=== PATIENT | female | born 1990 | race Caucasian/White ===

== ENCOUNTER 2019-12-03 08:35 | Outpatient (CLI) | payer BC, SELFPAY ==
--- NOTE | ~2019-12-03 | US_ITS ---
US thyroid INDICATION: Thyroid nodules seen on CT examination TECHNIQUE: Real-time sonographic images of the thyroid gland were obtained. COMPARISON: CT cervical spine dated 05/27/2018 FINDINGS: The right thyroid lobe measures 4 x 1.8 x 2 cm. The left thyroid lobe measures 4.1 x 1.8 x 1.6 cm. There is heterogeneous echotexture with multiple small nodules, largest in the right lobe me asuring 7 mm in largest on the left measuring 8 mm, likely benign increased vascularity in both lobes .. IMPRESSION: 1. Heterogeneous thyroid gland with increased vascularity and multiple small bilateral thyroid nodul es measuring 8 mm or less, compatible with benign multinodular goiter. Reviewed, dictated and finalized at location A. TIVE LEAD IMPRESSION: 1. Heterogeneous thyroid gland with increased vascularity and multiple small b ilateral thyroid nodules measuring 8 mm or less, compatible with benign multino dular goiter.
== END 2019-12-03 08:36 | disposition home or self-care (01) ==
LOC: ANHIMG 08:40
PROVIDERS: PCP Family Medicine; Visit Provider Family Medicine
DX: E04.2 Nontoxic multinodular goiter (principal)
CPT/HCPCS: 76536

== ENCOUNTER 2020-01-06 09:24 | Outpatient (RCR) | payer BC, SELFPAY ==
[2020-01-06 10:47] LABS: Hemoglobin A1C 5.1 % (<5.7)
[2020-01-06 11:07] LABS: Beta HCG Quantitative < 2.39 mIU/ML
[2020-01-06 11:47] LABS: Free T4 Free Thyroxine 0.79 ng/mL (0.78-2.19); Vitamin D 25 Hydroxy 31.1 ng/mL
[2020-01-09 14:52] LABS: Rubeola Measles IgG >300.00 AU/mL (>16.49)
[2020-01-09 21:21] LABS: FSH 6.4 mIU/mL (***); LH 2.9 mIU/mL (***); Progesterone 0.4 ng/mL (***); Prolactin 8.2 ng/mL (***)
[2020-01-10 04:27] LABS: Thyroid Peroxidase Antibodies 457 IU/mL (<9)
[2020-01-10 08:47] LABS: CMV IgG Antibody <0.60 U/mL (<0.60)
[2020-01-11 07:48] LABS: SM Antibody <1.0; SM/RNP Antibody <1.0
[2020-01-11 11:17] LABS: CMV IgM Antibody <30.00 AU/mL (<30.00)
[2020-01-13 22:57] LABS: Estradiol, Ultrasensitive 35 pg/mL
== END 2020-04-05 23:59 | disposition home or self-care (01) ==
LOC: ANHLAB 09:24
PROVIDERS: PCP Family Medicine; Visit Provider Obstetrics & Gynecology
DX: Z11.59 Encounter for screening for other viral diseases (principal)
CPT/HCPCS: 36415; 81220; 82306; 82397; 82670; 83001; 83002; 83036; 84144; 84146; 84439; 84443; 84702; 86235; 86376; 86644; 86645; 86765; 86850; 86900; 86901

== ENCOUNTER 2020-02-09 10:31 | Outpatient (CLI) | payer BC, SELFPAY ==
[2020-02-09 11:06] LABS: Alanine Aminotransferase 20 U/L (4-35); Albumin Level 4.2 g/dL (3.5-5.1); Alkaline Phosphatase 78 U/L (38-126); Aspartate Amino Transferase 32 U/L (14-36); Bilirubin,Total 0.5 mg/dL (0.2-1.3); Blood Urea Nitrogen 9 mg/dL (7-17); Calcium 9.1 mg/dL (8.4-10.2); Carbon Dioxide 30 mmol/L (22-30); Chloride 104 mmol/L (98-107); Estimated Glomerular Filt Rate > 60; Glucose 100 mg/dL (65-105); Potassium 4.1 mmol/L (3.4-5.0); Sodium 140 mmol/L (137-145)
== END 2020-02-09 10:32 | disposition home or self-care (01) ==
PROVIDERS: PCP Family Medicine; Visit Provider Family Medicine
DX: R74.8 Abnormal levels of other serum enzymes (principal)
CPT/HCPCS: 36415; 80053

== ENCOUNTER 2020-02-16 11:35 | Outpatient (CLI) | payer BC, SELFPAY ==
--- NOTE | ~2020-02-16 | XR_ITS ---
XR ankle RT min 3V 02/16/2020 11:58 INDICATION: Right ankle pain PROCEDURE: 4 views right ankle COMPARISON: 05/28/2014 FINDINGS: Fracture, dislocation or subluxation is not identified. Ankle mortise intact. The soft tiss ues appear within normal limits. No foreign bodies are identified. IMPRESSION: 1: NO ACUTE BONE OR JOINT ABNORMALITY IDENTIFIED. Reviewed, dictated and finalized at location A.
== END 2020-02-16 11:36 | disposition home or self-care (01) ==
LOC: ANHIMG 11:40
PROVIDERS: PCP Family Medicine; Visit Provider Family Medicine
DX: M25.571 Pain in right ankle and joints of right foot (principal); M79.671 Pain in right foot
CPT/HCPCS: 73610

== ENCOUNTER 2020-04-28 09:28 | Outpatient (CLI) | payer BC, SELFPAY ==
--- NOTE | ~2020-04-28 | MR_ITS ---
EXAMINATION: MR ankle RT wo con DATE: 04/28/2020 10:15 INDICATION: Right heel and ankle pain with limited range of motion post right ankle injury TECHNIQUE: Magnetic resonance imaging (MRI) of the right ankle was performed without intravenous cont rast. Sequences included sagittal, coronal, and axial proton-density weighted fast spin echo without and with fat saturation. COMPARISON: None. FINDINGS: Medial ankle ligaments: Deep and superficial deltoid ligaments as well as the spring ligament are normal. Lateral ankle ligaments: The anterior and posterior inferior tibiofibular ligaments are normal. The anterior talofibular, calc aneofibular and posterior talofibular ligaments are normal. Tendons: Achilles tendon is normal. The peroneus longus and brevis tendons are normal. The tibialis anterior a nd extensor hallucis longus and extensor digitorum longus tendons are normal. The tibialis posterior, flexor digitorum longus and flexor hallucis longus tendons are normal. Plantar fascia: Plantar aponeurosis is normal. Bones/other: Bone alignment is normal. No fracture or pathologic marrow replacing process. Joint spaces appear nor mal. No osteochondral lesions identified. Small Achilles calcaneal enthesophyte. Fluid: Physiologic amount of fluid in the joint spaces. IMPRESSION: 1. Small Achilles calcaneal enthesophyte. Otherwise unremarkable MRI of the right ankle and hindfoot. Reviewed, dictated and finalized at location A. IMPRESSION: 1. Small Achilles calcaneal enthesophyte. Otherwise unremarkable MRI of the rig ht ankle and hindfoot.
== END 2020-04-28 09:29 | disposition home or self-care (01) ==
PROVIDERS: PCP Family Medicine; Visit Provider Family Medicine
DX: S99.919A Unspecified injury of unspecified ankle, initial encounter (principal); X58.XXXA Exposure to other specified factors, initial encounter; M25.571 Pain in right ankle and joints of right foot; M77.31 Calcaneal spur, right foot
CPT/HCPCS: 73721

== ENCOUNTER 2020-10-10 15:36 | Outpatient (CLI) | payer BC, SELFPAY ==
[2020-10-10 16:02] LABS: Basophils Percent Auto 0.3 % (0.2-1.2); Eosinophils Absolute Auto 0.1 K/mm3 (0-0.3); Eosinophils Percent Auto 1.2 % (0-4.4); Hematocrit 39.6 % (37.0-47.0); Hemoglobin 13.6 g/dL (12.0-15.0); Immature Granulocyte Absolute 0.02 K/mm3 (0.00-0.031); Immature Granulocyte Percent A 0.3 % (0-0.5); Lymphocytes Absolute Auto 1.72 K/mm3 (0.9-3.2); Lymphocytes Percent Auto 26.7 % (18.3-44.2); Mean Corpuscular HGB Conc 34.3 g/dl (32-36); Mean Corpuscular Hemoglobin 31.5 pg (26-34); Mean Corpuscular Volume 91.7 fl (80-100); Mean Platelet Volume 10.4 fl (7.4-10.4); Monocytes Absolute Auto 0.3 K/mm3 (0.1-0.6); Monocytes Percent Auto 4.7 % (2.6-8.5); Neutrophils Absolute Auto 4.3 K/mm3 (1.3-6.7); Neutrophils Percent Auto 66.8 % (45.5-73.1); Platelet Count Result 245 k/mm3 (150-375); Red Blood Count 4.32 M/mm3 (4.2-5.4); Red Cell Distribution Width 12.6 % (11.5-14.5); White Blood Count 6.4 K/mm3 (4.5-10.0)
[2020-10-10 17:10] LABS: Free T4 Free Thyroxine 0.76 ng/mL (0.78-2.19); Vitamin D 25 Hydroxy 39.2 ng/mL
[2020-10-10 17:25] LABS: Hepatitis B Surface Antigen Negative (Negative)
[2020-10-10 17:38] LABS: Hepatitis C Virus Antibody Negative (Negative)
== END 2020-10-10 15:37 | disposition home or self-care (01) ==
LOC: ANHLAB 15:38
PROVIDERS: PCP Physician Assistant; Visit Provider Physician Assistant
DX: Z31.41 Encounter for fertility testing (principal)
CPT/HCPCS: 36415; 82306; 84439; 84443; 85025; 86803; 87340; 87491; 87591

== ENCOUNTER 2020-11-08 11:21 | Outpatient (CLI) | payer BC, SELFPAY ==
[2020-11-11 07:10] LABS: Rapid Plasma Reagin Non-Reactive (NonReactive)
== END 2020-11-08 11:22 | disposition home or self-care (01) ==
LOC: ANHLAB 11:29
PROVIDERS: PCP Physician Assistant; Visit Provider Physician Assistant
DX: Z31.41 Encounter for fertility testing (principal)
CPT/HCPCS: 36415; 86592

== ENCOUNTER 2020-11-26 10:43 | Outpatient (CLI) | payer BC, SELFPAY ==
--- NOTE | ~2020-11-26 | XR_ITS ---
EXAMINATION: XR chest 2V w BI decubitus DATE: 11/26/2020 11:19 INDICATION: Shortness of breath. TECHNIQUE: Frontal and lateral views and bilateral decubitus views of the chest were obtained. COMPARISON: None. FINDINGS: There is a small free-flowing right pleural effusion. No pneumonia or pneumothorax. The hea rt size is normal. IMPRESSION: 1. Small free-flowing right pleural effusion. Reviewed, dictated and finalized at location A. D LEAD
== END 2020-11-26 10:44 | disposition home or self-care (01) ==
PROVIDERS: PCP Physician Assistant
DX: R06.02 Shortness of breath (principal); R06.89 Other abnormalities of breathing; J90 Pleural effusion, not elsewhere classified
CPT/HCPCS: 71048

== ENCOUNTER 2021-01-07 16:38 | Emergency (ER) | payer OTHER, BC, SELFPAY ==
--- NOTE | ~2021-01-07 | XR_ITS ---
XR ankle RT min 3V 01/07/2021 17:14 Indication: Right ankle swelling and pain after fall Procedure: 4 views right ankle Comparison: 02/16/2020 Findings: There is a joint effusion. There is mild lateral soft tissue swelling. No acute fracture or traumatic malalignment. No foreign bodies. Impression: 1: No acute fracture. Reviewed, dictated and finalized at location A. IPITATOR Impression: 1: No acute fracture.
[2021-01-07 16:50] VITALS: BP 133/80; PULSE 96; RESP 20; TEMP 36; O2SAT 99
[2021-01-07 17:41] VITALS: BP 114/69; PULSE 70; RESP 18; TEMP 36.7; O2SAT 97
--- NOTE | 2021-01-07 17:53 | ED.LOWEXIN ---
HPI - Extremity Injury (Lower) General Chief Complaint: Extremity Injury, Lower Stated Complaint: fall, r leg pain Time Seen by Provider: 01/07/21 17:33 Source: patient Mode of arrival: wheelchair Limitations: no limitations History of Present Illness HPI Narrative: This is a 30-year-old female that presents the emergency department for right ankle injury sustained just prior to arrival. Reports she tripped over her cast twisting her right ankle. Reports pain and swelling in the ankle. Denies hitting her head, loss of consciousness, other injuries, decreased range of motion or numbness. Related Data Home Medications Medication Instructions Recorded Confirmed amitriptyline 10 mg tablet 10 mg PO .QHS tablet 09/27/19 04/18/20 diclofenac sodium 50 mg 50 mg PO TID PRN 04/18/20 04/18/20 tablet,delayed release Allergies Allergy/AdvReac Type Severity Reaction Status Date / Time kiwi Allergy Intermediate Anaphylactic Verified 04/18/20 15:53 Shock No Known Drug Allergies Allergy Intermediate Other Verified 05/27/18 13:16 Review of Systems Review of Systems: Narrative: CONSTITUTIONAL: Denies fever MUSCULOSKELETAL: Reports joint pain, and myalgia. NEUROLOGIC: Denies numbness, or weakness. All systems reviewed & are unremarkable except as noted in HPI and below PMFSH Past Medical History Medical History (Updated 01/07/21 @ 17:56 by Gwendolyn Rojas PA-C) Back pain Chronic headaches Obesity (BMI 30.0-34.9) Surgical History Surgical History History of hand surgery [place] teeth removed Family History Family History Father Family history of diabetes mellitus in first degree relative Mother Diabetes mellitus Other Family history of alcoholism Hypertension Social History Social History Smoking status: Never smoker Second hand tobacco smoke exposure: No Alcohol intake: current Substance use: never Substance use type: does not use Exam Narrative: Exam Narrative: GENERAL: Well-appearing, well-nourished, and in no acute distress. HEAD: Normocephalic, atraumatic. NECK: No midline cervical spine tenderness EYES: EOMI. CHEST: Clear to auscultation. No respiratory distress. No wheezes rales or rhonchi HEART: Regular rate and rhythm. No murmur heard. Normal peripheral pulses. BACK: No midline spinal tenderness EXTREMITIES: Normal range of motion. Mild edema about the right lateral malleoli, tender to palpation. Normal DP pulses. Normal sensation SKIN: Warm, dry, no rash. NEURO: No focal deficits. Alert and oriented x3. PSYCH: Normal mood and affect Course Vital Signs Vital signs: Vital Signs Temperature 96.8 F L 01/07/21 16:50 Pulse Rate 96 01/07/21 16:50 Respiratory Rate 20 01/07/21 16:50 Blood Pressure 133/80 01/07/21 16:50 Pulse Oximetry 99 01/07/21 16:50 Temperature 98.0 F 01/07/21 17:41 Pulse Rate 70 01/07/21 17:41 Respiratory Rate 18 01/07/21 17:41 Blood Pressure 114/69 01/07/21 17:41 Pulse Oximetry 97 01/07/21 17:41 MDM - Extremity Injury (Lower) MDM Narrative Medical decision making narrative: Patient presents to the emergency department for right ankle injury sustained just prior to arrival. Right ankle x-rays without acute findings. Patient was instructed on care of ankle sprain. She is to follow-up with primary care doctor. She was given warnings to return the ER Imaging Data Radiologist's impression: ITS Impressions Ankle X-Ray 01/07/21 17:19 Impression: 1: No acute fracture. Critical Care Time Critical Care Time Critical Care Time: No Discharge Plan Discharge Clinical Impression: Right ankle sprain Qualifiers: Encounter type: initial encounter Involved ligament of ankle: unspecified ligament Qualified Code(s): S93.401A - Sprain of unsp
--- NOTE | 2021-01-07 18:26 | PC.NURSE ---
doug wrap applied to right ankle. crutches provided
== END 2021-01-07 18:28 | disposition home or self-care (01) ==
PROVIDERS: Emergency Provider Emergency Medicine; PCP Physician Assistant
DX: S93.401A Sprain of unspecified ligament of right ankle, initial encounter (principal); E66.9 Obesity, unspecified; Z68.32 Body mass index [BMI] 32.0-32.9, adult; W18.09XA Striking against other object with subsequent fall, initial encounter
CPT/HCPCS: 73610; 99283

== ENCOUNTER 2021-01-10 14:28 | Outpatient (CLI) | payer BC, SELFPAY ==
[2021-01-10 16:10] LABS: Free T4 Free Thyroxine 1.04 ng/mL (0.78-2.19)
[2021-01-10 18:05] LABS: Total Triiodothyronine (T3) 1.67 NG/ML (0.97-1.69)
== END 2021-01-10 14:29 | disposition home or self-care (01) ==
PROVIDERS: PCP Physician Assistant; Visit Provider Internal Medicine Endocrinology, Diabetes & Metabolism
DX: E04.9 Nontoxic goiter, unspecified (principal)
CPT/HCPCS: 36415; 84439; 84443; 84480

== ENCOUNTER 2021-01-14 15:23 | Outpatient (CLI) | payer BC, SELFPAY ==
--- NOTE | ~2021-01-14 | US_ITS ---
EXAMINATION: US thyroid EXAM DATE: 01/14/2021 15:50 INDICATION: Nontoxic goiter. TECHNIQUE: Multiple grayscale and Doppler images of the thyroid were obtained (by a technologist who performed the scan) and subsequently reviewed. Individual nodules and recommendations may be reporte d in accordance with TI-RADS system as designated by the 2017 ACR White Paper TI-RADS committee. Comp phil is made to prior examination from 12/03/2019. FINDINGS: The right thyroid lobe measures 3.9 x 1.4 x 1.8 cm, the left measuring 3.5 x 1.3 x 1.5 cm. There is l obular thyroid contour and mildly heterogeneous echogenicity throughout with small thyroid nodules. There is nodule in the midpole deep aspect left thyroid lobe measuring 9 x 7 x 10 mm, solid (2 points ), very hypoechoic (3 points), wider than tall, lobulated margin (2 points), without echogenic foci, category TR5 for this nodule. This measured 4 x 6 x 8 mm a year ago, has increased in size. Several other nodules are less than a centimeter in size and do not appear changed. IMPRESSION: 1. Multinodular goiter. 2. Increase in size of left thyroid lobe TR5 nodule; recommend ultrasound-guided biopsy. Reviewed, dictated and finalized at location A. IMPRESSION: 1. Multinodular goiter. 2. Increase in size of left thyroid lobe TR5 nodule; recommend ultrasound-guid ed biopsy.
== END 2021-01-14 15:24 | disposition home or self-care (01) ==
PROVIDERS: PCP Physician Assistant; Visit Provider Internal Medicine Endocrinology, Diabetes & Metabolism
DX: E04.2 Nontoxic multinodular goiter (principal)
CPT/HCPCS: 76536

== ENCOUNTER 2021-03-07 13:12 | Outpatient (CLI) | payer BC, SELFPAY ==
[2021-03-07 13:56] LABS: Hematocrit 38.9 % (37.0-47.0); Hemoglobin 13.7 g/dL (12.0-15.0); Mean Corpuscular HGB Conc 35.2 g/dl (32-36); Mean Corpuscular Hemoglobin 30.7 pg (26-34); Mean Corpuscular Volume 87.2 fl (80-100); Mean Platelet Volume 10.3 fl (7.4-10.4); Platelet Count Result 225 k/mm3 (150-375); Red Blood Count 4.46 M/mm3 (4.2-5.4); Red Cell Distribution Width 12.3 % (11.5-14.5); White Blood Count 6.9 K/mm3 (4.5-10.0)
[2021-03-07 14:50] LABS: HIV 1/2 Ab P24 Ag Result Negative (Negative)
[2021-03-07 15:28] LABS: Hepatitis B Surface Antigen Negative (Negative); Rubella IgG Antibody 20.8 IU/ML
[2021-03-09 18:16] LABS: CMV IgG Antibody <0.60 U/mL (<0.60)
[2021-03-10 08:55] LABS: Rapid Plasma Reagin Non-Reactive (NonReactive)
== END 2021-03-07 13:13 | disposition home or self-care (01) ==
LOC: ANHLAB 13:14
PROVIDERS: PCP Family Medicine; Visit Provider Obstetrics & Gynecology
DX: Z34.91 Encounter for supervision of normal pregnancy, unspecified, first trimester (principal); Z3A.00 Weeks of gestation of pregnancy not specified
CPT/HCPCS: 36415; 85027; 86592; 86644; 86703; 86747; 86762; 86787; 86850; 86900; 86901; 87086; 87088; 87340; G0432

== ENCOUNTER 2021-06-03 10:36 | Outpatient (CLI) | payer BC, SELFPAY ==
--- NOTE | ~2021-06-03 | US_ITS ---
EXAMINATION: US thyroid DATE: 06/03/2021 11:00 INDICATION: Nontoxic goiter. TECHNIQUE: Multiple ultrasound images of the thyroid were obtained. COMPARISON: Thyroid ultrasound 01/14/2021, 12/03/2019 FINDINGS: The right thyroid lobe measures 4.0 x 2.2 x 1.8 cm. The left thyroid lobe measures 3.7 x 1.7 x 1.7 c m. The thyroid demonstrates heterogeneous echogenicity. Vascularity is normal. In the left thyroid l obe, there is a 12 mm solid, very hypoechoic, pzayb-hxga-hnhi nodule with smooth margin without echog enic foci (TI-RADS TR4), worsened from 9 mm on 01/14/21. In the right thyroid lobe, there is a 5 mm so lid, hypoechoic, etfhu-ymuh-acrj nodule with smooth margin without echogenic foci (TR4). In the right thyroid lobe, there is a 6 mm solid, hypoechoic, wvdsr-etmd-pzzy nodule with smooth margin without e chogenic foci (TR4). IMPRESSION: 1. Multinodular goiter. Thyroid ultrasound is recommended in one year. Reviewed, dictated and finalized at location A.
== END 2021-06-03 10:37 | disposition home or self-care (01) ==
LOC: ANHIMG 10:37
PROVIDERS: PCP Family Medicine; Visit Provider Internal Medicine Endocrinology, Diabetes & Metabolism
DX: E04.2 Nontoxic multinodular goiter (principal)
CPT/HCPCS: 76536

== ENCOUNTER 2021-06-13 13:00 | Outpatient (CLI) | payer BC, SELFPAY ==
--- NOTE | ~2021-06-13 | US_ITS ---
EXAMINATION: US FNA w image guidance DATE: 06/13/2021 14:01 INDICATION: Left thyroid nodule. TECHNIQUE: The procedure and its benefits and risks were discussed with the patient. Risks specifically discusse d included bleeding. The patient verbalized understanding of the risks and agreed to proceed. The nec k was prepped and draped in the usual sterile manner. 1% lidocaine was used for local anesthesia. 6 passes were made with a 25G needle into the lesion under ultrasound guidance. There were no immedia te complications. FINDINGS: Grayscale ultrasound images demonstrate needles advanced into a 12 mm nodule in left thyroid lobe for biopsy. IMPRESSION: 1. Ultrasound-guided fine needle aspiration of a left thyroid nodule. Reviewed, dictated and finalized at location A.
== END 2021-06-13 13:01 | disposition home or self-care (01) ==
LOC: ANHIMG 13:03
PROVIDERS: PCP Family Medicine; Visit Provider Internal Medicine Endocrinology, Diabetes & Metabolism
DX: E04.1 Nontoxic single thyroid nodule (principal)
CPT/HCPCS: 10005; 88173; 88305

== ENCOUNTER 2021-06-27 09:18 | Outpatient (CLI) | payer BC, SELFPAY ==
[2021-06-27 10:54] LABS: Hematocrit 30.7 % (37.0-47.0); Hemoglobin 10.7 g/dL (12.0-15.0)
[2021-06-27 11:06] LABS: Glucose 1 Hour PP 50gm Dose 124 mg/dL
[2021-06-27 11:46] LABS: HIV 1/2 Ab P24 Ag Result Negative (Negative)
[2021-07-02 07:06] LABS: Triiodothyronine T3 Free 3.3 pg/mL (2.3-4.2)
== END 2021-06-27 09:19 | disposition home or self-care (01) ==
PROVIDERS: PCP Family Medicine; Visit Provider Obstetrics & Gynecology
DX: E06.3 Autoimmune thyroiditis (principal); Z34.91 Encounter for supervision of normal pregnancy, unspecified, first trimester; Z3A.00 Weeks of gestation of pregnancy not specified
CPT/HCPCS: 36415; 82947; 84443; 84481; 85014; 85018; 86703; G0432

== ENCOUNTER 2021-07-25 15:11 | Outpatient (CLI) | payer BC, SELFPAY ==
--- NOTE | ~2021-07-25 | XR_ITS ---
EXAMINATION: XR ankle RT min 3V DATE: 07/25/2021 15:34 INDICATION: Right foot and ankle pain TECHNIQUE: Anteroposterior, oblique, mortise, and lateral views of the right ankle were obtained. COMPARISON: None. FINDINGS: Nondisplaced avulsion fracture at the tip of the lateral malleolus. Alignment remains essentially rosemarie tomic. No other fractures identified. Joint spaces are normal with large right ankle joint effusion. Small Achilles calcaneal spur. Prominent soft tissue swelling about the lateral malleolus. IMPRESSION: 1. Nondisplaced avulsion fracture at the tip of the lateral malleolus with large right ankle joint ef fusion. Reviewed, dictated and finalized at location A. IMPRESSION: 1. Nondisplaced avulsion fracture at the tip of the lateral malleolus with larg e right ankle joint effusion.
== END 2021-07-25 15:12 | disposition home or self-care (01) ==
LOC: ANHIMG 15:16
PROVIDERS: PCP Family Medicine; Visit Provider Physician Assistant
DX: M25.571 Pain in right ankle and joints of right foot (principal); S82.64XA Nondisplaced fracture of lateral malleolus of right fibula, initial encounter for closed fracture; X58.XXXA Exposure to other specified factors, initial encounter
CPT/HCPCS: 73610

== ENCOUNTER 2021-09-18 16:57 | Inpatient (IN) | payer BC, SELFPAY ==
[2021-09-18] VITALS (10 sets, daily range): BP systolic 99–115; BP diastolic 61–80; PULSE 85–103; RESP 18–20; TEMP 36.6–36.9; BMI 34.0
--- NOTE | 2021-09-18 16:57 | LDADM ---
This patient, Raven Junior, was admitted to Labor/Delivery/Recovery 105 on 09/18/21 at 16:57. Plans for labor, pain management and were discussed with patient. Patient/family oriented to hospital policies and general routines including ID bracelet, bed and alarms, visiting hours, pain management, procedures, bathroom and other care routines, personal items, smoking policy, room service/diet and guest tray routines, security routines, and visiting hours. Patient/Family are encouraged to report perceived risks to care and to ask questions if they do not understand what they are told or what they should do. See OBIX for further documentation.
[2021-09-18 17:35] LABS: Basophils Percent Auto 0.2 % (0.2-1.2); Eosinophils Absolute Auto 0.1 K/mm3 (0-0.3); Eosinophils Percent Auto 0.9 % (0-4.4); Hematocrit 32.4 % (37.0-47.0); Hemoglobin 11.5 g/dL (12.0-15.0); Immature Granulocyte Absolute 0.03 K/mm3 (0.00-0.031); Immature Granulocyte Percent A 0.3 % (0-0.5); Lymphocytes Absolute Auto 1.77 K/mm3 (0.9-3.2); Lymphocytes Percent Auto 19.8 % (18.3-44.2); Mean Corpuscular HGB Conc 35.5 g/dl (32-36); Mean Corpuscular Hemoglobin 31.5 pg (26-34); Mean Corpuscular Volume 88.8 fl (80-100); Mean Platelet Volume 11.3 fl (7.4-10.4); Monocytes Absolute Auto 0.5 K/mm3 (0.1-0.6); Monocytes Percent Auto 5.4 % (2.6-8.5); Neutrophils Absolute Auto 6.6 K/mm3 (1.3-6.7); Neutrophils Percent Auto 73.4 % (45.5-73.1); Platelet Count Result 152 k/mm3 (150-375); Red Blood Count 3.65 M/mm3 (4.2-5.4); Red Cell Distribution Width 13.4 % (11.5-14.5)
[2021-09-18] MEDS: DINOPROSTONE 10 MG VAG INSERT VAGINAL (17:51)
[2021-09-19] VITALS (105 sets, daily range): BP systolic 85–124; BP diastolic 44–85; PULSE 76–113; RESP 18; TEMP 36.4–37.3; O2SAT 95–100
[2021-09-19] MEDS: LACTATED RINGERS 1,000 ML 125 ML IV CONT ×3 (03:05→17:36)
[2021-09-19] MEDS: fentaNYL CITRATE INJ (*CRX) 100 MCG/2 ML VIAL 50 MCG IV PUSH ×2 (03:10→05:03)
[2021-09-19] MEDS: OXYTOCIN 30 UNITS/NS 500 ML 30 UNITS/500 ML BAG 6 UNITS IV CONT (06:11)
[2021-09-19 06:26] LABS: Rapid Plasma Reagin Non-Reactive (NonReactive)
[2021-09-19] MEDS: ONDANSETRON INJ 4 MG/2 ML VIAL IV PUSH ×2 (06:58→21:33)
--- NOTE | 2021-09-19 08:58 | WPDANESEPP ---
Anes - Eval Pre Procedure Procedure: labor epidural Date/Time: 09/19/21 08:58 Surgeon: martine Preop Diagnosis: pain during labor Pre Op Diagnosis: iol Patient Data Age: 31 Gender: F Height: 1.75 m Weight: 104.5 kg Last Vital Signs Temp 36.4 C L 09/19/21 06:11 Pulse 80 09/19/21 08:30 Resp 18 09/19/21 03:15 BP 107/70 09/19/21 08:30 Allergies Allergy/AdvReac Type Severity Reaction Status Date / Time black pepper Allergy Intermediate buring in Verified 08/26/21 14:37 mouth kiwi Allergy Intermediate BURING IN Verified 08/26/21 14:37 MOUTH Home Medications Medication Instructions Recorded Confirmed Type prenat.vits,reji,fzg-kyyj-soqok 1 tablet PO DAILY 01/09/21 09/18/21 History aspirin 81 mg tablet,delayed 81 mg PO DAILY 02/10/21 09/18/21 History release cholecalciferol (vitamin D3) 100 mcg PO DAILY 08/26/21 09/18/21 History [Vitamin D3] doxylamine succinate [Unisom 25 mg PO HS PRN 08/26/21 09/18/21 History (doxylamine)] pyridoxine (vitamin B6) 100 mg PO DAILY 08/26/21 09/18/21 History Laboratory Tests 09/18/21 09/18/21 09/18/21 17:29 17:29 17:29 WBC 9.0 K/mm3 K/mm3 (4.5-10.0) RBC 3.65 M/mm3 L M/mm3 (4.2-5.4) Hgb 11.5 g/dL L g/dL (12.0-15.0) Hct 32.4 % L % (37.0-47.0) MCV 88.8 fl fl (80-100) MCH 31.5 pg pg (26-34) MCHC 35.5 g/dl g/dl (32-36) RDW 13.4 % % (11.5-14.5) Plt Count 152 k/mm3 k/mm3 (150-375) MPV 11.3 fl H fl (7.4-10.4) Immature Gran % (Auto) 0.3 % % (0-0.5) Neut % (Auto) 73.4 % H % (45.5-73.1) Lymph % (Auto) 19.8 % % (18.3-44.2) Ray % (Auto) 5.4 % % (2.6-8.5) Eos % (Auto) 0.9 % % (0-4.4) Baso % (Auto) 0.2 % % (0.2-1.2) Lymph # (Auto) 1.77 K/mm3 K/mm3 (0.9-3.2) Ray # (Auto) 0.5 K/mm3 K/mm3 (0.1-0.6) Eos # (Auto) 0.1 K/mm3 K/mm3 (0-0.3) Baso # (Auto) 0.0 K/mm3 K/mm3 (0.0-0.1) Abs Immat Gran (auto) 0.03 K/mm3 K/mm3 (0.00-0.031) Absolute Neuts (auto) 6.6 K/mm3 K/mm3 (1.3-6.7) Absolute Nucleated RBC 0.0 K/mm3 K/mm3 (0.0-0.012) Nucleated RBC % 0.0 % % (0.0-0.2) RPR Non-reactive (NonReactive) Blood Type O Positive Antibody Screen Negative Patient hx anesthesia problems: none Family hx anesthesia problems: none Results Review: All pre-operative results and documents have been reviewed as part of the pre-operative evaluation. [facility] Past Medical History Medical History Anxiety Back pain Chronic headaches KG (generalized anxiety disorder) Migraine Obesity (BMI 30.0-34.9) Surgical History Surgical History History of hand surgery [place] teeth removed Family History Family History Father Family history of diabetes mellitus in first degree relative Mother Diabetes mellitus Atrial fibrillation Heart disease Thyroid disease Cerebrovascular accident Hypertension Sibling ADD (attention deficit disorder) ADHD, impulsive type Family history of alcoholism Grandparent Congestive heart failure Heart disease Grandparent Cerebrovascular accident Social History Social History (Updated 07/30/21 @ 09:57 by Naomi Urbina) Smoking status: Never smoker Second hand tobacco smoke exposure: No Alcohol intake: current Substance use: never Substance use type: does not use Additional living arrangements comments: Girlfriend - Shahrzad Additional occupation/education comments: [employer] Gender identity (if verbalized by the patient): Female Sexual Orientation (if Verbalized by the Patient): Lesbian, Lopez, or Homosexual Spiritual care concerns:
[2021-09-19] MEDS: fentaNYL CITRATE INJ (*CRX) 100 MCG/2 ML VIAL IV PUSH ×3 (09:25→15:53)
[2021-09-20] VITALS (40 sets, daily range): BP systolic 63–130; BP diastolic 24–95; PULSE 90–170; RESP 18–20; TEMP 36.4–37.7
[2021-09-20] MEDS: OXYTOCIN 30 UNITS/NS 500 ML 30 UNITS/500 ML BAG 125 UNITS IV CONT ×2 (06:53→07:25)
--- NOTE | 2021-09-20 07:38 | P.PCNOB_ITS ---
OB - Delivery Note Procedure Route of delivery: Episiotomy description: None Laceration Description: Vaginal - 2nd Degree Delivery repair: chromic Specimen: No Quantitative Blood Loss (ml): 750 Anesthesia type: Epidural Disposition: floor Narrative: Patient prepped in usual manner for this procedure. Maternal expuls elis efforts readily delivered vertex in the rest of baby delivered without difficulty. Cord was clamped and cut and placenta delivered spontaneously. Cervix vagina vulva were inspected and midline laceration with bilateral sulcus tears were noted. The sulcus tears were approximated using 2 0 chromic in a running interlocking manner followed by the laceration repair which was performed with 2 0 chromic to approximate vaginal tissue deep tissue and a subcuticular layer. Cervix vagina vulva were again inspected uterus was well contracted no significant bleeding patient are procedure well. Immediate postop condition of mother baby were both excellent. Baby Weeks of gestation at delivery: 39 gender: Male Weight (pounds): 8 Weight (ounces): 12 score one minute: 8 score five minutes: 9
--- NOTE | 2021-09-20 07:38 | WPDOBADMIT ---
Obstetrics - Admit Note Admission Note: record reviewed. No pertinent additions to the history and/or any subsequent changes in the physical findings that are not consistent with the expected course of the were found. Additions to the history and/or subsequent changes in the physical findings follow. None.
--- NOTE | 2021-09-20 07:38 | WPDHPUPDATE1 ---
History and Physical Update Update Date/Time: 09/20/21 07:38 History and Physical has been reviewed, including an updated exam of the patient. There are NO changes in the patient's condition. Risks, benefits, and alternatives have been discussed and questions answered. Patient agrees to proceed with procedure.
[2021-09-20] MEDS: IBUPROFEN 600 MG TABLET PO ×3 (08:05→22:50)
[2021-09-20] MEDS: miSOPROStol 200 MCG TABLET 1000 MCG (08:08)
[2021-09-20] MEDS: HYDROcodone/acetaminophen (*CRX) 5-325 MG TABLET 1 TAB PO ×2 (08:25→22:50)
[2021-09-20] MEDS: BENZOCAINE 20% AER SPR (*SP) 56 GM CAN 1 SPRAY TOPICAL (09:38)
[2021-09-20] MEDS: WITCH HAZEL 40 PADS 1 PAD TOPICAL (09:38)
--- NOTE | 2021-09-20 09:51 | OBPPTRN ---
Patient transferred to post room # 292 via wheelchair. Support person present. Oriented to unit, room, information board, rooming in, admission packet and security measures. Patient verbalizes understanding.
[2021-09-21 03:45] VITALS: BP 91/53; PULSE 86; RESP 18; TEMP 36.8
[2021-09-21 04:34] LABS: Hematocrit 21.1 % (37.0-47.0); Hemoglobin 7.3 g/dL (12.0-15.0)
[2021-09-21 07:18] VITALS: BP 97/59; PULSE 90; RESP 14; TEMP 36.9; O2SAT 99
--- NOTE | 2021-09-21 07:53 | PM.OBDSVD ---
DS: Admitting Diagnosis Discharge Date 09/21/2021 Admitting Diagnosis OB - DS: Summary OB Procedures : None OB Procedures Intrapartum: Spontaneous Vag Delivery OB Procedures: : None Time Spent with Patient Time attestation: Total time spent providing and/or coordinating discharge services: DS: Data Data Completed and Pending Labs on day of discharge: Labs from last 24 hours 09/21/21 03:44 Hgb 7.3 L D Hct 21.1 L Discharge Plan Discharge Discharging Clinician: Andreas Cabrera Patient Disposition: Home, Self-Care Activity: as tolerated Diet: as tolerated Patient Instructions: Antibiotic Form Stand Alone Forms: General Discharge Information Follow-up/Referrals: Andreas Cabrera MD [Physician] - 3 Weeks Discharge Medications: New ibuprofen 600 mg Tablet 600 mg PO Q6H PRN (Reason: Cramping) Qty: 30 RF: 0 Continued prenat.vits,reji,eni-nxhj-hpzut Tablet 1 tablet PO DAILY RF: 0 Discontinued aspirin 81 mg tablet,delayed release (DR/EC) 81 mg PO DAILY RF: 0 pyridoxine (vitamin B6) 100 mg Tablet 100 mg PO DAILY RF: 0 Unisom (doxylamine) 25 mg Tablet 25 mg PO HS PRN (Reason: Nausea) RF: 0 Vitamin D3 100 mcg (4,000 unit) Capsule 100 mcg PO DAILY RF: 0 Date of admission: 09/18/21 16:57 Primary Care Provider: Colby Hager Admitting Provider: Andreas Cabrera Attending physician on admission: Andreas Cabrera Condition: Stable
[2021-09-21] MEDS: POLYSACCHARIDE IRON COMPLEX 150 MG CAPSULE PO ×2 (09:37→17:16)
[2021-09-21] MEDS: DOCUSATE SODIUM 100 MG CAPSULE PO ×2 (09:37→17:16)
[2021-09-21] MEDS: MULTIVIT/MIN/PREN/FOL AC/IRON TABLET 1 TAB PO (09:37)
[2021-09-21] MEDS: HYDROcodone/acetaminophen (*CRX) 5-325 MG TABLET 1 TAB PO ×2 (09:37→17:16)
[2021-09-21] MEDS: IBUPROFEN 600 MG TABLET PO ×2 (09:38→17:16)
[2021-09-21 19:47] VITALS: BP 111/62; PULSE 103; RESP 16; TEMP 36.4; O2SAT 98
[2021-09-22] MEDS: HYDROcodone/acetaminophen (*CRX) 5-325 MG TABLET 1 TAB PO ×2 (00:52→08:08)
[2021-09-22] MEDS: IBUPROFEN 600 MG TABLET PO ×2 (00:52→08:07)
[2021-09-22 07:50] VITALS: BP 109/65; PULSE 89; RESP 16; TEMP 36.4; O2SAT 100
[2021-09-22] MEDS: MULTIVIT/MIN/PREN/FOL AC/IRON TABLET 1 TAB PO (08:07)
[2021-09-22] MEDS: DOCUSATE SODIUM 100 MG CAPSULE PO (08:07)
[2021-09-22] MEDS: POLYSACCHARIDE IRON COMPLEX 150 MG CAPSULE PO (08:08)
--- NOTE | 2021-09-22 08:30 | PC.NURSE ---
Observed mother is able to independently latch infant with appropriate positioning/alignment using nipple shield. She denies any nipple discomfort, is feeding as required, waking infant to feed if needed. Mother reports infant is more awake and making eager attempts with and maintaining latch. will eagerly nurse the first 2-3 minutes then fall asleep at breast maintaining good latch. Assisted with infant to breast using nipple shield. Reviewed positioning/alignment in football, holding breast in C hold and guided asymmetrical latch on. Discussed rational for each. was able to latch correctly. Infant nursed eagerly, with steady draws for the first few minutes then fell asleep while at breast. Reviewed signs of a correct latch, effective nursing and suck swallow ratio. Infant was able to maintain latch without discomfort to mother. Infant has been enticed with formula, he will have a few bursts of suckling then fall asleep. Discussed nipple shield precautions and possible complications. Instructions given on application and cleaning of shield. Patient able to return demonstration on proper application of shield. Discussed the need for continued pumping if infant continues to nurse with the shield. Reviewed weaning techniques. Patient verbalizes understanding. Infant has had no effective feedings in the past 24 hours, all feedings is supplemented. is currently meeting outcomes for weight, output, jaundice and feeding frequencies. Mother continues to pump after all feedings without difficulties or discomfort. Mother has a pump for home use, assisted mother with use before discharge. Discussed the difference of effective vs ineffective feeding. Reviewed requires supplementation after all feedings. He is latching with good burst of suckling, he is not feeding consistently with adequate milk transfer at this time and continues to need to be supplement after . Feeding plan discussed, Feeding Plan is for mother to put infant to breast each feeding for up to 15 minutes, then pace feed supplement 30-40 mls and pump for 10-15 minutes. Discussed increasing supplementation as infant requires to satisfactions. Reviewed paced feeding and suggested to stop when infant is satisfied, as long as is having required output. With increased supplementation may not want to feed for 4 hours. Mother will continue to pump on feeding schedule and will increase session to 20 minutes if pumping every 4 hours. If infant begins to nurse effectively with long draws and frequent swallowing noted, may decrease supplementation and discontinue pumping. Advised not to discontinue supplement until a pre/post feeding evaluation by infant PCP, Follow up RN or LC is completed. Mother states she feels confident to continue feeding plan at home. Reviewed transition to breast milk, signs of adequate intake, and engorgement/relief. Instructed to call ICP if intake/output less than required. Reviewed regular medications mother is taking. Information provided per Patricia. Reviewed community resources on the [employer] website and in the Mom/Baby guide. Information on outpatient services provided. Mother has no further questions at this time.
[2021-09-23 09:41] VITALS: BP 110/65; PULSE 79; RESP 16; TEMP 36.9; O2SAT 100
--- NOTE | 2021-09-30 16:26 | PM.OBDSVD ---
DS: Admitting Diagnosis Discharge Date 09/22/21 Admitting Diagnosis OB - DS: Summary OB Procedures : None OB Procedures Intrapartum: Spontaneous Vag Delivery OB Procedures: : None Time Spent with Patient Time attestation: Total time spent providing and/or coordinating discharge services: DS: Data Data Completed and Pending Completed studies during hospitalization: Pending at discharge 09/20/21 06:39 Surgical [PTH] Routine Discharge Plan Discharge Discharging Clinician: Andreas Cabrera Patient Disposition: Home, Self-Care Activity: as tolerated Diet: as tolerated Discharge Instructions: Education: Mom and Baby Guide Given to: Mother Follow-Up: Call your delivering provider's office for an appointment to be seen in: 3 weeks Mom and baby should come to the [facility] for the follow-up appointment. Appointment Date/Time: September 23, 2021 at 9:00 am What to expect at your follow-up visit: Blood Pressure Check Physical Assessment Call [phone] if you are unable to keep your appointment time. BREAST CARE: * Wear a snug supportive bra. * For engorgement discomfort: Breast Feeding: * Apply warm moist washcloths * Express milk as needed to relieve engorgement * Wear loose clothing Bottle Feeding: * May apply ice packs * For sore nipples: * Identify correct latch-on * Apply warm moist washcloths before and after nursing * Air dry nipples after nursing * May apply Lansinoh cream to nipples EPISIOTOMY/PERINEAL CARE: * Until bleeding stops, use your alba bottle after urinating * Change your pad frequently throughout the day * You may take sitz baths several times a day (fill your bathtub with warm water and soak for 20 minutes.) Do NOT bathe in the water * No tub baths until seen by your physician - You may shower ACTIVITY: * Rest as much as possible. * Do not exercise or lift anything heavier than your baby (such as laundry or other children.) * Avoid stairs or driving as much as possible. * Do not put anything into the vagina. No douching, tampons, or sexual activity until seen by physician. NOTIFY PHYSICIAN IF YOU HAVE ANY QUESTIONS OR IF ANY OF THE FOLLOWING SYMPTOMS OCCUR: * If your episiotomy or incision becomes red, swollen, or more painful than what you have experienced in the hospital. * If your vaginal bleeding becomes foul smelling. * If your vaginal bleeding becomes more heavy than a period or if your bleeding changes from pink to bright red. However, you may pass an occasional walnut-sized clot once or twice for the first week . * If you experience a sharp, shooting pain in you calves. * If you discover a hard, reddened area on your breast or if you experience flu-like symptoms. DIET: * Eat regular, well-balanced meals. * Drink plenty of fluids daily. If , drink to thirst. Patient Instructions: Antibiotic Form Stand Alone Forms: General Discharge Information Follow-up/Referrals: Andreas Cabrera MD [Physician] - 3 Weeks Discharge Medications: New ibuprofen 600 mg Tablet 600 mg PO Q6H PRN (Reason: Cramping) Qty: 30 RF: 0 Continued prenat.vits,reji,[id number] Tablet 1 tablet PO DAILY RF: 0 Discontinued aspirin 81 mg tablet,delayed release (DR/EC) 81 mg PO DAILY RF: 0 pyridoxine (vitamin B6) 100 mg Tablet 100 mg PO DAILY RF: 0 Unisom (doxylamine) 25 mg Tablet 25 mg PO HS PRN (Reason: Nausea) RF: 0 Vitamin D3 100 mcg (4,000 unit) Capsule 100 mcg PO DAILY RF: 0 Date of admission: 09/18/21 16:57 Primary Care Provider: Colby Hager Admitting Provider: Andreas Cabrera Attending physician on admission: Andreas Cabrera Condition: Stable
== END 2021-09-22 10:58 | disposition home or self-care (01) | DRG 807 ==
LOC: ANHLDR 09-19 08:05 → ANHOB2 09-20 10:06
PROVIDERS: Admitting Provider Obstetrics & Gynecology; PCP Family Medicine; Visit Provider Obstetrics & Gynecology
DX: O77.0 Labor and delivery complicated by meconium in amniotic fluid (principal); Z37.0 Single live birth; O70.1 Second degree perineal laceration during delivery; Z3A.39 39 weeks gestation of pregnancy
CPT/HCPCS: 36415; 85014; 85018; 85025; 86592; 86850; 86900; 86901; 88307; A9270; J2405; J2590; J2795; J3010; J7120

== ENCOUNTER 2022-01-12 11:07 | Outpatient (CLI) | payer BC, SELFPAY ==
[2022-01-12 11:53] LABS: Free T4 Free Thyroxine 0.88 ng/mL (0.78-2.19)
== END 2022-01-12 11:08 | disposition home or self-care (01) ==
LOC: ANHLAB 11:09
PROVIDERS: PCP Family Medicine; Visit Provider Internal Medicine Endocrinology, Diabetes & Metabolism
DX: E04.1 Nontoxic single thyroid nodule (principal); R76.8 Other specified abnormal immunological findings in serum
CPT/HCPCS: 36415; 84439; 84443

== ENCOUNTER 2022-01-14 16:33 | Outpatient (CLI) | payer BC, SELFPAY ==
--- NOTE | ~2022-01-14 | MR_ITS ---
EXAMINATION: MR ankle RT wo con DATE: 01/14/2022 17:29 INDICATION: Right ankle pain TECHNIQUE: Magnetic resonance imaging (MRI) of the right ankle was performed without intravenous cont rast. Sequences included sagittal, coronal, and axial proton-density weighted fast spin echo without and with fat saturation. COMPARISON: Right ankle radiographs dated 07/25/2021 FINDINGS: Medial ankle ligaments: Deep and superficial deltoid ligaments as well as the spring ligament are normal. Lateral ankle ligaments: The anterior and posterior inferior tibiofibular ligaments are normal. The anterior talofibular ligam ent is markedly attenuated consistent with chronic partial tear. There is also thickening and increas ed signal at the proximal calcaneofibular ligament consistent with scarring related to chronic sprain . The posterior talofibular ligament remains normal although there is a recent avulsion fracture at i ts footplate at the posterior tip of the lateral malleolus. Tendons: Small enthesophyte at the calcaneal insertion of the normal Achilles tendon. The peroneus longus and brevis tendons are normal. The tibialis anterior and extensor hallucis longus and extensor digitorum longus tendons are normal. The tibialis posterior, flexor digitorum longus and flexor hallucis longus tendons are normal. Plantar fascia: The plantar aponeurosis is normal. Bones/other: There is minimal edema along the still discernible avulsion fracture across the posterior tip of the lateral malleolus suggests this remains in the process of healing, unclear whether ununited or ununit ed. Nonspecific marrow edema at the distal aspect of the and medial cuneiform which is only incomplet darya visualized on the sagittal and axial images Otherwise normal marrow signal throughout. Joint spac es are normal. Fluid: Physiologic amount of fluid in the joint spaces. No tenosynovitis, bursitis or other abnormal fluid c ollections. IMPRESSION: 1. Small amount of residual edema along a still discernible avulsion fracture line at the distal tip of the lateral malleolus which involves a footplate of the posterior talofibular ligament. Its unclea r whether this is united or ununited. 2. Chronic partial tears of the anterior talofibular and calcaneofibular ligaments. 3. Nonspecific marrow edema at the distal aspect of the incompletely visualized medial cuneiform with out evident fracture line which could be related to osteoarthritis of the nonvisualized first carpome tacarpal joint or bone contusion. Reviewed, dictated and finalized at location A. IMPRESSION: 1. Small amount of residual edema along a still discernible avulsion fracture l ine at the distal tip of the lateral malleolus which involves a footplate of th e posterior talofibular ligament. Its unclear whether this is united or ununite d. 2. Chronic partial tears of the anterior talofibular and calcaneofibular ligame nts. 3. Nonspecific marrow edema at the distal aspect of the incompletely visualized medial cuneiform without evident fracture line which could be related to osteo arthritis of the nonvisualized first carpometacarpal joint or bone contusion.
== END 2022-01-14 16:34 | disposition home or self-care (01) ==
PROVIDERS: PCP Family Medicine; Visit Provider Physician Assistant Surgical
DX: M25.579 Pain in unspecified ankle and joints of unspecified foot (principal)
CPT/HCPCS: 73721

== ENCOUNTER 2022-03-12 10:45 | Outpatient (CLI) | payer BC, SELFPAY ==
[2022-03-12 11:12] LABS: Alanine Aminotransferase 27 U/L (6-35); Albumin Level 4.4 g/dL (3.5-5.1); Alkaline Phosphatase 98 U/L (38-126); Anion Gap 6 mmol/L (8-16); Aspartate Amino Transferase 34 U/L (14-36); Bilirubin,Total 0.3 mg/dL (0.2-1.3); Blood Urea Nitrogen 10 mg/dL (7-17); Calcium 8.8 mg/dL (8.4-10.2); Carbon Dioxide 28 mmol/L (22-30); Chloride 103 mmol/L (98-107); Cholesterol 223 mg/dL (0-200); Estimated Glomerular Filt Rate > 60; Glucose 96 mg/dL (65-110); HDL Direct 48 mg/dL; Potassium 3.9 mmol/L (3.4-5.0); Sodium 137 mmol/L (137-145); Triglycerides 132 mg/dL (<150)
[2022-03-12 11:23] LABS: LDL Cholesterol Direct 119 mg/dL
[2022-03-12 11:45] LABS: Hematocrit 36.9 % (37.0-47.0); Hemoglobin 12.2 g/dL (12.0-15.0); Mean Corpuscular HGB Conc 33.1 g/dl (32-36); Mean Corpuscular Hemoglobin 27.1 pg (26-34); Mean Corpuscular Volume 81.8 fl (80-100); Mean Platelet Volume 10.3 fl (7.4-10.4); Platelet Count Result 244 k/mm3 (150-375); Red Blood Count 4.51 M/mm3 (4.2-5.4); Red Cell Distribution Width 14.9 % (11.5-14.5); White Blood Count 5.8 K/mm3 (4.5-10.0)
[2022-03-12 12:52] LABS: Vitamin D 25 Hydroxy 31.5 ng/mL
== END 2022-03-12 10:46 | disposition home or self-care (01) ==
LOC: ANHLAB 10:47
PROVIDERS: PCP Family Medicine; Visit Provider Family Medicine
DX: Z00.00 Encounter for general adult medical examination without abnormal findings (principal); E55.9 Vitamin D deficiency, unspecified; R53.83 Other fatigue; E78.5 Hyperlipidemia, unspecified
CPT/HCPCS: 36415; 80053; 80061; 82306; 85027

== ENCOUNTER 2022-09-14 10:02 | Outpatient (CLI) | payer BC, SELFPAY ==
[2022-09-14 11:12] LABS: Influenza A QL RT-PCR Negative (Negative); Influenza B QL RT-PCR Negative (Negative); SARS-CoV-2 RNA PCR Negative
== END 2022-09-14 10:03 | disposition home or self-care (01) ==
LOC: ANHLAB 10:05
PROVIDERS: Physician Assistant; PCP Family Medicine; Visit Provider Family Medicine
DX: R50.9 Fever, unspecified (principal); R68.89 Other general symptoms and signs; Z20.822 Contact with and (suspected) exposure to COVID-19
CPT/HCPCS: 87502; U0003; U0005

== ENCOUNTER 2023-01-14 09:42 | Outpatient (CLI) | payer BC, SELFPAY ==
[2023-01-14 17:43] LABS: Free T4 Free Thyroxine 0.82 ng/mL (0.78-2.19)
== END 2023-01-14 09:43 | disposition home or self-care (01) ==
LOC: ANHWCLAB 09:44
PROVIDERS: PCP Family Medicine; Visit Provider Internal Medicine Endocrinology, Diabetes & Metabolism
DX: E04.1 Nontoxic single thyroid nodule (principal)
CPT/HCPCS: 36415; 84439; 84443

== ENCOUNTER → 2023-01-18 08:17 | Outpatient (CLI) | payer BC, SELFPAY ==
--- NOTE | ~2023-01-18 | US_ITS ---
Thyroid ultrasound. Clinical History: Thyroid nodule COMPARISON: 06/03/2021 Findings: Real-time sonography of the thyroid gland was performed. The right lobe measures 4.0 x 1.7 x 1.7 cm. The left lobe measures 4.2 x 1.4 x 1.4 cm. The isthmus is 4 mm in AP diameter. Thyroid parenchyma is diffusely heterogeneous. There are multiple scattered hyperechoic and hypoechoi c nodules, the largest of which it is hypoechoic in the left midpole, and measures 1.1 cm in diameter . Impression: Heterogeneous thyroid with multiple nodules, largest of which measures 1.1 cm. Overall appearance is similar to prior exam. Reviewed, dictated and finalized at [facility]. Impression: Heterogeneous thyroid with multiple nodules, largest of which measures 1.1 cm. Overall appearance is similar to prior exam.
== END ==
PROVIDERS: PCP Family Medicine; Visit Provider Internal Medicine Endocrinology, Diabetes & Metabolism
DX: E04.1 Nontoxic single thyroid nodule (principal)
CPT/HCPCS: 76536

== ENCOUNTER 2023-01-21 08:43 | Outpatient (CLI) | payer OTHER, SELFPAY ==
[2023-01-21 09:43] LABS: Basophils Percent Auto 0.3 % (0.2-1.2); Eosinophils Absolute Auto 0.1 K/mm3 (0-0.3); Eosinophils Percent Auto 2.3 % (0-4.4); Hematocrit 35.5 % (37.0-47.0); Hemoglobin 11.3 g/dL (12.0-15.0); Immature Granulocyte Absolute 0.02 K/mm3 (0.00-0.031); Immature Granulocyte Percent A 0.5 % (0-0.5); Lymphocytes Absolute Auto 1.06 K/mm3 (0.9-3.2); Mean Corpuscular HGB Conc 31.8 g/dl (32-36); Mean Corpuscular Hemoglobin 24.8 pg (26-34); Mean Corpuscular Volume 77.9 fl (80-100); Mean Platelet Volume 10.2 fl (7.4-10.4); Monocytes Absolute Auto 0.3 K/mm3 (0.1-0.6); Monocytes Percent Auto 7.9 % (2.6-8.5); Neutrophils Absolute Auto 2.4 K/mm3 (1.3-6.7); Platelet Count Result 252 k/mm3 (150-375); Red Blood Count 4.56 M/mm3 (4.2-5.4); Red Cell Distribution Width 15.8 % (11.5-14.5); White Blood Count 3.9 K/mm3 (4.5-10.0)
[2023-01-21 09:54] LABS: Alanine Aminotransferase 31 U/L (6-35); Albumin Level 4.3 g/dL (3.5-5.1); Alkaline Phosphatase 100 U/L (38-126); Anion Gap 6 mmol/L (8-16); Aspartate Amino Transferase 36 U/L (14-36); Bilirubin,Total 0.6 mg/dL (0.2-1.3); Blood Urea Nitrogen 5 mg/dL (7-17); Calcium 8.7 mg/dL (8.4-10.2); Carbon Dioxide 28 mmol/L (22-30); Chloride 104 mmol/L (98-107); Estimated Glomerular Filt Rate > 60; Glucose 104 mg/dL (65-110); Potassium 3.7 mmol/L (3.4-5.0); Sodium 138 mmol/L (137-145)
== END 2023-01-21 08:44 | disposition home or self-care (01) ==
LOC: ANHLAB 08:44
PROVIDERS: PCP Family Medicine; Visit Provider Physician Assistant
DX: M25.571 Pain in right ankle and joints of right foot (principal); Z01.818 Encounter for other preprocedural examination
CPT/HCPCS: 36415; 80053; 85025

== ENCOUNTER 2023-02-02 10:51 | Outpatient (CLI) | payer BC, SELFPAY ==
[2023-02-02 11:25] LABS: Rheumatoid Factor < 8.6 IU/ML (<12)
[2023-02-02 11:26] LABS: CRP 0.6 mg/dL (<1.0); Uric Acid 5.9 mg/dL (2.5-7.5)
[2023-02-02 11:50] LABS: Erythrocyte Sedimentation Rate 18 mm/hr (0-20)
== END 2023-02-02 10:52 | disposition home or self-care (01) ==
LOC: ANHLAB 10:53
PROVIDERS: PCP Family Medicine; Visit Provider Physician Assistant
DX: M25.40 Effusion, unspecified joint (principal)
CPT/HCPCS: 36415; 84550; 85652; 86038; 86140; 86430

== ENCOUNTER 2023-03-08 08:45 | Outpatient (CLI) | payer BC, SELFPAY ==
[2023-03-08 09:22] LABS: Basophils Percent Auto 0.7 % (0.2-1.2); Eosinophils Absolute Auto 0.1 K/mm3 (0-0.3); Eosinophils Percent Auto 1.7 % (0-4.4); Hematocrit 35.9 % (37.0-47.0); Hemoglobin 11.5 g/dL (12.0-15.0); Immature Granulocyte Absolute 0.01 K/mm3 (0.00-0.031); Immature Granulocyte Percent A 0.2 % (0-0.5); Lymphocytes Absolute Auto 1.95 K/mm3 (0.9-3.2); Lymphocytes Percent Auto 33.9 % (18.3-44.2); Mean Corpuscular Hemoglobin 24.9 pg (26-34); Mean Corpuscular Volume 77.7 fl (80-100); Mean Platelet Volume 10.2 fl (7.4-10.4); Monocytes Absolute Auto 0.3 K/mm3 (0.1-0.6); Monocytes Percent Auto 4.7 % (2.6-8.5); Neutrophils Absolute Auto 3.4 K/mm3 (1.3-6.7); Neutrophils Percent Auto 58.8 % (45.5-73.1); Platelet Count Result 293 k/mm3 (150-375); Red Blood Count 4.62 M/mm3 (4.2-5.4); Red Cell Distribution Width 15.6 % (11.5-14.5); White Blood Count 5.8 K/mm3 (4.5-10.0)
[2023-03-08 09:34] LABS: Alanine Aminotransferase 26 U/L (6-35); Albumin Level 4.2 g/dL (3.5-5.1); Alkaline Phosphatase 112 U/L (38-126); Anion Gap 9 mmol/L (8-16); Aspartate Amino Transferase 33 U/L (14-36); Bilirubin,Total 0.6 mg/dL (0.2-1.3); Blood Urea Nitrogen 7 mg/dL (7-17); Calcium 8.5 mg/dL (8.4-10.2); Carbon Dioxide 27 mmol/L (22-30); Chloride 102 mmol/L (98-107); Cholesterol 172 mg/dL (0-200); Estimated Glomerular Filt Rate > 60; Glucose 103 mg/dL (65-110); HDL Direct 39 mg/dL; Potassium 3.5 mmol/L (3.4-5.0); Sodium 138 mmol/L (137-145); Triglycerides 113 mg/dL (<150)
[2023-03-08 09:41] LABS: Hemoglobin A1C 5.5 % (<5.7); Iron 37 ug/dL (37-170)
[2023-03-08 09:45] LABS: LDL Cholesterol Direct 106 mg/dL
[2023-03-08 09:51] LABS: Percent Iron Saturation 10 % (20-50)
[2023-03-08 09:53] LABS: Appearance Urine Turbid (Clear); Bacteria Urine 4+ /hpf; Bilirubin Urine Negative (Negative); Blood Urine Negative (Negative); Color Urine Dark Yellow (Yellow); Glucose Urine UA Negative (Negative); Hyaline Casts Urine Present /lpf; Ketones Urine Trace mg/dL (Negative); Leukocyte Esterase Ur Negative LEU/UL (NEGATIVE); Nitrate Urine Negative (Negative); Protein Urine 1+ mg/dL (Negative); Specific Grav Ur 1.022 (1.001-1.035); Squamous Epithelial Cell Urine Many /hpf (Few)
[2023-03-08 09:57] LABS: Add Urine Microscopic? YES
[2023-03-08 10:01] LABS: Vitamin D 25 Hydroxy 19.3 ng/mL
[2023-03-08 10:18] LABS: Ferritin 7.33 ng/mL (6.24-137)
[2023-03-08 10:39] LABS: Folic Acid 4.9 ng/mL (2.76->20)
== END 2023-03-08 08:46 | disposition home or self-care (01) ==
PROVIDERS: Physician Assistant; PCP Family Medicine; Visit Provider Physician Assistant
DX: Z00.00 Encounter for general adult medical examination without abnormal findings (principal); D50.9 Iron deficiency anemia, unspecified; F41.1 Generalized anxiety disorder; R53.83 Other fatigue; R51.9 Headache, unspecified
CPT/HCPCS: 36415; 80053; 80061; 81001; 82306; 82607; 82728; 82746; 83036; 83540; 83550; 85025

== ENCOUNTER 2023-04-26 08:26 | Outpatient (CLI) | payer BC, SELFPAY ==
[2023-04-26 09:08] LABS: Basophils Percent Auto 0.5 % (0.2-1.2); Eosinophils Absolute Auto 0.1 K/mm3 (0-0.3); Eosinophils Percent Auto 2.2 % (0-4.4); Hematocrit 36.6 % (37.0-47.0); Hemoglobin 11.3 g/dL (12.0-15.0); Immature Granulocyte Absolute 0.01 K/mm3 (0.00-0.031); Immature Granulocyte Percent A 0.2 % (0-0.5); Lymphocytes Absolute Auto 2.14 K/mm3 (0.9-3.2); Mean Corpuscular HGB Conc 30.9 g/dl (32-36); Mean Corpuscular Hemoglobin 25.6 pg (26-34); Mean Platelet Volume 9.7 fl (7.4-10.4); Monocytes Absolute Auto 0.3 K/mm3 (0.1-0.6); Monocytes Percent Auto 5.5 % (2.6-8.5); Neutrophils Absolute Auto 3.2 K/mm3 (1.3-6.7); Neutrophils Percent Auto 54.6 % (45.5-73.1); Platelet Count Result 247 k/mm3 (150-375); Red Blood Count 4.41 M/mm3 (4.2-5.4); Red Cell Distribution Width 16.2 % (11.5-14.5); White Blood Count 5.8 K/mm3 (4.5-10.0)
[2023-04-26 09:14] LABS: Appearance Urine Clear (Clear); Bacteria Urine Rare /hpf; Bilirubin Urine Negative (Negative); Blood Urine Negative (Negative); Color Urine Yellow (Yellow); Glucose Urine UA Negative (Negative); Ketones Urine Negative (Negative); Leukocyte Esterase Ur Trace LEU/UL (NEGATIVE); Nitrate Urine Negative (Negative); Non Pathogenic Casts 0-2; Protein Urine Negative (Negative); RBC Urine 0-2 /hpf (0-2); Specific Grav Ur 1.014 (1.001-1.035); Squamous Epithelial Cell Urine Occasional /hpf (Few); Urobilinogen Urine 0.2 mg/dL (<2.0); WBC Urine 0-5 /hpf (0-3); pH Urine 5.5 (5.0-9.0)
[2023-04-26 09:20] LABS: Iron 50 ug/dL (37-170)
[2023-04-26 09:29] LABS: Percent Iron Saturation 13 % (20-50)
[2023-04-26 09:47] LABS: Add Urine Microscopic? YES
== END 2023-04-26 08:27 | disposition home or self-care (01) ==
LOC: ANHLAB 08:27
PROVIDERS: PCP Family Medicine; Visit Provider Physician Assistant
DX: R31.9 Hematuria, unspecified (principal); D64.9 Anemia, unspecified
CPT/HCPCS: 36415; 81001; 82607; 82728; 82746; 83540; 83550; 85025; 87086; 87088

== ENCOUNTER 2024-08-24 10:22 | Outpatient (CLI) | payer BC, SELFPAY ==
--- NOTE | ~2024-08-24 | US_ITS ---
EXAMINATION: US OB <=14 wk fetus w TV DATE: 08/24/2024 10:49 INDICATION: Encounter for supervision of normal during first trimester TECHNIQUE: Real-time pelvic ultrasound utilizing both a transvaginal and transabdominal probe was pe rformed. The interpreting radiologist was not present for the study. COMPARISON: None. FINDINGS: The uterus measures 16.3 x 9.0 x 7.8 cm. There is an intrauterine gestational sac. A yolk sac and fe raúl pole are identified. The crown rump length measures 4.5 cm, which correlates with an estimated ge stational age of 11 weeks and 2 days. heart motion is identified measuring 165 beats per minute (bpm) by M-mode Doppler. The bilateral ovaries were not visualized. There is no free fluid in the pelvis. IMPRESSION: 1. Single living fetus with heart rate of 165 bpm. 2. Gestational age by ultrasound of 11 weeks 2 day(s) +/- 7 day(s) with ultrasound estimated date of delivery (SUZANNE) of 03/13/2025. Reviewed, dictated and finalized at location A. IMPRESSION: 1. Single living fetus with heart rate of 165 bpm. 2. Gestational age by ultrasound of 11 weeks 2 day(s) +/- 7 day(s) with ultras ound estimated date of delivery (SUZANNE) of 03/13/2025.
== END 2024-08-24 10:23 | disposition home or self-care (01) ==
LOC: GOSHIMG 10:22
PROVIDERS: PCP Obstetrics & Gynecology; Visit Provider Obstetrics & Gynecology
DX: Z34.81 Encounter for supervision of other normal pregnancy, first trimester (principal); Z3A.11 11 weeks gestation of pregnancy
CPT/HCPCS: 76801; 76817

== ENCOUNTER 2024-09-01 08:53 | Outpatient (CLI) | payer BC, SELFPAY ==
[2024-09-01 10:41] LABS: Basophils Percent Auto 0.3 % (0.2-1.2); Eosinophils Absolute Auto 0.1 K/mm3 (0-0.3); Eosinophils Percent Auto 1.7 % (0-4.4); Hematocrit 38.4 % (37.0-47.0); Hemoglobin 13.7 g/dL (12.0-15.0); Immature Granulocyte Absolute 0.01 K/mm3 (0.00-0.031); Immature Granulocyte Percent A 0.1 % (0-0.5); Immature Platelet Fraction Pct 4.6 % (0.9-11.2); Lymphocytes Absolute Auto 1.49 K/mm3 (0.9-3.2); Lymphocytes Percent Auto 21.2 % (18.3-44.2); Mean Corpuscular HGB Conc 35.7 g/dl (32-36); Mean Corpuscular Hemoglobin 31.4 pg (26-34); Mean Corpuscular Volume 88.1 fl (80-100); Mean Platelet Volume 11.2 fl (7.4-10.4); Monocytes Absolute Auto 0.3 K/mm3 (0.1-0.6); Monocytes Percent Auto 4.3 % (2.6-8.5); Neutrophils Absolute Auto 5.1 K/mm3 (1.3-6.7); Neutrophils Percent Auto 72.4 % (45.5-73.1); Platelet Count Result 184 k/mm3 (150-375); Red Blood Count 4.36 M/mm3 (4.2-5.4); Red Cell Distribution Width 13.4 % (11.5-14.5)
[2024-09-01 10:42] LABS: Glucose 1 Hour PP 50gm Dose 153 mg/dL
[2024-09-01 11:23] LABS: HIV 1/2 Ab P24 Ag Result Negative (Negative)
[2024-09-01 11:35] LABS: Hepatitis B Surface Antigen Negative (Negative); Rubella IgG Antibody 11.3 IU/ML
[2024-09-02 11:28] LABS: Rapid Plasma Reagin Non-Reactive (NonReactive)
[2024-09-04 14:44] LABS: CMV IgG Antibody <0.60 U/mL
== END 2024-09-01 08:54 | disposition home or self-care (01) ==
LOC: ANHLAB 08:57
PROVIDERS: PCP Obstetrics & Gynecology; Visit Provider Obstetrics & Gynecology
DX: Z34.90 Encounter for supervision of normal pregnancy, unspecified, unspecified trimester (principal); Z3A.00 Weeks of gestation of pregnancy not specified
CPT/HCPCS: 36415; 82947; 84702; 85025; 85055; 86592; 86644; 86703; 86747; 86762; 86787; 86850; 86900; 86901; 87086; 87340; G0432

== ENCOUNTER 2024-10-02 15:07 | Observation (INO) | payer BC, SELFPAY ==
--- NOTE | ~2024-10-02 | US_ITS ---
EXAMINATION: 1. US OB limited 2. US OB TRANSVAGINAL DATE: 10/02/2024 16:29 INDICATION: . Leaking fluid. Vaginal bleeding. TECHNIQUE: Real-time ultrasound of the pelvis was performed. COMPARISON: Ultrasound 08/24/2024 FINDINGS: Transabdominal images demonstrate a single fetus in variable presentation. The placenta is posterior and covers the internal cervical os. heart rate is 165 beats per minute (bpm). The amniotic fl uid volume is subjectively normal. The deepest vertical pocket is 6.3 cm. Transvaginal images demonstrate a normal cervical length measuring 2.6 cm. IMPRESSION: 1. Single living fetus in variable presentation. 2. Placenta previa. Follow-up ultrasound is recommended to confirm resolution. Reviewed, dictated and finalized at location A. IPLE WIRE SAWYER
--- NOTE | ~2024-10-02 | US_ITS ---
EXAMINATION: US OB limited DATE: 10/02/2024 16:29 INDICATION: . Leaking fluid. Vaginal bleeding. TECHNIQUE: Real-time ultrasound of the pelvis was performed. COMPARISON: Ultrasound 08/24/2024 FINDINGS: Transabdominal images demonstrate a single fetus in variable presentation. The placenta is posterior and covers the internal cervical os. heart rate is 165 beats per minute (bpm). The amniotic fl uid volume is subjectively normal. The deepest vertical pocket is 6.3 cm. Transvaginal images demonstrate a normal cervical length measuring 2.6 cm. IMPRESSION: 1. Single living fetus in variable presentation. 2. Placenta previa. Follow-up ultrasound is recommended to confirm resolution. Reviewed, dictated and finalized at location A. 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
--- NOTE | 2024-10-02 15:10 | OBADM ---
This patient, Raven Junior, admitted to the OB room OB Post 116 for observation. Patient/family oriented to hospital policies and general routines including ID bracelet, bed and alarms, visiting hours, pain management, procedures, bathroom and other care routines, personal items, smoking policy, room service/diet, and visiting hours. Patient/Family are encouraged to report perceived risks to care and to ask questions if they do not understand what they are told or what they should do.
--- NOTE | 2024-10-02 15:30 | PC.NURSE ---
Called Dr. Ricks with pt admission. Informed of bleeding noted with possible leaking of fluid. FHTs doppled at 160's. Orders received.
[2024-10-02 15:48] VITALS: BP 107/74; PULSE 97
--- NOTE | 2024-10-02 17:20 | PC.NURSE ---
Dr. Ricks at bedside. Speculum done with bleeding noted in vagina. Discussed plan of care with pt. Orders received.
--- NOTE | 2024-10-02 17:25 | PM.IMHP ---
H&P: HPI History of Present Illness Date/Time: 10/02/24 17:25 Chief Complaint: Vaginal bleeding Narrative: Raven is a 34yo @ 16w 1d who presented to L&D with heavy vaginal bleeding. She was at work and started having bleeding; bled through her underwear, leggings, and thick work pants-- had some bleeding onto a white blanket. She denies pain. She reports feeling movement. OB US showed good amount of amniotic fluid, but posterior placenta previa. Her is complicated by: - IVF ; euploid male - Son w/ h/o tetralogy of Fallot - Obesity; ASA 81mg qhs - Posterior placenta previa w/ first bleed @ 16wks. 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) Migraine Nexplanon removal (08/15/18) Obesity (BMI 30.0-34.9) Surgical History Surgical History History of hand surgery (11/01/09) History of hip surgery R labral repair [place] teeth removed Family History Family History Father Family history of diabetes mellitus in first degree relative Mother Diabetes mellitus Atrial fibrillation Heart disease Thyroid disease Cerebrovascular accident Hypertension Sibling ADD (attention deficit disorder) ADHD, impulsive type Family history of alcoholism Grandparent Congestive heart failure Heart disease Grandparent Cerebrovascular accident Social History Social History Social History: Smoking status: Never smoker Second hand tobacco smoke exposure: No Alcohol intake: never Substance use: never Substance use type: does not use Do You Feel Safe in your Home?: Yes Lack of Transportation: No Lack of Food: Never True Current Housing: I Have Housing Concerned About Future Housing: No Difficulty Paying Gas/Electric Bills: No Difficulty Paying for Meds: No Currently Unemployed: No Education: Bachelor's Degree Difficulty w/ Childcare or Family Care: No Living arrangements: with family Additional living arrangements comments: Occupation/Education: occupation 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 [employer] Gender identity (if verbalized by the patient): Female Sexual Orientation (if Verbalized by the Patient): Lesbian, Lopez, or Homosexual Spiritual care concerns: No Meds Home Medications and Allergies Home Medications Medication Instructions Recorded Confirmed Type aspirin 81 mg tablet,delayed 81 mg PO DAILY 08/21/24 09/20/24 History release cholecalciferol (vitamin D3) 10 10 mcg PO DAILY 08/21/24 09/20/24 History mcg (400 unit) capsule ondansetron 4 mg disintegrating 4 mg PO Q6H PRN nausea and 08/21/24 09/20/24 Rx tablet vomiting #40 tabs ondansetron 4 mg disintegrating mg PO 08/21/24 09/20/24 History tablet vits no.126-ferrous fum tablet PO 08/21/24 09/20/24 History 28 mg iron-folic acid 800 mcg tablet (Classic ) Allergies Allergy/AdvReac Type Severity Reaction Status Date / Time black pepper Allergy Intermediate buring in Verified 09/20/24 09:27 mouth kiwi Allergy Intermediate BURING IN Verified 09/20/24 09:27 MOUTH Vital Signs Vital Signs - 24 hr 10/02/24 15:48 Pulse Rate 97 Blood Pressure 107/74 Exam Const: General: cooperative, no acute distress and obese Nutritional Appearance: obese Orientation/consciousness: patient oriented x3 Resp: Effort & Inspection: normal respiratory effort Cardio: Rate: regular rate GI: GI Palp: No abdominal tenderness : Other: FHT's: 160's on bedside doppler Speculum exam: ~10cc of blood in vault, cervix visually closed; no leakage of blood/fluid w/ valsalva Skin: General skin exam: normal color Neuro: General: patient oriented x3 Extrem: General: normal to inspection Psych: Appearance: grossly normal Affect: normal affect Attitude: cooperative Assessment and Plan Assessment and plan (1) Placenta previa: Qualifiers: Trimester: second trimester Qualified Code(s): O44.02 - Complete placenta previa NOS or without hemorrhage, second trimester Code(s): O44.00 - Complete placenta previa NOS or without hemorrhage, unspecified trimester Status: Acute Plan - Will admit for overnight monitoring; current estimated blood loss ~250cc - IV in place - Labs: type & screen, CBC, coags - heart checks q4h - Regular diet, unless additional bleeding noted then NPO - Normal PRN meds: tylenol, PNV, zofran, colace
[2024-10-02 18:49] VITALS: BMI 36.1
[2024-10-02 19:15] LABS: Hematocrit 34.7 % (37.0-47.0); Hemoglobin 12.4 g/dL (12.0-15.0); Mean Corpuscular HGB Conc 35.7 g/dl (32-36); Mean Corpuscular Hemoglobin 30.9 pg (26-34); Mean Corpuscular Volume 86.5 fl (80-100); Mean Platelet Volume 10.4 fl (7.4-10.4); Platelet Count Result 218 k/mm3 (150-375); Red Blood Count 4.01 M/mm3 (4.2-5.4); Red Cell Distribution Width 13.4 % (11.5-14.5); White Blood Count 11.1 K/mm3 (4.5-10.0)
[2024-10-02 19:18] VITALS: TEMP 36.9
[2024-10-02 19:35] LABS: Partial Thromboplastin Time 24.1 Seconds (22.3-36.8); Prothrombin Time 13.7 Seconds (11.1-14.7)
[2024-10-02 23:17] VITALS: BP 118/74; PULSE 96
[2024-10-02 23:25] VITALS: TEMP 36.9
[2024-10-02] MEDS: ACETAMINOPHEN 325 MG TABLET 650 MG PO (23:39)
[2024-10-03 03:16] VITALS: BP 94/61; PULSE 95
[2024-10-03 03:22] VITALS: TEMP 36.7
--- NOTE | 2024-10-03 06:00 | PC.NURSE ---
Report given to Jeffrey Voss RN.
--- NOTE | 2024-10-03 07:13 | PM.OBPNVD ---
OB - PN: Subj Subjective Date/time seen: 10/03/24 07:13 Interval history: HD#2 Raven reports doing well this morning; no events overnight. She got up multiple times to urinate; had small clots, but no active bleeding. She denies any pelvic pain or cramping. She reports good movement. No other vaginal discharge/leakage of fluid. OB - PN: Obj Data Labs 10/02/24 18:48 Labs: Laboratory Results - last 24 hr 10/02/24 18:48 WBC 11.1 H RBC 4.01 L Hgb 12.4 Hct 34.7 L MCV 86.5 MCH 30.9 MCHC 35.7 RDW 13.4 Plt Count 218 MPV 10.4 PT 13.7 INR 1.0 APTT 24.1 Blood Type O Positive Antibody Screen Negative Imaging Radiologist's impression: Impressions Obstetrics Ultrasound 10/02/24 16:32 IMPRESSION: 1. Single living fetus in variable presentation. 2. Placenta previa. Follow-up ultrasound is recommended to confirm resolution. Transvaginal US 10/02/24 17:14 IMPRESSION: 1. Single living fetus in variable presentation. 2. Placenta previa. Follow-up ultrasound is recommended to confirm resolution. OB - PN A/P Assessment and Plan (1) Placenta previa: Qualifiers: Trimester: second trimester Qualified Code(s): O44.02 - Complete placenta previa NOS or without hemorrhage, second trimester Code(s): O44.00 - Complete placenta previa NOS or without hemorrhage, unspecified trimester Status: Acute Assessment and Plan: - Admitted for overnight monitoring; current estimated blood loss ~350cc (based on drop in hemoglobin over 1 month) - IV in place - Labs: type & screen, CBC, coags -- repeat pending this morning - heart checks q4h - Regular diet, unless additional bleeding noted then NPO - Normal PRN meds: tylenol, PNV, zofran, colace - Plan for discharge home this morning; modified bed rest until anatomy US w/ MFM, then pelvic rest/no heavy lifting Time Spent With Patient Time: Total time spent is greater than 50% in coordination of care (as documented) at patient's floor/unit and/or counseling patient: Review of Systems Constitutional: Constitutional: Denies chills, Denies fever(s) and Denies headache(s) Eyes: Eyes: Denies change in vision ENT: Denies headache(s) Cardiovascular: Cardiovascular: Denies chest pain and Denies dyspnea Respiratory: Respiratory: Denies dyspnea Genitourinary: Genitourinary: Reports abnormal vaginal bleeding and Denies vaginal discharge Neurologic: Denies headache(s) Psychiatric: Psychiatric: Denies anxiety and Denies depression Exam Const: General: cooperative, no acute distress and obese Nutritional Appearance: obese Orientation/consciousness: patient oriented x3 Resp: Effort & Inspection: normal respiratory effort Cardio: Rate: regular rate GI: GI Palp: No abdominal tenderness : Other: FHT's: 145's on bedside doppler, movement heard No blood on perineum or on zaynab (had been there all night) Skin: General skin exam: normal color Neuro: General: patient oriented x3 Extrem: General: normal to inspection Psych: Appearance: grossly normal Affect: normal affect Attitude: cooperative
--- NOTE | 2024-10-03 07:22 | PC.NURSE ---
FHT 145-150. Pt feeling baby move well. pt states she has had small amount of spotting only when she uses the bathroom. Towel underneath the pt since last night has no visible blood present.
[2024-10-03 07:47] VITALS: PULSE 76; O2SAT 100
[2024-10-03 07:48] VITALS: BP 109/73; PULSE 78
[2024-10-03 07:54] LABS: Hematocrit 31.6 % (37.0-47.0); Hemoglobin 11.2 g/dL (12.0-15.0); Mean Corpuscular HGB Conc 35.4 g/dl (32-36); Mean Corpuscular Hemoglobin 31.1 pg (26-34); Mean Corpuscular Volume 87.8 fl (80-100); Mean Platelet Volume 10.6 fl (7.4-10.4); Platelet Count Result 192 k/mm3 (150-375); Red Cell Distribution Width 13.4 % (11.5-14.5); White Blood Count 7.8 K/mm3 (4.5-10.0)
[2024-10-03 08:15] LABS: Partial Thromboplastin Time 26.2 Seconds (22.3-36.8); Prothrombin Time 13.6 Seconds (11.1-14.7)
[2024-10-03 08:16] LABS: Fibrinogen 313 mg/dl (215-510)
--- NOTE | 2024-10-03 08:19 | PC.NURSE ---
Dr. Ricks called with updated labs. okay with pt going home on bedrest. Pt to call the office if she needs an extend time off note for work once she finds out what they need.
--- NOTE | 2024-10-03 08:44 | PC.NURSE ---
pt questioning if she should continue taking her baby aspirin. Dr. Ricks called and MD want her to continue taking the aspirin.
--- NOTE | 2024-10-03 14:57 | PM.OBTRLD ---
OB - Triage/Final Diagnosis Visit Information Comments/Additional reasons for admission: I have assessed the risk for this patient, Raven Junior, and determined that she would benefit from observation care. Evaluation Laboratory results: Laboratory Tests 10/02/24 10/03/24 18:48 07:42 WBC 11.1 H 7.8 RBC 4.01 L 3.60 L Hgb 12.4 11.2 L Hct 34.7 L 31.6 L MCV 86.5 87.8 MCH 30.9 31.1 MCHC 35.7 35.4 RDW 13.4 13.4 Plt Count 218 192 MPV 10.4 10.6 H PT 13.7 13.6 INR 1.0 1.0 APTT 24.1 26.2 Fibrinogen 313 Blood Type O Positive Antibody Screen Negative Vital signs: Vital Signs - 24 hr 10/02/24 15:48 10/02/24 23:17 10/03/24 03:16 Temperature Pulse Rate 97 96 95 Blood Pressure 107/74 118/74 94/61 L Pulse Oximetry Oxygen Delivery 10/03/24 07:47 10/03/24 07:48 10/02/24 18:49 Temperature Pulse Rate 78 Blood Pressure 109/73 Pulse Oximetry 100 Oxygen Delivery Room Air 10/02/24 19:18 10/02/24 23:25 10/03/24 03:22 Temperature 98.4 F 98.5 F 98.1 F Pulse Rate Blood Pressure Pulse Oximetry Oxygen Delivery Final Diagnosis (1) Placenta previa: Qualifiers: Trimester: second trimester Qualified Code(s): O44.02 - Complete placenta previa NOS or without hemorrhage, second trimester Code(s): O44.00 - Complete placenta previa NOS or without hemorrhage, unspecified trimester Status: Acute (2) Vaginal bleeding affecting early : Code(s): O20.9 - Hemorrhage in early , unspecified Status: Acute
== END 2024-10-03 08:48 | disposition home or self-care (01) ==
PROVIDERS: Admitting Provider Obstetrics & Gynecology; Visit Provider Obstetrics & Gynecology
DX: O44.12 Complete placenta previa with hemorrhage, second trimester (principal); Z3A.16 16 weeks gestation of pregnancy
CPT/HCPCS: 36415; 76815; 76817; 85027; 85384; 85610; 85730; 86850; 86900; 86901; A9270; G0378; G0379

== ENCOUNTER 2024-10-19 07:07 | Outpatient (CLI) | payer BC, SELFPAY ==
[2024-10-19 07:36] LABS: Glucose Fasting Gestational 95 mg/dL (>/=95)
[2024-10-19 09:52] LABS: Glucose 1 Hour Gest 148 mg/dL (>/=180)
[2024-10-19 10:34] LABS: Glucose 2 Hour Gest 157 mg/dL (>/= 155)
[2024-10-19 11:35] LABS: Glucose 3 Hour Gest 159 mg/dL (>/=140)
== END 2024-10-19 07:08 | disposition home or self-care (01) ==
LOC: ANHLAB 07:08
PROVIDERS: Visit Provider Obstetrics & Gynecology
DX: Z34.90 Encounter for supervision of normal pregnancy, unspecified, unspecified trimester (principal); Z3A.00 Weeks of gestation of pregnancy not specified
CPT/HCPCS: 36415; 82951; 82952

== ENCOUNTER 2024-10-23 08:57 | Outpatient (RCR) | payer BC, SELFPAY | END 2025-01-08 09:16 | disposition home or self-care (01) | LOC: ANHDMC 08:57 | PROVIDERS: Visit Provider Obstetrics & Gynecology | DX: O24.419 Gestational diabetes mellitus in pregnancy, unspecified control (principal); Z3A.00 Weeks of gestation of pregnancy not specified; Z71.89 Other specified counseling | CPT/HCPCS: G0108 ==

== ENCOUNTER 2025-01-01 16:26 | Outpatient (CLI) | payer BC, SELFPAY ==
[2025-01-01 16:58] LABS: Hematocrit 33.7 % (37.0-47.0); Hemoglobin 11.9 g/dL (12.0-15.0); Mean Corpuscular HGB Conc 35.3 g/dl (32-36); Mean Corpuscular Hemoglobin 31.9 pg (26-34); Mean Corpuscular Volume 90.3 fl (80-100); Mean Platelet Volume 10.4 fl (7.4-10.4); Platelet Count Result 184 k/mm3 (150-375); Red Blood Count 3.73 M/mm3 (4.2-5.4); Red Cell Distribution Width 14.1 % (11.5-14.5); White Blood Count 8.3 K/mm3 (4.5-10.0)
[2025-01-01 17:53] LABS: HIV 1/2 Ab P24 Ag Result Negative (Negative)
[2025-01-01 19:12] LABS: Syphilis IgG/IgM Antibody Negative (Negative)
== END 2025-01-01 16:27 | disposition home or self-care (01) ==
LOC: ANHLAB 16:27
PROVIDERS: PCP Family Medicine; Visit Provider Obstetrics & Gynecology
DX: Z34.90 Encounter for supervision of normal pregnancy, unspecified, unspecified trimester (principal)
CPT/HCPCS: 36415; 85027; 86593; 86703; G0432

== ENCOUNTER 2025-01-30 16:25 | Outpatient (CLI) | payer BC, SELFPAY ==
--- OUTSIDE RECORDS SUMMARY | 2025-01-30 17:32 | XMS_ITS | Continuity of Care Document ---
Author Organization [facility] Address [address] [place] [address] Phone Care Team Providers Care Environmental Sampling Technician Name Role Phone Rambo Melton MD Unavailable Unavailable Allergies, Adverse Reactions, Alerts Substance Reaction Status Criticality No Known Allergies Active No Inform ation Medications Medication Instructions Dosage Effective Dates (start - stop) Status Comments Vitamin D2 1,250 mcg (50,000 unit) capsule - Active Procedures Procedure Date X-ray Exam Hip Unilat With Pelvis When P erf 2-3 View Independent Medical Examination BEATRICE Pre Payment Advance Directives Directive Yes / No Effective Date File Name No Information Encounters Encounter Description Practice Location Reason(s) For Visit Diagnoses Date Provider Providers Copied on Encounter Independent Medical Examination BEATR[facility], [address], [id number], [place] tel:[phone] [facility] right hip (chief complaint) Pain in right hip 2 Geronimo Ricks. [address] [facility], [place] [address], [place], [place], [id number] , [place]. tel: [phone] [facility], [address], [id number], [place] tel:[phone] [facility] No Information 2 Geronimo Ricks. [address] [facility], [address], [id number] , [place]. tel: [phone] Family History Family Member Type Diagnosis Age At Onset Mother Problem (finding) Diabetes Mother Problem (finding) Stroke Mother Problem (finding) Heart Disease Father Problem (finding) Diabetes Brother Problem (finding) Depression Payers Payer name Insurance type Covered democrat ID Edin carranza(s) [employer] [id number] Social History Type Description Quantity Date Captured Comments Alcohol Use Details Unknown Caffeine Use Details Unknown Tobacco Use Status No Information Smoking Status Never smoker Sex Female Vital Signs Date / Time: Height Weight BMI Pulse Rate Blood Pressure Temperature Respiratory Rate Body Surface Area Head Circumference Head Circ. Percentile Wt./Miah. Percentile BMI percentile Pulse Ox Inhaled Ox 2:19 PM 69.00 in 96.615 kg (213.00 lbs) 31.4 5 kg/m eter (2) Chief Complaint And Reason For Visit From encounter dated '12/15/2021 14:00'. right hip (chief complaint). Description: Raven presents with an BEATRICE right hip pain DOI 05/27/2018. Reason For Referral Reason For Referral No Information Plan Of Treatment Date Type Action Status Referral Ordered: X-ray Exam Hip Unilat With Pelvis When Perf 2-3 View RT hip ordered History Of Present Illness Encounter Date Complaint History Of Prese nt Illness right hip Raven presents w ith an BEATRICE right hip pain DOI 05/27/2018. Functional Status Date Functional Assessmen t No Information Instructions Date Instruction Additional Infor mation No Information Assessments Type Assessment Date assessment Pain in right hip Patient Care Teams Name Effective Dates (start - stop) Status Members No Information
--- OUTSIDE RECORDS SUMMARY | 2025-01-30 17:32 | XMS_ITS | Clinical Summary ---
Author Organization [facility] Address [address] [place] [address] Care Team Providers Care Seafood Harvester Name Role Phone Colby Hager MD Primary Care Provider Allergies No known active allergies Medications ondansetron ODT (ZOFRAN-ODT) 4 mg disintegrating tablet DISSOLVE 1 TABLET ON TOP OF THE TONGUE WHERE IT WILL DISSOLVE, THEN SWALLOW 4 TIMES A DAY 4 Active Active Problems Problem Noted Date Diagnosed Date Sprain of lateral ligament of ankle joint 2022 Chronic ankle pain 10/05/2022 Femoroacetabular impingement of right hip 2021 Overview (12/30/2021): Added automatically from request for surgery [id number] Labral tear of hip, degenerative 12/30/2021 Overview (12/30/2021): Added automatically from request for surgery [id number] Avulsion of ligament with rahul ny fragment of lateral malleolus 12/29/2021 Irregular periods 11/26/2021 Arthralgia of right ankle 05/12/2021 Pain in right foot 05/12/2021 Exposure to blood 04/22/2018 Immunizations Immunization Administration Dates Next Due Influenza, Quadrivalent, Spl it, Preservative Free, Intramuscular 08/20/2022 Moderna SARS-CoV-2 Monovalen t Vaccination (12+ YRS) 10/16/2021,12/31/2020,12/03/2020 Surgical History Surgery Date Site/Laterality Comments HAND SURGERY 11/01/2009 - 10/31/2010 Right WISDOM TOOTH EXTRACTION 11/01/2005 - 10/31/2006 DIAGNOSTIC LAPAROSCOPY for IVF HIP SURGERY FRACTURE SURGERY May 2010 Medical History Medical History Date Comments Obesity Thyroid disease Anemia Liver disease Anxiety Brain concussion May 18 Migraines Nov 19 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 19 Family History Medical History Relation Name Comments Alcohol abuse Brother Adam Young Diabetes Father Robert Young Diabetes Father's Brother Cade Young Stroke Maternal Grandfather Clotting disorder Mother Ana Young Diabetes Mother Ana Morriso Heart disease Mother Ana Young Stroke Mother Ana Young Stroke Paternal Grandfather Pelegcrystal Young Heart disease Paternal Grandmother defects Son Hilary Lira Anesthesia problems Neg Hx Relation Name Status Comments Brother Adam Young Father Robert Young Alive Father's Brother Cade Young Maternal Grandfather Mother Ana Young Alive Paternal Grandfather Samreen Young Paternal Grandmother Son Hilary Lira Social History Tobacco Use Types Packs/Day Years Used Date Smoking Tobacco: Never Cigarettes Smokeless Tobacco: Never Tobacco Cessation:Counseling Given: Not Answered Alcohol Use Standard Drinks/Week Comments Yes 0 (1 standard drink = 0.6 oz pur e alcohol) AUDIT-C Answer Date Recorded Q1: How often do you have a drink containing alc ohol? 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 Not on file Not on file Obstetrics History Last Filed Vital Signs Vital Sign Reading Time Taken Comments Blood Pressure 110/78 08/12/2023 2:52 PM CDT Pulse 78 08/12/2023 2:52 PM CDT Temperature 36.8 C (98.3 F) 08/12/2023 2:52 PM CDT Respiratory Rate 16 08/12/2023 2:52 PM CDT Oxygen Saturation 99% 08/12/2023 2:52 PM CDT Inhaled Oxygen Concentration - - Weight 113.9 kg (251 lb 3.2 oz) 08/12/2023 2:52 PM CDT Height 175.3 cm (5' 9 ) 08/12/2023 2:52 PM CDT Body Mass Index 37.1 08/12/2023 2:52 PM CDT Plan of Treatment Health Maintenance Due Date Last Done Comments Cervical Cancer Screening 1991 Depression Screening 1991 Hepatitis C Screening 1991 DTaP/Tdap/Td Vaccine (1 - Tdap) 2002 Varicella Vaccines (1 of 2 - 13+ 2-dose series) 2004 Hepatitis B Screening 2009 Regular Well Visit/Exam 18-64 2009 Covid-19 Vaccine (2023-2 5 season) 2024 10/16/2021, 12/31/2020, 12/03/2020 Influenza Vaccine (#1) 2024 08/20/2022 HPV Vaccines Aged Out No longer eligi ble based on patient's age to complete this topic Pneumococcal vaccine <65 Aged Out No longer eligible based on patient's age to complete this topic Medical Devices Implanted Type Area Wire Straightening Machine Operator Device Identifier Shelf Expiration Date Model / Serial / Lot [employer] [id number] Cinchlock Ss Knotless Android Ios Developer [employer] [place] Suture Labrum - [id number] Implanted:Qty: 1 on 01/29/2022 by Dinora Mcfadden MD at [facility] Right: Hip [facility] [id number] 04/22/2023 [id number] / / [id number] Description:[employer] [place] [id number] CINCHLOCK SS KNOTLESS RN INTERVENTIONAL LOCK ANCHOR SUTURE LABRUM - [id number] [employer] [id number] Cinchlock Ss Knotless Android Ios Developer [employer] [place] Suture Labrum - [id number] Implanted:Qty: 1 on 01/29/2022 by Dinora Mcfadden MD at [facility] [place] Right: Hip [facility] [id number] 04/22/2023 [id number] / / [id number] Description:[employer] [place] [id number] CINCHLOCK SS KNOTLESS RN INTERVENTIONAL LOCK ANCHOR SUTURE LABRUM - [id number] [facility] [id number] Xbraid 1.2mm Suture Nonabsorbable Titanium Uhmwpe Nonsterile - [id number] Implanted:Qty: 1 on 01/29/2022 by Dinora Mcfadden MD at [facility] Right: Hip [facility] [id number] 09/24/2023 [id number] / / [id number] Description:This is suture [facility] [id number] Xbraid 1.2mm Suture Nonabsorbable Titanium Uhmwpe Nonsterile - [id number] Implanted:Qty: 1 on 01/29/2022 by Dinora Mcfadden MD at [facility] Right: Hip [facility] [id number] 09/24/2023 [id number] / / [id number] Description:This is suture [place] [employer] [place] [employer] [place] [employer] COMPENS[employer] [facility] Care Teams Seafood Harvester Relationship Specialty Start Date End Date Colby Hager MD [address] [facility] [address] [place] [address] PCP - General Family Medicine 10/10/21
--- OUTSIDE RECORDS SUMMARY | 2025-01-30 17:32 | XMS_ITS | Encounter Summary ---
Author Organization [facility] Address [address] [place] [address] Care Team Providers Care Felting Machine Operator Name Role Phone Selena Smith MD Primary Care Provider [phone]- [phone] Colby Hager MD Primary Care Provider Encounter Details Date Type Department Care Team (Late st Contact Info) Description 07/09/2020 Telephone [facility] [address] [place] [id number] Ralph Montgomery, RT Social History Tobacco Use Types Packs/Day Years Used Date Smoking Tobacco: Never Smokeless Tobacco: Never Alcohol Use Standard Drinks/Week Comments Yes 0 (1 standard drink = 0.6 oz pur e alcohol) Comments Unknown Sex and Gender Information Value Date Recorded Sex Assigned at Not on file Legal Sex Female 3:55 PM CDT Gender Identity Not on file Sexual Orientation Lesbian 10/10/2021 10 :00 AM SPECIAL OFFICER documented as of this encounter Plan of Treatment Not on file documented as of this encounter Visit Diagnoses Not on filedocumented in this encounter Care Teams Felting Machine Operator Relationship Specialty Start Date End Date Selena Smith MD PCP - General Family Practice 04/24/20 10/09/21 Colby Hager MD [address] [facility] [address] [place] [address] PCP - General Family Medicine 10/10/21 documented as of this encounter
--- OUTSIDE RECORDS SUMMARY | 2025-01-30 17:32 | XMS_ITS | Clinical Summary ---
Author Organization [facility] [employer] Address [address] [address] Care Team Providers Care Company Doctor Name Role Phone Selena Mendez MD Primary Care Provider [phone] Source Comments [facility] [employer],non-owned Affiliates and Associated Physician Practices is amultiple site organization consisting of ambulatory clinics and hospital sitesin [place] and [place]. This disclosure is being madepursuant to the Care Everywhere program and may not contain all information available regarding this patient. Last updated 18.[facility] [employer] Allergies No known active allergies Medications * Be aware that medications may not be up to date on this document. Alwaysverify current medications with the patient. Medication Sig Dispensed Refills Start Date End Date Status Vit-Fe Fumarate-FA ( vitamin) 28-0.8 MG tabletIndications: Take 1 (one) tablet by mouth once daily Reasons: Active insulin glargine (Lantus/Semglee) 100 units/mL pen Inject 6 units in the morning and 6 units at bedtime. Take dosages approximately 12 hours apart. Increase dose as directed due to increasing insulin requirements during . Max total daily dose = 50u 15 mL 5 11/15/2024 Active Additional Information Patient taking differently: Inject 7 units in the morning and 7 units at bedtime. Take dosages approximately 12 hours apart. Increase dose as directed due to increasing insulin requirements during . Max total daily dose = 50u, Reason: Provider adjusted, Informant: Patient, Reported on 01/03/2025 insulin pen needle (Novofine) 32G X 6 MM MISCIndications:In sulin controlled gestational diabetes mellitus (GDM) in second trimester (HCC) 2 times daily 100 Each 5 11/15/2024 Active Glucagon (Baqsimi One Pack) 3 MG/DOSE POWD [place] 1 Each into the nose as needed 1 Each 11/15/2024 Active Alcohol Swabs Use 1 Each as needed 100 Each 5 11/15/2024 Active ferrous sulfate 325 (65 FE) MG tabletIndications: Low serum iron Take 1 (one) tablet by mouth once daily 100 tablet 11/17/2024 Active loratadine (Claritin) 10 MG tabletIndications: Seasonal Allergic Rhinitis Take 1 (one) tablet by mouth once daily Reasons: Hayfever Active famotidine (Pepcid) 20 MG tabletIndications: Heartburn Take 1 (one) tablet by mouth 2 times daily Reasons: Heartburn Active aspirin EC (Ecotrin) 81 MG tablet Take 1 (one) tablet by mouth once daily Active Active Problems Problem Noted Date Diagnosed Date Gestational diabetes mellitus (GDM) in second tr imester 11/13/2024 21 weeks gestation of 11/13/2024 BMI 36.0-36.9,adult 11/13/2024 Vaginal bleeding during 11/13/2024 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 11/13/2024 Obesity affecting in second trimester 11/13/2024 resulting from ass isted reproductive technology in second trimester 11/13/2024 History of iron deficiency anemia 11/08/2024 Estimated Date of Delivery Comme nts Yes 03/18/2025 Based on last me nstrual period of 06/11/2024 Resolved Problems Problem Noted Date Diagnosed Date Resolved Date Exposure to blood 04/22/2018 11/13/2024 Encounters Date Type Department Care Team Description 01/22/2025 10:26 AM CDT - 01/22/2025 11:59 PM CDT Hospital Encounter formerly [facility] [address] [place], [place] [phone] Jovanny Holley MD Discharge Disposition: Home or Self Care 01/03/2025 2:18 PM [facility]MAN[facility]WOMAN - 01/03/2025 11:59 PM [facility]AGMAN/WOMAN Hospital Encounter formerly [facility] [address] [place] [id number] Nando Weinberg MD Discharge Disposition: Home or Self Care 12/12/2024 2:30 PM BAGMAN/WOMAN - 12/12/2024 11:59 PM BAGMAN/WOMAN Hospital Encounter [facility] [address] [place] [phone] Paulette Arvizu MD Peterson, Renuka E., MD Discharge Disposition: Home or Self Care 12/12/2024 2:27 PM BAGMAN/WOMAN - 12/12/2024 2:29 PM BAGMAN/WOMAN Hospital Encounter [facility] [address] [address] Judith Cabello MD Discharge Disposition: Home or Self Care 12/06/2024 9:39 AM BAGMAN/WOMAN - 12/06/2024 11:59 PM BAGMAN/WOMAN Hospital Encounter formerly [facility] [address] [place] [phone] Nando Weinberg MD Discharge Disposition: Home or Self Care 11/14/2024 Orders Only [facility] [address] [place] [phone] Paulette Arvizu MD 11/10/[address] [address] Mariola Maloney Appointment 11/08/2024 8:52 AM BAGMAN/WOMAN - 11/08/2024 11:59 PM BAGMAN/WOMAN Hospital Encounter formerly [facility] [address] [place] [phone] Paulette Arvizu MD Discharge Disposition: Home or Self Care 11/08/2024 8:45 AM BAGMAN/WOMAN - 11/08/2024 8:51 AM BAGMAN/WOMAN Hospital Encounter formerly [facility] [address] [place] [phone] Paulette Arvizu MD Discharge Disposition: Home or Self Care from Last 3 Months Immunizations Name Administration Dates Next Due TDAP (7yrs+) 04/22/2018 Family History Medical History Relation Name Comments Diabetes; unknown type Father Congenital Heart defect Son Tetr alogy of Fallot Relation Name Status Comments Father Son Alive Social History Tobacco Use Types Packs/Day Years Used Date Smoking Tobacco: Never Smokeless Tobacco: Never Alcohol Use Standard Drinks/Week Comments Not Currently 0 (1 standard drink = 0.6 oz pur e alcohol) rare Estimated Date of Delivery Comme nts Yes 03/18/2025 Based on last me nstrual period of 06/11/2024 Sex and Gender Information Value Date Recorded Sex Assigned at Not on file Gender Identity Not on file Sexual Orientation Not on file Last Filed Vital Signs Vital Sign Reading Time Taken Comments Blood Pressure 113/65 01/22/2025 11:08 AM CDT Pulse 98 01/22/2025 11:08 AM CDT Temperature 36.8 C (98.2 F) 04/22/2018 6:36 PM CDT Respiratory Rate 16 04/22/2018 6:36 PM CDT Oxygen Saturation 98% 04/22/2018 6:36 PM CDT Inhaled Oxygen Concentration - - Weight 115.5 kg (254 lb 9.6 oz) 01/03/2025 2:40 PM BAGMAN/WOMAN Height 175 cm (5' 8.9 ) 11/08/2024 10:1 0 AM BAGMAN/WOMAN Body Mass Index 37.71 11/08/2024 10:10 AM BAGMAN/WOMAN Plan of Treatment Upcoming Encounters Date Type Department Care Team (Late st Contact Info) Description 01/31/2025 9:45 AM CDT Hospital Encounter formerly [facility] [address] [place] [id number] Nando Weinberg MD [facility] [address] [phone] 02/05/2025 9:00 AM CDT Hospital Encounter formerly [facility] [address] [place] [phone] 02/12/2025 9:00 AM CDT Appointment formerly [facility] [address] [place] [phone] 02/19/2025 9:00 AM CDT Appointment formerly [facility] [address] [place] [address] 02/26/2025 9:00 AM CDT Appointment formerly [facility] [address] [place] [address] 03/05/2025 9:00 AM CDT Appointment formerly [facility] [address] [place] [address] Health Maintenance Due Date Last Done Comments PAP SMEAR 1990 HIV SCREENING 2006 HEPATITIS C SCREENING 03/11/2009 HEPATITIS B VACCINE (1 of 3 - 19+ 3-dose series) 2010 COVID-19 VACCINE (2023-2 5 season) 2024 10/16/2021, 12/31/2020, 12/03/2020 INFLUENZA VACCINE (#1) 2024 08/20/2022 DEPRESSION SCREENING 11/01/2024 OB-ONE HOUR GLUCOSE 12/10/2024 OB-TDAP CURRENT 12/17/2024 04/22/2018 OB-RHOGAM INJECTION 12/24/2024 OB-GROUP B STREP SCREEN 02/11/2025 DTAP/TDAP/TD VACCINES (2 - T d or Tdap) 04/22/2028 04/22/2018 ZOSTER VACCINE (1 of 2) 2041 HIB VACCINE Aged Out No longer eligi ble based on patient's age to complete this topic HPV VACCINE Aged Out No longer eligi ble based on patient's age to complete this topic MENINGOCOCCAL (Group B) VACCINE SHARED DECISION-MAKING Aged Out No longer eligible based on patient's age to complete this topic MENINGOCOCCAL GROUPS A/C/Y/W VACCINE Aged Out No longer eligible b ased on patient's age to complete this topic PNEUMOCOCCAL VACCINE Aged Out No long er eligible based on patient's age to complete this topic Respiratory Syncytial Virus (RSV) Vaccine Pt: or over 60 yrs (No Doses Required) Completed Procedures Procedure Name Priority Date/Time Associated Diagnosis Comments BIOPHYSICAL PROFILE W NST Routine 01/22/2025 10:22 AM CDT History of iron deficiency anemia Diet controlled gestational diabetes mellitus (GDM) in second trimester BMI 36.0-36.9,adult Vaginal bleeding during Thyroid disease during in third trimester resulting from assisted reproductive technology in second trimester Encounter for ultrasound to assess growth SONOGRAM - COMPLETE Routine 01/03/2025 2 :59 PM BAGMAN/WOMAN BMI 36.0-36.9,adult Vaginal bleeding during 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 Insulin controlled gestational diabetes mellitus (GDM) in second trimester Family history of tetralogy of Fallot ECHO COMPLETE CG Routine 12/12/2024 3:17 PM BAGMAN/WOMAN Family history of tetralogy of Fallot SONOGRAM - COMPLETE Routine 12/06/2024 1 0:24 AM BAGMAN/WOMAN BMI 36.0-36.9,adult Vaginal bleeding during 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 Insulin controlled gestational diabetes mellitus (GDM) in second trimester Family history of tetralogy of Fallot HEMOGLOBIN A1C 11/14/2024 10:10 AM BAGMAN/WOMAN TSH 11/14/2024 10:10 AM BAGMAN/WOMAN T4 FREE 11/14/2024 10:10 AM BAGMAN/WOMAN FERRITIN 11/14/2024 10:10 AM BAGMAN/WOMAN THYROID PEROXIDASE ANTIBODY 11/14/2024 10:10 AM BAGMAN/WOMAN COMPREHENSIVE METABOLIC PANEL 11/14/2024 10:10 AM BAGMAN/WOMAN SONOGRAM - COMPLETE Routine 11/08/2024 9 :02 AM BAGMAN/WOMAN Gestational diabetes mellitus (GDM), antepartum, gestational diabetes method of control unspecified Family history of tetralogy of Fallot Obesity affecting , antepartum, unspecified obesity type 21 weeks gestation of from Last 3 Months Results * BIOPHYSICAL PROFILE W NST (01/22/2025 10:22 AM CDT) Linked Results Indication ======== IVF , Incomplete anatomy screen Prior child with Tetrology of Fallot echocardiogram: Normal structures with PACs noted GDM-A2 on insulin, Class II obesity, Vaginal bleeding History ====== OB History 3. Para 1 [id number] 1. live 2020. Gest. age 39 w + 0 d. Weight 3,683 g. Sex of child: male. Details: 2. missed Lab Tests Test Date Result NIPT Low risk, Male Maternal Assessment = Physical Exam Height 175 cm, 5 ft 9 in. Weight 114 kg, 252 lb. Initial weight 112 kg, 246 lb. BMI 37.21 kg/m . Initial BMI 36.33 kg/m . Weight gain 3 kg, 6 lb Method ====== Transabdominal ultrasound examination. View: Sufficient ========= Flood . Number of fetuses: 1 Dating ====== Date Details Gest. age SUZANNE LMP 06/11/2024 32 w + 1 d 03/18/2025 Conception Conception: IVF Embryo transfer 06/28/2024 IVF / ET: 6 d 32 w + 4 d 03/15/2025 Stated SUZANNE 32 w + 3 d 2025 Assigned dating based on stated SUZANNE, selected on 11/08/2024 32 w + 3 d 2025 General Evaluation Cardiac activity present. FHR 137 bpm. movements: present. Presentation: cephalic Placenta: Placental site: anterior Amniotic Fluid Assessment ==== Amount of AF: normal MVP 7.5 cm. ENRIQUE 18.8 cm. Q1 4.1 cm, Q2 7.5 cm, Q3 4.4 cm, Q4 2.8 cm Biophysical Profile 2: breathing movements 2: Gross body movements 2: tone 2: Amniotic fluid volume NST: reactive 08/10 Biophysical profile score Non Stress Test NST interpretation: reactive. Test duration 30 min. Baseline FHR 125 bpm. Baseline variability: moderate. Accelerations: present. Decelerations: absent. Uterine activity: absent. CTG category: normal/reassurin g Growth Overview == Exam date GA BPD (mm) HC (mm) AC (mm) FL (mm) HL (mm) EFW (g) 11/08/2024 21w 5d 53.2 66% 205.3 77% 181.9 82% 41 87% 38.4 95% 558 96% 12/06/2024 25w 5d 69.6 96% 262.8 98% 225.3 78% 46.1 24% 955 75% 01/03/2025 29w 5d 82.3 >99% 310.3 >99% 273.4 89% 57.5 47% 1772 91% Anatomy The following structures appear normal: Abdomen Stomach. Kidneys. Bladder. sex: male. Impression ========= Single, live, intrauterine at 32w 3d Amniotic fluid volume: normal Biophysical profile: 08/10 Follow-up ======== Continue weekly BPP with 2x weekly NST growth in 1 week Coding ====== Procedures [id number]: US Uterus Limited 36441: Biophysical Profile W NST [facility] [employer] PACS Anatomical Region Laterality Modality Other 01/22/2025 10:2 2 AM CDT Michelle Ricks MD [facility] ORDERABLES * SONOGRAM - COMPLETE (01/03/2025 2:59 PM BAGMAN/WOMAN) Only the most recent of3 resultswithin the time period is included. Linked Results Indication ======== IVF , Incomplete anatomy screen Prior child with Tetrology of Fallot echocardiogram: Normal structures with PACs noted GDM-A2 on insulin, Class II obesity, Vaginal bleeding History ====== OB History 3. Para 1 [id number] 1. live 2020. Gest. age 39 w + 0 d. Weight 3,683 g. Sex of child: male. Details: 2. missed Lab Tests Test Date Result NIPT Low risk, Male Maternal Assessment = Physical Exam Height 175 cm, 5 ft 9 in. Weight 115 kg, 254 lb. Initial weight 112 kg, 246 lb. BMI 37.51 kg/m . Initial BMI 36.33 kg/m . Weight gain 4 kg, 8 lb Method ====== Transabdominal ultrasound. View: Sufficient ========= Flood . Number of fetuses: 1 Dating ====== Date Details Gest. age SUZANNE LMP 06/11/2024 29 w + 3 d 03/18/2025 Conception Conception: IVF Embryo transfer 06/28/2024 IVF / ET: 6 d 29 w + 6 d 03/15/2025 Stated SUZANNE 29 w + 5 d 2025 U/S 01/03/2025 based upon AC, BPD, Femur, HC 32 w + 3 d 02/25/2025 Assigned dating based on stated SUZANNE, selected on 11/08/2024 29 w + 5 d 2025 General Evaluation Cardiac activity present. FHR 133 bpm. Presentation: breech Placenta: Placental site: anterior Amniotic fluid: Amount of AF: normal. MVP 8.0 cm. ENRIQUE 23.3 cm. Q1 8.0 cm, Q2 3.1 cm, Q3 6.0 cm, Q4 6.3 cm Biometry BPD 82.3 mm 33w 1d >99% Hadlock HC 310.3 mm 34w 5d >99% Hadlock AC 273.4 mm 31w 3d 89% Hadlock Femur 57.5 mm 30w 1d 47% Hadlock HC / AC 1.13 -/- Hadlock Weight Calculation: EFW 1,772 g 91% Hadlock EFW (lb,oz) 3 lb 14 oz EFW by Hadlock ([id number]-MD-FL) overall normal range, but the AC is >90% Growth Overview = Exam date GA BPD (mm) HC (mm) AC (mm) FL (mm) HL (mm) EFW (g) 11/08/2024 21w 5d 53.2 66% 205.3 77% 181.9 82% 41 87% 38.4 95% 558 96% 12/06/2024 25w 5d 69.6 96% 262.8 98% 225.3 78% 46.1 24% 955 75% 01/03/2025 29w 5d 82.3 >99% 310.3 >99% 273.4 89% 57.5 47% 1772 91% Anatomy sex: male. Impression ========= Single, live, intrauterine at 29w 5d size is LGA and amniotic fluid volume is mildly increased Follow-up ======== Begin 2x-weekly testing at 32 weeks Follow-up U/S for growth at 33 weeks Coding ====== Procedures [id number]: US Preg Uterus Follow Up [facility] [employer] PACS Anatomical Region Laterality Modality Other 01/03/2025 2:59 PM BAGMAN/WOMAN Michelle Ricks MD [facility] ORDERABLES * ECHO COMPLETE CG (12/12/2024 3:17 PM BAGMAN/WOMAN) MV E pk naina 52.54 cm/s [facility] CV F UJI PACS MV A pk naina 84.57 cm/s [facility] CV F UJI PACS Anatomical Region Laterality Modality Ultrasound 12/12/2024 2:40 PM BAGMAN/WOMAN Narrative 12/12/2024 3:37 PM BAGMAN/WOMAN Name: Raven Junior Patient Exam Info Gender: Female Patient Status: O/P : 1990 Admit Date: 12/12/2024 Exam Date/Time: 12/12/2024 2:40 PM Site: [facility] Current Location: CARE EStudy Quality: Diagnostic quality Staff Ordering Provider: Paulette Arvizu Interpreting Physician: Judith Cabello MD Hog Scalder: Saloni Howell [facility] Study Info Procedure: ECHO COMPLETE CG Indications: Z82.79 - Family history of tetralogy of Fallot Maternal Gestational Status GA by EDC: 26 wks , 2 days Count: 1 EDC: 03/18/2025 Type: Flood Procedure Details * Number of fetuses is 1. Age: 34 yrs Summary * The echocardiogram was within normal limits. * Small atrial and ventricular septal defects and persistent ductus arteriosus cannot be excluded as findings. * Occasional premature atrial contractions, normal variant. Anatomic Relationships Left sided cardiac apex (levocardia). There is normal visceral-cardiac situs, and normal segmental cardiac anatomical relationship. Systemic Veins There is normal systemic venous return. Pulmonary Veins The visualized pulmonary veins drain normally to the left atrium. Right Atrium The right atrial size is normal. Left Atrium The left atrial size is normal. Atrial Septum Patent foramen ovale with open foramen flap. Color flow is right to left. Right Ventricle The right ventricular cavity size is normal. The right ventricular wall thickness is normal. The right ventricular systolic function is normal. RV Outflow Tract The right ventricular outflow tract is normal. Left Ventricle The left ventricular cavity size is normal. The left ventricular wall thickness is normal. The left ventricular systolic function is normal. Ventricular Septum There is no ventricular septal defect with no shunting. LV Outflow Tract The left ventricular outflow tract is normal. Tricuspid Valve The tricuspid valve is structurally normal. The tricuspid inflow pattern is normal. Tricuspid velocity is within the normal range. There is no tricuspid regurgitation. Mitral Valve The mitral valve is structurally normal. The mitral inflow pattern is normal. Mitral velocity is within the normal range. There is no mitral regurgitation. Aorta aortic arch visualized and is without obstruction by 2D, color flow and Doppler. Pulmonary Arteries The main pulmonary artery is normal, with confluent branch pulmonary arteries. Ductus Arteriosus The antegrade flow velocity and pattern in the ductal arch is normal. A normal ductus arteriosus is appreciated. Doppler Flow in the ductus venosus is normal. The umbilical vein flow pattern is normal. The umbilical artery flow pattern is normal. Hydrops Assessment No pericardial effusion. No ascites present. No pleural effusion(s). Rhythm The rhythm is with occasional premature atrial complexes noted. There is 1:1 AV conduction. Pulmonary Valve The pulmonic valve is normal-sized. The transpulmonic velocity is within normal range. There is no pulmonic regurgitation. Aortic Valve The aortic valve is normal-sized. The transaortic velocity is within normal range. There is no aortic regurgitation. Doppler Measurements (Fetus A) Atrioventricular Valves Name Value Normal Z-Score Percentile Atrioventricular Valves Doppler TV E Peak Velocity 0.5 m/s TV A Peak Velocity 0.8 m/s MV E Peak Velocity 0.5 m/s MV A Peak Velocity 0.8 m/s (Fetus A) Semilunar Valves Name Value Normal Z-Score Percentile Semilunar Valves Doppler PV Peak Velocity. 0.8 m/s AV Peak Velocity () 0.8 m/s (Fetus A) Heart Rate Name Value Normal Z-Score Percentile Heart Rate HR 130 bpm Report Signatures Finalized by Judith Cabello MD on 12/12/2024 03:37 PM Procedure Note Judith Cabello MD - 12/12/2024 Name: Raven Junior Patient Exam Info Gender: Female Patient Status: O/P : 1990 Admit Date: 12/12/2024 Exam Date/Time: 12/12/2024 2:40 PM Site: [facility] Current Location: CARE EStudy Quality: Diagnostic quality Staff Ordering Provider: Paulette Arvizu Interpreting Physician: Judith Cabello MD Hog Scalder: Saloni Howell [facility] Study Info Procedure: ECHO COMPLETE CG Indications: Z82.79 - Family history of tetralogy of Fallot Maternal Gestational Status GA by EDC: 26 wks , 2 days Count: 1 EDC: 03/18/2025 Type: Flood Procedure Details * Number of fetuses is 1. Age: 34 yrs Summary * The echocardiogram was within normal limits. * Small atrial and ventricular septal defects and persistent ductus arteriosus cannot be excluded as findings. * Occasional premature atrial contractions, normal variant. Anatomic Relationships Left sided cardiac apex (levocardia). There is normal visceral-cardiac situs, and normal segmental cardiac anatomical relationship. Systemic Veins There is normal systemic venous return. Pulmonary Veins The visualized pulmonary veins drain normally to the left atrium. Right Atrium The right atrial size is normal. Left Atrium The left atrial size is normal. Atrial Septum Patent foramen ovale with open foramen flap. Color flow is right toleft. Right Ventricle The right ventricular cavity size is normal. The right ventricularwall thickness is normal. The right ventricular systolic function is normal. RV Outflow Tract The right ventricular outflow tract is normal. Left Ventricle The left ventricular cavity size is normal. The left ventricular wall thickness is normal. The left ventricular systolic function is normal. Ventricular Septum There is no ventricular septal defect with no shunting. LV Outflow Tract The left ventricular outflow tract is normal. Tricuspid Valve The tricuspid valve is structurally normal. The tricuspid inflow patternis normal. Tricuspid velocity is within the normal range. There is notricuspid regurgitation. Mitral Valve The mitral valve is structurally normal. The mitral inflow pattern is normal. Mitral velocity is within the normal range. There is no mitral regurgitation. Aorta aortic arch visualized and is without obstruction by 2D, colorflow and Doppler. Pulmonary Arteries The main pulmonary artery is normal, with confluent branch pulmonary arteries. Ductus Arteriosus The antegrade flow velocity and pattern in the ductal arch is normal.A normal ductus arteriosus is appreciated. Doppler Flow in the ductus venosus is normal. The umbilical vein flow patternis normal. The umbilical artery flow pattern is normal. Hydrops Assessment No pericardial effusion. No ascites present. No pleural effusion(s). Rhythm The rhythm is with occasional premature atrial complexes noted.There is 1:1 AV conduction. Pulmonary Valve The pulmonic valve is normal-sized. The transpulmonic velocity iswithin normal range. There is no pulmonic regurgitation. Aortic Valve The aortic valve is normal-sized. The transaortic velocity is withinnormal range. There is no aortic regurgitation. Doppler Measurements (Fetus A) Atrioventricular Valves Name Value Normal Z-ScorePercentile Atrioventricular Valves Doppler TV E Peak Velocity 0.5 m/s TV A Peak Velocity 0.8 m/s MV E Peak Velocity 0.5 m/s MV A Peak Velocity 0.8 m/s (Fetus A) Semilunar Valves Name Value Normal Z-ScorePercentile Semilunar Valves Doppler PV Peak Velocity. 0.8 m/s AV Peak Velocity () 0.8 m/s (Fetus A) Heart Rate Name Value Normal Z-ScorePercentile Heart Rate HR 130 bpm Report Signatures Finalized by Judith Cabello MD on 12/12/2024 03:37 PM Paulette Arvizu MD ECHO CUPID * (ABNORMAL) THYROID PEROXIDASE ANTIBODY (11/14/2024 10:10 AM BAGMAN/WOMAN) Thyroid Peroxidase TPO Antibody 30(H) <9 IU/mL [facility] Comment: Test Performed at: [facility] [address] [place] [id number] SONNY FREGOSO 11/14/2024 10:1 0 AM BAGMAN/WOMAN 11/14/2024 10:12 AM BAGMAN/WOMAN Paulette Arvizu MD LAB - CHEMISTRY AUDELIA ASHTON Performing Organization Address [facility] Co de Phone Number [address] [address] * HEMOGLOBIN A1C (11/14/2024 10:10 AM BAGMAN/WOMAN) Hemoglobin A1c 4.9 <5.7 % of total Hgb [facility] Comment: For the purpose of screening for the presence of diabetes: <5.7% Consistent with the absence of diabetes 5.7-6.4% Consistent with increased risk for diabetes (prediabetes) > or =6.5% Consistent with diabetes This assay result is consistent with a decreased risk of diabetes. Currently, no consensus exists regarding use of hemoglobin A1c for diagnosis of diabetes in children. According to [place] Diabetes Association (ADA) guidelines, hemoglobin A1c <7.0% represents optimal control in non- diabetic patients. Different metrics may apply to specific patient populations. Standards of Medical Care in Diabetes(ADA). Test Performed at: [facility] [id number] KAREEM KELSEY MD 11/14/2024 10:1 0 AM BAGMAN/WOMAN 11/14/2024 10:12 AM BAGMAN/WOMAN Paulette Arvizu MD LAB - CHEMISTRY AUDELIA ASHTON Performing Organization Address [facility] de Phone Number [place] [phone] [place] [address] * (ABNORMAL) COMPREHENSIVE METABOLIC PANEL (11/14/2024 10:10 AM BAGMAN/WOMAN) Pathologist [facility] Glucose 84 65 - 99 mg/dL [facility] Comment: Fasting reference interval BUN 7 7 - 25 mg/dL [facility] Creatinine 0.56 0.50 - 0.97 mg/dL [facility] eGFR by Cystatin C 124 > OR = 60 mL/min/1. 73m2 [facility] BUN/Creatinine Ratio SEE NOTE: 6 - 22 (calc) [facility] Comment: Not Reported: BUN and Creatinine are within reference range. Sodium 137 135 - 146 mmol/L [facility] Potassium 3.4(L) 3.5 - 5.3 mmol/L [facility] Chloride 103 98 - 110 mmol/L [facility] CO2 24 20 - 32 mmol/L [facility] Calcium 9.1 8.6 - 10.2 mg/dL [facility] Protein Total 6.1 6.1 - 8.1 g/dL [facility] Albumin 3.4(L) 3.6 - 5.1 g/dL [facility] Globulin Total 2.7 1.9 - 3.7 g/dL (calc) [facility] Albumin/Globulin Ratio 1.3 1.0 - 2.5 (calc) [facility] Bilirubin Total 0.4 0.2 - 1.2 mg/dL [facility] Alkaline Phosphatase 78 31 - 125 U/L [facility] AST 17 10 - 30 U/L [facility] ALT 10 6 - 29 U/L [facility] Comment: Test Performed at: [facility] [address] KAREEM KELSEY MD 11/14/2024 10:1 0 AM BAGMAN/WOMAN 11/14/2024 10:12 AM BAGMAN/WOMAN Paulette Arvizu MD LAB - CHEMISTRY AUDELIA ASHTON Performing Organization Address [facility] de Phone Number [address] [address] * TSH (11/14/2024 10:10 AM BAGMAN/WOMAN) TSH 1.67 mIU/L [facility] Comment: Reference Range > or = 20 Years 0.40-4.50 Ranges First trimester 0.26-2.66 Second trimester 0.55-2.73 Third trimester 0.43-2.91 Test Performed at: [facility] [address] KAREEM KELSEY MD 11/14/2024 10:1 0 AM BAGMAN/WOMAN 11/14/2024 10:12 AM BAGMAN/WOMAN Paulette Arvizu MD LAB - CHEMISTRY AUDELIA ASHTON Performing Organization Address [facility] Co de Phone Number [address] [address] * T4 FREE (11/14/2024 10:10 AM BAGMAN/WOMAN) T4 Free 0.8 0.8 - 1.8 ng/dL [facility] Comment: Test Performed at: [facility] [address] KAREEM KELSEY MD 11/14/2024 10:1 0 AM BAGMAN/WOMAN 11/14/2024 10:12 AM BAGMAN/WOMAN Paulette Arvizu MD LAB - CHEMISTRY AUDELIA ASHTON Performing Organization Address [facility] Co de Phone Number [facility] [address] [place] [address] * (ABNORMAL) FERRITIN (11/14/2024 10:10 AM BAGMAN/WOMAN) Ferritin 13(L) 16 - 154 ng/mL [facility] Comment: Test Performed at: [facility] [employer] [address] [place] [address] KAREEM KELSEY MD 11/14/2024 10:1 0 AM BAGMAN/WOMAN 11/14/2024 10:12 AM BAGMAN/WOMAN Paulette Arvizu MD LAB - CHEMISTRY AUDELIA ASHTON Performing Organization Address [facility] Co de Phone Number [facility] [address] [place] [address] from Last 3 Months Care Teams Company Doctor Relationship Specialty Start Date End Date Selena Mendez MD PCP - General 07/16/20
--- OUTSIDE RECORDS SUMMARY | 2025-01-30 17:32 | XMS_ITS | Referral Summary ---
[facility] Organization [facility] Address [address] [place] [address] Care Team Providers Care Pre Kindergarten Teacher Name Role Phone Colby Hager MD Primary [...] (12/30/2021): Added automatically from request for surgery [id number] Labral tear of hip, degenerative 12/30/2021 Overview (12/30/2021): Added automatically from request for surgery [id number] Avulsion of ligament with rahul ny fragment of lateral malleolus 12/29/2021 Irregular periods 11/26/2021 Arthralgia of right ankle 05/12/2021 Pain in right foot 05/12/2021 Exposure to blood 04/22/2018 Immunizations Immunization Administration Dates Next Due Influenza, Quadrivalent, Spl it, Preservative Free, Intramuscular 08/20/2022 Moderna SARS-CoV-2 Monovalen t Vaccination (12+ YRS) 10/16/2021,12/31/2020,12/03/2020 Social History Tobacco Use Types Packs/Day Years Used Date Smoking Tobacco: Never Cigarettes Smokeless Tobacco: Never Tobacco Cessation:Counseling Given: Not Answered Alcohol Use Standard Drinks/Week Comments Yes 0 (1 standard drink = 0.6 oz pur e alcohol) AUDIT-C Answer Date Recorded Q1: How often do you have a drink containing alc ohol? 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 Not on file Not on file Last Filed Vital Signs [...] 08/12/2023 2:52 PM CDT Plan of Treatment Not on file Medical Devices Implanted Type Area Fire Control Assistant Device Identifier Shelf Expiration Date Model / Serial / Lot Pivot Medical [id number] Cinchlock Ss Knotless Receivable Clerk Lock [place] Suture Labrum - [id number] Implanted:Qty: 1 on 01/29/2022 by Dinora Mcfadden MD at [facility] Right: Hip [facility] [id number] 04/22/2023 [id number] / / [id number] Description:PIVOT MED[employer] [place] M38469 CINCHLOCK SS KNOTLESS SCRAPER LOADER OPERATOR LOCK ANCHOR SUTURE LABRUM - [id number] [facility] Medical [id number] Cinchlock Ss Knotless Receivable Clerk Lock [place] Suture Labrum - [id number] Implanted:Qty: 1 on 01/29/2022 by Dinora Mcfadden MD at [facility] [place] Right: Hip [facility] [id number] 04/22/2023 [id number] / / [id number] Description:PIVOT MED[employer] [place] R37635 CINCHLOCK SS KNOTLESS SCRAPER LOADER OPERATOR LOCK ANCHOR SUTURE LABRUM - [id number] [facility] [id number] Xbraid 1.2mm Suture Nonabsorbable Titanium Uhmwpe Nonsterile - [id number] Implanted:Qty: 1 on 01/29/2022 by Dinora Mcfadden MD at [facility] Right: Hip [facility] [id number] 09/24/2023 [id number] / / [id number] Description:This is suture [facility] [id number] Xbraid 1.2mm Suture Nonabsorbable Titanium Uhmwpe Nonsterile - [id number] Implanted:Qty: 1 on 01/29/2022 by Dinora Mcfadden MD at [facility] Right: Hip [facility] [id number] 09/24/2023 [id number] / / [id number] Description:This is suture Insurance [facility] BLUE ACCESS [place] WORKERS COMPENSATION [facility] [place] Care Teams Pre Kindergarten Teacher Relationship Specialty Start Date End Date Colby Hager MD [address] [facility] [address] [place] [address] PCP - General Family Medicine 10/10/21
[2025-01-30 17:54] LABS: Free T4 Free Thyroxine 0.65 ng/dL (0.78-2.19)
== END 2025-01-30 16:26 | disposition home or self-care (01) ==
PROVIDERS: PCP Family Medicine
DX: O99.283 Endocrine, nutritional and metabolic diseases complicating pregnancy, third trimester (principal); E07.9 Disorder of thyroid, unspecified; Z3A.00 Weeks of gestation of pregnancy not specified
CPT/HCPCS: 36415; 84439; 84443

== ENCOUNTER 2025-03-02 08:53 | Outpatient (RCR) | payer BC, SELFPAY ==
[2025-01-08 10:35] VITALS: BP 102/59; PULSE 84
[2025-01-26 12:35] VITALS: BP 107/73; PULSE 92
[2025-02-02 09:35] VITALS: BP 98/72; PULSE 98
[2025-02-09 09:52] VITALS: BP 104/72; PULSE 93
[2025-02-16 14:24] VITALS: PULSE 88
[2025-02-23 09:27] VITALS: BP 115/75; PULSE 98
[2025-03-02 09:23] VITALS: BP 96/71; PULSE 96
== END 2025-03-26 08:32 | disposition home or self-care (01) ==
LOC: ANHOBOP 08:53
PROVIDERS: PCP Family Medicine; Visit Provider Obstetrics & Gynecology
DX: O24.419 Gestational diabetes mellitus in pregnancy, unspecified control (principal); O36.8390 Maternal care for abnormalities of the fetal heart rate or rhythm, unspecified trimester, not applicable or unspecified; Z3A.00 Weeks of gestation of pregnancy not specified
CPT/HCPCS: 59025

== ENCOUNTER 2025-03-07 15:37 | Inpatient (IN) | payer BC, SELFPAY ==
[2025-03-07] VITALS (45 sets, daily range): BP systolic 102–132; BP diastolic 57–90; PULSE 45–158; O2SAT 90–100; BMI 37.4
--- OUTSIDE RECORDS SUMMARY | 2025-03-07 17:59 | XMS_ITS | Encounter Summary ---
Author Organization [facility] Address [address] [facility] [place] [address] Care Team Providers Care Wringer Operator Name Role Phone Selena Mendez MD Primary Care Provider [phone] Reason for Referral * (Routine) - Open Specialty Diagnoses / Procedures Referred By Contac t Referred To Contact Diagnoses History of iron deficiency anemia Vaginal bleeding during (HCC) Thyroid disease during in second trimester (HCC) Obesity affecting in second trimester, unspecified obesity type (HCC) BMI 36.0-36.9,adult Insulin controlled gestational diabetes mellitus (GDM) in second trimester (HCC) Procedures BIOPHYSICAL PROFILE W HERMILOT Angela Lynn MD [address] [place] [address] [place], [place] [id number] Phone: tel: fax: Referral ID Status Reason Start Date Expiration Date Visits Re quested Visits Authorized [id number] Open 03/05/2025 03/05/2026 1 1 * (Routine) - Open Specialty Diagnoses / Procedures Referred By Contac t Referred To Contact Diagnoses History of iron deficiency anemia Vaginal bleeding during (HCC) Thyroid disease during in second trimester (HCC) Obesity affecting in second trimester, unspecified obesity type (HCC) BMI 36.0-36.9,adult Insulin controlled gestational diabetes mellitus (GDM) in second trimester (HCC) Procedures BIOPHYSICAL PROFILE W Angela Johnson MD [address] [facility] [address] [place] [address] Phone: tel: fax: Referral ID Status Reason Start Date Expiration Date Visits Re quested Visits Authorized [id number] Open 03/05/2025 03/05/2026 1 1 Reason for Visit * Reason Comments Ultrasound Non-stress Test * (Routine) - Open Specialty Diagnoses / Procedures Referred By Contac t Referred To Contact Diagnoses History of iron deficiency anemia Vaginal bleeding during (HCC) Thyroid disease during in second trimester (HCC) Obesity affecting in second trimester, unspecified obesity type (HCC) BMI 36.0-36.9,adult Insulin controlled gestational diabetes mellitus (GDM) in second trimester (HCC) Procedures BIOPHYSICAL PROFILE W NST Angela Lynn MD [address] [facility] [address] [place] [address] Phone: tel: fax: Referral ID Status Reason Start Date Expiration Date Visits Re quested Visits Authorized [id number] Open 03/05/2025 03/05/2026 1 1 Encounter Details Date Type Department Care Team (Latest Contact Info) Description 03/05/2025 8:56 AM CDT - 03/05/2025 11:59 PM CDT Hospital Encounter [facility] [address] [place], [place] [id number] Angela Lynn MD [address] [facility] [address] [place] [address] Discharge Disposition: Home or Self Care Social History Tobacco Use Types Packs/Day Years [...] at Not on file Legal Sex Female 3:44 PM CDT Gender Identity Not on file Sexual Orientation Not on file documented as of this encounter Last Filed Vital Signs Vital Sign Reading Time Taken Comments Blood Pressure 102/74 03/05/2025 9:45 AM CDT Pulse 98 03/05/2025 9:45 AM CDT Temperature - - Respiratory Rate - - Oxygen Saturation - - Inhaled Oxygen Concentration - - Weight - - Height - - Body Mass Index - - documented in this encounter Medications at Time of Discharge Alcohol Swabs Use 1 Each as needed 100 Each 11/15/2024 aspirin EC (Ecotrin) 81 MG tablet Take 1 (one) tablet by mouth once daily famotidine (Pepcid) 20 MG tabletIndication s:Heartburn Take 1 (one) tablet by mouth 2 times daily Reasons: Heartburn ferrous sulfate 325 (65 FE) MG tabletIndication s:Low serum iron TAKE 1 TABLET BY MOUTH EVERY DAY 100 tablet 02/20/2025 Glucagon (Baqsimi One Pack) 3 MG/DOSE POWD [place] 1 Each into the nose as needed 1 Each 11/15/2024 insulin glargine (Lantus/Semglee) 100 units/mL pen Inject 8 units in the morning and 8 units at bedtime. Take dosages approximately 12 hours apart. Increase dose as directed due to increasing insulin requirements during . Max total daily dose = 50u 15 mL 01/31/2025 insulin pen needle (Novofine) 32G X 6 MM MISCIndications: Insulin controlled gestational diabetes mellitus (GDM) in second trimester (HCC) 2 times daily 100 Each 11/15/2024 loratadine (Claritin) 10 MG tabletIndication s:Seasonal Allergic Rhinitis Take 1 (one) tablet by mouth once daily Reasons: Hayfever Vit-Fe Fumarate-FA ( vitamin) 28-0.8 MG tabletIndication s: Take 1 (one) tablet by mouth once daily Reasons: documented as of this encounter Progress Notes * Rosaura Wolfe RN - 03/05/2025 9:48 AM CDT Pt here for NST/BPP at 38w1d for GDM, thyroid disease, and obesity. Pt reports feeling movement. Pt reports occasional contractions and cramping. Denies loss of fluid, vaginal bleeding, epigastric pain or unrelieved headaches. No edema noted at this time. Pt's next OB visit is tomorrow, 03/06/25 and pt is scheduled for IOL on 03/12/25. NST to be reviewed by Dr. Lynn via remote review. [facility] 06/08. Name: Raven Junior Date of : 1990 Today's Date: 03/05/2025 38w1d NST RESULTS (MURPHY) OBJECTIVE FINDINGS Pulse: 98, , BP: 102/74 NST Indication(s): Gestational diabetes Uterine Irritability: Yes Contractions: Not present OBJECTIVE FINDINGS Movement: Present Monitoring Mode: External Baseline: 120 BPM Variability: Moderate Decelerations: None Accelerations: Yes Rosaura Wolfe RN documented in this encounter Plan of Treatment Not on file documented as of this encounter Procedures Procedure Name Priority Date/Time Associated Diagnosis Comments BIOPHYSICAL PROFILE W NST Routine 03/05/2025 8:48 AM CDT History of iron deficiency anemia Vaginal bleeding during (HCC) 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 Para 1 [id number] 1. live 2020. Gest. age 39 w + 0 d. Weight 3,683 g. Sex of child: male. Details: 2. missed Lab Tests Test Date Result NIPT Low risk, Male Maternal Assessment Physical Exam Height 175 cm, 5 ft 9 in. Weight 116 kg, 255 lb. Initial weight 112 kg, 246 lb. BMI 37.66 kg/m . Initial BMI 36.33 kg/m . Weight gain 4 kg, 9 lb Method ====== Transabdominal ultrasound examination. View: Sufficient ========= Murphy . Number of fetuses: 1 Dating ====== Date Details Gest. age SUZANNE LMP 06/11/2024 38 w + 1 d 03/18/2025 Conception Conception: IVF Embryo transfer 06/28/2024 IVF / ET: 6 d 38 w + 4 d 03/15/2025 Stated SUZANNE 38 w + 3 d 2025 Assigned dating based on stated SUZANNE, selected on 11/08/2024 38 w + 3 d 2025 General Evaluation Cardiac activity present. FHR 130 bpm. Presentation: cephalic Placenta: Placental site: anterior Amniotic Fluid Assessment ==== Amount of AF: normal MVP 8.4 cm. ENRIQUE 19.3 cm. Q1 2.6 cm, Q2 8.4 cm, Q3 6.7 cm, Q4 1.7 cm Biophysical Profile 2: breathing movements 2: Gross body movements 2: tone 2: Amniotic fluid volume NST: reactive 10/10 Biophysical profile score Non Stress Test NST interpretation: reactive. Baseline FHR 120 bpm. Accelerations: present. Decelerations: absent. Uterine activity: absent Growth Overview Exam date GA BPD (mm) HC (mm) AC (mm) FL (mm) HL (mm) EFW (g) 11/08/2024 21w 5d 53.2 66% 205.3 77% 181.9 82% 41 87% 38.4 95% 558 96% 12/06/2024 25w 5d 69.6 96% 262.8 98% 225.3 78% 46.1 24% 955 75% 01/03/2025 29w 5d 82.3 >99% 310.3 >99% 273.4 89% 57.5 47% 1772 91% 01/31/2025 33w 5d 90.9 99% 335.8 99% 309.7 84% 64.5 28% 2574 80% 02/28/2025 37w 5d 98.3 >99% 353.5 95% 356.6 97% 71.2 21% 62.4 45% 3719 90% Anatomy The following structures appear normal: Abdomen Stomach. Kidneys. Bladder. sex: male. Impression ========= Single, live, intrauterine at 38w 3d The amniotic fluid volume is normal. The biophysical profile is 08/10. Comment ======== ultrasound alone cannot detect all structural, genetic, or functional , placental, or maternal abnormalities Follow-up ======== Continue weekly BPP with 2x weekly NST Coding ====== Procedures [id number]: US Uterus Limited 73562: Biophysical Profile W NST [place] PACS Anatomical Region Laterality Modality Other 03/05/2025 8:48 AM CDT Angela Lynn MD [facility] ORDERABLES Edited Result - Final documented in this encounter Visit Diagnoses Diagnosis History of iron deficiency anemia- Primary Personal history of diseases of blood and blood-forming organs Vaginal bleeding during (HCC) 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
--- OUTSIDE RECORDS SUMMARY | 2025-03-07 17:59 | XMS_ITS | Referral Summary ---
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 Not on file Not [...] on file Medical Devices Implanted Type Area Servicing Manager Device Identifier Shelf Expiration Date Model / Serial / Lot Pivot Medical [id number] Cinchlock Ss Knotless Brake Coupler Dinkey Lock [place] Suture Labrum - [id number] Implanted:Qty: 1 on 01/29/2022 by Dinora Mcfadden MD at [facility] Right: Hip [facility] [id number] 04/22/2023 [id number] / / [id number] Description:PIVOT MEDICAL [place] C09885 CINCHLOCK SS KNOTLESS FOOD PRODUCTION SUPERVISOR LOCK ANCHOR SUTURE LABRUM - [id number] [facility] Medical [id number] Cinchlock Ss Knotless Brake Coupler Dinkey Lock [place] Suture Labrum - [id number] Implanted:Qty: 1 on 01/29/2022 by Dinora Mcfadden MD at [facility] [place] Right: Hip [facility] [id number] 04/22/2023 [id number] / / [id number] Description:PIVOT MEDICAL CA H69600 CINCHLOCK SS KNOTLESS FOOD PRODUCTION SUPERVISOR LOCK ANCHOR SUTURE LABRUM - [id number] [facility] [id number] Xbraid 1.2mm Suture Nonabsorbable Titanium Uhmwpe Nonsterile - [id number] Implanted:Qty: 1 on 01/29/2022 by Dinora Mcfadden MD at [facility] Right: Hip [facility] [id number] 09/24/2023 [id number] / / [id number] Description:This is suture [facility] [id number] Xbraid 1.2mm Suture Nonabsorbable Titanium Uhmwpe Nonsterile - [id number] Implanted:Qty: 1 on 01/29/2022 by Dinora Mcfadden MD at [facility] Right: Hip [facility] [id number] 09/24/2023 [id number] / / [id number] Description:This is suture Insurance [facility] BLUE ACCESS [place] WORKERS COMPENSATION [facility] [place] Care Teams Ambulatory Service Representative Relationship Specialty Start Date End Date Colby Hager MD [address] [facility] [address] [place] [address] PCP - General Family Medicine 10/10/21
--- OUTSIDE RECORDS SUMMARY | 2025-03-07 17:59 | XMS_ITS | Clinical Summary ---
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 Not on file Not [...] season) 2024 10/16/2021, 12/31/2020, 12/03/2020 Influenza Vaccine (Season Ended) 2025 08/20/2022 HPV Vaccines Aged Out No longer eligi ble based on patient's age to complete this topic Pneumococcal vaccine <65 Aged Out No longer eligible based on patient's age to complete this topic Medical Devices Implanted Type Area Sole Scraper Device Identifier Shelf Expiration Date Model / Serial / Lot Pivot Medical [id number] Cinchlock Ss Knotless Machine Container Washer Lock [place] Suture Labrum - [id number] Implanted:Qty: 1 on 01/29/2022 by Dinora Mcfadden MD at [facility] [place] Right: Hip [facility] [id number] 04/22/2023 [id number] / / [id number] Description:PIVOT MEDICAL [place] H13693 CINCHLOCK SS KNOTLESS CIRCUIT RECORDER LOCK ANCHOR SUTURE LABRUM - [id number] Pivot Medical [id number] Cinchlock Ss Knotless Machine Container Washer Lock [place] Suture Labrum - [id number] Implanted:Qty: 1 on 01/29/2022 by Dinora Mcfadden MD at [facility] [place] Right: Hip [facility] [id number] 04/22/2023 [id number] / / [id number] Description:PIVOT MEDICAL [place] P00527 CINCHLOCK SS KNOTLESS CIRCUIT RECORDER LOCK ANCHOR SUTURE LABRUM - [id number] [facility] [id number] Xbraid 1.2mm Suture Nonabsorbable Titanium Uhmwpe Nonsterile - [id number] Implanted:Qty: 1 on 01/29/2022 by Dinora Mcfadden MD at [facility] Right: Hip [facility] [id number] 09/24/2023 [id number] / / [id number] Description:This is suture [facility] [id number] Xbraid 1.2mm Suture Nonabsorbable Titanium Uhmwpe Nonsterile - [id number] Implanted:Qty: 1 on 01/29/2022 by Dinora Mcfadden MD at [facility] Right: Hip [facility] [id number] 09/24/2023 [id number] / / [id number] Description:This is suture Insurance [employer] [place] [employer] [place] GENERIC [facility] Care Teams Head Resident Relationship Specialty Start Date End Date Colby Hager MD [address] [facility] [address] [place] [address] PCP - General Family Medicine 10/10/21
--- OUTSIDE RECORDS SUMMARY | 2025-03-07 18:00 | XMS_ITS | Encounter Summary ---
Author Organization [facility] Healthcare Address [address] [place] [address] Care Team Providers Care Stand Up Forklift Operator Name Role Phone Selena Smith MD Primary Care Provider +- [phone] Colby Hager MD Primary Care Provider Encounter Details Date Type Department Care Team (Late st Contact Info) Description 07/09/2020 Telephone [facility] [address] [place] [id number] Ralph Montgomery, RT Social History Tobacco Use [...] Sexual Orientation Lesbian 10/10/2021 10 :00 AM RANCH HAND documented as of this encounter Plan of Treatment Not on file documented as of this encounter Visit Diagnoses Not on filedocumented in this encounter Care Teams Stand Up Forklift Operator Relationship Specialty Start Date End Date Selena Smith MD PCP - General Family Practice 04/24/20 10/09/21 Colby Hager MD [address] [facility] [address] [place] [address] PCP - General Family Medicine 10/10/21 documented as of this encounter
--- OUTSIDE RECORDS SUMMARY | 2025-03-07 18:00 | XMS_ITS | Clinical Summary ---
Author Organization [facility] Address [address] [place] [address] Care Team Providers Care Shuttlecock Assembler Name Role Phone Selena Mendez MD Primary Care Provider [phone] Source Comments [facility],non-owned Affiliates and Associated Physician Practices is amultiple site organization consisting of ambulatory clinics and hospital sitesin [place], [place], [place] and [place]. This disclosure is being madepursuant to the Care Everywhere program and may not contain all information available regarding this patient. Last updated 18.[facility] Allergies No known active allergies Medications * Be aware that medications may not be up to date on this document. Alwaysverify current medications with the patient. Vit-Fe Fumarate-FA ( vitamin) 28-0.8 MG tabletIndicati ons: Take 1 (one) tablet by mouth once daily Reasons: Active insulin pen needle (Novofine) 32G X 6 MM MISCIndication s:Insulin controlled gestational diabetes mellitus (GDM) in second trimester (HCC) 2 times daily 100 Each 5 11/15/19 25 Active Glucagon (Baqsimi One Pack) 3 MG/DOSE POWD [place] 1 Each into the nose as needed 1 Each 11/15/19 25 Active Alcohol Swabs Use 1 Each as needed 100 Each 5 11/15/19 25 Active loratadine (Claritin) 10 MG tabletIndicati ons:Seasonal Allergic Rhinitis Take 1 (one) tablet by mouth once daily Reasons: Hayfever Active famotidine (Pepcid) 20 MG tabletIndicati ons:Heartburn Take 1 (one) tablet by mouth 2 times daily Reasons: Heartburn Active aspirin EC (Ecotrin) 81 MG tablet Take 1 (one) tablet by mouth once daily Active insulin glargine (Lantus/Semgle e) 100 units/mL pen Inject 8 units in the morning and 8 units at bedtime. Take dosages approximately 12 hours apart. Increase dose as directed due to increasing insulin requirements during . Max total daily dose = 50u 15 mL 5 02/01/20 25 Active ferrous sulfate 325 (65 FE) MG tabletIndicati ons:Low serum iron TAKE 1 TABLET BY MOUTH EVERY DAY 100 tablet 02/21/20 25 Active ferrous sulfate 325 (65 FE) MG tabletIndicati ons:Low serum iron Take 1 (one) tablet by mouth once daily 100 tablet 11/17/19 25 2024 Discontinued Active Problems Problem Noted Date Diagnosed Date Gestational diabetes mellitus (GDM) in second tr imester 11/13/2024 BMI 36.0-36.9,adult 11/13/2024 Vaginal bleeding during [...] Problem Noted Date Diagnosed Date Resolved Date 21 weeks gestation of 11/13/2024 01/31/2025 Exposure to blood 04/22/2018 11/13/2024 Encounters Date Type Department Care Team Description 03/05/2025 8:56 AM CDT - 03/05/2025 11:59 PM CDT Hospital Encounter [facility] [address] [place] [phone] Angela Lynn MD Discharge Disposition: Home or Self Care 02/28/2025 7:26 AM CDT - 02/28/2025 11:59 PM CDT Hospital Encounter [facility] [address] [place] [phone] Nando Weinberg MD Discharge Disposition: Home or Self Care 02/19/2025 8:53 AM CDT - 02/19/2025 11:59 PM CDT Hospital Encounter [facility] [address] [place] [phone] Jovanny Holley MD Discharge Disposition: Home or Self Care 02/19/2025 Refill [facility] [address] [place] [phone] Paulette Arvizu MD Refill Request 02/12/2025 8:53 AM CDT - 02/12/2025 11:59 PM CDT Hospital Encounter [facility] [address] [place] [phone] Jovanny Holley MD Discharge Disposition: Home or Self Care 02/05/2025 8:49 AM CDT - 02/05/2025 11:59 PM CDT Hospital Encounter [facility] [address] [place] [phone] Jovanny Holley MD Discharge Disposition: Home or Self Care 01/31/2025 9:41 AM CDT - 01/31/2025 11:59 PM CDT Hospital Encounter [facility] [address] [place] [phone] Nando Weinberg MD Discharge Disposition: Home or Self Care 01/22/2025 10:26 AM CDT - 01/22/2025 11:59 PM CDT Hospital Encounter [facility] [address] [place] [phone] Jovanny Holley MD Discharge Disposition: Home or Self Care 01/03/2025 2:18 PM CLINICAL LAB SPECIALIST - 01/03/2025 11:59 PM CLINICAL LAB SPECIALIST Hospital Encounter [facility] [address] [place] [phone] Nando Weinberg MD Discharge Disposition: Home or Self Care 12/12/2024 2:30 PM CLINICAL LAB SPECIALIST - 12/12/2024 11:59 PM CLINICAL LAB SPECIALIST Hospital Encounter [address] [address] Paulette Arvizu MD Peterson, Renuka E., MD Discharge Disposition: Home or Self Care 12/12/2024 2:27 PM CLINICAL LAB SPECIALIST - 12/12/2024 2:29 PM CLINICAL LAB SPECIALIST Hospital Encounter [address] [address] Judith Cabello MD Discharge Disposition: Home or Self Care from Last 3 Months Immunizations Immunization Administration Dates Next Due TDAP (7yrs+) 04/22/2018 [...] Pulse 98 03/05/2025 9:45 AM CDT Temperature 36.8 C (98.2 F) 04/22/2018 6:36 PM CDT Respiratory Rate 16 04/22/2018 6:36 PM CDT Oxygen Saturation 98% 04/22/2018 6:36 PM CDT Inhaled Oxygen Concentration - - Weight 115.7 kg (255 lb) 02/28/2025 7:57 AM CDT Height 175 cm (5' 8.9 ) 11/08/2024 10:10 AM CLINICAL LAB SPECIALIST Body Mass Index 37.77 11/08/2024 10:10 AM CLINICAL LAB SPECIALIST Plan of Treatment Health Maintenance Due Date Last Done Comments PAP SMEAR 1991 HIV SCREENING 2006 HEPATITIS C SCREENING 03/11/2009 HEPATITIS B VACCINE (1 of 3 - 19+ 3-dose series) 2010 COVID-19 VACCINE (2023-2 5 season) 2024 10/16/2021, 12/31/2020, 12/03/2020 DEPRESSION SCREENING 11/01/2024 OB-ONE HOUR GLUCOSE 12/10/2024 OB-TDAP CURRENT 12/17/2024 04/22/2018 OB-RHOGAM INJECTION 12/24/2024 OB-GROUP B STREP SCREEN 02/11/2025 INFLUENZA VACCINE (Season Ended) 2025 08/20/2022 DTAP/TDAP/TD VACCINES (2 - T d or [...] (HCC) 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 Obesity affecting in second trimester, unspecified obesity type (HCC) BMI 36.0-36.9,adult Insulin controlled gestational diabetes mellitus (GDM) in second trimester ([facility]) BIOPHYSICAL PROFILE W NST Routine 02/28/2025 7:21 AM CDT Obesity affecting in third trimester, unspecified obesity type (HCC) Thyroid disease during in third trimester (HCC) resulting from assisted reproductive technology in third trimester ([facility]) Encounter for screening ([facility]) Insulin controlled gestational diabetes mellitus (GDM) in third trimester (HCC) BIOPHYSICAL PROFILE W T Routine 02/19/2025 9:28 AM CDT Obesity affecting in third trimester, unspecified obesity type (HCC) Thyroid disease during in third trimester (HCC) resulting from assisted reproductive technology in third trimester ([facility]) Encounter for screening ([facility]) Insulin controlled gestational diabetes mellitus (GDM) in third trimester ([facility]) BIOPHYSICAL PROFILE W [facility] Routine 02/12/2025 8:48 AM CDT Obesity affecting in third trimester, unspecified obesity type (HCC) Thyroid disease during in third trimester ([facility]) resulting from assisted reproductive technology in third trimester ([facility]) Encounter for screening ([facility]) Insulin controlled gestational diabetes mellitus (GDM) in third trimester ([facility]) BIOPHYSICAL PROFILE [facility] Routine 02/05/2025 8:52 AM CDT History of iron deficiency anemia Diet controlled gestational diabetes mellitus (GDM) in second trimester ([facility]) BMI 36.0-36.9,adult Vaginal bleeding during ([facility]) Thyroid disease during in third trimester ([facility]) resulting from assisted reproductive technology in second trimester ([facility]) Encounter for ultrasound to assess growth ([facility]) BIOPHYSICAL PROFILE [facility] Routine 01/31/2025 11:06 AM CDT History of iron deficiency anemia BMI 36.0-36.9,adult Vaginal bleeding during (HCC) Thyroid disease during in third trimester ([facility]) resulting from assisted reproductive technology in second trimester ([facility]) Encounter for ultrasound to assess growth ([facility]) BIOPHYSICAL PROFILE W [facility] Routine 01/22/2025 10:22 AM CDT History of iron deficiency anemia Diet controlled gestational diabetes mellitus (GDM) in second trimester BMI 36.0-36.9,adult Vaginal bleeding during Thyroid disease during in third trimester resulting from assisted reproductive technology in second trimester Encounter for ultrasound to assess growth SONOGRAM - COMPLETE Routine 01/03/2025 2 :59 PM CLINICAL LAB SPECIALIST BMI 36.0-36.9,adult Vaginal bleeding during 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 Linked Results Indication ======== IVF Prior child with Tetrology of Fallot echocardiogram: normal structures with PACs noted GDM-A2 on insulin, Class II obesity, Vaginal bleeding History ====== OB History 3. Para 1 [id number] 1. live 2020. Gest. age 39 w [...] volume is normal. The biophysical profile is 10/10. Comment ======== ultrasound alone cannot detect all structural, genetic, or functional , placental, or maternal abnormalities Follow-up ======== Continue weekly BPP with 2x weekly NST Coding ====== Procedures [id number]: US Uterus Limited [id number]: Biophysical Profile W NST REDDICK PACS Anatomical Region Laterality Modality Other 03/05/2025 8:48 AM CDT Angela Lynn MD [facility] ORDER[facility]LES Edited Result - Final * SONOGRAM - COMPLETE (01/03/2025 2:59 PM CLINICAL LAB SPECIALIST) Linked Results Indication ======== IVF , Incomplete anatomy screen Prior child with Tetrology of Fallot echocardiogram: Normal structures with PACs noted GDM-A2 on insulin, Class II obesity, Vaginal bleeding History ====== OB History 3. Para 1 [id number] 1. live 2020. Gest. age 39 w [...] 3 lb 14 oz EFW by Hadlock ([id number]) overall normal range, but the AC is [...] growth at 33 weeks Coding ====== Procedures [id number]: US Preg Uterus Follow Up [facility] Trippin In PACS Anatomical Region Laterality Modality Other 01/03/2025 2:59 PM CLINICAL LAB SPECIALIST Michelle Ricks MD [facility] ORDER[facility] Edited Result - Final * ECHO COMPLETE CG (12/12/2024 3:17 PM CLINICAL LAB SPECIALIST) MV E pk naina 52.54 cm/s [facility] CV F UJI PACS MV A pk naina 84.57 cm/s [facility] CV F UJI PACS Anatomical Region Laterality Modality Ultrasound 12/12/2024 2:40 PM CLINICAL LAB SPECIALIST Narrative 12/12/2024 3:37 PM CLINICAL LAB SPECIALIST Name: Raven Junior Patient Exam Info Gender: Female Patient Status: O/P : 1990 Admit Date: 12/12/2024 Exam Date/Time: 12/12/2024 2:40 PM Site: [facility] Current Location: CARE EStudy Quality: Diagnostic quality Staff Ordering Provider: Paulette Arvizu Interpreting Physician: Judith Cabello MD Metal Fitter: Saloni Howell [facility] Study Info Procedure: ECHO COMPLETE CG Indications: [...] 12/12/2024 Exam Date/Time: 12/12/2024 2:40 PM Site: [facility] Current Location: CARE EStudy Quality: Diagnostic quality Staff Ordering Provider: Paulette Arvizu Interpreting Physician: Judith Cabello MD Metal Fitter: Saloni Howell [facility] Study Info Procedure: ECHO COMPLETE CG Indications: [...] 03:37 PM Paulette Arvizu MD ECHO CUPID Final Result from Last 3 Months Insurance ANTH Care Teams Shuttlecock Assembler Relationship Specialty Start Date End Date Selena Mendez MD PCP - General 07/16/20
--- OUTSIDE RECORDS SUMMARY | 2025-03-07 18:00 | XMS_ITS | Data Portability ---
Author Organization [facility], Main Office Address [address] [place] [address] Care Team Providers Care Data Management Specialist Name Role Phone IONA HOWELL Primary Care Provider IONA HOWELL Referring Provider TAKETA, ERICA Study Coordinator YARA, CRUISE Study Coordinator Unavailable Assessment Encounter Date Assessment Date Assessment LastModified by Organization Details LastModified Time 01/11/2023 01/11/2023 This note is dictated and transcribed by [employer]. [employer] Project Manager variances may occur. Despite proofreading, typographical errors may occur. Not available 01/11/2023 14:30:35 04/13/2024 04/13/2024 This note is dictated and transcribed by [employer]. [employer] Digital Project Manager variances may occur. Despite proofreading, typographical errors may occur. Occasional wrong-word or 'afzbi-x-jxmo' substitutions may have occurred due to the inherent limitations of voice recording. Read the chart carefully and recognize, using context, where substitutions have occurred. Not available 04/13/2024 12:09:58 05/11/2024 05/11/2024 This note is dictated and transcribed by [employer]. [employer]elance Digital Project Manager variances may occur. Despite proofreading, typographical errors may occur. Occasional wrong-word or 'yrmoy-h-zbyh' substitutions may have occurred due to the inherent limitations of voice recording. Read the chart carefully and recognize, using context, where substitutions have occurred. Not available 05/11/2024 15:12:59 Plan of Treatment Reminders Order Date Submit Date Provider Last Modified By Organization Details Last Modified Time Details Appointments None recorded. Lab None recorded. Referral orthopedic surgeon referral - liseth/ wash U 2023 024 [email or web address] Handy Lopez MD, [address] [place], [address], 4 08:25:57 Procedures None recorded. Surgeries None recorded. Imaging MRI, ankle, w/o contrast 2023 024 [facility], [address], [place], [address], 4 09:07:48 MRI, ankle, w/o contrast 2022 023 [email or web address] Not available 3 16:30:28 Medication Orders None recorded. Patient TargetsNo targets recorded. Patient InstructionsNo instructions recorded. Reason for Referral Orthopedic Surgeon Referral for Avulsion of ligament with bony fragment of lateral malleolus childers/ wash U Referring Physician: Jeffrey Worthington, Podiatric Surgery, Encounter Date: 04/13/2024 Results Created Date Observation Date Name Description Value Unit Range Abnormal Flag Note LastModifiedBy Organization Detail LastModifiedTime 05/12/20 24 05/10/2024 MRI, ankle , w/o contr ast No observ ation record ed. [email or web address] [facility] [address], [place], [address], 05/12/2024 09:07:48 Result Notes None recorded. Problems Name Problem SNOMED Code Status Onset Date Resolution Date Notes Provider Name and Address Organization Details Recorded Time Sprain of right ankle 25421572450 497933 Active 2020 Not Available [facility] 3 09:24:33 Pain of right ankle joint 25360502533 995763 Active 2020 Not Available [facility] 3 09:24:33 Pain in right foot 48076934058 9107 Active 2020 Not Available [facility] 3 09:24:33 Chronic ankle pain 39479030065 109 Active 2021 Not Available [facility] 3 09:24:33 Avulsion of ligament with bony fragment of lateral malleolus 175970368 Active 2021 Not Available [facility] 3 09:24:33 60810494 Completed 202009/22/2021 Not Available [facility] 3 09:24:33 Irregular periods 82043856 Active Not Available [facility] 3 09:24:33 Sprain of lateral ligament of ankle joint 146196826 Active 2022 Jeffrey Worthington, ZAHIRA [address] [facility], [facility] [address], [place], [address] , [facility] 3 14:23:38 Problem Notes None recorded. Procedures Surgical History Date Name Laterality Status Provider Name and Address Organization Details Recorded Time 8 PROJECT MANAGEMENT ANALYST Procedure completed Not Available [facility] 2022 09:20:48 8 Date of Last Pap Smear completed Not Available [facility] 12/30/2022 09:20:47 4 PROJECT MANAGEMENT ANALYST Procedure completed Not Available [facility] 2022 09:20:48 0 Orthopedic Surgery completed Not Available [facility] 12/30/2022 09:20:48 Imaging Results Imaging Date Name Status LastModified by Organiz ation Details LastModified Time 05/10/2024 MRI, ankle, w/o contrast completed [email or web address] [facility] [address], [place], [address], 05/12/2024 09:07:48 Procedure Notes None recorded. Medical Equipment None Reported. Allergies No known drug allergies Medications Name Sig Start Date Stop Date Status Note LastModified by Organization Details LastModified Time progesteron e 50mg/mlethy loleate INJECT 2 ML ONCE A DAY DIRECTED 04/13 completed Not Available Not Available Not Available fed-ex priority overnight WED-TH PT HM WITH SIG MM 04/13 completed Not Available Not Available Not Available sharp container USE TO DISPOSE OF NEEDLES 04/13 completed Not Available Not Available Not Available carisoprodo l 350 mg tablet TK 1 T PO Q 8 - 12 H PRN active Not Available Not Available No t Available buspirone 5 mg tablet 04/13 completed Not Available Not Available Not Available ergocalcife rol (vitamin D2) (bulk) 75427 unit/mg powder 04/13 completed Not Available Not Available Not Available prednisone 10 mg tablet 01/11 completed Not Available Not Available Not Available azithromyci n 250 mg tablet TAKE 2 TABLETS BY MOUTH TODAY, THEN TAKE 1 TABLET DAILY FOR 4 DAYS DIRECTED active Not Available Not Available No t Available citalopram 10 mg tablet 01/11 completed Not Available Not Available Not Available hydrocodone 5 mg-acetamin ophen 325 mg tablet TK 1 T PO Q 4 TO 6 H PRN FOR PAIN active Not Available Not Available No t Available meloxicam 15 mg tablet TK 1 T PO QD active Not Available Not Available No t Available sumatriptan 25 mg tablet 04/13 completed Not Available Not Available Not Available ondansetron HCl 4 mg tablet 06/11 completed Not Available Not Available Not Available Pregnyl 10,000 unit intramuscul ar solution INJECT 10,000 UNITS INTRAMUSC ULARLY A ONE-TIME DOSE DIRECTED 03/05 completed Not Available Not Available Not Available estradiol 0.1 mg/24 hr semiweekly transdermal patch 03/05 completed Not Available Not Available Not Available ciprofloxac in 500 mg tablet 03/05 completed Not Available Not Available Not Available sulfamethox azole 800 mg-trimetho prim 160 mg tablet 08/07 completed Not Available Not Available Not Available aspirin 81 mg tablet,marian yed release Take 1 tablet every day by oral route. 10/15 completed Not Available Not Available Not Available tramadol 50 mg tablet Take 1 tablet every 6 hours by oral route. 08/07 completed Not Available Not Available Not Available prednisone 10 mg tablets in a dose pack Take 1 tab by mouth, 3 times a day for 3 daysTake 1 tab by mouth 2 times a day for 2 daysTake 1 tab by mouth once a day for 1 day 01/11 completed Not Available Not Available Not Available oxycodone-a cetaminophe n 5 mg-325 mg tablet 03/05 completed Not Available Not Available Not Available progesteron e 50 mg/mL intramuscul ar oil INJECT 50MG-100M G EVERY DAY INTRAMUSC ULARLY DIRECTED 04/13 completed Not Available Not Available Not Available amoxicillin 875 mg tablet 01/11 completed Not Available Not Available Not Available citalopram 20 mg tablet 04/13 completed Not Available Not Available Not Available amitriptyli ne 25 mg tablet 04/13 completed Not Available Not Available Not Available amitriptyli ne 10 mg tablet TAKE 1 TABLET BY MOUTH ONCE DAILY THREE HOURS BEFORE BEDTIME 03/05 completed Not Available Not Available Not Available benzonatate 100 mg capsule 04/13 completed Not Available Not Available Not Available nitrofurant oin macrocrysta l 100 mg capsule 08/07 completed Not Available Not Available Not Available polymyxin B sulfate 10,000 unit-trimet hoprim 1 mg/mL eye drops 01/11 completed Not Available Not Available Not Available progesteron e micronized 200 mg capsule 03/05 completed Not Available Not Available Not Available estradiol 2 mg tablet TAKE 1 TABLET ORALLY THREE TIMES A DAY DIRECTED 04/13 completed Not Available Not Available Not Available hydroxyzine HCl 25 mg tablet 08/07 completed Not Available Not Available Not Available ergocalcife rol (vitamin D2) 1,250 mcg (50,000 unit) capsule TAKE 1 CAPSULE BY MOUTH ONCE A WEEK DIRECTED REPEAT VITAMIN D LEVEL WHEN COMPLETIO N OF MEDICINE 04/13 completed Not Available Not Available Not Available ibuprofen 600 mg tablet 04/13 completed Not Available Not Available Not Available letrozole 2.5 mg tablet 03/05 completed Not Available Not Available Not Available methylpredn isolone 4 mg tablets in a dose pack TAKE 6 TABLETS ON DAY 1 DIRECTED ON PACKAGE AND DECREASE BY 1 TAB EACH DAY FOR A TOTAL OF 6 DAYS active Not Available Not Available No t Available ketoconazol e 2 % topical cream APPLY TOPICALLY TWICE A DAY 04/13 completed Not Available Not Available Not Available ondansetron 4 mg disintegrat ing tablet 04/13 completed Not Available Not Available Not Available sertraline 50 mg tablet 04/13 completed Not Available Not Available Not Available naratriptan 1 mg tablet TAKE 1 TABLET BY MOUTH AT ONSET OF HEADACHE IF NO RELIEF, MAY REPEAT 1 TABLET AFTER AT LEAST 4 HRS active Not Available Not Available No t Available BD Luer-Shanel Syringe 3 mL 22 x 1 1/2 USE DIRECTED [PROGESTE YAMEL MEDICATIO N] 04/13 completed Not Available Not Available Not Available leuprolide 1 mg/0.2 mL subcutaneou s kit active Not Available Not Available Not Available amoxicillin 875 mg-potassiu m clavulanate 125 mg tablet TAKE 1 TABLET BY MOUTH EVERY 12 HOURS 04/13 completed Not Available Not Available Not Available Robaxin 750 mg tablet Take 1 tablet 3 times a day by oral route. 08/07 completed Not Available Not Available Not Available escitalopra m 10 mg tablet 08/07 completed Not Available Not Available Not Available ganirelix 250 mcg/0.5 mL subcutaneou s syringe INJECT 250MCG SUBCUTANE OUSLY EVERY DAY active Not Available Not Available No t Available Premarin 1.25 mg tablet TK ONE T PO QD FOR 10 DAYS. active Not Available Not Available No t Available BD Regular Bevel [place] 25 gauge x 1 1/2 USE DIRECTED [PROGESTE YAMEL MEDICATIO N] 04/13 completed Not Available Not Available Not Available BD Regular Bevel [place] 25 gauge x 5/8 USE DIRECTED WITH MENOPUR 05/14 completed Not Available Not Available Not Available nitrofurant oin monohydrate /macrocryst als 100 mg capsule Take 1 capsule every 12 hours by oral route for 7 days. 08/06 completed Not Available Not Available Not Available duloxetine 20 mg capsule,del ayed release TAKE 1 CAPSULE BY MOUTH EVERY DAY active Not Available Not Available No t Available Menopur 75 unit subcutaneou s solution INJECT 75 UNITS SUBCUTANE OUSLY EVERY DAY DIRECTED active Not Available Not Available No t Available Follistim AQ 900 unit/1.08 mL subcutaneou s cartridge INJECT 225 UNITS SUBCUTANE OUSLY EVERY DAY active Not Available Not Available No t Available vit 10-iron fum-folic 2020 active Not Available Not Available Not Avai lable Nexplanon 68 mg subdermal implant 08/15 completed Not Available Not Available Not Available Estarylla 0.25 mg-0.035 mg tablet 03/05 completed Not Available Not Available Not Available Vitals Date Recorded Body mass index (BMI) Body height Oxygen saturation Oxygen saturation in Arterial blood by Pulse oximetry Heart rate Respiratory rate Body temperature Body weight Systolic blood pressure Diastolic blood pressure Provider Name and Address Organization Details Last Updated DateTime 2 31.7 kg/m2 175.26 cm 97 % 97 % 100 /min 14 /min 97.4 [degF] 42117.3 6 g 115 mm[Hg] 70 mm[Hg] Not Available [facility] 3 09:23:15 Date Recorded Body mass index (BMI) Body height Oxygen saturation Oxygen saturation in Arterial blood by Pulse oximetry Heart rate Respiratory rate Body weight Systolic blood pressure Diastolic blood pressure Provider Name and Address Organization Details Last Updated DateTime 3 31.7 kg/m2 175.26 cm 98 % 98 % 89 /min 14 /min 73504.3 6 g 112 mm[Hg] 76 mm[Hg] Not Available [facility] 3 09:23:15 Date Recorded Body height Provider Name an d Address Organization Details Last Updated DateTime 01/11/2023 175.26 cm Brittnee Atwood MA [facility] 01/11/2023 14:01:23 Date Recorded Body height Heart rate Respiratory rate Oxygen saturation Oxygen saturation in Arterial blood by Pulse oximetry Systolic blood pressure Diastolic blood pressure Provider Name and Address Organization Details Last Updated DateTime 4 175.26 cm 76 /min 14 /min 99 % 99 % 124 mm[Hg] 78 mm[Hg] Hilary Medina [facility] 4 11:44:09 Date Recorded Body height Heart rate Systolic blood pressure Diastolic blood pressure Provider Name and Address Organization Details Last Updated DateTime 05/11/2024 175.26 cm 69 /min 137 mm[Hg] 90 mm[Hg] Megan Franks CNA [facility] 05/11/2024 11:57:59 Social History Question Answer Notes LastModified by Organizat ion Details LastModified Time Tobacco Smoking Status Never Smoker Not Available [facility] 12/30/2022 09:20:39 What Is Your Level Of Alcohol Consumption? None [id number] Information not available 12/30/2022 What Is Your Level Of Caffeine Consumption? Occasional [id number] Information not available 12/30/2022 In The 14 Days Before Symptom Onset, Have You Had Close Contact With A Laboratory-confir med COVID-19 While That Case Was Ill? No [id number] Information not available 12/30/2022 In The 14 Days Before Symptom Onset, Have You Had Close Contact With A Person Who Is Under Investigation For COVID-19 While That Person Was Ill? No [id number] Information not available 12/30/2022 Which Illicit Or Recreational Drugs Have You Used? None [id number] Information not available 12/30/2022 Do You Or Have You Ever Used E-cigarettes Or Vape? Never Used Electronic Cigarettes [id number] Information not available 12/30/2022 What Is Your Relationship Status? [id number] Information not available 12/30/2022 Do You Use Your Seat Belt Or Car Seat Routinely? Yes [id number] Information not available 12/30/2022 Do You Use Any Illicit Or Recreational Drugs? No [id number] Information not available 12/30/2022 Have You Recently Traveled Abroad? No [id number] Information not available 12/30/2022 Sex: Female Functional Status Question Answer Note LastModified by Organizat ion Details LastModified Time What is your exercise level? None [id number] Information not available 12/30/2022 Mental Status None recorded. Family History Relationship Description Onset Age of this Age Resolved Age Notes LastModified by Organization Details LastModified Time Father Diabetes mellitus [id number] Not available 12/30/2022 09:20:50 Mother Family history of stroke [id number] Not available 12/30/2022 09:20:50 Mother Heart disease [id number] [id number] Not available 12/30/2022 09:20:51 Mother Pulmonary embolism [id number] Not available 12/30/2022 09:20:51 Mother Diabetes mellitus [id number] [id number] Not available 12/30/2022 09:20:51 Maternal Grandfather Heart disease [id number].294 [id number] Not available 12/30/2022 09:20:51 Maternal Grandfather Pulmonary embolism [id number] Not available 12/30/2022 09:20:51 Paternal Grandfather Family history of stroke [id number] Not available 12/30/2022 09:20:51 Medical History Condition Response OTHER # 1 Y ANXIETY DISORDER Y Gynecological History Statement/Question Response Abnormal Pap N Date of Last Pap Smear 08/02/2018 Current Control Method Breastfeedi ng/SHER Age at Menarche 14 Obstetrics History GPAL:G 1 P 1 0 0 1 Type Value Full Term 1 Living 1 Total 1 Past Encounters Encounter ID Performer Location Encounter Start Date Encounter Closed Date Diagnosis/Indication Diagnosis SNOMED-CT Code Diagnosis ICD10 Code Diagnosis Note [id number] [facility]_ DEFAULT_1 _1 , 03/05/2021 00:00:00 03/05/2021 12:42:07 [id number] [facility]_ DEFAULT_1 _1 , 03/10/2021 00:00:00 03/10/2021 14:30:13 [id number] [facility] _[facility]_ DEFAULT_1 _1 , 04/04/2021 00:00:00 04/04/2021 09:20:36 [id number] [facility] [place] [address] [place] [address] 05/12/2021 00:00:00 05/12/2021 10:32:06 [id number] [facility]_ DEFAULT_1 _1 , 05/12/2021 00:00:00 05/12/2021 15:22:19 [id number] [facility]_ DEFAULT_1 _1 , 05/14/2021 00:00:00 05/14/2021 11:53:39 [id number] [facility] _[facility]_M I[facility]_ DEFAULT_1 _1 , 06/11/2021 00:00:00 06/11/2021 11:26:11 [id number] [facility] [place] [address] [place] [address] 06/23/2021 00:00:00 06/23/2021 12:05:10 [id number] [facility] _[facility]_M IGR[facility]_ DEFAULT_1 _1 , 07/09/2021 00:00:00 07/09/2021 11:32:08 [id number] [facility] _[facility]HE[facility]_M IGRATION_ DEFAULT_1 _1 , 07/14/2021 00:00:00 07/14/2021 14:21:08 [id number] [facility] _[facility]_M IGRATION_ DEFAULT_1 _1 , 07/23/2021 00:00:00 07/23/2021 11:21:22 [id number] [facility]_ DEFAULT_1 _1 , 08/06/2021 00:00:00 08/06/2021 11:09:54 [id number] [facility] _[facility]_M IGR[facility]_ DEFAULT_1 _1 , 08/08/2021 00:00:00 08/11/2021 14:39:57 [id number] [facility] _[facility]_M IGR[facility]_ DEFAULT_1 _1 , 08/20/2021 00:00:00 08/20/2021 09:45:57 [id number] [facility] _[facility]_M IGR[facility]_ DEFAULT_1 _1 , 08/27/2021 00:00:00 08/27/2021 09:52:37 [id number] Rene Vera MD [facility] [place] [address] [place] [address] 08/28/2021 00:00:00 08/28/2021 12:05:42 [id number] [facility] _[facility]_M IGR[facility]_ DEFAULT_1 _1 , 09/03/2021 00:00:00 09/03/2021 10:30:53 [id number] [facility] _[facility]HENA_M IGRATION_ DEFAULT_1 _1 , 09/08/2021 00:00:00 09/08/2021 15:40:49 [id number] [facility] _[facility]_M IGRATION_ DEFAULT_1 _1 , 09/10/2021 00:00:00 09/10/2021 09:56:49 [id number] [facility] _[facility]HENA_M IGRATION_ DEFAULT_1 _1 , 09/16/2021 00:00:00 09/16/2021 10:22:32 [id number] [facility] _[facility]HENA_M IGRATION_ DEFAULT_1 _1 , 10/15/2021 00:00:00 10/15/2021 11:09:47 [id number] [facility] _[facility]HENA_M IGR[facility]_ DEFAULT_1 _1 , 10/27/2021 00:00:00 10/27/2021 12:46:34 [id number] Rene Vera MD [facility] [place] [address] [place] [address] 11/13/2021 00:00:00 11/13/2021 15:15:23 [id number] Rene Vera MD [facility] [place] [address] [place] [address] 12/29/2021 00:00:00 12/29/2021 10:13:35 [id number] [facility] [place] [address] [place] [address] 02/02/2022 00:00:00 02/03/2022 10:03:04 [id number] [facility] [place] [address] [place] [address] 03/19/2022 00:00:00 03/19/2022 14:21:48 [id number] [facility] [place] [address] [place] [address] 08/20/2022 00:00:00 08/20/2022 12:06:06 [id number] Jeffrey Worthington DPM _ATHENA_M IGRATION_ DEFAULT_1 _1 , 10/05/2022 00:00:00 10/06/2022 09:52:06 [id number] ZAHIRA [facility] [place] [address] [place] [address] 11/26/2022 00:00:00 11/26/2022 15:50:06 [id number] Jeffrey Worthington DPM [facility] [place] [address] [place] [address] 01/11/2023 13:56:41 01/11/2023 14:35:29 Pain of right ankle joint 9137563179 3234729 M25.571 as above Sprain of lateral ligament of ankle joint 643809579 S93.491D repeat MRIplan surgical clearance for right ankle lateral ankle repair of ATFLcontin ue supportive shoe gear and bracingonc e MRI is obtained well plan for final operative planning [id number] Jeffrey Worthington DPM [facility] [place] [address] [place] [address] 04/13/2024 11:37:18 04/20/2024 11:47:34 Pain of right ankle joint 0524881015 [id number] M25.571 as above Avulsion o f ligament with bony fragment of lateral malleolus 665010218 S82.61XS recommend repeat MRI to EVAL healing of fracture and ligaments of the lateral anklecont pain with workpain and rolling of ankle with activityrx second opinion - orthopedic - Eval treat [id number] Jeffrey Worthington DPM [facility] [place] [address] [place] [address] 05/11/2024 11:37:52 05/18/2024 14:46:23 Avulsion of ligament with bony fragment of lateral malleolus 388119422 S82.61XS recommend repeat MRI - Positive for posterior tibial tendonitis no changescon t pain with workpain and rolling of ankle with activityrx second opinion - orthopedic - Eval treat Health Concerns Section Related Observation LastModified by Organization Detai ls LastModified Time None Recorded Concern Status LastModified by Organization Details LastModified Time None Recorded Advance Directives Directive None Recorded Payers Encounter Date Sequence Insurance Name Policy Number Policy Cohn Covered Member ID Cohn Member ID Guarantor Name 01/11/2023 1 [facility] [place] [id number] Raven Junior [id number] Raven Junior 04/13/2024 KASSY ZAMORA [facility] Raven Junior 05/11/2024 ELENA BASSEstelle [facility] Raven Junior Notes Date Note Type Note Provider Name and Address Organization Details Recorded Time 01/11/2023 text/html . Patient is a 32-year-old female who returns the office for follow-up on right ankle pain and ligament injury of the ATFL. Patient has returned to active duty and has been working for the last 2 months and states with continued walking and standing she has pain at the area of the ATFL. Patient denies any significant weakness about the ankle but states that she continues have pain which limits her abilities to stand and walk for long periods of time. 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 Based on continued pain and failed conservative measures I would recommend lateral ankle reconstruction of the ATFL. Patient denies any other pedal complaints. Jeffrey Worthington DPM [address], [place], [address], [email or web address] 01/11/2023 14:30:45 04/13/2024 text/html . Patient is a 34-year-old female who sustained a lateral ankle injury to the right ankle. Patient has underwent physical therapy MRI which showed partial tear of the collateral ligaments. 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 Patient states that when she is walking her ankle rolls out and causes her pain. Patient denies any recurrent injury to the ankle. Patient states when she is walking or running she has giving out of the ankle. Patient denies any other complaints. Jeffrey Worthington DPM [address], [place], [address], [email or web address] 04/19/2024 10:06:08 05/11/2024 text/html . Patient is a 34-year-old female she returns the office for follow-up on ankle pain. Patient had repeat MRI which is positive for mild swelling at the attachment of the posterior tibial tendon. Patient states she continues have pain at the lateral ankle at the ATFL area. Patient has no significant swelling bruising to the area. Patient states that when she is walking she has giving out of the ankle. Patient is currently working but is doing more desk duty. Patient denies any other complaints. Jeffrey Worthington DPM [address] [facility] [address], [place], [address], [place] [facility] 05/18/2024 14:42:07 OBGyn Episode No OBEpisode recorded.
--- OUTSIDE RECORDS SUMMARY | 2025-03-07 18:00 | XMS_ITS | Continuity of Care Document ---
Author Organization [facility] Address [address] [place] [address] Phone Care Team Providers Care Engine Mechanic Name Role Phone Rambo Melton MD Unavailable [...] on Encounter Independent Medical Examination [facility], [address], [id number], [place] tel:[phone] [facility] right hip (chief complaint) Pain in right hip 2 Geronimo Ricks. [address] [place] [address], [place], [place], [id number] , [place]. tel: [phone] [facility], [address], [id number], [place] tel:[phone] [facility] No Information 2 Geronimo Ricks. [address] [facility], [address], [id number] , [place]. tel: [phone] Family History Family Member Type Diagnosis Age At Onset Mother Problem (finding) Diabetes Mother Problem (finding) Stroke Mother Problem (finding) Heart Disease Father Problem (finding) Diabetes Brother Problem (finding) Depression Payers Payer name Insurance type Covered libertarian ID Edin carranza(s) [employer] [id number] Social History Type Description Quantity Date Captured [...]
--- NOTE | 2025-03-07 18:12 | PM.IMHP ---
H&P: HPI History of Present Illness Date/Time: 03/07/25 18:12 Chief Complaint: contractions Narrative: Raven is a 34yo @ 38.3wks who presented to L&D with active and painful contractions; making change to 6cm. She has been having regular care; and comanaged by M due to well controlled A2GDM. She reports good movement. No vb or lof. Her is complicated by: - IVF ; euploid male - Son w/ h/o tetralogy of Fallot -- s/p normal ECHO @ 28wks - Obesity; ASA 81mg qhs - Placenta previa w/ bleed at 16wga; on medical leave/modified bed rest --- no longer previa/low lying, but had 8x7cm hematoma - A2GDM; insulin, following w/ mfm --- twice weekly ANT; IOL by 39wks Review of Systems Constitutional: Constitutional: Denies chills, Denies fever(s) and Denies headache(s) Eyes: Eyes: Denies change in vision ENT: Denies headache(s) Cardiovascular: Cardiovascular: Denies chest pain and Denies dyspnea Respiratory: Respiratory: Denies dyspnea Gastrointestinal: Gastrointestinal: Reports abdominal pain Genitourinary: Genitourinary: Denies abnormal vaginal bleeding and Denies vaginal discharge Neurologic: Denies headache(s) Psychiatric: Psychiatric: Denies anxiety and Denies depression [facility] Past Medical History Medical History Gestational diabetes Insertion of Nexplanon (03/23/14) Nexplanon removal (08/15/18) Armando's disease KG (generalized anxiety disorder) Migraine Anxiety Obesity (BMI 30.0-34.9) Chronic headaches Back pain Surgical History Surgical History History of hip surgery R labral repair [place] teeth removed History of hand surgery (11/01/09) Family History Family History Father Family history of diabetes mellitus in first degree relative Mother Diabetes mellitus Atrial fibrillation Heart disease Thyroid disease Cerebrovascular accident Hypertension Sibling ADD (attention deficit disorder) ADHD, impulsive type Family history of alcoholism Grandparent Congestive heart failure Heart disease Grandparent Cerebrovascular accident Social History Social History Social History: Smoking status: Never smoker Second hand tobacco smoke exposure: No Alcohol intake: never Substance use: never Substance use type: does not use Do You Feel Safe in your Home?: Yes Current Housing: Decline to Answer Concerned About Future Housing: Decline to Answer Difficulty Paying Gas/Electric Bills: Decline to Answer Difficulty Paying for Meds: Decline to Answer Currently Unemployed: Decline to Answer Education: Decline to Answer Difficulty w/ Childcare or Family Care: Decline to Answer Living arrangements: with family Additional living arrangements comments: Occupation/Education: occupation Additional occupation/education comments: [employer] Gender identity (if verbalized by the patient): Female Sexual Orientation (if Verbalized by the Patient): Lesbian, Lopez, or Homosexual Spiritual care concerns: No Meds Home Medications and Allergies Home Medications ?Medication ?Instructions ?Recorded ?Confirmed ?Type aspirin 81 mg tablet,delayed 162 mg PO DAILY 08/21/24 03/06/25 History release cholecalciferol (vitamin D3) 10 10 mcg PO DAILY 08/21/24 03/06/25 History mcg (400 unit) capsule vits no.126-ferrous fum 1 tablet PO DAILY 08/21/24 03/06/25 History 28 mg iron-folic acid 800 mcg tablet (Classic ) ferrous sulfate 325 mg (65 mg 325 mg PO DAILY 11/14/24 03/06/25 History iron) tablet (Feosol) insulin glargine 100 unit/mL (3 8 unit subcut BID 02/16/25 03/06/25 History mL) subcutaneous pen (Lantus Solostar U-100 Insulin) Allergies Allergy/AdvReac Type Severity Reaction Status Date / Time No Known Allergies Allergy Verified 03/06/25 09:57 Exam Const: General: cooperative, no acute distress and obese Nutritional Appearance: obese Orientation/consciousness: patient oriented x3 Resp: Effort & Inspection: normal respiratory effort Cardio: Rate: regular rate GI: GI Palp: No abdominal tenderness : Other: FHT's: 110's/ mod lakeisha/ + accels/ no decels - cat 1 TOCO: ctxs q2-4min Cervix: 6/80/-2 Membranes: AROM, clear 1839 Presentation: cephalic Skin: General skin exam: normal color Neuro: General: patient oriented x3 Extrem: General: normal to inspection Psych: Appearance: grossly normal Affect: normal affect Attitude: cooperative Assessment and Plan Assessment and plan (1) Active labor at term: Status: Acute (2) Gestational diabetes requiring insulin: Code(s): O24.414 - Gestational diabetes mellitus in , insulin controlled Status: Acute Plan - Active labor; AROM performed - low dose pitocin - BS q2h; insulin drip if >125 and then would need BS check q1h, will hold insulin qhs as she hasn't eaten today unless >120 - Continuous monitoring; currently reassuring - gbs negative - anesthesia consult PRN pain
[2025-03-07 18:40] LABS: Basophils Percent Auto 0.3 % (0.2-1.2); Eosinophils Absolute Auto 0.1 K/mm3 (0-0.3); Eosinophils Percent Auto 0.5 % (0-4.4); Hematocrit 36.3 % (37.0-47.0); Hemoglobin 12.2 g/dL (12.0-15.0); Immature Granulocyte Absolute 0.07 K/mm3 (0.00-0.031); Immature Granulocyte Percent A 0.7 % (0-0.5); Lymphocytes Absolute Auto 1.56 K/mm3 (0.9-3.2); Lymphocytes Percent Auto 15.3 % (18.3-44.2); Mean Corpuscular HGB Conc 33.6 g/dl (32-36); Mean Corpuscular Hemoglobin 30.7 pg (26-34); Mean Corpuscular Volume 91.4 fl (80-100); Mean Platelet Volume 10.4 fl (7.4-10.4); Monocytes Absolute Auto 0.5 K/mm3 (0.1-0.6); Monocytes Percent Auto 4.5 % (2.6-8.5); Neutrophils Percent Auto 78.7 % (45.5-73.1); Platelet Count Result 174 k/mm3 (150-375); Red Blood Count 3.97 M/mm3 (4.2-5.4); Red Cell Distribution Width 13.3 % (11.5-14.5); White Blood Count 10.2 K/mm3 (4.5-10.0)
[2025-03-07] MEDS: LACTATED RINGERS 500 ML 999 ML IV CONT (18:58)
[2025-03-07] MEDS: ONDANSETRON INJ 4 MG/2 ML VIAL IV PUSH (18:59)
--- NOTE | 2025-03-07 19:03 | LDADM ---
This patient, Raven Junior, was admitted to Labor/Delivery/Recovery 107 on 03/07/25 at 15:37. Plans for labor, pain management and were discussed with patient. Patient/family oriented to hospital policies and general routines including ID bracelet, bed and alarms, visiting hours, pain management, procedures, bathroom and other care routines, personal items, smoking policy, room service/diet and guest tray routines, security routines, and visiting hours. Patient/Family are encouraged to report perceived risks to care and to ask questions if they do not understand what they are told or what they should do. See OBIX for further documentation.
[2025-03-07 19:04] LABS: Alanine Aminotransferase 12 U/L (6-35); Albumin Level 3.9 g/dL (3.5-5.1); Alkaline Phosphatase 134 U/L (38-126); Anion Gap 6 mmol/L (4-12); Aspartate Amino Transferase 24 U/L (14-36); Bilirubin,Total 0.5 mg/dL (0.2-1.3); Blood Urea Nitrogen 10 mg/dL (7-17); Calcium 8.9 mg/dL (8.4-10.2); Carbon Dioxide 24 mmol/L (22-30); Chloride 104 mmol/L (98-107); Estimated CRCL calculation 139 ml/min; Estimated Glomerular Filt Rate > 60; Glucose 74 mg/dL (65-110); Potassium 3.5 mmol/L (3.4-5.0); Sodium 134 mmol/L (137-145)
[2025-03-07] MEDS: LACTATED RINGERS 1,000 ML 125 ML IV CONT (19:30)
[2025-03-07 19:32] LABS: Syphilis IgG/IgM Antibody Negative (Negative)
--- NOTE | 2025-03-07 19:39 | P.PNAN_ITS ---
Anes - Eval Pre Procedure Procedure: Labor Epidural Date/Time: 03/07/25 19:39 Surgeon: Rambo Preop Diagnosis: Labor Pain Pre Op Diagnosis: Labor Patient Data Age: 34 Gender: F Height: 1.75 m Weight: 115 kg Last Vital Signs Pulse 91 03/07/25 19:31 BP 105/74 03/07/25 19:31 O2 Del Method Room Air 03/07/25 19:02 Allergies Allergy/AdvReac Type Severity Reaction Status Date / Time No Known Allergies Allergy Verified 03/06/25 09:57 Home Medications ?Medication ?Instructions ?Recorded ?Confirmed ?Type aspirin 81 mg tablet,delayed 162 mg PO DAILY 08/21/24 03/06/25 History release cholecalciferol (vitamin D3) 10 10 mcg PO DAILY 08/21/24 03/06/25 History mcg (400 unit) capsule vits no.126-ferrous fum 1 tablet PO DAILY 08/21/24 03/06/25 History 28 mg iron-folic acid 800 mcg tablet (Classic ) ferrous sulfate 325 mg (65 mg 325 mg PO DAILY 11/14/24 03/06/25 History iron) tablet (Feosol) insulin glargine 100 unit/mL (3 8 unit subcut BID 02/16/25 03/06/25 History mL) subcutaneous pen (Lantus Solostar U-100 Insulin) Laboratory Tests 03/07/25 18:32 WBC 10.2 H K/mm3 (4.5-10.0) RBC 3.97 L M/mm3 (4.2-5.4) Hgb 12.2 g/dL (12.0-15.0) Hct 36.3 L % (37.0-47.0) MCV 91.4 fl (80-100) MCH 30.7 pg (26-34) MCHC 33.6 g/dl (32-36) RDW 13.3 % (11.5-14.5) Plt Count 174 k/mm3 (150-375) MPV 10.4 fl (7.4-10.4) Immature Gran % (Auto) 0.7 H % (0-0.5) Neut % (Auto) 78.7 H % (45.5-73.1) Lymph % (Auto) 15.3 L % (18.3-44.2) Hart % (Auto) 4.5 % (2.6-8.5) Eos % (Auto) 0.5 % (0-4.4) Baso % (Auto) 0.3 % (0.2-1.2) Lymph # (Auto) 1.56 K/mm3 (0.9-3.2) Hart # (Auto) 0.5 K/mm3 (0.1-0.6) Eos # (Auto) 0.1 K/mm3 (0-0.3) Baso # (Auto) 0.0 K/mm3 (0.0-0.1) Abs Immat Gran (auto) 0.07 H K/mm3 (0.00-0.031) Absolute Neuts (auto) 8.0 H K/mm3 (1.3-6.7) Absolute Nucleated RBC 0.000 K/mm3 (0.0-0.012) Nucleated RBC % 0.0 % (0.0-0.2) Sodium 134 L mmol/L (137-145) Potassium 3.5 mmol/L (3.4-5.0) Chloride 104 mmol/L (98-107) Carbon Dioxide 24 mmol/L (22-30) Anion Gap 6 mmol/L (4-12) BUN 10 mg/dL (7-17) Creatinine 0.67 L mg/dL (0.7-1.0) Estim Creat Clear Calc 139 ml/min Estimated GFR > 60 (59 - ) Glucose 74 mg/dL (65-110) Calcium 8.9 mg/dL (8.4-10.2) Total Bilirubin 0.5 mg/dL (0.2-1.3) AST 24 U/L (14-36) ALT 12 U/L (6-35) Alkaline Phosphatase 134 H U/L (38-126) Total Protein 7.0 g/dL (6.3-8.2) Albumin 3.9 g/dL (3.5-5.1) Syphilis IgG/IgM Ab Negative (Negative) HIV 1&2 Ab/P24 Ag 4thGn Pending Blood Type O Positive Antibody Screen Negative : gestational age (, SUZANNE 03/16/25) Patient hx anesthesia problems: none Family hx anesthesia problems: none Results Review: All pre-operative results and documents have been reviewed as part of the pre-operative evaluation. PMFSH Past Medical History Medical History Gestational diabetes Insertion of Nexplanon (03/23/14) Nexplanon removal (08/15/18) Armando's disease KG (generalized anxiety disorder) Migraine Anxiety Obesity (BMI 30.0-34.9) Chronic headaches Back pain Surgical History Surgical History History of hip surgery R labral repair [place] teeth removed History of hand surgery (11/01/09) Family History Family History Father Family history of diabetes mellitus in first degree relative Mother Diabetes mellitus Atrial fibrillation Heart disease Thyroid disease Cerebrovascular accident Hypertension Sibling ADD (attention deficit disorder) ADHD, impulsive type Family history of alcoholism Grandparent Congestive heart failure Heart disease Grandparent Cerebrovascular accident Social History Social History Social History: Smoking status: Never smoker Second hand tobacco smoke exposure: No Alcohol intake: never Substance use: never Substance use type: does not use Do You Feel Safe in your Home?: Yes Lack of Transportation: No Lack of Food: Never True Current Housing: I Have Housing Concerned About Future Housing: No Difficulty Paying Gas/Electric Bills: No Difficulty Paying for Meds: No Currently Unemployed: No Education: Bachelor's Degree Difficulty w/ Childcare or Family Care: No Living arrangements: with family Additional living arrangements comments: Occupation/Education: occupation Additional occupation/education comments: [employer] Gender identity (if verbalized by the patient): Female Sexual Orientation (if Verbalized by the Patient): Lesbian, Lopez, or Homosexual Spiritual care concerns: No Exam Day of Procedure 03/07/25 19:39 Patient weight: obese Heart: regular rate and rhythm Lungs: normal air movement Airway: Mallampati scale class II Neurological: alert and oriented
[2025-03-07 19:45] LABS: HIV 1/2 Ab P24 Ag Result Negative (Negative)
[2025-03-07] MEDS: miSOPROStol 200 MCG TABLET 800 MCG RECTAL (20:37)
--- NOTE | 2025-03-07 20:50 | PM.OBPRVD ---
OB - Vaginal Delivery Note Procedure Delivery date: 03/07/25 Events: Gestational Diabetes (on insulin) Delivery augmentation: Rupture of Membranes Delivery monitor: External FHT and External Uterine Route of delivery: Laceration Description: Perineal - 2nd Degree Specimen: Yes (placenta) Quantitative Blood Loss (ml): 500 Anesthesia type: Epidural Disposition: Floor Complications: No immediate complications [place] Baby Date of : 03/07/25 Time of : 20:28 Gestational Age by Date: 38 (.3) gender: Male presentation: vertex Placenta delivery description: Expressed Cord Vessel Description: 3 Vessels, Nuchal Cord, Tight and Delayed Cord Clamping score one minute: 9 score five minutes: 9 Narrative: Progressed to complete dilation rapidly with strong desire to push. She pushed for approximately 20 minutes with good maternal effort. She delivered the head over intact perineum. Nuchal cord was noted but delivered through. She easily delivered the 's shoulders and body without complication. The was immediately placed skin to skin and had spontaneous cry. His mouth and nose were bulb suctioned by the pediatric nurse. Delayed cord clamping was performed. The umbilical cord was then doubly clamped and cut. A segment of the cord was collected for cord gases. The remaining cord blood was collected for typing. With Pitocin running and gentle downward traction on the cord, the placenta delivered without complication. Brisk bleeding was then noted and bimanual massage was performed and something was palpated and easily removed. Bimanual massage was continued and good uterine tone with minimal bleeding was noted. Cytotec 800 mcg was placed rectally by the nurse. She was examined and a second-degree perineal laceration was identified. The perineal laceration was repaired in the normal fashion using 2-0 Vicryl. Good hemostasis was then noted. Her uterus remained firm with minimal bleeding. Sponge, lap, instrument, and needle counts were correct at the end of the procedure. Mom and baby were left bonding in the birthing suite in stable condition. The tissue removed was examined and found to be the large clot she had had on US at 16 weeks. The placenta was examined and a small area of abruption was noted (appeared old).
[2025-03-07] MEDS: OXYTOCIN 30 UNITS/NS 500 ML 30 UNITS/500 ML BAG 125 UNITS IV CONT (21:06)
[2025-03-07] MEDS: METHYLERGONOVINE MALEATE 0.2 MG/ML VIAL IM (22:50)
[2025-03-08] VITALS (8 sets, daily range): BP systolic 84–104; BP diastolic 45–67; PULSE 66–92; RESP 16–20; TEMP 36.6–37.9; O2SAT 96–99
--- NOTE | 2025-03-08 00:30 | OBPPTRN ---
Patient transferred to post room #281 via wheelchair. Support person present. Oriented to unit, room, information board, rooming in, admission packet and security measures. Patient verbalizes understanding.
[2025-03-08] MEDS: IBUPROFEN 600 MG TABLET PO ×4 (00:45→19:33)
[2025-03-08] MEDS: ACETAMINOPHEN 325 MG TABLET 650 MG PO ×4 (00:45→19:33)
[2025-03-08 05:46] LABS: Hematocrit 28.2 % (37.0-47.0); Hemoglobin 9.7 g/dL (12.0-15.0); Mean Corpuscular HGB Conc 34.4 g/dl (32-36); Mean Corpuscular Hemoglobin 31.4 pg (26-34); Mean Corpuscular Volume 91.3 fl (80-100); Mean Platelet Volume 10.8 fl (7.4-10.4); Platelet Count Result 142 k/mm3 (150-375); Red Blood Count 3.09 M/mm3 (4.2-5.4); Red Cell Distribution Width 13.3 % (11.5-14.5); White Blood Count 9.6 K/mm3 (4.5-10.0)
--- NOTE | 2025-03-08 07:12 | P.PNOB_ITS ---
OB - PN: Subj Subjective Date/time seen: 03/08/25 07:12 Narrative: PPD#1 Raven reports doing well today. 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 Her pain is controlled. She is tolerating regular diet, voiding, passing gas, and ambulating without issues. She is breast feeding. She would like her son circumcised. OB - PN: Obj Data Labs 03/08/25 05:31 03/07/25 18:32 Labs: Laboratory Results - last 24 hr 03/07/25 03/08/25 18:32 05:31 WBC 10.2 H 9.6 RBC 3.97 L 3.09 L Hgb 12.2 9.7 L Hct 36.3 L 28.2 L MCV 91.4 91.3 MCH 30.7 31.4 MCHC 33.6 34.4 RDW 13.3 13.3 Plt Count 174 142 L MPV 10.4 10.8 H Immature Gran % (Auto) 0.7 H Neut % (Auto) 78.7 H Lymph % (Auto) 15.3 L [place] % (Auto) 4.5 Eos % (Auto) 0.5 Baso % (Auto) 0.3 Lymph # (Auto) 1.56 [place] # (Auto) 0.5 Eos # (Auto) 0.1 Baso # (Auto) 0.0 Abs Immat Gran (auto) 0.07 H Absolute Neuts (auto) 8.0 H Absolute Nucleated RBC 0.000 Nucleated RBC % 0.0 Sodium 134 L Potassium 3.5 Chloride 104 Carbon Dioxide 24 Anion Gap 6 BUN 10 Creatinine 0.67 L Estim Creat Clear Calc 139 Estimated GFR > 60 Glucose 74 Calcium 8.9 Total Bilirubin 0.5 AST 24 ALT 12 Alkaline Phosphatase 134 H Total Protein 7.0 Albumin 3.9 Syphilis IgG/IgM Ab Negative HIV 1&2 Ab/P24 Ag 4thGn Negative Blood Type O Positive Antibody Screen Negative OB - PN A/P Assessment and Plan (1) Normal vaginal delivery of third : Code(s): O80 - Encounter for full-term uncomplicated delivery Status: Acute (2) PPH ( hemorrhage): Code(s): O72.1 - Other immediate hemorrhage Status: Acute Plan day: 1 Plan: routine care Comments: - PO pain meds - Regular diet - Ambulation and hydration encouraged - Continue putting baby to breast q2-3hr - Venofer 300mg IV once - will plan to do circ tomorrow when done with BS checks Time Spent With Patient Time: Total time spent is greater than 50% in coordination of care (as documented) at patient's floor/unit and/or counseling patient: Review of Systems 2 Constitutional: Constitutional: Denies chills, Denies fever(s) and Denies headache(s) Eyes: Eyes: Denies change in vision ENT: Denies dizziness and Denies headache(s) Cardiovascular: Cardiovascular: Denies chest pain, Denies palpitations and Denies dyspnea Respiratory: Respiratory: Denies cough and Denies dyspnea Gastrointestinal: Gastrointestinal: Denies nausea and Denies vomiting Neurologic: Denies dizziness and Denies headache(s) Endocrine: Endocrine: Denies palpitations Exam 2 Const: General: cooperative, comfortable and no acute distress O rientation/consciousness: patient oriented x3 Resp: Effort & Inspection: normal respiratory effort Auscultation: clear to auscultation bilaterally Cardio: Rate: regular rate GI: Inspection: non-distended GI Palp: No abdominal tenderness and Yes Soft to palpation Auscultation: normal bowel sounds : Other: fundus firm Skin: General skin exam: normal color Neuro: General: patient oriented x3 Extrem: General: normal to inspection Psych: Appearance: grossly normal Affect: normal affect Attitude: c ooperative
[2025-03-08] MEDS: DOCUSATE SODIUM 100 MG CAPSULE PO (07:30)
[2025-03-08] MEDS: MULTIVIT/MIN/PREN/FOL AC/IRON TABLET 1 TAB PO (07:30)
[2025-03-08] MEDS: POLYSACCHARIDE IRON COMPLEX 150 MG CAPSULE PO (07:30)
--- NOTE | 2025-03-08 09:05 | WPDANLDPN2 ---
Anes-Prog Note L&D Date/Time: 03/08/25 09:05 Comfortable throughout: labor and delivery Neuraxial method: epidural Epidural/Spinal procedure site: clean & non-tender Neuro status: Neuro function grossly intact. Cardiovascular status: normal Respiratory status: normal Airway patency: baseline Mental status: baseline Post-Op hydration status: normal Vital Signs: Last Vital Signs Temp 37.2 C 03/08/25 07:20 Pulse 66 03/08/25 07:20 Resp 18 03/08/25 07:20 BP 97/49 L 03/08/25 07:20 Pulse Ox 98 03/08/25 07:20 O2 Del Method Room Air 03/08/25 01:23 Pain score (VAS): 0/10 I/O: Intake & Output 03/07/25 03/08/25 03/08/25 23:59 07:59 15:59 Output Total 1405 55 Balance -1405 -55 Post-procedural complaints: none Patient feedback: Patient satisfied with anesthetic care.
--- NOTE | 2025-03-08 09:25 | PC.NURSE ---
Introductions were made, then consulted with patient to assess needs related to . Mother led the conversation with her?plans to feed?her and the?experience so far. Per mother, last night was a little challenging as baby was sleepy but he seems to be more awake this morning. When CLC asked if she breastfed her first child mother said that she had been and then baby was diagnosed with Galactosemia, she she had to stop. CLC will also let Primary RN and locker attendant (Dr. Calderon) know as well. CLC also discussed with mother regarding her blood loss with delivery, that it could effect her milk supply. Encouraged understanding of the benefits of skin to skin (demonstrating unwrapping infant and placing upright on her chest), stimulating with massage touch, changing positions to encourage wakefulness, how to watch for early feeding cues, responsive feeding, feeding on demand (aiming for 8-12 times in 24 hours, about every 2-3 hours), milk production, building/maintaining a milk supply, duration of feeding, signs of adequate intake/output and how to record on the feeding sheet. Mother works well with her infant with encouragement and education. Reviewed positioning and ear, shoulder, hip alignment, supporting the breast to facilitate a deep latch, asymmetrical latch (off-center), leading with the chin with a big, open, wide gape and body close to mother. latched optimally to the [right] breast in [football] position. Education given to the mother of how to visualize the suckling (with good rocking jaw motion), swallows (dropping of the lower jaw) and how to listen for drinking at the breast (the ka sound). Infant was [able] to maintain latch without pain to mother protecting the nipple with optimal positioning and latching, she had him on her breast for 13 minutes and was going to switch to her left breast soon. Reviewed comfort measures of healing with a warm, wet washcloth to rinse breast, then leave open to air-dry, good handwashing when or touching the breast/nipples to prevent infection. Mother voiced understanding of skin to skin, stimulating with massage touch, responsive feedings, hand expressed colostrum, talking to to encourage if it has been 2 -2.5 hours since the start of the last , to call if infant does not latch, or if there is discomfort with . Resources used for education were facilitated with the [visual educational handouts/ tool/mom and baby guide], feeding sheet, name written on the communication board, and the mom/baby guide. Parents voiced understanding of information, demonstrated learning and will call if there is a request for assistance. Reported to the Primary RN.
[2025-03-08] MEDS: IRON SUCROSE COMPLEX 200 MG, IRON SUCROSE COMPLEX 100 MG in SODIUM CHLORIDE 0.9% IV 250 ML 176.67 MG IVPB (10:42)
[2025-03-09] MEDS: ACETAMINOPHEN 325 MG TABLET 650 MG PO (04:11)
[2025-03-09] MEDS: IBUPROFEN 600 MG TABLET PO (04:11)
[2025-03-09 05:20] LABS: Hematocrit 28.8 % (37.0-47.0); Hemoglobin 9.5 g/dL (12.0-15.0); Mean Corpuscular Hemoglobin 30.8 pg (26-34); Mean Corpuscular Volume 93.5 fl (80-100); Mean Platelet Volume 11.1 fl (7.4-10.4); Platelet Count Result 144 k/mm3 (150-375); Red Blood Count 3.08 M/mm3 (4.2-5.4); Red Cell Distribution Width 13.8 % (11.5-14.5); White Blood Count 7.3 K/mm3 (4.5-10.0)
[2025-03-09 07:20] VITALS: BP 86/53; PULSE 60; RESP 18; TEMP 37; O2SAT 98
--- NOTE | 2025-03-09 07:38 | P.DS_ITS ---
DS: Admitting Diagnosis Discharge Date 03/09/25 Admitting Diagnosis active labor at term A2gdm DS: Discharge Diagnosis Discharge Diagnosis (1) Normal vaginal delivery of third : Code(s): O80 - Encounter for full-term uncomplicated delivery Status: Acute (2) PPH ( hemorrhage): Qualifiers: hemorrhage type: other immediate Qualified Code(s): O72.1 - Other immediate hemorrhage Code(s): O72.1 - Other immediate hemorrhage Status: Acute OB - DS: Summary OB Procedures : NST and Ultrasound OB Procedures Intrapartum: Spontaneous Vag Delivery OB Procedures: : Other (Venofer 300mg IV once) Peripartum Data Infant Delivery Method: Natural Vaginal Laceration Description: Perineal - 2nd Degree Episiotomy description: None complications: none 1: Gender: Male Disposition of : home Status at Discharge Functional status at discharge: independent ambulation Overall status at discharge: patient is back to baseline Time Spent with Patient Time attestation: Total time spent providing and/or coordinating discharge services: Time spent: Less than 30 minutes Exam Const: General: cooperative, comfortable and no acute distress Nutritional Appearance: obese Orientation/consciousness: patient oriented x3 Resp: Effort & Inspection: normal respiratory effort Auscultation: clear to auscultation bilaterally Cardio: Rate: regular rate GI: Inspection: non-distended GI Palp: No abdominal tenderness and Yes Soft to palpation Auscultation: normal bowel sounds : Other: fundus firm Skin: General skin exam: normal color Neuro: General: patient oriented x3 Extrem: General: normal to inspection Psych: Appearance: grossly normal Affect: normal affect Attitude: cooperative DS: Data Data Completed and Pending Pending studies at discharge: Pending at discharge 03/08/25 12:32 Surgical [PTH] Routine Labs on day of discharge: Labs from last 24 hours 03/08/25 03/07/25 05:31 18:32 WBC 9.6 10.2 H RBC 3.09 L 3.97 L Hgb 9.7 L 12.2 Hct 28.2 L 36.3 L MCV 91.3 91.4 MCH 31.4 30.7 MCHC 34.4 33.6 RDW 13.3 13.3 Plt Count 142 L 174 MPV 10.8 H 10.4 Immature Gran % (Auto) 0.7 H Neut % (Auto) 78.7 H Lymph % (Auto) 15.3 L [place] % (Auto) 4.5 Eos % (Auto) 0.5 Baso % (Auto) 0.3 Lymph # (Auto) 1.56 [place] # (Auto) 0.5 Eos # (Auto) 0.1 Baso # (Auto) 0.0 Abs Immat Gran (auto) 0.07 H Absolute Neuts (auto) 8.0 H Absolute Nucleated RBC 0.000 Nucleated RBC % 0.0 Sodium 134 L Potassium 3.5 Chloride 104 Carbon Dioxide 24 Anion Gap 6 BUN 10 Creatinine 0.67 L Estim Creat Clear Calc 139 Estimated GFR > 60 Glucose 74 Calcium 8.9 Total Bilirubin 0.5 AST 24 ALT 12 Alkaline Phosphatase 134 H Total Protein 7.0 Albumin 3.9 Syphilis IgG/IgM Ab Negative HIV 1&2 Ab/P24 Ag 4thGn Negative Blood Type O Positive Antibody Screen Negative Discharge Plan Discharge Attending physician on discharge: Michelle Ricks Discharging Clinician: Michelle Ricks Anticipated Discharge Date/Time: 03/09/25 14:00 Patient Disposition: Home Activity: may shower and pelvic rest Diet: regular Patient Instructions: Vaginal Delivery (DC) Patient Language: Syriac Stand Alone Forms: General Discharge Information Follow-up/Referrals: Michelle Ricks MD [Physician] - 4 Weeks Discharge Medications: New acetaminophen 325 mg Tablet 650 mg PO Q6H PRN (Reason: Mild Pain (1-3) Or Headache) Qty: 60 0RF docusate sodium 100 mg Capsule 100 mg PO BID PRN (Reason: Constipation) Qty: 90 0RF ibuprofen 600 mg Tablet 600 mg PO Q6H PRN (Reason: Cramping) Qty: 40 0RF Continued Classic 28 mg iron- 800 mcg tablet 1 tablet PO DAILY cholecalciferol (vitamin D3) 10 mcg (400 unit) capsule 10 mcg PO DAILY Discontinued aspirin 81 mg tablet,delayed release (DR/EC) 162 mg PO DAILY ferrous sulfate [Feosol] 325 mg (65 mg iron) tablet 325 mg PO DAILY insulin glargine [Lantus Solostar U-100 Insulin] 100 unit/mL (3 mL) insulin pen 8 unit subcut BID Date of admission: 03/07/25 15:37 Primary Care Provider: UNKNOWN,DOCTOR Admitting Provider: Michelle Ricks Attending physician on admission: Michelle Ricks Condition: Stable
[2025-03-09] MEDS: MULTIVIT/MIN/PREN/FOL AC/IRON TABLET 1 TAB PO (10:15)
--- NOTE | 2025-03-09 10:15 | PC.NURSE ---
Addendum entered by Rose Urbina RN 03/09/25 10:47: This patient does not have a WIC appointment scheduled. She is not using WIC. Charted in error. Original Note: Consulted with mother concerning needs and she shared her ability to independently latch optimally without pain. Mother is feeding appropriately for growth of and understands stimulating to eat if needed. has had appropriate feedings in the last 24 hours meets the outcomes for weight, output, blood sugar and jaundice at this time. Reinforced understanding of signs of adequate intake, transition of stool, prevention/relief of engorgement, plugged ducts, mastitis, community resources (has a WIC appointment scheduled), and when to call a provider using the resource of the feeding sheet along with the mom and baby guide. Mother voiced understanding of the information shared, is confident to continue effectively her infant at home, when to call for assistance, denies any additional assistance or education at this time. Reported to the Primary RN.
[2025-03-09] MEDS: WITCH HAZEL 40 PADS 1 PAD TOPICAL (10:16)
[2025-03-09] MEDS: DOCUSATE SODIUM 100 MG CAPSULE PO (10:16)
[2025-03-09] MEDS: BENZOCAINE 20% AER SPR (*SP) 56 GM CAN 1 SPRAY TOPICAL (10:16)
[2025-03-09] MEDS: POLYSACCHARIDE IRON COMPLEX 150 MG CAPSULE PO (10:16)
[2025-03-10 09:30] VITALS: BP 109/66; PULSE 89; RESP 18; TEMP 36.6; O2SAT 99
== END 2025-03-09 12:30 | disposition home or self-care (01) | DRG 806 ==
LOC: ANHLDR 17:58 → ANHOB2 03-08 02:00
PROVIDERS: Admitting Provider Obstetrics & Gynecology; Visit Provider Obstetrics & Gynecology
DX: O24.424 Gestational diabetes mellitus in childbirth, insulin controlled (principal); O72.1 Other immediate postpartum hemorrhage; Z37.0 Single live birth; O99.214 Obesity complicating childbirth; O70.1 Second degree perineal laceration during delivery; O69.81X0 Labor and delivery complicated by cord around neck, without compression, not applicable or unspecified; O67.8 Other intrapartum hemorrhage; O62.3 Precipitate labor; Z3A.38 38 weeks gestation of pregnancy
CPT/HCPCS: 36415; 80053; 85025; 85027; 86593; 86703; 86850; 86900; 86901; 88307; A9270; G0432; J1756; J2210; J2405; J2590; J2795; J7050; J7120

== ENCOUNTER 2025-03-31 20:54 | Inpatient (IN) | payer BC, SELFPAY ==
--- NOTE | ~2025-03-31 | MR_ITS ---
EXAMINATION: MR MRCP wo/w con/w 3D wo ind DATE: 04/02/2025 14:47 INDICATION: Choledocholithiasis TECHNIQUE: Magnetic resonance imaging (MRI) of the abdomen was performed without and with 15 mL Multi teofilo intravenous contrast. Sequences included coronal T2-weighted SS-FSE, coronal T2-weighted FS SS- FSE, coronal T2-weighted FS FIESTA, axial T2-weighted FS FIESTA, axial T2-weighted FIESTA, sagittal T 2-weighted SS-FSE, axial T1-weighted dual-echo FSPGR, axial T2-weighted SS-FSE, axial T1-weighted LAV A, axial T2-weighted STIR FSE. Thick-slab T2-weighted FRFSE-XL images were obtained for magnetic reso nance cholangiopancreatography (MRCP). Rotating maximum intensity projection 3-D reconstructions of t he volumetric data were created by the technologist. Postcontrast sequences included a time course of axial T1-weighted LAVA. COMPARISON: None. FINDINGS: ABDOMEN MRI: Heart size is normal. No pericardial or pleural effusion. There is a 13 mm lobular lesion in the post erior right hepatic lobe which is T2 hyperintense with early arterial enhancement which persists thro ugh 5 minutes of imaging most consistent with a hemangioma. No other hepatic lesions identified. Ther e are multiple small gallstones in the dependent aspect of the otherwise normal-appearing gallbladder . Nonspecific mild splenomegaly measuring 14.2 cm in maximal length which could be related to body welch bitus. Pancreas, bilateral adrenal glands and kidneys are normal. Visualized portions of the bowels a re unremarkable with no obstruction. No pathologically enlarged abdominal lymphadenopathy. Small fat- containing umbilical hernia. Mild lumbar spondylosis. Normal bone marrow signal throughout. ABDOMEN MRCP: There is mild central intrahepatic biliary ductal dilation. The common bile duct is mildly dilated to 8 mm in maximal diameter. There is a 3 mm low signal intensity stone in the distal most common bile duct. IMPRESSION: 1. Cholelithiasis and choledocholithiasis with 3 mm stone at the distalmost common bile duct with mil d intrahepatic and minimal intrahepatic biliary ductal dilation. 2. Nonspecific mild splenomegaly which could be related to body habitus. Reviewed, dictated and finalized at location A. IMPRESSION: 1. Cholelithiasis and choledocholithiasis with 3 mm stone at the distalmost com mon bile duct with mild intrahepatic and minimal intrahepatic biliary ductal di lation. 2. Nonspecific mild splenomegaly which could be related to body habitus.
--- NOTE | ~2025-03-31 | XR_ITS ---
XR ERCP Ordering provider: Arthur Alvarado MD History: . ERCP . Comparison: None. FINDINGS/impression: ERCP No stones seen. Fluoroscopy time is 126.6 seconds. Cumulative dose is 1.85 and mGym2 or 60.27 mGy. Reviewed, dictated and finalized at location A.
--- NOTE | ~2025-03-31 | US_ITS ---
EXAMINATION: US abdomen limited DATE: 04/01/2025 07:39 INDICATION: Right upper quadrant abdominal pain and common bile duct dilation. TECHNIQUE: Multiple grayscale and Doppler ultrasound images of the abdomen were obtained. COMPARISON: CT dated 04/01/2025 FINDINGS: The pancreatic head and body are normal in appearance. The pancreatic tail is not visualized. The vi sualized proximal to mid abdominal aorta and inferior vena cava are normal. Liver has normal echogeni city and contour, with a smooth surface. No liver lesion identified. No intrahepatic biliary duct dil ation suspected. Portal venous flow was seen in the hepatopetal, normal direction and has normal Dopp ler waveform. Combination of echogenic and non shadowing sludge and a few small shadowing gallstones within the lumen of the otherwise normal-appearing gallbladder. The common bile duct is mildly dilate d measuring 6-7 mm in maximal diameter. Sonographic Rojas sign was reported as negative by the sonog rapher. Visualized portion of the right kidney demonstrates normal contour and echogenicity with no h ydronephrosis. IMPRESSION: 1. Cholelithiasis and mildly dilated common bile duct suggesting possible nonvisualized distal obstru cting stone. Correlate with liver function tests and consider MRCP for further evaluation. Reviewed, dictated and finalized at location A. IMPRESSION: 1. Cholelithiasis and mildly dilated common bile duct suggesting possible nonvi sualized distal obstructing stone. Correlate with liver function tests and cons ider MRCP for further evaluation.
--- NOTE | ~2025-03-31 | CT_ITS ---
EXAMINATION: CT abdomen pelvis w con DATE: 04/01/2025 02:34 INDICATION: Right upper quadrant abdominal pain. TECHNIQUE: Computed tomography (CT) of the abdomen and pelvis was performed with 100 mL Omnipaque-350 intravenous contrast. Automated exposure control and iterative reconstruction technique were employe d. The dose-length product was 1253.56 mGy-cm. COMPARISON: None FINDINGS: Minimal dependent atelectasis in the left lower lobe. Arch size is normal. No pericardial or pleural effusion. Liver, gallbladder, pancreas, bilateral adrenal glands and kidneys are normal. Mild dilatio n the common bile duct which measures up to 7 mm. Nonspecific mild splenomegaly measuring 14.6 cm max imal length which could be related to body habitus. Bladder, retroverted uterus and bilateral adnexa are unremarkable. Bowels including the appendix are normal. No free intraperitoneal gas or fluid. No pathologically enlarged abdominal or pelvic lymphadenopathy. There is nonspecific stranding and small calcified nodules in the subcutaneous fat at the bilateral buttocks. Small fat-containing umbilical hernia. Mild S-shaped curvature of the lumbar and lower thoracic spine. IMPRESSION: 1. Nonspecific mild dilation the common bile duct to 7 mm correlate with liver function tests and cou ld consider MRI/MRCP for further evaluation as clinically indicated. 2. Nonspecific mild splenomegaly which may relate to study of the chest. 2. Nonspecific stranding and multiple calcific densities 17 Station at the bilateral buttocks which c ould be related to fat necrosis or due to subcutaneous injections. Reviewed, dictated and finalized at location A. IMPRESSION: 1. Nonspecific mild dilation the common bile duct to 7 mm correlate with liver function tests and could consider MRI/MRCP for further evaluation as clinically indicated. 2. Nonspecific mild splenomegaly which may relate to study of the chest. 2. Nonspecific stranding and multiple calcific densities 17 Station at the bila teral buttocks which could be related to fat necrosis or due to subcutaneous in jections.
--- OUTSIDE RECORDS SUMMARY | 2025-03-31 20:56 | XMS_ITS | Continuity of Care Document ---
Author Organization [facility] Address [address] [place] [address] Phone Care Team Providers Care Senior Qa Automation Engineer Name Role Phone Rambo Melton MD, MD Unavailable Unavailable Allergies, Adverse Reactions, Alerts [...] on Encounter Independent Medical Examination [facility], [address], [id number], [place] tel:[phone] [facility] right hip (chief complaint) Pain in right hip 2 Geronimo Ricks. [address] [facility], [address], [id number] , [place]. tel: [phone] [facility], [address] [place] [address], [id number], [place] tel:[phone] [facility] No Information 2 Geronimo Ricks. [address] [facility], [address], [id number] , [place]. tel: [phone] Family History Family Member Type Diagnosis Age At Onset Mother Problem (finding) Diabetes Mother Problem (finding) Stroke Mother Problem (finding) Heart Disease Father Problem (finding) Diabetes Brother Problem (finding) Depression Payers Payer name Insurance type Covered libertarian ID Edin carrazna(s) [employer] [id number] Social History Type Description Quantity Date Captured [...] 96.615 kg (213.00 lbs) 31.4 5 kg/m mooseer (2) Chief Complaint And Reason For Visit [...]
--- OUTSIDE RECORDS SUMMARY | 2025-03-31 20:56 | XMS_ITS | Encounter Summary ---
Author Organization [facility] Address [address] [place] [address] Care Team Providers Care Software Reliability Engineer Name Role Phone Colby Hager MD Primary Care Provider Reason for Visit * Reason Comments Abdominal Pain Paient here for c/o abdominal pain, cough, nausea and vomiting. Encounter Details Date Type Department Care Team (Late st Contact Info) Description 03/31/2025 6:00 PM CDT Office Visit [facility] at [address] [phone] Neli Vanegas, GINNY [address] [place] [address] [address] [place] [address] Abdominal pain (Primary Dx); Right upper quadrant abdominal tenderness without rebound tenderness; Nausea and vomiting, unspecified vomiting type; Acute cough Social History Tobacco Use Types Packs/Day Years Used Date Smoking Tobacco: Never Cigarettes Smokeless Tobacco: Never Alcohol Use Standard Drinks/Week Comments Yes 0 (1 standard drink = 0.6 oz pur e alcohol) AUDIT-C Answer Date Recorded Q1: How often do you have a drink containing alc ohol? 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 Not on file Not on file Not on file documented as of this encounter Last Filed Vital Signs Vital Sign Reading Time Taken Comments Blood Pressure 116/84 03/31/2025 5:54 PM CDT Pulse 80 03/31/2025 5:54 PM CDT Temperature 36.6 C (97.8 F) 03/31/2025 5:54 PM CDT Respiratory Rate 20 03/31/2025 5:54 PM CDT Oxygen Saturation 98% 03/31/2025 5:54 PM CDT Inhaled Oxygen Concentration - - Weight 113.4 kg (250 lb) 03/31/2025 5:54 PM CDT Height 175.3 cm (5' 9) 03/31/2025 5:54 PM CDT Body Mass Index 36.92 03/31/2025 5:54 PM CDT documented in this encounter Plan of Treatment Not on file documented as of this encounter Visit Diagnoses Diagnosis Abdominal pain- Primary Abdominal pain, unspecified site Right upper quadrant abdominal tenderness without rebound tenderness Nausea and vomiting, unspecified vomiting type Acute cough documented in this encounter Discontinued Medications Medication Sig Discontinue Reason Start Date End Da te ondansetron ODT (ZOFRAN-ODT) 4 mg disintegrating tablet DISSOLVE 1 TABLET ON TOP OF THE TONGUE WHERE IT WILL DISSOLVE, THEN SWALLOW 4 TIMES A DAY 09/14/2024 03/31/2025 famotidine (PEPCID) 20 mg tablet Take 1 tablet (20 mg total) by mouth 2 (two) times a day 03/31/2025 aspirin 81 mg enteric coated tablet Take 1 tablet (81 mg total) by mouth daily 03/31/2025 insulin glargine 100 unit/mL (3 mL) pen for injection Inject 8 units in the morning and 8 units at bedtime. Take dosages approximately 12 hours apart. Increase dose as directed due to increasing insulin requirements during . Max total daily dose = 50u 01/31/2025 03/31/2025 OneTouch Delica Plus Lancet 33 gauge misc TEST 4 TIMES A DAY 02/23/2025 03/31/20 OneTouch Verio test strips strip TEST 4 TIMES A DAY 01/31/2025 03/31/2025 follitropin beta (Follistim AQ) 900 unit/1.08 mL cartridge INJECT 225 UNITS SUBCUTANEOUSLY EVERY DAY 03/31/2025 menotropins (Menopur) 75 unit recon soln INJECT 75 UNITS SUBCUTANEOUSLY EVERY DAY DIRECTED Therapy completed 03/31/2025 ganirelix 250 mcg/0.5 mL syringe INJECT 250MCG SUBCUTANEOUSLY EVERY DAY 03/31/2025 glucagon (Baqsimi) 3 mg/actuation spray,non-aerosol Administer 1 spray into affected nostril(s) as needed 11/15/2024 03/31/2025 documented as of this encounter Historical Medications * This list may reflect changes made after this encounter. ferrous sulfate 325 mg (65 mg of elemental iron) tablet Take 1 tablet (325 mg total) by mouth daily 02/20/2025 loratadine (CLARITIN) 10 mg tablet Take 1 tablet (10 mg total) by mouth daily aspirin 81 mg enteric coated tablet Take 1 tablet (81 mg total) by mouth daily 5 OneTouch Verio test strips strip TEST 4 TIMES A DAY 01/31/2025 5 famotidine (PEPCID) 20 mg tablet Take 1 tablet (20 mg total) by mouth 2 (two) times a day 03/31/20 2 5 follitropin beta (Follistim AQ) 900 unit/1.08 mL cartridge INJECT 225 UNITS SUBCUTANEOUSLY EVERY DAY 5 ganirelix 250 mcg/0.5 mL syringe INJECT 250MCG SUBCUTANEOUSLY EVERY DAY glucagon (Baqsimi) 3 mg/actuation spray,non-aeros ol Administer 1 spray into affected nostril(s) as needed 11/15/2024 insulin glargine 100 unit/mL (3 mL) pen for injection Inject 8 units in the morning and 8 units at bedtime. Take dosages approximately 12 hours apart. Increase dose as directed due to increasing insulin requirements during . Max total daily dose = 50u 01/31/2025 5 OneTouch Delica Plus Lancet 33 gauge misc TEST 4 TIMES A DAY 02/23/2025 menotropins (Menopur) 75 unit recon soln INJECT 75 UNITS SUBCUTANEOUSLY EVERY DAY DIRECTED 5 added in this encounter Care Teams Software Reliability Engineer Relationship Specialty Start Date End Date Colby Hager MD [address] [facility] [address] [place] [address] PCP - General Family Medicine 10/10/21 documented as of this encounter
--- OUTSIDE RECORDS SUMMARY | 2025-03-31 20:56 | XMS_ITS | Data Portability ---
Author Organization [facility] Testing, Main Office Address [address] [place] [address] Care Team Providers Care Highway Maintainer Name Role Phone IONA HOWELL Primary Care Provider IONA HOWELL Referring Provider TAKETA, ERICA Control Systems Technician YARA, CRUISE Control Systems Technician Unavailable Assessment Encounter Date Assessment Date Assessment LastModified by Organization Details LastModified Time 01/11/2023 01/11/2023 This note is dictated and transcribed by [employer]. Traffic Sign Supervisor variances may occur. Despite proofreading, typographical errors may occur. Not available 01/11/2023 14:30:35 04/13/2024 04/13/2024 This note is dictated and transcribed by [employer]. Traffic Sign Supervisor variances may occur. Despite proofreading, typographical errors may occur. Occasional wrong-word or 'xqfyy-m-revx' substitutions may have occurred due to the inherent limitations of voice recording. Read the chart carefully and recognize, using context, where substitutions have occurred. Not available 04/13/2024 12:09:58 05/11/2024 05/11/2024 This note is dictated and transcribed by [employer]. Traffic Sign Supervisor variances may occur. Despite proofreading, typographical errors may occur. Occasional wrong-word or 'ghvyn-n-wcti' substitutions may have occurred due to the [...] U 2023 024 [email or web address] Handy Lopez MD, [address] [place], [address], 4 08:25:57 Procedures None recorded. Surgeries None recorded. Imaging MRI, ankle, w/o contrast 2023 024 [facility], [address], [place], [address], 4 09:07:48 MRI, ankle, w/o contrast 2022 [...] contr ast No observ ation record ed. [email or web address] [facility] [address], [place], [address], 05/12/2024 09:07:48 Result Notes None recorded. Problems Name Problem SNOMED Code Status Onset Date Resolution Date Notes Provider Name and Address Organization Details Recorded Time Sprain of right ankle 23921653854 220985 Active 2020 Not Available [facility] 3 09:24:33 Pain of right ankle joint 35742495243 069474 Active 2020 Not Available [facility] 3 09:24:33 Pain in right foot 86223738027 9107 Active 2020 Not Available [facility] 3 09:24:33 Chronic ankle pain 73943044032 109 Active 2021 Not Available [facility] 3 09:24:33 Avulsion of ligament with bony fragment of lateral malleolus 998441468 Active 2021 Not Available [facility] 3 09:24:33 [id number] Completed 202009/22/2021 Not Available [facility] 3 09:24:33 Irregular periods 61658004 Active Not Available [facility] 3 09:24:33 Sprain of lateral ligament of ankle joint 570177385 Active 2022 Jeffrey Worthington, DPNatacha [address] [facility], [address], [place], [address] , [place] - [facility] 3 14:23:38 Problem Notes None recorded. Procedures Surgical History Date Name Laterality Status Provider Name and Address Organization Details Recorded Time 8 SERICULTURE TEACHER Procedure completed Not Available [facility] 2022 09:20:48 8 Date of Last Pap Smear completed Not Available [facility] 12/30/2022 09:20:47 4 SERICULTURE TEACHER Procedure completed Not Available [facility] 2022 09:20:48 0 Orthopedic Surgery completed Not Available [facility] 12/30/2022 09:20:48 Imaging Results None recorded. Procedure Notes None recorded. Medical Equipment None Reported. Allergies No known drug allergies Medications Name Sig Start Date Stop Date Status Note LastModified by Organization Details LastModified Time progesteron e 50mg/mlethy loleate INJECT 2 ML ONCE A DAY DIRECTED 04/13 completed Not Available Not Available Not Available fed-ex priority overnight WED- PT HM WITH SIG MM 04/13 completed [...] Not Available ergocalcife rol (vitamin D2) (bulk) 57515 unit/mg powder 04/13 completed Not Available Not [...] Available No t Available BD Regular Bevel [place] 25 gauge x 1 1/2 USE DIRECTED [PROGESTE YAMEL MEDICATIO N] 04/13 completed Not Available Not Available Not Available BD Regular Bevel [place] 25 gauge x 5/8 USE DIRECTED WITH [...] % 98 % 89 /min 14 /min 77668.3 6 g 112 mm[Hg] 76 mm[Hg] Not Available [facility] 3 09:23:15 Date Recorded Body height Provider Name an d Address Organization Details Last Updated DateTime 01/11/2023 175.26 cm Brittnee Atwood MA [facility] I [facility] [employer] [facility] 01/11/2023 14:01:23 Date Recorded Body height Heart rate Respiratory rate Oxygen saturation Oxygen saturation in Arterial blood by Pulse oximetry Systolic blood pressure Diastolic blood pressure Provider Name and Address Organization Details Last Updated DateTime 4 175.26 cm 76 /min 14 /min 99 % 99 % 124 mm[Hg] 78 mm[Hg] Hilary Medina [facility] [employer] [facility] 4 11:44:09 Date Recorded Body height Heart rate Systolic blood pressure Diastolic blood pressure Provider Name and Address Organization Details Last Updated DateTime 05/11/2024 175.26 cm 69 /min 137 mm[Hg] 90 mm[Hg] Megan Franks CNA [employer] [facility] [employer] [facility] 05/11/2024 11:57:59 Date Recorded Body mass index (BMI) Body height Oxygen saturation Oxygen saturation in Arterial blood by Pulse oximetry Heart rate Respiratory rate Body temperature Body weight Systolic blood pressure Diastolic blood pressure Provider Name and Address Organization Details Last Updated DateTime 2 31.7 kg/m2 175.26 cm 97 % 97 % 100 /min 14 /min 97.4 [degF] 88543.3 6 g 115 mm[Hg] 70 mm[Hg] Not Available [facility] 3 09:23:15 Social History Question Answer Notes LastModified by Organizat ion Details LastModified Time Tobacco Smoking Status Never Smoker Not Available [facility] 12/30/2022 09:20:39 What Is Your Level Of Caffeine Consumption? Occasional [id number] Information not available 12/30/2022 In The 14 Days Before Symptom Onset, Have You Had Close Contact With A Laboratory-confirm ed COVID-19 While That Case Was Ill? No [id number] Information not available 12/30/2022 In The 14 Days Before Symptom Onset, Have You Had Close Contact With A Person Who Is Under Investigation For COVID-19 While That Person Was Ill? No [id number].[id number] Information not available 12/30/2022 Which Illicit Or Recreational Drugs Have You Used? None [id number].[id number] Information not available 12/30/2022 What Is Your Relationship Status? [id number] Information not available 12/30/2022 Do You Use Your Seat Belt Or Car Seat Routinely? Yes [id number].[id number] Information not available 12/30/2022 Have You Recently Traveled Abroad? No [id number].[id number] 6882 Information not available 12/30/2022 Sex: Female Functional Status Question Answer Note LastModified by Organizat ion Details LastModified Time Do you use any illicit or recreational drugs? No [id number].[id number] Information not available 12/30/2022 What is your level of alcohol consumption? None MIGRATION.[id number] 0581 Information not available 12/30/2022 Do you or have you ever used e-cigarettes or vape? Never used electronic cigarettes MIGRATION.862421 0425 Information not available 12/30/2022 What is your exercise level? None MIGRATION.431462 6915 Information not available 12/30/2022 Mental Status None recorded. Family History Relationship Description Onset Age of this Age Resolved Age Notes LastModified by Organization Details LastModified Time Father Diabetes mellitus [id number].885 [id number] Not available 12/30/2022 09:20:50 Mother Family history of stroke MIGRATION.840 [id number] Not available 12/30/2022 09:20:50 Mother Heart disease MIGRATION.297 [id number] Not available 12/30/2022 09:20:51 Mother Pulmonary embolism MIGRATION.727 [id number] Not available 12/30/2022 09:20:51 Mother Diabetes mellitus MIGRATION.051 [id number] Not available 12/30/2022 09:20:51 Maternal Grandfather Heart disease MIGRATION.481 [id number] Not available 12/30/2022 09:20:51 Maternal Grandfather Pulmonary embolism MIGRATION.051 [id number] Not available 12/30/2022 09:20:51 Paternal Grandfather Family history of stroke MIGRATION.154 [id number] Not available 12/30/2022 09:20:51 Medical History Condition [...] SNOMED-CT Code Diagnosis ICD10 Code Diagnosis Note [id number] [facility] _ATHENA_M IGRATION_ DEFAULT_1 _1 , 03/05/2021 00:00:00 03/05/2021 12:42:07 [id number] [facility] _ATHENA_M IGRATION_ DEFAULT_1 _1 , 03/10/2021 00:00:00 03/10/2021 14:30:13 [id number] [facility] _ATHENA_M IGRATION_ DEFAULT_1 _1 , 04/04/2021 00:00:00 04/04/2021 09:20:36 [id number] [facility] [address] [place] [address] 05/12/2021 00:00:00 05/12/2021 10:32:06 [id number] [facility] _ATHENA_M IGRATION_ DEFAULT_1 _1 , 05/12/2021 00:00:00 05/12/2021 15:22:19 [id number] [facility] _ATHENA_M IGRATION_ DEFAULT_1 _1 , 05/14/2021 00:00:00 05/14/2021 11:53:39 [id number] [facility] _ATHENA_M IGRATION_ DEFAULT_1 _1 , 06/11/2021 00:00:00 06/11/2021 11:26:11 [id number] [facility] [address] [place] [address] 06/23/2021 00:00:00 06/23/2021 12:05:10 [id number] [facility] _ATHENA_M IGRATION_ DEFAULT_1 _1 , 07/09/2021 00:00:00 07/09/2021 11:32:08 [id number] [facility] _ATHENA_M IGRATION_ DEFAULT_1 _1 , 07/14/2021 00:00:00 07/14/2021 14:21:08 [id number] [facility] _ATHENA_M IGRATION_ DEFAULT_1 _1 , 07/23/2021 00:00:00 07/23/2021 11:21:22 [id number] [facility] _ATHENA_M IGRATION_ DEFAULT_1 _1 , 08/06/2021 00:00:00 08/06/2021 11:09:54 [id number] [facility] _ATHENA_M IGRATION_ DEFAULT_1 _1 , 08/08/2021 00:00:00 08/11/2021 14:39:57 [id number] [facility] _ATHENA_M IGRATION_ DEFAULT_1 _1 , 08/20/2021 00:00:00 08/20/2021 09:45:57 [id number] [facility] _ATHENA_M IGRATION_ DEFAULT_1 _1 , 08/27/2021 00:00:00 08/27/2021 09:52:37 [id number] [facility] [address] [facility] [address] [place] [address] 08/28/2021 00:00:00 08/28/2021 12:05:42 [id number] [facility] _ATHENA_M IGRATION_ DEFAULT_1 _1 , 09/03/2021 00:00:00 09/03/2021 10:30:53 [id number] [facility] _ATHENA_M IGRATION_ DEFAULT_1 _1 , 09/08/2021 00:00:00 09/08/2021 15:40:49 [id number] [facility] _ATHENA_M IGRATION_ DEFAULT_1 _1 , 09/10/2021 00:00:00 09/10/2021 09:56:49 [id number] [facility] _ATHENA_M IGRATION_ DEFAULT_1 _1 , 09/16/2021 00:00:00 09/16/2021 10:22:32 [id number] [facility] _ATHENA_M IGRATION_ DEFAULT_1 _1 , 10/15/2021 00:00:00 10/15/2021 11:09:47 [id number] [facility] _ATHENA_M IGRATION_ DEFAULT_1 _1 , 10/27/2021 00:00:00 10/27/2021 12:46:34 [id number] Rene Vera MD [facility] [address] [place] [address] 11/13/2021 00:00:00 11/13/2021 15:15:23 [id number] Rene Vera MD [facility] [address] [place] [address] 12/29/2021 00:00:00 12/29/2021 10:13:35 [id number] [facility] [address] [place] [address] 02/02/2022 00:00:00 02/03/2022 10:03:04 [id number] [facility] [address] [place] [address] 03/19/2022 00:00:00 03/19/2022 14:21:48 [id number] [facility] [address] [place] [address] 08/20/2022 00:00:00 08/20/2022 12:06:06 [id number] ZAHIRA SelfATHENA_M IGRATION_ DEFAULT_1 _1 , 10/05/2022 00:00:00 10/06/2022 09:52:06 [id number] Jeffrey Worthington DPM [facility] [address] [place] [address] 11/26/2022 00:00:00 11/26/2022 15:50:06 [id number] Jeffrey Worthington DPM [facility] [address] [place] [address] 01/11/2023 13:56:41 01/11/2023 14:35:29 Pain of right ankle joint 1597076389 [id number] M25.571 as above Sprain of lateral ligament of ankle joint 252521189 S93.491D repeat MRIplan surgical clearance for right ankle lateral ankle repair of ATFLcontin ue supportive shoe gear and bracingonc e MRI is obtained well plan for final operative planning [id number] Jeffrey Worthington DPM [facility] [place] [address] [place] [address] 04/13/2024 11:37:18 04/20/2024 11:47:34 Pain of right ankle joint 8113725529 [id number] M25.571 as above Avulsion o f ligament with bony fragment of lateral malleolus 569995315 S82.61XS recommend repeat MRI to EVAL healing of fracture and ligaments of the lateral anklecont pain with workpain and rolling of ankle with activityrx second opinion - orthopedic - Eval treat [id number] Jeffrey Worthington DPM [facility] [place] [address] [place] [address] 05/11/2024 11:37:52 05/18/2024 14:46:23 Avulsion of ligament with bony fragment of lateral malleolus 836989008 S82.61XS recommend repeat MRI - Positive for [...] Cohn Member ID Guarantor Name 01/11/2023 1 [facility] [id number] Raven Junior [id number] Raven Junior 04/13/2024 [facility] Raven Junior 05[facility]11/2024 [facility] Notes Date Note Type Note [...] any other pedal complaints. Jeffrey Worthington DPM [address], [place], [place], [address], [employer] 01/11/2023 14:30:45 04/13/2024 text/html . Patient is a 34-year-old female who sustained a lateral ankle injury to the right ankle. Patient has underwent physical therapy MRI which showed partial tear of the collateral ligaments. 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 Patient states that when she is walking her ankle rolls out and causes her pain. Patient denies any recurrent injury to the ankle. Patient states when she is walking or running she has giving out of the ankle. Patient denies any other complaints. Jeffrey Worthington DPM [address], [place], [place], [address], [employer] 04/19/2024 10:06:08 05/11/2024 text/html . Patient is [...] denies any other complaints. Jeffrey Worthington DPM [address], [place], [place], [address], [place] - [facility] 05/18/2024 14:42:07 OBGyn Episode No OBEpisode recorded.
--- OUTSIDE RECORDS SUMMARY | 2025-03-31 20:56 | XMS_ITS | Referral Summary ---
Author Organization [facility] Medical Office Building B Address [address] [place] [address] Care Team Providers Care Ground Control Approach Technician Name Role Phone Colby Hager MD Primary Care Provider Encounters Date Type Department Care Team Description 03/31/2025 6:00 PM CDT Office Visit [facility] Care at [address] [phone] Neli Vanegas NP Abdominal pain (Primary Dx); Right upper quadrant abdominal tenderness without rebound tenderness; Nausea and vomiting, unspecified vomiting type; Acute cough 03/28/2025 8:10 AM CDT - 03/28/2025 11:59 PM CDT Hospital Encounter [facility] [address] [place] [address] Pain in joint involving ankle and foot, unspecified laterality Discharge Disposition: Discharge to home or self care 03/28/2025 8:00 AM CDT Office Visit [facility] Surgery [address] [place] [address] [address] [place] [phone] Handy Lopez MD from Last 3 Months Allergies No known active allergies Medications loratadine (CLARITIN) 10 mg tablet Take 1 tablet (10 mg total) by mouth daily Active ferrous sulfate 325 mg (65 mg of elemental iron) tablet Take 1 tablet (325 mg total) by mouth daily 025 Active ondansetron ODT (ZOFRAN-ODT) 4 mg disintegrating tablet DISSOLVE 1 TABLET ON TOP OF THE TONGUE WHERE IT WILL DISSOLVE, THEN SWALLOW 4 TIMES A DAY 024 2024 Discontinued menotropins (Menopur) 75 unit recon soln INJECT 75 UNITS SUBCUTANEOUSLY EVERY DAY DIRECTED 2024 Discontinued(T herapy completed) OneTouch Delica Plus Lancet 33 gauge misc TEST 4 TIMES A DAY 025 2024 Discontinued(P regnancy) insulin glargine 100 unit/mL (3 mL) pen for injection Inject 8 units in the morning and 8 units at bedtime. Take dosages approximately 12 hours apart. Increase dose as directed due to increasing insulin requirements during . Max total daily dose = 50u 025 2024 Discontinued(P regnancy) glucagon (Baqsimi) 3 mg/actuation spray,non-aeroso l Administer 1 spray into affected nostril(s) as needed 025 2024 Discontinued(P regnancy) ganirelix 250 mcg/0.5 mL syringe INJECT 250MCG SUBCUTANEOUSLY EVERY DAY 2024 Discontinued(P regnancy) follitropin beta (Follistim AQ) 900 unit/1.08 mL cartridge INJECT 225 UNITS SUBCUTANEOUSLY EVERY DAY 2024 Discontinued(P regnancy) famotidine (PEPCID) 20 mg tablet Take 1 tablet (20 mg total) by mouth 2 (two) times a day 2024 Discontinued(P regnancy) OneTouch Verio test strips strip TEST 4 TIMES A DAY 025 2024 Discontinued(P regnancy) aspirin 81 mg enteric coated tablet Take 1 tablet (81 mg total) by mouth daily 2024 Discontinued(P regnancy) Active Problems Problem Noted Date Diagnosed Date Gestational diabetes mellitus (GDM) in second tr imester 11/13/2024 Obesity affecting in second trimester 11/13/2024 resulting from ass isted reproductive technology in second trimester 11/13/2024 Thyroid disease during in second trime ster 11/13/2024 Vaginal bleeding during 11/13/2024 Sprain of lateral ligament of ankle joint 2022 Chronic ankle pain 10/05/2022 Femoroacetabular impingement of right hip 2021 Overview (12/30/2021): Added automatically from request for surgery [id number] Labral tear of hip, degenerative 12/30/2021 Overview (12/30/2021): Added automatically from request for surgery [id number] Avulsion of ligament with rahul ny fragment [...] Sexual Orientation Lesbian 10/10/2021 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 Not on file Not on file Not [...] Mass Index 36.92 03/31/2025 5:54 PM CDT Plan of Treatment Not on file Medical Devices Implanted Type Area Reverse Engineer Device Identifier Shelf Expiration Date Model / Serial / Lot [employer] [id number] Cinchlock Ss Knotless Metal Riveter Lock [place] Suture Labrum - [id number] Implanted:Qty: 1 on 01/29/2022 by Dinora Mcfadden MD at [facility] Right: Hip [facility] [id number] 04/22/2023 [id number] / / [id number] Description:[employer] [place] J75363 CINCHLOCK SS KNOTLESS JEWELRY SETTER LOCK ANCHOR SUTURE LABRUM - [id number] [employer] [id number] Cinchlock Ss Knotless Metal Riveter Lock [place] Suture Labrum - [id number] Implanted:Qty: 1 on 01/29/2022 by Dinora Mcfadden MD at [facility] Right: Hip [facility] [id number] 04/22/2023 [id number] / / [id number] Description:[employer] [place] T32044 CINCHLOCK SS KNOTLESS JEWELRY SETTER LOCK ANCHOR SUTURE LABRUM - [id number] [facility] [id number] Xbraid 1.2mm Suture Nonabsorbable Titanium Uhmwpe Nonsterile - [id number] Implanted:Qty: 1 on 01/29/2022 by Dinora Mcfadden MD at [facility] Right: Hip [facility] [id number] 09/24/2023 [id number] / / [id number] Description:This is suture [facility] [id number] Xbraid 1.2mm Suture Nonabsorbable Titanium Uhmwpe Nonsterile - [id number] Implanted:Qty: 1 on 01/29/2022 by Dinora Mcfadden MD at [facility] Right: Hip [facility] [id number] 09/24/2023 [id number] / / [id number] Description:This is suture Procedures Procedure Name Priority Date/Time Associated Diagnosis Comments XR ANKLE RIGHT 3 OR MORE VIEWS Schedule Routine, Read Routine (OP Routine) 03/28/2025 8:21 AM CDT Pain in joint involving ankle and foot, unspecified laterality from Last 3 Months Results * XR Ankle Right 3+ View (03/28/2025 8:21 AM CDT) Anatomical Region Laterality Modality Lower Extremities, Ankle Right Compute d Radiography 03/28/2025 8:37 AM CDT Impressions 03/28/2025 8:37 AM CDT No acute radiographic findings of the right ankle. Electronically signed by: Melecio Banuelos M.D. Narrative 03/28/2025 8:37 AM CDT XR ANKLE RIGHT 3 OR MORE VIEWS HISTORY: Right ankle pain. FINDINGS: 3 weightbearing views of the right ankle are obtained and interpreted without comparison. There is no acute fracture. There is mild heterotopic ossification at the lateral malleolus tip which may represent old fracture. The talar dome and ankle mortise are intact. Visualized joint spaces are preserved. Small plantar calcaneal spur and dorsal Achilles enthesophyte. Alignment and soft tissues are normal. Procedure Note Melecio Banuelos MD - 03/28/2025 XR ANKLE RIGHT 3 OR MORE VIEWS HISTORY: Right ankle pain. FINDINGS: 3 weightbearing views of the right ankle are obtained and interpreted without comparison. There is no acute fracture. There is mild heterotopic ossification at the lateral malleolus tip which may represent old fracture. The talar dome and ankle mortise are intact. Visualized joint spaces are preserved. Small plantar calcaneal spur and dorsal Achilles enthesophyte. Alignment and soft tissues are normal. IMPRESSION: No acute radiographic findings of the right ankle. Electronically signed by: Melecio Banuelos M.D. Handy Lopez MD IMG XR PROCEDURES Priya l Result from Last 3 Months Insurance [employer]UE [employer] WORKERS COMPENSATION GENERIC ELENAHER ZAMORA [facility] WORK[facility] COMPENSATION GENERIC Care Teams Ground Control Approach Technician Relationship Specialty Start Date End Date Colby Hager MD [address] [facility] [address] [place] [address] PCP - General Family Medicine 10/10/21
--- OUTSIDE RECORDS SUMMARY | 2025-03-31 20:56 | XMS_ITS | Clinical Summary ---
Author Organization [facility] [employer] Address [address] [facility] [address] [facility] [address] [place] [address] Care Team Providers Care Rn Hyperbaric Name Role Phone Selena Mendez MD Primary Care Provider [phone]- [phone] Source Comments [facility] [employer],non-owned Affiliates and Associated Physician Practices is amultiple site organization consisting of ambulatory clinics and hospital sitesin [place], [place], [place] and [place]. This disclosure is being madepursuant to the Care Everywhere program and may not contain all information available regarding this patient. Last updated 18.[facility] [employer] Allergies No known active allergies Medications * Be aware that medications may not be up to date on this document. Alwaysverify current medications with the patient. Vit-Fe Fumarate-FA ( vitamin) 28-0.8 MG tabletIndicatio ns: Take 1 (one) tablet by mouth once daily Reasons: Active insulin pen needle (Novofine) 32G X 6 MM MISCIndications :Insulin controlled gestational diabetes mellitus (GDM) in second trimester (HCC) 2 times daily 100 Each 5 5 Active Glucagon (Baqsimi One Pack) 3 MG/DOSE POWD [place] 1 Each into the nose as needed 1 Each 5 Active Alcohol Swabs Use 1 Each as needed 100 Each 5 5 Active loratadine (Claritin) 10 MG tabletIndicatio ns:Seasonal Allergic Rhinitis Take 1 (one) tablet by mouth once daily Reasons: Hayfever Active famotidine (Pepcid) 20 MG tabletIndicatio ns:Heartburn Take 1 (one) tablet by mouth 2 times daily Reasons: Heartburn Active aspirin EC (Ecotrin) 81 MG tablet Take 1 (one) tablet by mouth once daily Active insulin glargine (Lantus/Semglee ) 100 units/mL pen Inject 8 units in the morning and 8 units at bedtime. Take dosages approximately 12 hours apart. Increase dose as directed due to increasing insulin requirements during . Max total daily dose = 50u 15 mL 5 Active ferrous sulfate 325 (65 FE) MG tabletIndicatio ns:Low serum iron TAKE 1 TABLET BY MOUTH EVERY DAY 100 tablet Active Active Problems Problem Noted Date Diagnosed [...] - 03/05/2025 11:59 PM CDT Hospital Encounter [facility] [address] [place] [address] [phone] Angela Lynn MD Discharge Disposition: Home or Self Care 02/28/2025 7:26 AM CDT - 02/28/2025 11:59 PM CDT Hospital Encounter [facility] [address] [place] [address] [phone] Nando Weinberg MD Discharge Disposition: Home or Self Care 02/19/2025 8:53 AM CDT - 02/19/2025 11:59 PM CDT Hospital Encounter [facility] [address] [place] [address] [phone] Jovanny Holley MD Discharge Disposition: Home or Self Care 02/19/2025 Refill [facility] [address] [place] [address] [phone] Paulette Arvizu MD Refill Request 02/12/2025 8:53 AM CDT - 02/12/2025 11:59 PM CDT Hospital Encounter [facility] [address] [place] [address] [phone] Jovanny Holley MD Discharge Disposition: Home or Self Care 02/05/2025 8:49 AM CDT - 02/05/2025 11:59 PM CDT Hospital Encounter [facility] [address] [place] [address] [phone] Jovanny Holley MD Discharge Disposition: Home or Self Care 01/31/2025 9:41 AM CDT - 01/31/2025 11:59 PM CDT Hospital Encounter [facility] [address] [place] [address] [phone] Nando Weinberg MD Discharge Disposition: Home or Self Care 01/22/2025 10:26 AM CDT - 01/22/2025 11:59 PM CDT Hospital Encounter [facility] [address] [place] [address] [phone] Jovanny Holley MD Discharge Disposition: Home or Self Care 01/03/2025 2:18 PM EDUCATION LIAISON - 01/03/2025 11:59 PM EDUCATION LIAISON Hospital Encounter [facility] [address] [place] [address] [id number] Nando Weinberg MD Discharge Disposition: Home or [...] 7:57 AM CDT Height 175 cm (5' 8.9) 11/08/2024 10:10 AM EDUCATION LIAISON Body Mass Index 37.77 11/08/2024 10:10 AM EDUCATION LIAISON Plan of Treatment Health Maintenance Due Date [...] Priority Date/Time Associated Diagnosis Comments BIOPHYSICAL PROFILE [facility] Routine 03/05/2025 8:48 AM CDT History of iron deficiency anemia Vaginal bleeding during (HCC) 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 Obesity affecting in second trimester, unspecified obesity type (HCC) BMI 36.0-36.9,adult Insulin controlled gestational diabetes mellitus (GDM) in second trimester ([facility]) BIOPHYSICAL PROFILE [facility] Routine 02/28/2025 7:21 AM CDT Obesity affecting in third trimester, unspecified obesity type (HCC) Thyroid disease during in third trimester (HCC) resulting from assisted reproductive technology in third trimester ([facility]) Encounter for screening ([facility]) Insulin controlled gestational diabetes mellitus (GDM) in third trimester ([facility]) BIOPHYSICAL PROFILE [facility] Routine 02/19/2025 9:28 AM CDT Obesity affecting in third trimester, unspecified obesity type (HCC) Thyroid disease during in third trimester (HCC) resulting from assisted reproductive technology in third trimester ([facility]) Encounter for screening ([facility]) Insulin controlled gestational diabetes mellitus (GDM) in third trimester ([facility]) BIOPHYSICAL PROFILE [facility] Routine 02/12/2025 8:48 AM CDT Obesity affecting in third trimester, unspecified obesity type (HCC) Thyroid disease during in third trimester (HCC) resulting from assisted reproductive technology in third trimester ([facility]) Encounter for screening (HCC) Insulin controlled gestational diabetes mellitus (GDM) in third trimester ([facility]) BIOPHYSICAL PROFILE [facility] Routine 02/05/2025 8:52 AM CDT History of iron deficiency anemia Diet controlled gestational diabetes mellitus (GDM) in second trimester (HCC) BMI 36.0-36.9,adult Vaginal bleeding during (HCC) Thyroid disease during in third trimester (HCC) resulting from assisted reproductive technology in second trimester ([facility]) Encounter for ultrasound to assess growth ([facility]) BIOPHYSICAL PROFILE W NST Routine 01/31/2025 11:06 AM CDT History of iron deficiency anemia BMI 36.0-36.9,adult Vaginal bleeding during (HCC) Thyroid disease during in third trimester ([facility]) resulting from assisted reproductive technology in second trimester ([facility]) Encounter for ultrasound to assess growth ([facility]) BIOPHYSICAL PROFILE W NST Routine 01/22/2025 10:22 AM CDT History of iron deficiency anemia Diet controlled gestational diabetes mellitus (GDM) in second trimester BMI 36.0-36.9,adult Vaginal bleeding during Thyroid disease during in third trimester resulting from assisted reproductive technology in second trimester Encounter for ultrasound to assess growth SONOGRAM - COMPLETE Routine 01/03/2025 2 :59 PM EDUCATION LIAISON BMI 36.0-36.9,adult Vaginal bleeding during Thyroid disease during in second trimester ([facility]): Hashimotos resulting from assisted reproductive technology in second trimester Insulin controlled gestational diabetes mellitus (GDM) in second trimester Family history of tetralogy of Fallot from Last 3 Months Results * BIOPHYSICAL PROFILE W NST (03/05/2025 8:48 AM CDT) Only the most recent of7 resultswithin the time period is included. Linked Results Indication ======== IVF Prior child with Tetrology of Fallot echocardiogram: normal structures with PACs noted GDM-A2 on insulin, Class II obesity, Vaginal bleeding History ====== OB History 3. Para 1 [id number] 1. live 2020. Gest. age 39 w [...] volume is normal. The biophysical profile is 1010. Comment ======== ultrasound alone cannot detect all structural, genetic, or functional , placental, or maternal abnormalities Follow-up ======== Continue weekly BPP with 2x weekly NST Coding ====== Procedures 31222: US Uterus Limited 12446: Biophysical Profile W NST [facility] Car Throttle PACS Anatomical Region Laterality Modality Other 03/05/2025 8:48 AM CDT Angela Lynn MD [facility] ORDERABLES Edited Result - Final * SONOGRAM - COMPLETE (01/03/2025 2:59 PM EDUCATION LIAISON) Linked Results Indication ======== IVF , Incomplete anatomy screen Prior child with Tetrology of Fallot echocardiogram: Normal structures with PACs noted GDM-A2 on insulin, Class II obesity, Vaginal bleeding History ====== OB History 3. Para 1 [id number] 1. live 2020. Gest. age 39 w [...] 3 lb 14 oz EFW by Hadlock (YKN-DM-PD-FL) overall normal range, but the AC is [...] growth at 33 weeks Coding ====== Procedures 53371: US Preg Uterus Follow Up [facility] Car Throttle PACS Anatomical Region Laterality Modality Other 01/03/2025 2:59 PM EDUCATION LIAISON Michelle Ricks MD [facility] ORDERABLES Edited Result - Final from Last 3 Months Insurance [facility] SELF PAY NO INSURANCE Member Subscriber Plan / Payer (Ef fective for All Dates) Name:Adam Young Balaji Member ID:Not on file Relation to Subscriber:Not on file Name:ADAM YOUNG Balaji Subscriber ID:Not on file (Home) Address: [address] [place] [address] Payer ID:Not on file Group ID:Not on file Type:Self Pay Address: [place], [place] Care Teams Rn Hyperbaric Relationship Specialty Start Date End Date Selena Mendez MD PCP - General 07/16/20
--- OUTSIDE RECORDS SUMMARY | 2025-03-31 20:56 | XMS_ITS | Encounter Summary ---
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
--- OUTSIDE RECORDS SUMMARY | 2025-03-31 20:56 | XMS_ITS | Clinical Summary ---
Author Organization [facility] Address [address] [place] [address] Care Team Providers Care Pet Care Worker Name Role Phone Colby Hager MD Primary Care Provider Allergies No known active allergies Medications loratadine [...] (12/30/2021): Added automatically from request for surgery [id number] Labral tear of hip, degenerative 12/30/2021 Overview (12/30/2021): Added automatically from request for surgery [id number] Avulsion of ligament with rahul ny fragment of lateral malleolus 12/29/2021 Irregular periods 11/26/2021 Arthralgia of right ankle 05/12/2021 Pain in right foot 05/12/2021 Exposure to blood 04/22/2018 Encounters Date Type Department Care Team Description 03/31/2025 6:00 PM CDT Office Visit [facility] [address] [address] Neli Vanegas NP Abdominal pain (Primary Dx); Right upper quadrant abdominal tenderness without rebound tenderness; Nausea and vomiting, unspecified vomiting type; Acute cough 03/28/2025 8:10 AM CDT - 03/28/2025 11:59 PM CDT Hospital Encounter [facility] [address] [place] [address] Pain in joint involving ankle and foot, unspecified laterality Discharge Disposition: Discharge to home or self care 03/28/2025 8:00 AM CDT Office Visit [facility] [id number] [place] [address] [address] [place] [address] Handy Lopez MD from Last 3 Months Immunizations Immunization Administration Dates Next Due Influenza, [...] abuse Brother Adam Young Diabetes Father Robert Morriso Diabetes Father's Brother Cade Morriso Stroke Maternal Grandfather Clotting disorder Mother Ana Morriso Diabetes Mother Ana Young Heart disease Mother Ana Morriso Stroke Mother Ana Morriso Stroke Paternal Grandfather Pelegcrystal Young Heart disease Paternal Grandmother defects Jarocho Lira Anesthesia problems Neg Hx Relation Name Status Comments Brother Adam Young Father Robert Young Alive Father's Brother Cade Young Maternal Grandfather Mother Ana Morriso Alive Paternal Grandfather Pelsimon Morriso Paternal Grandmother Son Hilary Lira Social History [...] Sexual Orientation Lesbian 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 file Not on file Not [...] 03/31/2025 5:54 PM CDT Plan of Treatment Health Maintenance Due Date Last Done Comments Cervical Cancer Screening 1991 Depression Screening 1991 Hepatitis C Screening 1991 DTaP/Tdap/Td Vaccine (1 - Tdap) 2002 Varicella Vaccines (1 of 2 - 13+ 2-dose series) 2004 Hepatitis B Screening 2009 Regular Well Visit/Exam 18-64 2009 Covid-19 Vaccine ( - 2023-2 5 season) 2024 10/16/2021, 12/31/2020, 12/03/2020 Influenza Vaccine (Season Ended) 2025 08/20/2022 HPV Vaccines Aged Out No longer eligi ble based on patient's age to complete this topic Pneumococcal vaccine <65 Aged Out No longer eligible based on patient's age to complete this topic Medical Devices Implanted Type Area Platform Consultant Device Identifier Shelf Expiration Date Model / Serial / Lot [employer] [id number] Talya Ss Knotless Repair Department Supervisor Lock [place] Suture Labrum - [id number] Implanted:Qty: 1 on 01/29/2022 by Dinora Mcfadden MD at [facility] Right: Hip [facility] [id number] 04/22/2023 [id number] / / [id number] Description:[employer] [place] [id number] CINCHLOCK SS KNOTLESS PEDIATRICS TEACHER LOCK ANCHOR SUTURE LABRUM - [id number] P[employer] [id number] Cinchlock Ss Knotless Repair Department Supervisor Lock [place] Suture Labrum - [id number] Implanted:Qty: 1 on 01/29/2022 by Dinora Mcfadden MD at [facility] Right: Hip [facility] [id number] 04/22/2023 [id number] / / [id number] Description:[employer] [place] B50040 CINCHLOCK SS KNOTLESS PEDIATRICS TEACHER LOCK ANCHOR SUTURE LABRUM - [id number] [facility] [id number] Xbraid 1.2mm Suture Nonabsorbable Titanium Uhmwpe Nonsterile - [id number] Implanted:Qty: 1 on 01/29/2022 by Dinora Mcfadden MD at [facility] Right: Hip [facility] [id number] 09/24/2023 [id number] / / [id number] Description:This is suture [facility] [id number] Xbraid 1.2mm Suture Nonabsorbable Titanium Uhmwpe Nonsterile - [id number] Implanted:Qty: 1 on 01/29/2022 by Dinora Mcfadden MD at [facility] Right: Hip [facility] [id number] 09/24/2023 [id number] / / [id number] Description:This is suture Procedures Procedure Name Priority [...] l Result from Last 3 Months Insurance [facility] BLUE ACCESS [place] WORKERS COMPENSATION GENERIC KASSY ZAMORA ELENAMICAH WILLARDSANTO WORKERS COMPENSATION GENERIC Care Teams Pet Care Worker Relationship Specialty Start Date End Date Colby Hager MD [address] [facility] [address] [place] [address] PCP - General Family Medicine 10/10/21
[2025-03-31 21:00] VITALS: BP 113/68; PULSE 82; RESP 20; TEMP 36.4; O2SAT 100
[2025-03-31 23:18] LABS: BEDSIDEPREGUCG Negative (Negative)
[2025-04-01 01:46] VITALS: BP 113/87; PULSE 73; RESP 16; O2SAT 100
--- NOTE | 2025-04-01 01:51 | PC.NURSE ---
patient states she delivered her second baby here on 03/07/[address] Ricks and is currently breast feeding.
[2025-04-01 01:52] LABS: Basophils Percent Auto 0.4 % (0.2-1.2); Eosinophils Absolute Auto 0.1 K/mm3 (0-0.3); Eosinophils Percent Auto 2.5 % (0-4.4); Hematocrit 36.6 % (37.0-47.0); Hemoglobin 12.3 g/dL (12.0-15.0); Immature Granulocyte Absolute 0.02 K/mm3 (0.00-0.031); Immature Granulocyte Percent A 0.4 % (0-0.5); Lymphocytes Absolute Auto 1.36 K/mm3 (0.9-3.2); Lymphocytes Percent Auto 24.3 % (18.3-44.2); Mean Corpuscular HGB Conc 33.6 g/dl (32-36); Mean Corpuscular Hemoglobin 30.6 pg (26-34); Mean Platelet Volume 10.4 fl (7.4-10.4); Monocytes Absolute Auto 0.3 K/mm3 (0.1-0.6); Monocytes Percent Auto 5.4 % (2.6-8.5); Neutrophils Absolute Auto 3.8 K/mm3 (1.3-6.7); Platelet Count Result 220 k/mm3 (150-375); Red Blood Count 4.02 M/mm3 (4.2-5.4); Red Cell Distribution Width 12.7 % (11.5-14.5); White Blood Count 5.6 K/mm3 (4.5-10.0)
--- NOTE | 2025-04-01 01:57 | PC.NURSE ---
patient to have breast pump at bedside for .
--- OUTSIDE RECORDS SUMMARY | 2025-04-01 02:02 | XMS_ITS | Clinical Summary ---
Author Organization [facility] Medical [facility] Building B Address [address] [place] [address] Care Team Providers Care Vitreo Retinal Surgeon Name Role Phone Colby Hager MD Primary [...] (12/30/2021): Added automatically from request for surgery [id number] Labral tear of hip, degenerative 12/30/2021 Overview (12/30/2021): Added automatically from request for surgery [id number] Avulsion of ligament with rahul ny fragment of lateral malleolus 12/29/2021 Irregular periods 11/26/2021 Arthralgia of right ankle 05/12/2021 Pain in right foot 05/12/2021 Exposure to blood 04/22/2018 Encounters Date Type Department Care Team Description 03/31/2025 6:00 PM CDT Office Visit [facility] Medical Group [facility] Care at [address] [address] Neli Vanegas NP Abdominal pain (Primary Dx); Right upper quadrant abdominal tenderness without rebound tenderness; Nausea and vomiting, unspecified vomiting type; Acute cough 03/28/2025 8:10 AM CDT - 03/28/2025 11:59 PM CDT Hospital Encounter 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 Not on file Not [...] this topic Medical Devices Implanted Type Area Sewer Builder Device Identifier Shelf Expiration Date Model / Serial / Lot Pivot Medical [id number] Talya Ss Knotless Supervisor Extruding Department Lock [place] Suture Labrum - [id number] Implanted:Qty: 1 on 01/29/2022 by Dinora Mcfadden MD at [facility] [place] Right: Hip [facility] [id number] 04/22/2023 [id number] / / [id number] Description:PIVOT [employer] [place] X46746 CINCHLOCK SS KNOTLESS PLASTICS AND COMPOSITES INSPECTOR LOCK ANCHOR SUTURE LABRUM - [id number] Pivot Medical [id number] Cinchlock Ss Knotless Supervisor Extruding Department Lock [place] Suture Labrum - [id number] Implanted:Qty: 1 on 01/29/2022 by Dinora Mcfadden MD at [facility] [place] Right: Hip [facility] [id number] 04/22/2023 [id number] / / [id number] Description:[employer]OT [employer] CA X63432 CINCHLOCK SS KNOTLESS PLASTICS AND COMPOSITES INSPECTOR LOCK ANCHOR SUTURE LABRUM - [id number] [facility] [id number] Xbraid 1.2mm Suture Nonabsorbable Titanium Uhmwpe Nonsterile - [id number] Implanted:Qty: 1 on 01/29/2022 by Dinora Mcfadden MD at [facility] [place] Right: Hip [facility] [id number] 09/24/2023 [id number] / / [id number] Description:This is suture [facility] [id number] Xbraid 1.2mm Suture Nonabsorbable Titanium Uhmwpe Nonsterile - [id number] Implanted:Qty: 1 on 01/29/2022 by Dinora Mcfadden MD at [facility] [place] Right: Hip [facility] [id number] 09/24/2023 [id number] / / [id number] Description:This is suture Procedures Procedure Name Priority [...] l Result from Last 3 Months Insurance [facility]ESS [place] WORKERS COMPENSATION GENERIC KASSY ZAMORA ELENAMICAH WILLARDSANTO WORKERS COMPENSATION GENERIC Care Teams Vitreo Retinal Surgeon Relationship Specialty Start Date End Date Colby Hager MD [address] [facility] [address] [place] [address] PCP - General Family Medicine 10/10/21
--- OUTSIDE RECORDS SUMMARY | 2025-04-01 02:02 | XMS_ITS | Continuity of Care Document ---
Author Organization [facility] Address [address] [place] [address] Phone Care Team Providers Care Government Clerk Name Role Phone Rambo Melton MD, MD [...] on Encounter Independent Medical Examination [facility], [address], [id number], [place] tel:[phone] [facility] right hip (chief complaint) Pain in right hip [address] [facility], [address], [id number] , [place]. tel: [phone] [facility], [address] [place] [address], [id number], [place] tel:[phone] [facility] No Information [address] [facility], [address], [id number] , [place]. tel:[phone] Family History Family Member Type Diagnosis Age At Onset Mother Problem (finding) Diabetes Mother Problem (finding) Stroke Mother Problem (finding) Heart Disease Father Problem (finding) Diabetes Brother Problem (finding) Depression Payers Payer name Insurance type Covered republican ID Edin carranza(s) [employer] [id number] Social History Type Description Quantity Date Captured [...]
--- OUTSIDE RECORDS SUMMARY | 2025-04-01 02:02 | XMS_ITS | Encounter Summary ---
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
--- OUTSIDE RECORDS SUMMARY | 2025-04-01 02:02 | XMS_ITS | Referral Summary ---
Author Organization [facility] Medical Office Building B Address [address] [place] [address] Care Team Providers Care Deli Slicer Name Role Phone Colby Hager MD Primary Care Provider Encounters Date Type Department Care Team Description 03/31/2025 6:00 PM CDT Office Visit [facility] Replaced By [facility] Care at [address] [phone] Neli Vanegas NP Abdominal pain (Primary Dx); Right upper quadrant abdominal tenderness without rebound tenderness; Nausea and vomiting, unspecified vomiting type; Acute cough 03/28/2025 8:10 AM CDT - 03/28/2025 11:59 PM CDT Hospital Encounter [facility] Radiology at the [facility] [address] [place] [address] Pain in joint involving ankle and foot, unspecified laterality Discharge Disposition: Discharge to home or self care 03/28/2025 8:00 AM CDT Office Visit [facility] Orthopaedic Surgery [address] [place] [address] [address]nd [address] [place] [address] Handy Lopez MD from Last 3 Months [...] (12/30/2021): Added automatically from request for surgery [id number] Labral tear of hip, degenerative 12/30/2021 Overview (12/30/2021): Added automatically from request for surgery [id number] Avulsion of ligament with rahul ny fragment [...] Sexual Orientation Lesbian 10/10/2021 10 :00 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 Not on file Not [...] on file Medical Devices Implanted Type Area Cloth Bale Header Device Identifier Shelf Expiration Date Model / Serial / Lot Pivot Medical [id number] Cinchlock Ss Knotless Movers Lock [place] Suture Labrum - [id number] Implanted:Qty: 1 on 01/29/2022 by Dinora Mcfadden MD at [facility] Right: Hip [facility] [id number] 04/22/2023 [id number] / / [id number] Description:PIVOT MED[employer] CA I18783 CINCHLOCK SS KNOTLESS MIRROR MAKER LOCK ANCHOR SUTURE LABRUM - [id number] Pivot Medical [id number] Cinchlock Ss Knotless Movers Lock [place] Suture Labrum - [id number] Implanted:Qty: 1 on 01/29/2022 by Dinora Mcfadden MD at [facility] Right: Hip [facility] [id number] 04/22/2023 [id number] / / [id number] Description:PIVOT MEDICAL CA A19143 CINCHLOCK SS KNOTLESS MIRROR MAKER LOCK ANCHOR SUTURE LABRUM - [id number] [facility] [id number] Xbraid 1.2mm Suture Nonabsorbable Titanium Uhmwpe Nonsterile - [id number] Implanted:Qty: 1 on 01/29/2022 by Dinora Mcfadden MD at [facility] Right: Hip [facility] [id number] 09/24/2023 [id number] / / [id number] Description:This is suture [facility] [id number] Xbraid 1.2mm Suture Nonabsorbable Titanium Uhmwpe Nonsterile - [id number] Implanted:Qty: 1 on 01/29/2022 by Dinora Mcfadden MD at [facility] Right: Hip [facility] [id number] 09/24/2023 [id number] / / [id number] Description:This is suture Procedures Procedure Name Priority [...] Result from Last 3 Months Insurance BLUE Taste Guru OR BLUE Taste Guru OR WORKERS COMPENSATION GENERIC ELENAHER [facility]ENS[facility] GENERIC Care Teams Deli Slicer Relationship Specialty Start Date End Date Colby Hager MD [address] [facility] [address] [place] [address] PCP - General Family Medicine 10/10/21
--- OUTSIDE RECORDS SUMMARY | 2025-04-01 02:02 | XMS_ITS | Encounter Summary ---
Author Organization [facility] Healthcare Address [address] [place] [address] Care Team Providers Care Manager Corporate Communications Name Role Phone Colby Hager MD Primary Care Provider Reason for Visit * Reason Comments Abdominal Pain Paient here for c/o abdominal pain, cough, nausea and vomiting. 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
--- OUTSIDE RECORDS SUMMARY | 2025-04-01 02:02 | XMS_ITS | Clinical Summary ---
Author Organization [facility] Address [address] [facility] [place] [address] Care Team Providers Care Med Aide Name Role Phone Selena Mendez MD Primary Care Provider [phone] Source Comments [facility],non-owned Affiliates and Associated Physician Practices is amultiple site organization consisting of ambulatory clinics and hospital sitesin [place], [place], [place] and [place]. This disclosure is being madepursuant to the Care Everywhere program and may not contain all information available regarding this patient. Last updated 18.[facility] Allergies No known active allergies Medications * [...] Glucagon (Baqsimi One Pack) 3 MG/DOSE POWD Sharon 1 Each into the nose as needed [...] - 03/05/2025 11:59 PM CDT Hospital Encounter [facility] [address] [place] [address] Anglea Lynn MD Discharge Disposition: Home or Self Care 02/28/2025 7:26 AM CDT - 02/28/2025 11:59 PM CDT Hospital Encounter [facility] [address] [place] [address] Nando Weinberg MD Discharge Disposition: Home or Self Care 02/19/2025 8:53 AM CDT - 02/19/2025 11:59 PM CDT Hospital Encounter [facility] [address] [place] [address] Jovanny Holley MD Discharge Disposition: Home or Self Care 02/19/2025 Refill [facility] [address] [place] [address] Paulette Arvizu MD Refill Request 02/12/2025 8:53 AM CDT - 02/12/2025 11:59 PM CDT Hospital Encounter [facility] [address] [place] [address] Jovanny Holley MD Discharge Disposition: Home or Self Care 02/05/2025 8:49 AM CDT - 02/05/2025 11:59 PM CDT Hospital Encounter [facility] [address] [place] [address] Jovanny Holley MD Discharge Disposition: Home or Self Care 01/31/2025 9:41 AM CDT - 01/31/2025 11:59 PM CDT Hospital Encounter [facility] [address] [place] [address] Nando Weinberg MD Discharge Disposition: Home or Self Care 01/22/2025 10:26 AM CDT - 01/22/2025 11:59 PM CDT Hospital Encounter [facility] [address] [place] [address] Jovanny Holley MD Discharge Disposition: Home or Self Care 01/03/2025 2:18 PM SHORE WORKER - 01/03/2025 11:59 PM SHORE WORKER Hospital Encounter [facility] [address] [place] [address] Nando Weinberg MD Discharge Disposition: Home or [...] 175 cm (5' 8.9) 11/08/2024 10:10 AM SHORE WORKER Body Mass Index 37.77 11/08/2024 10:10 AM SHORE WORKER Plan of Treatment Health Maintenance Due Date [...] Priority Date/Time Associated Diagnosis Comments BIOPHYSICAL PROFILE [facility] Routine 03/05/2025 8:48 AM CDT History of iron deficiency anemia Vaginal bleeding during (HCC) 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 Obesity affecting in second trimester, unspecified obesity type (HCC) BMI 36.0-36.9,adult Insulin controlled gestational diabetes mellitus (GDM) in second trimester ([facility]) BIOPHYSICAL PROFILE [facility] Routine 02/28/2025 7:21 AM CDT Obesity affecting in third trimester, unspecified obesity type (HCC) Thyroid disease during in third trimester (HCC) resulting from assisted reproductive technology in third trimester ([facility]) Encounter for screening ([facility]) Insulin controlled gestational diabetes mellitus (GDM) in third trimester ([facility]) BIOPHYSICAL PROFILE [facility] Routine 02/19/2025 9:28 AM CDT Obesity affecting in third trimester, unspecified obesity type (HCC) Thyroid disease during in third trimester (HCC) resulting from assisted reproductive technology in third trimester ([facility]) Encounter for screening ([facility]) Insulin controlled gestational diabetes mellitus (GDM) in third trimester ([facility]) BIOPHYSICAL PROFILE [facility] Routine 02/12/2025 8:48 AM CDT Obesity affecting in third trimester, unspecified obesity type (HCC) Thyroid disease during in third trimester (HCC) resulting from assisted reproductive technology in third trimester ([facility]) Encounter for screening (HCC) Insulin controlled gestational diabetes mellitus (GDM) in third trimester ([facility]) BIOPHYSICAL PROFILE [facility] Routine 02/05/2025 8:52 AM CDT History of [...] - COMPLETE Routine 01/03/2025 2 :59 PM SHORE WORKER BMI 36.0-36.9,adult Vaginal bleeding during Thyroid disease [...] History ====== OB History 3. Para 1 [id number] 1. live 2020. Gest. age 39 w [...] with 2x weekly NST Coding ====== Procedures 47805: [place] Uterus Limited 41054: Biophysical Profile W NST [facility] Effective Measure PACS Anatomical Region Laterality Modality Other 03/05/2025 8:48 AM CDT Angela Lynn MD [facility] ORDERABLES Edited Result - Final * SONOGRAM - COMPLETE (01/03/2025 2:59 PM SHORE WORKER) Linked Results Indication ======== IVF , Incomplete anatomy screen Prior child with [facility] echocardiogram: Normal structures with PACs noted GDM-A2 on insulin, Class II obesity, Vaginal bleeding History ====== OB History 3. Para 1 [id number] 1. live 2020. Gest. age 39 w [...] 3 lb 14 oz EFW by Hadlock ([id number]) overall normal range, but the AC is [...] growth at 33 weeks Coding ====== Procedures 44861: US Preg Uterus Follow Up [facility] Effective Measure PACS Anatomical Region Laterality Modality Other 01/03/2025 2:59 PM SHORE WORKER Michelle Ricks MD [facility] ORDERABLES Edited Result - Final from Last 3 Months Insurance [facility] SELF PAY NO INSURANCE Member Subscriber Plan / Payer (Ef fective for All Dates) Name:Adam Young Balaji Member ID:Not on file Relation to Subscriber:Not on file Name:ADAM YOUNG Balaji Subscriber ID:Not on file (Home) Address: [address] [place] [address] Payer ID:Not on file Group ID:Not on file Type:Self Pay Address: [place], [place] Care Teams Med Aide Relationship Specialty Start Date End Date Selena Mendez MD PCP - General 07/16/20
[2025-04-01 02:09] LABS: Alanine Aminotransferase 508 U/L (6-35); Albumin Level 4.1 g/dL (3.5-5.1); Alkaline Phosphatase 330 U/L (38-126); Anion Gap 8 mmol/L (4-12); Bilirubin,Total 1.8 mg/dL (0.2-1.3); Blood Urea Nitrogen 10 mg/dL (7-17); Calcium 8.7 mg/dL (8.4-10.2); Carbon Dioxide 29 mmol/L (22-30); Chloride 103 mmol/L (98-107); Estimated CRCL calculation 119 ml/min; Estimated Glomerular Filt Rate > 60; Glucose 105 mg/dL (65-110); Lipase 70 U/L (23-300); Potassium 3.4 mmol/L (3.4-5.0); Sodium 140 mmol/L (137-145)
[2025-04-01] MEDS: SODIUM CHLORIDE 0.9% IV 1,000 ML 999 ML IV CONT (02:16)
[2025-04-01] MEDS: ONDANSETRON INJ 4 MG/2 ML VIAL IV PUSH ×2 (02:16→19:57)
[2025-04-01] MEDS: FAMOTIDINE 20 MG/2 ML VIAL IV PUSH (02:16)
[2025-04-01 02:17] VITALS: BP 112/80; PULSE 63; RESP 18; O2SAT 98
[2025-04-01 02:32] LABS: Aspartate Amino Transferase 944 U/L (14-36)
--- NOTE | 2025-04-01 02:36 | ED.ABDPAIN ---
HPI - Abdominal Pain General Chief Complaint: Abdominal Pain <Isabella Leong PA-C - Last Filed: 04/01/25 02:58> Stated Complaint: Poss appendicitis-sent by [facility] <Isabella Leong PA-C - Last Filed: 04/01/25 02:58> Time Seen by Provider: 04/01/25 01:32 <Isabella Leong PA-C - Last Filed: 04/01/25 02:58> History of Present Illness HPI narrative: 35-year-old female with history of ged presents to the emergency department for right upper quadrant abdominal pain intermittently for the past week and half, worsening over the past 24 hours. Patient states over the past 24 hours the pain has become more constant is associated with nausea and vomiting. She denies fevers, dysuria hematuria, diarrhea. No prior abdominal surgeries. Patient went to [facility] urgent care was told to come to the ED to rule out appendicitis or issues with her gallbladder. States she took Tums with no improvement. Of note patient recently had a uncomplicated vaginal delivery on 03/07/[address] Ricks. The was complicated by gestational diabetes and placenta previa. States she is still having mild vaginal bleeding but is not having to change her pad or tampon every hour. She is . <Isabella Leong PA-C - Last Filed: 04/01/25 02:58> Related Data Home Medications: Home Medications ?Medication ?Instructions ?Recorded ?Confirmed ?Last Taken ?Type cholecalciferol (vitamin D3) 10 10 mcg PO DAILY 08/21/24 03/06/25 02/15/25 History mcg (400 unit) capsule vits no.126-ferrous fum 1 tablet PO DAILY 08/21/24 03/06/25 02/15/25 History 28 mg iron-folic acid 800 mcg tablet (Classic ) <DESIREE Prieto Last Filed: 04/01/25 02:58> Allergies/Adverse Reactions: Allergies Allergy/AdvReac Type Severity Reaction Status Date / Time No Known Allergies Allergy Verified 03/31/25 20:55 <DESIREE Prieto Last Filed: 04/01/25 02:58> Review of Systems Review of Systems: All systems reviewed & are unremarkable except as noted in HPI and below <Isabella Leong PA-C - Last Filed: 04/01/25 02:58> [facility] Past Medical History Medical History: Medical History Gestational diabetes Insertion of Nexplanon (03/23/14) Nexplanon removal (08/15/18) Armando's disease KG (generalized anxiety disorder) Migraine Anxiety Obesity (BMI 30.0-34.9) Chronic headaches Back pain <Isabella Leong PA-C - Last Filed: 04/01/25 02:58> Surgical History Surgical History: Surgical History History of hip surgery R labral repair [place] teeth removed History of hand surgery (11/01/09) <Isabella Leong PA-C - Last Filed: 04/01/25 02:58> Family History Family History: Family History Father Family history of diabetes mellitus in first degree relative Mother Diabetes mellitus Atrial fibrillation Heart disease Thyroid disease Cerebrovascular accident Hypertension Sibling ADD (attention deficit disorder) ADHD, impulsive type Family history of alcoholism Grandparent Congestive heart failure Heart disease Grandparent Cerebrovascular accident <Isabella Leong PA-C - Last Filed: 04/01/25 02:58> Social History Social History: Social History Social History: Smoking status: Never smoker Second hand tobacco smoke exposure: No Alcohol intake: never Substance use: never Substance use type: does not use Do You Feel Safe in your Home?: Yes Lack of Transportation: No Lack of Food: Never True Current Housing: I Have Housing Concerned About Future Housing: No Difficulty Paying Gas/Electric Bills: No Difficulty Paying for Meds: No Currently Unemployed: No Education: Bachelor's Degree Difficulty w/ Childcare or Family Care: No Living arrangements: with family Additional living arrangements comments: Occupation/Education: occupation 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 HEAD: Normocephalic, atraumatic. EYES: EOMI. ENT: Nares clear, no rhinorrhea or epistaxis. Mucous membranes moist. NECK: Supple. CHEST: Clear to auscultation. No respiratory distress. HEART: Regular rate and rhythm. No murmur heard. Normal peripheral pulses. ABDOMEN: Normoactive bowel sounds. Abdomen soft with tenderness in the right upper quadrant. No rebound or rigidity. No CVA tenderness. Negative Rojas's sign. EXTREMITIES: Normal range of motion. No edema. SKIN: Warm, dry, no rash. NEURO: No focal deficits. Alert and oriented x3 <DESIREE Prieto Last Filed: 04/01/25 02:58> Course Course Emergency Course: Patient care signed out by previous provider at 3:00 a.m.. Patient was evaluated at bedside and doing much better after pain control medications including Tylenol and Pepcid. She endorses right upper quadrant abdominal pain. Given her elevated LFTs and concern for potential gallbladder disease the CT scan was ordered previously. CT did come back with an elevated common bile duct size of 7 mm which is abnormal for age. Gallbladder ultrasound is recommended. Combined with her elevated LFTs and cholestatic pattern considerations presently for choledocholithiasis. Discussed the case with the on-call GI doctor Dr. Rivera who recommended MRCP ordering as well as gallbladder ultrasound with surgical consultation for any additional input. Consult placed to Dr. Martin and awaiting discussion over the phone. I spoke to the hospitalist Dr. Mata over the phone as well and he was accepting the patient to a [facility] bed for coordinated care and MRCP is, ultrasound, surgical/GI consults. Patient agreeable to the plan of care and was feeling better after initial rounds of medications and she remains afebrile with normal vital signs here. Was able to reach Dr. Martin from General surgery who had no additional recommendations at this time and was agreeable for inpatient consult. Admission orders placed, patient was comfortable, and admitted at this time. <Jose R Quintanilla MD - Last Filed: 04/01/25 05:34> Vital Signs Vital signs: Vital Signs Temperature 36.4 C 03/31/25 21:00 Pulse Rate 82 03/31/25 21:00 Respiratory Rate 20 03/31/25 21:00 Blood Pressure 113/68 03/31/25 21:00 Pulse Oximetry 100 03/31/25 21:00 Oxygen Delivery Room Air 03/31/25 21:00 Temperature 36.4 C 03/31/25 21:00 Pulse Rate 63 04/01/25 02:17 Respiratory Rate 18 04/01/25 02:17 Blood Pressure 112/80 04/01/25 02:17 Pulse Oximetry 98 04/01/25 02:17 Oxygen Delivery Room Air 03/31/25 21:00 <Isabella Leong PA-C - Last Filed: 04/01/25 02:58> Vital Signs Temperature 36.4 C 03/31/25 21:00 Pulse Rate 82 03/31/25 21:00 Respiratory Rate 20 03/31/25 21:00 Blood Pressure 113/68 03/31/25 21:00 Pulse Oximetry 100 03/31/25 21:00 Oxygen Delivery Room Air 03/31/25 21:00 Temperature 36.4 C 03/31/25 21:00 Pulse Rate 63 04/01/25 02:17 Respiratory Rate 18 04/01/25 02:17 Blood Pressure 112/80 04/01/25 02:17 Pulse Oximetry 98 04/01/25 02:17 Oxygen Delivery Room Air 03/31/25 21:00 <Jose R Quintanilla MD - Last Filed: 04/01/25 05:34> MDM - Abdominal Pain MDM Narrative Medical decision making narrative: 35-year-old female presents emergency department for intermittent right upper quadrant abdominal pain for the past 1.5 weeks, worsening over the past 24 hours with associated nausea and vomiting. Triage vitals are stable. Patient is afebrile and nontoxic appearing. Exam is significant for the above. CBC shows no leukocytosis or anemia. Chemistries notable for bilirubin of 1.8, AST of 944, ALT of 508 and alk-phos of 330. Lipase is within normal limits. Patient was given IV fluids, Pepcid, Zofran and Tylenol. She is politely declining any narcotic pain medications at this time. Pending CT abdomen pelvis at time of sign-out to Dr. Quintanilla. <Isabella Leong PA-C - Last Filed: 04/01/25 02:58> Lab Data Result diagrams: 04/01/25 01:45 04/01/25 01:45 <Isabella Leong PA-C - Last Filed: 04/01/25 02:58> Labs: Lab Results 03/31/25 04/01/25 04/01/25 Range/Units 23:16 01:45 02:37 WBC 5.6 (4.5-10.0) K/mm3 RBC 4.02 L (4.2-5.4) M/mm3 Hgb 12.3 (12.0-15.0) g/dL Hct 36.6 L (37.0-47.0) % MCV 91.0 (80-100) fl MCH 30.6 (26-34) pg MCHC 33.6 (32-36) g/dl RDW 12.7 (11.5-14.5) % Plt Count 220 D (150-375) k/mm3 MPV 10.4 (7.4-10.4) fl Immature Gran % (Auto) 0.4 (0-0.5) % Neut % (Auto) 67.0 (45.5-73.1) % Lymph % (Auto) 24.3 (18.3-44.2) % [place] % (Auto) 5.4 (2.6-8.5) % Eos % (Auto) 2.5 (0-4.4) % Baso % (Auto) 0.4 (0.2-1.2) % Lymph # (Auto) 1.36 (0.9-3.2) K/mm3 [place] # (Auto) 0.3 (0.1-0.6) K/mm3 Eos # (Auto) 0.1 (0-0.3) K/mm3 Baso # (Auto) 0.0 (0.0-0.1) K/mm3 Abs Immat Gran (auto) 0.02 (0.00-0.031) K/mm3 Absolute Neuts (auto) 3.8 (1.3-6.7) K/mm3 Absolute Nucleated RBC 0.000 (0.0-0.012) K/mm3 Nucleated RBC % 0.0 (0.0-0.2) % Sodium 140 (137-145) mmol/L Potassium 3.4 (3.4-5.0) mmol/L Chloride 103 (98-107) mmol/L Carbon Dioxide 29 (22-30) mmol/L Anion Gap 8 (4-12) mmol/L BUN 10 (7-17) mg/dL Creatinine 0.74 (0.7-1.0) mg/dL Estim Creat Clear Calc 119 ml/min Estimated GFR > 60 (59 - ) Glucose 105 (65-110) mg/dL Lactic Acid 0.7 (0.7-2.0) mmol/L Calcium 8.7 (8.4-10.2) mg/dL Total Bilirubin 1.8 H (0.2-1.3) mg/dL AST 944 H (14-36) U/L ALT 508 H (6-35) U/L Alkaline Phosphatase 330 H (38-126) U/L Total Protein 7.0 (6.3-8.2) g/dL Albumin 4.1 (3.5-5.1) g/dL Lipase 70 (23-300) U/L Urine Color (Yellow) Urine Appearance (Clear) Urine pH (5.0-9.0) Ur Specific [place] (1.001-1.035) Urine Protein (Negative) mg/dL Urine Glucose (UA) (Negative) mg/dL Urine Ketones (Negative) mg/dL Ur Blood (Man) (Negative) Urine Nitrate (Negative) Urine Bilirubin (Negative) Urine Urobilinogen (<2.0) mg/dL Leukocyte Esterase Rfl (Negative) MISBAH/UL Urine RBC (0-2) /hpf Urine WBC (0-3) /hpf Ur Squamous Epith Cells (Few) /hpf Urine Bacteria /hpf Urine Casts POC Urine HCG, Qual Negative (Negative) 04/01/25 Range/Units 03:24 WBC (4.5-10.0) K/mm3 RBC (4.2-5.4) M/mm3 Hgb (12.0-15.0) g/dL Hct (37.0-47.0) % MCV (80-100) fl MCH (26-34) pg MCHC (32-36) g/dl RDW (11.5-14.5) % Plt Count (150-375) k/mm3 MPV (7.4-10.4) fl Immature Gran % (Auto) (0-0.5) % Neut % (Auto) (45.5-73.1) % Lymph % (Auto) (18.3-44.2) % [place] % (Auto) (2.6-8.5) % Eos % (Auto) (0-4.4) % Baso % (Auto) (0.2-1.2) % Lymph # (Auto) (0.9-3.2) K/mm3 [place] # (Auto) (0.1-0.6) K/mm3 Eos # (Auto) (0-0.3) K/mm3 Baso # (Auto) (0.0-0.1) K/mm3 Abs Immat Gran (auto) (0.00-0.031) K/mm3 Absolute Neuts (auto) (1.3-6.7) K/mm3 Absolute Nucleated RBC (0.0-0.012) K/mm3 Nucleated RBC % (0.0-0.2) % Sodium (137-145) mmol/L Potassium (3.4-5.0) mmol/L Chloride (98-107) mmol/L Carbon Dioxide (22-30) mmol/L Anion Gap (4-12) mmol/L BUN (7-17) mg/dL Creatinine (0.7-1.0) mg/dL Estim Creat Clear Calc ml/min Estimated GFR (59 - ) Glucose (65-110) mg/dL Lactic Acid (0.7-2.0) mmol/L Calcium (8.4-10.2) mg/dL Total Bilirubin (0.2-1.3) mg/dL AST (14-36) U/L ALT (6-35) U/L Alkaline Phosphatase (38-126) U/L Total Protein (6.3-8.2) g/dL Albumin (3.5-5.1) g/dL Lipase (23-300) U/L Urine Color Dark yellow (Yellow) Urine Appearance Cloudy H (Clear) Urine pH 6.5 (5.0-9.0) Ur Specific [place] 1.042 H (1.001-1.035) Urine Protein Trace (Negative) mg/dL Urine Glucose (UA) Negative (Negative) mg/dL Urine Ketones Negative (Negative) mg/dL Ur Blood (Man) 3+ H (Negative) Urine Nitrate Negative (Negative) Urine Bilirubin 1+ H (Negative) Urine Urobilinogen 1.0 (<2.0) mg/dL Leukocyte Esterase Rfl 2+ H (Negative) MISBAH/UL Urine RBC 51-100 H (0-2) /hpf Urine WBC 21-50 H (0-3) /hpf Ur Squamous Epith Cells Few (Few) /hpf Urine Bacteria 4+ H /hpf Urine Casts 0-2 POC Urine HCG, Qual (Negative) <Iasbella Leong PA-C - Last Filed: 04/01/25 02:58> Lab Results 03/31/25 04/01/25 04/01/25 Range/Units 23:16 01:45 02:37 WBC 5.6 (4.5-10.0) K/mm3 RBC 4.02 L (4.2-5.4) M/mm3 Hgb 12.3 (12.0-15.0) g/dL Hct 36.6 L (37.0-47.0) % MCV 91.0 (80-100) fl MCH 30.6 (26-34) pg MCHC 33.6 (32-36) g/dl RDW 12.7 (11.5-14.5) % Plt Count 220 D (150-375) k/mm3 MPV 10.4 (7.4-10.4) fl Immature Gran % (Auto) 0.4 (0-0.5) % Neut % (Auto) 67.0 (45.5-73.1) % Lymph % (Auto) 24.3 (18.3-44.2) % [place] % (Auto) 5.4 (2.6-8.5) % Eos % (Auto) 2.5 (0-4.4) % Baso % (Auto) 0.4 (0.2-1.2) % Lymph # (Auto) 1.36 (0.9-3.2) K/mm3 [place] # (Auto) 0.3 (0.1-0.6) K/mm3 Eos # (Auto) 0.1 (0-0.3) K/mm3 Baso # (Auto) 0.0 (0.0-0.1) K/mm3 Abs Immat Gran (auto) 0.02 (0.00-0.031) K/mm3 Absolute Neuts (auto) 3.8 (1.3-6.7) K/mm3 Absolute Nucleated RBC 0.000 (0.0-0.012) K/mm3 Nucleated RBC % 0.0 (0.0-0.2) % Sodium 140 (137-145) mmol/L Potassium 3.4 (3.4-5.0) mmol/L Chloride 103 (98-107) mmol/L Carbon Dioxide 29 (22-30) mmol/L Anion Gap 8 (4-12) mmol/L BUN 10 (7-17) mg/dL Creatinine 0.74 (0.7-1.0) mg/dL Estim Creat Clear Calc 119 ml/min Estimated GFR > 60 (59 - ) Glucose 105 (65-110) mg/dL Lactic Acid 0.7 (0.7-2.0) mmol/L Calcium 8.7 (8.4-10.2) mg/dL Total Bilirubin 1.8 H (0.2-1.3) mg/dL AST 944 H (14-36) U/L ALT 508 H (6-35) U/L Alkaline Phosphatase 330 H (38-126) U/L Total Protein 7.0 (6.3-8.2) g/dL Albumin 4.1 (3.5-5.1) g/dL Lipase 70 (23-300) U/L Urine Color (Yellow) Urine Appearance (Clear) Urine pH (5.0-9.0) Ur Specific [place] (1.001-1.035) Urine Protein (Negative) mg/dL Urine Glucose (UA) (Negative) mg/dL Urine Ketones (Negative) mg/dL Ur Blood (Man) (Negative) Urine Nitrate (Negative) Urine Bilirubin (Negative) Urine Urobilinogen (<2.0) mg/dL Leukocyte Esterase Rfl (Negative) MISBAH/UL Urine RBC (0-2) /hpf Urine WBC (0-3) /hpf Ur Squamous Epith Cells (Few) /hpf Urine Bacteria /hpf Urine Casts POC Urine HCG, Qual Negative (Negative) 04/01/25 Range/Units 03:24 WBC (4.5-10.0) K/mm3 RBC (4.2-5.4) M/mm3 Hgb (12.0-15.0) g/dL Hct (37.0-47.0) % MCV (80-100) fl MCH (26-34) pg MCHC (32-36) g/dl RDW (11.5-14.5) % Plt Count (150-375) k/mm3 MPV (7.4-10.4) fl Immature Gran % (Auto) (0-0.5) % Neut % (Auto) (45.5-73.1) % Lymph % (Auto) (18.3-44.2) % [place] % (Auto) (2.6-8.5) % Eos % (Auto) (0-4.4) % Baso % (Auto) (0.2-1.2) % Lymph # (Auto) (0.9-3.2) K/mm3 [place] # (Auto) (0.1-0.6) K/mm3 Eos # (Auto) (0-0.3) K/mm3 Baso # (Auto) (0.0-0.1) K/mm3 Abs Immat Gran (auto) (0.00-0.031) K/mm3 Absolute Neuts (auto) (1.3-6.7) K/mm3 Absolute Nucleated RBC (0.0-0.012) K/mm3 Nucleated RBC % (0.0-0.2) % Sodium (137-145) mmol/L Potassium (3.4-5.0) mmol/L Chloride (98-107) mmol/L Carbon Dioxide (22-30) mmol/L Anion Gap (4-12) mmol/L BUN (7-17) mg/dL Creatinine (0.7-1.0) mg/dL Estim Creat Clear Calc ml/min Estimated GFR (59 - ) Glucose (65-110) mg/dL Lactic Acid (0.7-2.0) mmol/L Calcium (8.4-10.2) mg/dL Total Bilirubin (0.2-1.3) mg/dL AST (14-36) U/L ALT (6-35) U/L Alkaline Phosphatase (38-126) U/L Total Protein (6.3-8.2) g/dL Albumin (3.5-5.1) g/dL Lipase (23-300) U/L Urine Color Dark yellow (Yellow) Urine Appearance Cloudy H (Clear) Urine pH 6.5 (5.0-9.0) Ur Specific [place] 1.042 H (1.001-1.035) Urine Protein Trace (Negative) mg/dL Urine Glucose (UA) Negative (Negative) mg/dL Urine Ketones Negative (Negative) mg/dL Ur Blood (Man) 3+ H (Negative) Urine Nitrate Negative (Negative) Urine Bilirubin 1+ H (Negative) Urine Urobilinogen 1.0 (<2.0) mg/dL Leukocyte Esterase Rfl 2+ H (Negative) MISBAH/UL Urine RBC 51-100 H (0-2) /hpf Urine WBC 21-50 H (0-3) /hpf Ur Squamous Epith Cells Few (Few) /hpf Urine Bacteria 4+ H /hpf Urine Casts 0-2 POC Urine HCG, Qual (Negative) <Jose R Quintanilla MD - Last Filed: 04/01/25 05:34> Discharge Plan Discharge Clinical Impression: Abdominal pain, Common bile duct dilatation, Elevated LFTs <Isabella Leong PA-C - Last Filed: 04/01/25 02:58> Patient Disposition: Still a Patient <DESIREE Prieto Last Filed: 04/01/25 02:58> Condition: Stable <DESIREE Prieto Last Filed: 04/01/25 02:58> Instructions: Antibiotic Form <DESIREE Prieto Last Filed: 04/01/25 02:58> Patient Language: Egyptian <DESIREE Prieto Last Filed: 04/01/25 02:58> Prescriptions: No Action Classic 28 mg iron- 800 mcg tablet 1 tablet PO DAILY cholecalciferol (vitamin D3) 10 mcg (400 unit) capsule 10 mcg PO DAILY acetaminophen 325 mg Tablet 650 mg PO Q6H PRN (Reason: Mild Pain (1-3) Or Headache) Qty: 60 0RF docusate sodium 100 mg Capsule 100 mg PO BID PRN (Reason: Constipation) Qty: 90 0RF ibuprofen 600 mg Tablet 600 mg PO Q6H PRN (Reason: Cramping) Qty: 40 0RF <Isabella Leong PA-C - Last Filed: 04/01/25 02:58> Follow-up/Referrals: Colby Hager MD [Primary Care Provider] - <Isabella Leong PA-C - Last Filed: 04/01/25 02:58> Time of Disposition: 05:34 <Isabella Leong PA-C - Last Filed: 04/01/25 02:58> 05:34 <Jose R Quintanilla MD - Last Filed: 04/01/25 05:34>
[2025-04-01] MEDS: ACETAMINOPHEN 500 MG TABLET 1000 MG PO (02:39)
[2025-04-01 02:53] LABS: Lactic Acid Reflex 0.7 mmol/L (0.7-2.0)
[2025-04-01 03:44] LABS: Add Urine Microscopic? YES; Appearance Urine Cloudy (Clear); Bilirubin Urine 1+ (Negative); Blood Urine 3+ (Negative); Color Urine Dark Yellow (Yellow); Glucose Urine UA Negative (Negative); Ketones Urine Negative (Negative); Leukocyte Esterase Ur 2+ LEU/UL (Negative); Nitrate Urine Negative (Negative); Protein Urine Trace mg/dL (Negative); Specific Grav Ur 1.042 (1.001-1.035); pH Urine 6.5 (5.0-9.0)
[2025-04-01 03:50] LABS: Bacteria Urine 4+ /hpf; Non Pathogenic Casts 0-2; RBC Urine 51-100 /hpf (0-2); Squamous Epithelial Cell Urine Few /hpf (Few); WBC Urine 21-50 /hpf (0-3)
--- NOTE | 2025-04-01 05:45 | PM.IMHP ---
H&P: HPI History of Present Illness Date/Time: 04/01/25 05:45 Chief Complaint: abdominal pain Narrative: Ms. Junior, a pleasant 35-year-old female presents to [place] [facility] on 04/01/2025 with complaint of right upper quadrant pain. She has a history of gestational diabetes/placenta previa, she is on 03/[address] Ricks vaginal delivery, anxiety obesity with BMI 34, migraine. She has had right upper quadrant pain intermittently for about 10 days, it has worsened over 24 hours which prompted her to seek further evaluation. His so she with nausea and vomiting. She denies diarrhea, fevers, chest pain, shortness of breath. No prior abdominal surgeries. She took Tums which did not alleviate her pain. Deep breathing does not aggravate the pain. Patient received Pepcid and Tylenol in the ER and she had great improvement in her symptoms. No history of peptic ulcer disease or GERD prior although. WBC count 5.6, hemoglobin 12.3, Chem 7 panel unremarkable, LFTs with total bilirubin elevated at 1.8, AST 944, ALT 508, alkaline phosphatase 330 without prior significant elevation. Lipase 70. Urinalysis with few squamous cells along with 21-50 wbc's, bacteria 4+. Urine culture obtained. Preliminary report of CT abdomen pelvis reports common bile duct size of 7 mm. Gallbladder ultrasound pending. GI notified from ER, Dr. Rivera recommended MRCP. Dr. Martin of General surgery also notified. Received 1 L normal saline bolus, and Zofran in addition to Pepcid and Tylenol. Review of Systems Review of Systems: All systems reviewed & are unremarkable except as noted in HPI and below PMFSH Past Medical History Medical History Gestational diabetes Insertion of Nexplanon (03/23/14) Nexplanon removal (08/15/18) Armando's disease KG (generalized anxiety disorder) Migraine Anxiety Obesity (BMI 30.0-34.9) Chronic headaches Back pain Surgical History Surgical History History of hip surgery R labral repair [place] teeth removed History of hand surgery (11/01/09) Family History Family History Father Family history of diabetes mellitus in first degree relative Mother Diabetes mellitus Atrial fibrillation Heart disease Thyroid disease Cerebrovascular accident Hypertension Sibling ADD (attention deficit disorder) ADHD, impulsive type Family history of alcoholism Grandparent Congestive heart failure Heart disease Grandparent Cerebrovascular accident Social History Social History Social History: Smoking status: Never smoker Second hand tobacco smoke exposure: No Alcohol intake: never Substance use: never Substance use type: does not use Do You Feel Safe in your Home?: Yes Lack of Transportation: No Lack of Food: Never True Current Housing: I Have Housing Concerned About Future Housing: No Difficulty Paying Gas/Electric Bills: No Difficulty Paying for Meds: No Currently Unemployed: No Education: Bachelor's Degree Difficulty w/ Childcare or Family Care: No Living arrangements: with family Additional living arrangements comments: Occupation/Education: occupation Additional occupation/education comments: [employer] Gender identity (if verbalized by the patient): Female Sexual Orientation (if Verbalized by the Patient): Lesbian, Lopez, or Homosexual Spiritual care concerns: No Meds Home Medications and Allergies Home Medications ?Medication ?Instructions ?Recorded ?Confirmed ?Type cholecalciferol (vitamin D3) 10 10 mcg PO DAILY 08/21/24 03/06/25 History mcg (400 unit) capsule vits no.126-ferrous fum 1 tablet PO DAILY 08/21/24 03/06/25 History 28 mg iron-folic acid 800 mcg tablet (Classic ) acetaminophen 325 mg tablet 650 mg (2 x 325 mg) PO Q6H PRN 03/08/25 Rx Mild Pain (1-3) Or Headache #60 tabs docusate sodium 100 mg capsule 100 mg PO BID PRN Constipation #90 03/08/25 Rx caps ibuprofen 600 mg tablet 600 mg PO Q6H PRN Cramping #40 tabs 03/08/25 Rx Allergies Allergy/AdvReac Type Severity Reaction Status Date / Time No Known Allergies Allergy Verified 03/31/25 20:55 Vital Signs Vital Signs - 24 hr 03/31/25 21:00 04/01/25 01:46 04/01/25 02:17 Temperature 97.6 F Pulse Rate 82 73 63 Respiratory Rate 20 16 18 Blood Pressure 113/68 113/87 112/80 Pulse Oximetry 100 100 98 Oxygen Delivery Room Air Exam Const: General: comfortable and no acute distress Eyes: Pupils: Equal, round and reactive pupils present Neck: Neck: supple Resp: Effort & Inspection: normal respiratory effort Auscultation: clear to auscultation bilaterally Cardio: Rate: regular rate Rhythm: regular rhythm GI: Inspection: non-distended GI Palp: Yes Soft to palpation and No Tenderness to palpation present (GI) Auscultation: normal bowel sounds Extrem: General: no edema H&P: Results Labs Labs: Short CBC 04/01/25 Range/Units 01:45 WBC 5.6 (4.5-10.0) K/mm3 Hgb 12.3 (12.0-15.0) g/dL Hct 36.6 L (37.0-47.0) % Plt Count 220 D (150-375) k/mm3 BMP 04/01/25 01:45 Sodium 140 Potassium 3.4 Chloride 103 Carbon Dioxide 29 BUN 10 Creatinine 0.74 Glucose 105 Calcium 8.7 Liver Function 04/01/25 Range/Units 01:45 Total Bilirubin 1.8 H (0.2-1.3) mg/dL AST 944 H (14-36) U/L ALT 508 H (6-35) U/L Alkaline Phosphatase 330 H (38-126) U/L Albumin 4.1 (3.5-5.1) g/dL Urine 04/01/25 Range/Units 03:24 Urine Color Dark yellow (Yellow) Urine Appearance Cloudy H (Clear) Urine pH 6.5 (5.0-9.0) Ur Specific [place] 1.042 H (1.001-1.035) Urine Protein Trace (Negative) mg/dL Urine Glucose (UA) Negative (Negative) mg/dL Assessment and Plan Assessment and plan (1) Common bile duct dilatation: Code(s): K83.8 - Other specified diseases of biliary tract Status: Acute (2) Elevated LFTs: Code(s): R79.89 - Other specified abnormal findings of blood chemistry Status: Acute (3) Abdominal pain: Code(s): R10.9 - Unspecified abdominal pain Status: Acute Plan NPO. Continue LR 125 cc/hour. Pending MRCP and gallbladder ultrasound. Continue Tylenol p.r.n.. Follow-up urine culture. Risks versus benefits of antibiotics discussed with the patient. Start ceftriaxone. Full code. SCDs. Hospitalist MIPS Advance Care Plan I have confirmed that the patient's Advanced Care Plan is present, code status is documented, or surrogate decision maker is listed in patient medical record.: Yes Medication Reconciliation I have utilized all available resources to obtain, update and review the patients current medications (includes all prescriptions, OTC, herbals, cannabis, and nutritional supplements).: Yes
[2025-04-01 05:52] VITALS: BP 112/80; PULSE 65; RESP 18; O2SAT 99
[2025-04-01 06:00] VITALS: BP 104/70; PULSE 50; RESP 18; TEMP 36.3; O2SAT 100
[2025-04-01 06:06] VITALS: BMI 34.3
[2025-04-01] MEDS: LACTATED RINGERS 1,000 ML 125 ML IV CONT ×2 (06:48→16:57)
--- NOTE | 2025-04-01 07:30 | PC.NURSE ---
this RN took two bottles of breast milk to OB @ 0720 04/01/25.
--- NOTE | 2025-04-01 09:45 | PM.IMPN ---
Progress Note: A&P Assessment and Plan (1) Common bile duct dilatation: Code(s): K83.8 - Other specified diseases of biliary tract Status: Acute (2) Elevated LFTs: Code(s): R79.89 - Other specified abnormal findings of blood chemistry Status: Acute (3) Abdominal pain: Code(s): R10.9 - Unspecified abdominal pain Status: Acute Plan Elevated liver enzymes with dilated CBD Possible CBD stone MRCP and hepatitis viral panel pending PRN pain control IVF and NPO pending MRCP exam GI consulted DVT prophylaxis on Sq Lovenox Subjective Date/time seen: 04/01/25 09:45 Interval history: Comfortable at bedside Review of Systems Review of Systems: All systems reviewed & are unremarkable except as noted in HPI and below Exam Const: General: comfortable and no acute distress Eyes: Pupils: Equal, round and reactive pupils present Neck: Neck: supple Resp: Effort & Inspection: normal respiratory effort Auscultation: clear to auscultation bilaterally Cardio: Rate: regular rate Rhythm: regular rhythm GI: Inspection: non-distended Auscultation: normal bowel sounds Neuro: Cranial nerves: Yes Equal, round and reactive pupils present Extrem: General: no edema Objective Data Vital Signs Vital Signs: Vital Signs - 24 hr 03/31/25 21:00 04/01/25 01:46 04/01/25 02:17 Temperature 97.6 F Pulse Rate 82 73 63 Respiratory Rate 20 16 18 Blood Pressure 113/68 113/87 112/80 Pulse Oximetry 100 100 98 Oxygen Delivery Room Air 04/01/25 05:52 04/01/25 06:00 Temperature 97.3 F L Pulse Rate 65 50 L Respiratory Rate 18 18 Blood Pressure 112/80 104/70 Pulse Oximetry 99 100 Oxygen Delivery Intake/Output Intake/Output: Intake & Output 03/29/25 03/30/25 03/31/25 04/01/25 23:59 23:59 23:59 23:59 Intake Total 1000 Balance 1000 Meds/Results Medications: Active Medications Generic Name Dose Route Start Last Admin Trade Name Freq PRN Reason Stop Dose Admin Acetaminophen 650 mg 04/01/25 05:28 Acetaminophen 325 Mg Tablet PO Q4H PRN Mild Pain (1-3) or Fever Lactated Ringer's 1,000 mls @ 125 mls/hr 04/01/25 05:30 04/01/25 06:48 Lr - Lactated Ringers Iv IV CONT 125 mls/hr .Q8H LIGIA Administration Ondansetron HCl 4 mg 04/01/25 05:28 Ondansetron Inj 4 Mg/2 Ml Vial IV PUSH Q4H PRN Nausea Radiology Results: ITS Impressions Abdomen Ultrasound 04/01/25 08:45 IMPRESSION: 1. Cholelithiasis and mildly dilated common bile duct suggesting possible nonvisualized distal obstructing stone. Correlate with liver function tests and consider MRCP for further evaluation. Labs Labs: Laboratory Results - last 24 hr 03/31/25 04/01/25 04/01/25 23:16 01:45 02:37 WBC 5.6 RBC 4.02 L Hgb 12.3 Hct 36.6 L MCV 91.0 MCH 30.6 MCHC 33.6 RDW 12.7 Plt Count 220 D MPV 10.4 Immature Gran % (Auto) 0.4 Neut % (Auto) 67.0 Lymph % (Auto) 24.3 [place] % (Auto) 5.4 Eos % (Auto) 2.5 Baso % (Auto) 0.4 Lymph # (Auto) 1.36 [place] # (Auto) 0.3 Eos # (Auto) 0.1 Baso # (Auto) 0.0 Abs Immat Gran (auto) 0.02 Absolute Neuts (auto) 3.8 Absolute Nucleated RBC 0.000 Nucleated RBC % 0.0 Sodium 140 Potassium 3.4 Chloride 103 Carbon Dioxide 29 Anion Gap 8 BUN 10 Creatinine 0.74 Estim Creat Clear Calc 119 Estimated GFR > 60 Glucose 105 Lactic Acid 0.7 Calcium 8.7 Total Bilirubin 1.8 H AST 944 H ALT 508 H Alkaline Phosphatase 330 H Total Protein 7.0 Albumin 4.1 Lipase 70 Urine Color Urine Appearance Urine pH Ur Specific [place] Urine Protein Urine Glucose (UA) Urine Ketones Ur Blood (Man) Urine Nitrate Urine Bilirubin Urine Urobilinogen Leukocyte Esterase Rfl Urine RBC Urine WBC Ur Squamous Epith Cells Urine Bacteria Urine Casts POC Urine HCG, Qual Negative 04/01/25 03:24 WBC RBC Hgb Hct MCV MCH MCHC RDW Plt Count MPV Immature Gran % (Auto) Neut % (Auto) Lymph % (Auto) [place] % (Auto) Eos % (Auto) Baso % (Auto) Lymph # (Auto) [place] # (Auto) Eos # (Auto) Baso # (Auto) Abs Immat Gran (auto) Absolute Neuts (auto) Absolute Nucleated RBC Nucleated RBC % Sodium Potassium Chloride Carbon Dioxide Anion Gap BUN Creatinine Estim Creat Clear Calc Estimated GFR Glucose Lactic Acid Calcium Total Bilirubin AST ALT Alkaline Phosphatase Total Protein Albumin Lipase Urine Color Dark yellow Urine Appearance Cloudy H Urine pH 6.5 Ur Specific [place] 1.042 H Urine Protein Trace Urine Glucose (UA) Negative Urine Ketones Negative Ur Blood (Man) 3+ H Urine Nitrate Negative Urine Bilirubin 1+ H Urine Urobilinogen 1.0 Leukocyte Esterase Rfl 2+ H Urine RBC 51-100 H Urine WBC 21-50 H Ur Squamous Epith Cells Few Urine Bacteria 4+ H Urine Casts 0-2 POC Urine HCG, Qual
[2025-04-01 10:37] LABS: Hepatitis B Surface Antigen Negative (Negative)
[2025-04-01 10:43] LABS: HAV RESULT Negative (Negative); Hepatitis B Core IgM Result Negative (Negative)
[2025-04-01 10:55] LABS: Hepatitis C Virus Antibody Negative (Negative)
--- NOTE | 2025-04-01 12:20 | P.CONS_ITS ---
Assessment and Plan Assessment and plan (1) Common bile duct dilatation: Code(s): K83.8 - Other specified diseases of biliary tract Status: Acute Assessment and Plan: Patient may have a retained common bile duct stone. MRCP is ordered to further evaluate. She does have gallstones on abdominal ultrasound so she certainly could be passing gallstones. Continue supportive management for now. GI consult pending. Decision for laparoscopic cholecystectomy pending results of the MRCP. (2) Elevated LFTs: Code(s): R79.89 - Other specified abnormal findings of blood chemistry Status: Acute Assessment and Plan: Likely related to retained common bile duct stone or passage of common bile duct stone. No evidence of acute pancreatitis. Continue supportive management. Agree with IV antibiotics. HPI Data of Consult Date/Time: 04/01/25 12:20 Requesting Physician: Sakshi Mata MD Primary Care Provider: Colyb Hager MD Consult Narrative Reason for consult: Cholelithiasis and possible common bile duct stone with dilated common bile Narrative: Raven Junior is a 35 year old female admitted through the emergency room complaining of mid epigastric pain and nausea and vomiting with dehydration. Patient stated the symptoms started about 2 days ago. With workup in the emergency room she was found to have markedly elevated liver enzymes with a total bilirubin of 1.8. AST was 944, ALT 5 awake, and alkaline phosphatase 330. About 3 weeks ago her liver enzymes were all normal. She has about 1 month from a spontaneous vaginal delivery. During her she did not have any specific problems with her gallbladder. She did not have any food intolerance with eating prior to becoming . She has not had any previous abdominal surgery. CT scan abdomen pelvis showed a mildly dilated common bile duct measuring about 7mm. No definite common bile duct stone was seen impacted within the common bile duct. Abdominal ultrasound performed this morning showed multiple gallstones within the gallbladder. There is no evidence of acute cholecystitis. A distal retained common bile duct stone could not be ruled out and an MRCP was recommended. That MRCP has been ordered but has not been performed yet. Presently the patient was having a mild to moderate epigastric abdominal pain. No nausea or vomiting. She stated her urine did get a little bit dark yesterday. Review of Systems 2 Review of Systems: The remainder of the review of systems to include constitutional, HEENT, cardiovascular, respiratory, GI, , integumentary, musculoskeletal, endocrine, immunologic, hematologic, psychiatric, and neurologic are all negative except for which is mentioned above in the HPI. [facility] Past Medical History Medical History Gestational diabetes Insertion of Nexplanon (03/23/14) Nexplanon removal (08/15/18) Armando's disease KG (generalized anxiety disorder) Migraine Anxiety Obesity (BMI 30.0-34.9) Chronic headaches Back pain Surgical History Surgical History History of hip surgery R labral repair [place] teeth removed History of hand surgery (11/01/09) Family History Family History Father Family history of diabetes mellitus in first degree relative Mother Diabetes mellitus Atrial fibrillation Heart disease Thyroid disease Cerebrovascular accident Hypertension Sibling ADD (attention deficit disorder) ADHD, impulsive type Family history of alcoholism Grandparent Congestive heart failure Heart disease Grandparent Cerebrovascular accident Social History Social History Social History: Smoking status: Never smoker Second hand tobacco smoke exposure: No Alcohol intake: never Substance use: never Substance use type: does not use Do You Feel Safe in your Home?: Yes Lack of Transportation: No Lack of Food: Never True Current Housing: I Have Housing Concerned About Future Housing: No Difficulty Paying Gas/Electric Bills: No Difficulty Paying for Meds: No Currently Unemployed: No Education: Bachelor's Degree Difficulty w/ Childcare or Family Care: No Living arrangements: with family Additional living arrangements comments: Occupation/Education: occupation Additional occupation/education comments: [employer] Gender identity (if verbalized by the patient): Female Sexual Orientation (if Verbalized by the Patient): Lesbian, Lopez, or Homosexual Spiritual care concerns: No Meds Home Medications and Allergies Home Medications ?Medication ?Instructions ?Recorded ?Confirmed ?Type vits no.126-ferrous fum 1 tablet PO DAILY 08/21/24 04/01/25 History 28 mg iron-folic acid 800 mcg tablet (Classic ) Allergies Allergy/AdvReac Type Severity Reaction Status Date / Time No Known Allergies Allergy Verified 03/31/25 20:55 Vital Signs Vital Signs - 24 hr 03/31/25 21:00 04/01/25 01:46 04/01/25 02:17 Temperature 36.4 C Pulse Rate 82 73 63 Respiratory Rate 20 16 18 Blood Pressure 113/68 113/87 112/80 Pulse Oximetry 100 100 98 Oxygen Delivery Room Air 04/01/25 05:52 04/01/25 06:00 Temperature 36.3 C L Pulse Rate 65 50 L Respiratory Rate 18 18 Blood Pressure 112/80 104/70 Pulse Oximetry 99 100 Oxygen Delivery Exam 2 Const: General: comfortable and no acute distress HENMT: Ears: TM's normal bilaterally Face/Nose/Sinus: Normal nares present Mouth: Yes moist mucous membranes Eyes: General: appearance normal, both eyes and all related structures S clera: sclerae normal (There is no scleral icterus) Pupils: Equal, round and reactive pupils present EOM: EOMs intact bilaterally Neck: Neck: supple and no JVD Resp: Effort & Inspection: normal respiratory effort Auscultation: clear to auscultation bilaterally Cardio: Rate: regular rate Rhythm: regular rhythm GI: Other: Abdomen is soft and moderately obese. Mild tenderness to palpation epigastric and right upper quadrant regions of the abdomen. No guarding or peritoneal signs. No ventral hernias. Skin: General skin exam: normal color and no rashes or lesions noted Neuro: General: gait normal Speech: normal speech Motor exam (neuro): 5 /5 motor strength present throughout Sensory Exam: normal sensation Extrem: General: normal to inspection Psych: Mental Status: mental status grossly normal Affect: normal affect Results Labs 04/01/25 01:45 04/01/25 01:45 Labs: Short CBC 04/01/25 Range/Units 01:45 WBC 5.6 (4.5-10.0) K/mm3 Hgb 12.3 (12.0-15.0) g/dL Hct 36.6 L (37.0-47.0) % Plt Count 220 D (150-375) k/mm3 BMP 04/01/25 01:45 Sodium 140 Potassium 3.4 Chloride 103 Carbon Dioxide 29 BUN 10 Creatinine 0.74 Glucose 105 Calcium 8.7 Liver Function 04/01/25 Range/Units 01:45 Total Bilirubin 1.8 H (0.2-1.3) mg/dL AST 944 H (14-36) U/L ALT 508 H (6-35) U/L Alkaline Phosphatase 330 H (38-126) U/L Albumin 4.1 (3.5-5.1) g/dL Urine 04/01/25 Range/Units 03:24 Urine Color Dark yellow (Yellow) Urine Appearance Cloudy H (Clear) Urine pH 6.5 (5.0-9.0) Ur Specific [place] 1.042 H (1.001-1.035) Urine Protein Trace (Negative) mg/dL Urine Glucose (UA) Negative (Negative) mg/dL Imaging Radiologist's impression: CT Scan Report Signed Patient: Raven Junior : 1990 MR#: [id number] Age: 35 Acct:[id number] Loc: [id number] 317-01 ADM Date: 04/01/25Attending Dr: Sakshi Mata M.D. Ordering Physician: Isabella Leong PA-C Date of Service: 04/01/25 Procedure(s): CT abdomen pelvis w con Accession Number(s): [id number] cc: Colby Hager MD; Sakshi Mata MD; Isabella Leong PA-C~ EXAMINATION: CT abdomen pelvis w con DATE: 04/01/2025 02:34 INDICATION: Right upper quadrant abdominal pain. TECHNIQUE: Computed tomography (CT) of the abdomen and pelvis was performed with 100 mL Omnipaque-350 intravenous contrast. Automated exposure control and iterative reconstruction technique were employed. The dose-length product was 1253.56 mGy-cm. COMPARISON: None FINDINGS: Minimal dependent atelectasis in the left lower lobe. Arch size is normal. No pericardial or pleural effusion. Liver, gallbladder, pancreas, bilateral adrenal glands and kidneys are normal. Mild dilation the common bile duct which measures up to 7 mm. Nonspecific mild splenomegaly measuring 14.6 cm maximal length which could be related to body habitus. Bladder, retroverted uterus and bilateral adnexa are unremarkable. Bowels including the appendix are normal. No free intraperitoneal gas or fluid. No pathologically enlarged abdominal or pelvic lymphadenopathy. There is nonspecific stranding and small calcified nodules in the subcutaneous fat at the bilateral buttocks. Small fat-containing umbilical hernia. Mild S-shaped curvature of the lumbar and lower thoracic spine. IMPRESSION: 1. Nonspecific mild dilation the common bile duct to 7 mm correlate with liver function tests and could consider MRI/MRCP for further evaluation as clinically indicated. 2. Nonspecific mild splenomegaly which may relate to study of the chest. 2. Nonspecific stranding and multiple calcific densities 17 Station at the bilateral buttocks which could be related to fat necrosis or due to subcutaneous injections. Reviewed, dictated and finalized at location A. Please be advised this is a medical document. It is intended for [id number] communication. It is written in medical language and may contain unfamiliar abbreviations or verbiage. Medical documents are intended to carry relevant information, facts as evident, and the clinical opinion of the practitioner at the time of the encounter. This report may have been done utilizing a voice recognition system. Attempts have been made to correct errors. However, there may be uncorrected grammatical, spelling, and recognition errors present. The file time of this note does not necessarily represent the time of service. Dictated By: Cade Will MD 04/01/25 1051 Signed By: <Electronically signed by Cade Will MD in [place]> 04/01/25 1101 Ultrasound Report Signed Patient: Raven Junior : 1990 MR#: [id number] Age: 35 Acct:[id number] Loc: [id number] 317-01 ADM Date: 04/01/25Attending Dr: Sakshi Mata M.D. Ordering Physician: Jose R Quintanilla MD Date of Service: 04/01/25 Procedure(s): US abdomen limited Accession Number(s): [id number] cc: Colby Hagre MD; Sakshi Mata MD; Jose R Quintanilla MD~ EXAMINATION: US abdomen limited DATE: 04/01/2025 07:39 INDICATION: Right upper quadrant abdominal pain and common bile duct dilation. TECHNIQUE: Multiple grayscale and Doppler ultrasound images of the abdomen were obtained. COMPARISON: CT dated 04/01/2025 FINDINGS: The pancreatic head and body are normal in appearance. The pancreatic tail is not visualized. The visualized proximal to mid abdominal aorta and inferior vena cava are normal. Liver has normal echogenicity and contour, with a smooth surface. No liver lesion identified. No intrahepatic biliary duct dilation suspected. Portal venous flow was seen in the hepatopetal, normal direction and has normal Doppler waveform. Combination of echogenic and non shadowing sludge and a few small shadowing gallstones within the lumen of the otherwise normal- appearing gallbladder. The common bile duct is mildly dilated measuring 6-7 mm in maximal diameter. Sonographic Rojas sign was reported as negative by the non acoustic operator. Visualized portion of the right kidney demonstrates normal contour and echogenicity with no hydronephrosis. IMPRESSION: 1. Cholelithiasis and mildly dilated common bile duct suggesting possible nonvisualized distal obstructing stone. Correlate with liver function tests and consider MRCP for further evaluation. Reviewed, dictated and finalized at location A. Please be advised this is a medical document. It is intended for [id number] communication. It is written in medical language and may contain unfamiliar abbreviations or verbiage. Medical documents are intended to carry relevant information, facts as evident, and the clinical opinion of the practitioner at the time of the encounter. This report may have been done utilizing a voice recognition system. Attempts have been made to correct errors. However, there may be uncorrected grammatical, spelling, and recognition errors present. The file time of this note does not necessarily represent the time of service. Dictated By: Cade Will MD 04/01/25 0845 Signed By: <Electronically signed by Cade Will MD in [place]> 04/01/25 0852
[2025-04-01] MEDS: ACETAMINOPHEN 325 MG TABLET 650 MG PO ×3 (12:30→23:10)
[2025-04-01] MEDS: ENOXAPARIN 40 MG/0.4 ML SYRINGE SUB-Q (12:31)
[2025-04-01 14:00] VITALS: BP 104/74; PULSE 62; RESP 18; TEMP 36.3; O2SAT 97
--- NOTE | 2025-04-01 16:23 | P.CONGI_ITS ---
Assessment and Plan Assessment and plan (1) Elevated LFTs: Code(s): R79.89 - Other specified abnormal findings of blood chemistry Status: Acute Assessment and Plan: will order mrcp to assess if retained stone in bile duct and if may need ercp, will keep npo after midnight to reassess in morning after mrcp also surgery on board, will need interval lap olman (2) Common bile duct dilatation: Code(s): K83.8 - Other specified diseases of biliary tract Status: Acute Assessment and Plan: mrcp pending (3) Abdominal pain: Code(s): R10.9 - Unspecified abdominal pain Status: Acute (4) Normal vaginal delivery of third : Code(s): O80 - Encounter for full-term uncomplicated delivery Status: Acute Assessment and Plan: she is post GI Consult Note Consult date/time: 04/01/25 16:23 Reason for consult: elevated liver enzymes, ruq pain HPI: Raven Junior is a 35 year old female here with almost 2 weeks of intermittent pain in RUQ, she is post and currently . Pain worsened last 24 hours before admission and did not got away, it was more intense, also had nausea and vomiting. No prior abdominal surgeries or scopes. ER labs showed WBC count 5.6, hemoglobin 12.3, total bilirubin elevated at 1.8, AST 944, ALT 508, alkaline phosphatase 330 without prior significant elevation. Lipase 70. Urinalysis with few squamous cells along with 21-50 wbc's, bacteria 4+. Urine culture obtained. Preliminary report of CT abdomen pelvis reports common bile duct size of 7 mm. Gallbladder ultrasound pending. Review of Systems 2 Constitutional: Constitutional: Reports chills Eyes: Eyes: Denies blurry vision ENT: Reports Normal hearing present Cardiovascular: Cardiovascular: Denies chest pain Respiratory: Respiratory: Denies cough Gastrointestinal: Gastrointestinal: Reports abdominal pain and Reports nausea Genitourinary: Genitourinary: Denies dysuria Musculoskeletal: Musculoskeletal: Denies arthralgias Integumentary/Breasts: Skin/Breast: Denies rash Neurologic: Denies Abnormal speech present Psychiatric: Psychiatric: Denies behavioral changes PMFSH Past Medical History Medical History Gestational diabetes Insertion of Nexplanon (05/23/14) Nexplanon removal (08/15/18) Armando's disease KG (generalized anxiety disorder) Migraine Anxiety Obesity (BMI 30.0-34.9) Chronic headaches Back pain Surgical History Surgical History History of hip surgery R labral repair [place] teeth removed History of hand surgery (11/01/09) Family History Family History Father Family history of diabetes mellitus in first degree relative Mother Diabetes mellitus Atrial fibrillation Heart disease Thyroid disease Cerebrovascular accident Hypertension Sibling ADD (attention deficit disorder) ADHD, impulsive type Family history of alcoholism Grandparent Congestive heart failure Heart disease Grandparent Cerebrovascular accident Social History Social History Social History: Smoking status: Never smoker Second hand tobacco smoke exposure: No Alcohol intake: never Substance use: never Substance use type: does not use Do You Feel Safe in your Home?: Yes Lack of Transportation: No Lack of Food: Never True Current Housing: I Have Housing Concerned About Future Housing: No Difficulty Paying Gas/Electric Bills: No Difficulty Paying for Meds: No Currently Unemployed: No Education: Bachelor's Degree Difficulty w/ Childcare or Family Care: No Living arrangements: with family Additional living arrangements comments: Occupation/Education: occupation Additional occupation/education comments: [employer] Gender identity (if verbalized by the patient): Female Sexual Orientation (if Verbalized by the Patient): Lesbian, Lopez, or Homosexual Spiritual care concerns: No Meds Home Medications and Allergies Home Medications ?Medication ?Instructions ?Recorded ?Confirmed ?Type vits no.126-ferrous fum 1 tablet PO DAILY 08/21/24 04/01/25 History 28 mg iron-folic acid 800 mcg tablet (Classic ) Allergies Allergy/AdvReac Type Severity Reaction Status Date / Time No Known Allergies Allergy Verified 03/31/25 20:55 Vital Signs Vital Signs - 24 hr 03/31/25 21:00 04/01/25 01:46 04/01/25 02:17 Temperature 97.6 F Pulse Rate 82 73 63 Respiratory Rate 20 16 18 Blood Pressure 113/68 113/87 112/80 Pulse Oximetry 100 100 98 Oxygen Delivery Room Air 04/01/25 05:52 04/01/25 06:00 04/01/25 14:00 Temperature 97.3 F L 97.4 F L Pulse Rate 65 50 L 62 Respiratory Rate 18 18 18 Blood Pressure 112/80 104/70 104/74 Pulse Oximetry 99 100 97 Oxygen Delivery Exam 2 Const: General: comfortable and no acute distress HENMT: Face/Nose/Sinus: Normal nares present Eyes: General: appearance normal, both eyes and all related structures P upils: Equal, round and reactive pupils present Neck: Neck: supple Resp: Effort & Inspection: normal respiratory effort Auscultation: clear to auscultation bilaterally Cardio: Rate: regular rate Rhythm: regular rhythm GI: GI Palp: Yes Soft to palpation and Yes Tenderness to palpation present (GI) (mild ttp in ruq, no rebound) Auscultation: normal bowel sounds Skin: General skin exam: normal color and no rashes or lesions noted Neuro: Speech: normal speech Motor exam (neuro): 5/5 motor strength present throughout Sensory Exam: normal sensation Extrem: General: normal to inspection Psych: Mental Status: mental status grossly normal Affect: normal affect Results Labs 04/01/25 01:45 04/01/25 01:45 Labs: Short CBC 04/01/25 Range/Units 01:45 WBC 5.6 (4.5-10.0) K/mm3 Hgb 12.3 (12.0-15.0) g/dL Hct 36.6 L (37.0-47.0) % Plt Count 220 D (150-375) k/mm3 BMP 04/01/25 01:45 Sodium 140 Potassium 3.4 Chloride 103 Carbon Dioxide 29 BUN 10 Creatinine 0.74 Glucose 105 Calcium 8.7 Liver Function 04/01/25 Range/Units 01:45 Total Bilirubin 1.8 H (0.2-1.3) mg/dL AST 944 H (14-36) U/L ALT 508 H (6-35) U/L Alkaline Phosphatase 330 H (38-126) U/L Albumin 4.1 (3.5-5.1) g/dL Urine 04/01/25 Range/Units 03:24 Urine Color Dark yellow (Yellow) Urine Appearance Cloudy H (Clear) Urine pH 6.5 (5.0-9.0) Ur Specific [place] 1.042 H (1.001-1.035) Urine Protein Trace (Negative) mg/dL Urine Glucose (UA) Negative (Negative) mg/dL
[2025-04-01 22:00] VITALS: BP 127/69; PULSE 70; RESP 18; TEMP 36.4; O2SAT 100
[2025-04-02] MEDS: LACTATED RINGERS 1,000 ML 125 ML IV CONT ×2 (02:48→20:17)
[2025-04-02 05:59] VITALS: BP 90/55; PULSE 60; RESP 18; TEMP 36.9; O2SAT 97
[2025-04-02 06:31] LABS: Basophils Percent Auto 0.7 % (0.2-1.2); Eosinophils Absolute Auto 0.3 K/mm3 (0-0.3); Eosinophils Percent Auto 6.3 % (0-4.4); Hematocrit 33.4 % (37.0-47.0); Hemoglobin 10.9 g/dL (12.0-15.0); Immature Granulocyte Absolute 0.03 K/mm3 (0.00-0.031); Immature Granulocyte Percent A 0.7 % (0-0.5); Lymphocytes Absolute Auto 1.35 K/mm3 (0.9-3.2); Lymphocytes Percent Auto 29.4 % (18.3-44.2); Mean Corpuscular HGB Conc 32.6 g/dl (32-36); Mean Corpuscular Hemoglobin 30.1 pg (26-34); Mean Corpuscular Volume 92.3 fl (80-100); Mean Platelet Volume 10.7 fl (7.4-10.4); Monocytes Absolute Auto 0.3 K/mm3 (0.1-0.6); Monocytes Percent Auto 5.9 % (2.6-8.5); Neutrophils Absolute Auto 2.6 K/mm3 (1.3-6.7); Platelet Count Result 180 k/mm3 (150-375); Red Blood Count 3.62 M/mm3 (4.2-5.4); Red Cell Distribution Width 12.6 % (11.5-14.5); White Blood Count 4.6 K/mm3 (4.5-10.0)
[2025-04-02 06:41] LABS: Alanine Aminotransferase 357 U/L (6-35); Albumin Level 3.3 g/dL (3.5-5.1); Alkaline Phosphatase 294 U/L (38-126); Anion Gap 7 mmol/L (4-12); Aspartate Amino Transferase 450 U/L (14-36); Bilirubin,Total 2.9 mg/dL (0.2-1.3); Blood Urea Nitrogen 5 mg/dL (7-17); Calcium 8.4 mg/dL (8.4-10.2); Carbon Dioxide 26 mmol/L (22-30); Chloride 106 mmol/L (98-107); Estimated CRCL calculation 137 ml/min; Estimated Glomerular Filt Rate > 60; Glucose 80 mg/dL (65-110); Magnesium 1.9 mg/dL (1.6-2.3); Potassium 3.3 mmol/L (3.4-5.0); Sodium 139 mmol/L (137-145)
[2025-04-02] MEDS: ENOXAPARIN 40 MG/0.4 ML SYRINGE SUB-Q (09:13)
--- NOTE | 2025-04-02 09:22 | PM.PNGS ---
Progress Note: A&P Assessment and Plan (1) Common bile duct dilatation: Code(s): K83.8 - Other specified diseases of biliary tract Status: Acute Assessment and Plan: Possible retained common bile duct stone. Bilirubin up to 2.9 today. Awaiting MRCP. GI following for possible ERCP. (2) Elevated LFTs: Code(s): R79.89 - Other specified abnormal findings of blood chemistry Status: Acute Assessment and Plan: Likely related to common bile duct stone with bilirubin going up today. No evidence of acute pancreatitis or cholecystitis. Continue supportive management. Plan I have discussed the patient's case and plan of care with Dr. Martin. Subjective Subjective Date/Time Seen: 04/02/25 09:22 Patient reports: no new complaints Interval history: Patient NPO this morning and awaiting MRCP. She reports having nausea and vomiting last night after dinner. She still has RUQ pain that comes and goes. She is having 3/10 pain this morning. Exam Const: General: comfortable and no acute distress GI: Inspection: non-distended and striae GI Palp: Yes Soft to palpation, Yes Tenderness to palpation present (GI) (RUQ), No Guarding due to palpation present (GI) and No Rebound tenderness present Auscultation: normal bowel sounds Objective Data Vital Signs Vital Signs: Vital Signs - 24 hr 04/01/25 14:00 04/01/25 22:00 04/02/25 05:59 Temperature 97.4 F L 97.6 F 98.4 F Pulse Rate 62 70 60 Respiratory Rate 18 18 18 Blood Pressure 104/74 127/69 90/55 L Pulse Oximetry 97 100 97 Intake/Output Intake/Output: Intake & Output 03/30/25 03/31/25 04/01/25 04/02/25 23:59 23:59 23:59 23:59 Intake Total 2049 999 Balance 2049 999 Meds/Results Medications: Active Medications Generic Name Dose Route Start Last Admin Trade Name Freq PRN Reason Stop Dose Admin Acetaminophen 650 mg 04/01/25 05:28 04/01/25 23:10 Acetaminophen 325 Mg Tablet PO 650 mg Q4H PRN Administration Mild Pain (1-3) or Fever Enoxaparin Sodium 40 mg 04/01/25 09:00 04/02/25 09:13 Enoxaparin 40 Mg/0.4 Ml Syringe SUB-Q 40 mg DAILY LIGIA Administration Lactated Ringer's 1,000 mls @ 125 mls/hr 04/01/25 05:30 04/02/25 02:48 Lr - Lactated Ringers Iv IV CONT 125 mls/hr .Q8H LIGIA Administration Ondansetron HCl 4 mg 04/01/25 05:28 04/01/25 19:57 Ondansetron Inj 4 Mg/2 Ml Vial IV PUSH 4 mg Q4H PRN Administration Nausea Radiology Results: ITS Impressions Abdomen Ultrasound 04/01/25 08:45 IMPRESSION: 1. Cholelithiasis and mildly dilated common bile duct suggesting possible nonvisualized distal obstructing stone. Correlate with liver function tests and consider MRCP for further evaluation. Abdomen/Pelvis CT 04/01/25 10:51 IMPRESSION: 1. Nonspecific mild dilation the common bile duct to 7 mm correlate with liver function tests and could consider MRI/MRCP for further evaluation as clinically indicated. 2. Nonspecific mild splenomegaly which may relate to study of the chest. 2. Nonspecific stranding and multiple calcific densities 17 Station at the bilateral buttocks which could be related to fat necrosis or due to subcutaneous injections. Labs Labs: Laboratory Results - last 24 hr 04/01/25 04/02/25 01:45 06:09 WBC 4.6 RBC 3.62 L Hgb 10.9 L Hct 33.4 L MCV 92.3 MCH 30.1 MCHC 32.6 RDW 12.6 Plt Count 180 MPV 10.7 H Immature Gran % (Auto) 0.7 H Neut % (Auto) 57.0 Lymph % (Auto) 29.4 [place] % (Auto) 5.9 Eos % (Auto) 6.3 H Baso % (Auto) 0.7 Lymph # (Auto) 1.35 [place] # (Auto) 0.3 Eos # (Auto) 0.3 Baso # (Auto) 0.0 Abs Immat Gran (auto) 0.03 Absolute Neuts (auto) 2.6 Absolute Nucleated RBC 0.000 Nucleated RBC % 0.0 Sodium 139 Potassium 3.3 L Chloride 106 Carbon Dioxide 26 Anion Gap 7 BUN 5 L D Creatinine 0.64 L Estim Creat Clear Calc 137 Estimated GFR > 60 Glucose 80 Calcium 8.4 Magnesium 1.9 Total Bilirubin 2.9 H AST 450 H ALT 357 H Alkaline Phosphatase 294 H Total Protein 6.0 L Albumin 3.3 L Hepatitis A IgM Ab Negative Hep Bs Antigen Negative Hep B Core IgM Ab Negative Hepatitis C Ab Screen Negative Blood Type O Positive Antibody Screen Negative
[2025-04-02] MEDS: POTASSIUM CHLORIDE INJ 40 MEQ in SODIUM CHLORIDE 0.9% IV 500 ML 130 MEQ IVPB (10:29)
[2025-04-02] MEDS: ACETAMINOPHEN 325 MG TABLET 650 MG PO ×2 (10:29→20:16)
[2025-04-02 14:00] VITALS: BP 101/60; PULSE 87; RESP 16; TEMP 36.4; O2SAT 95
--- NOTE | 2025-04-02 14:44 | P.PNIM_ITS ---
Progress Note: A&P Assessment and Plan (1) Common bile duct dilatation: Code(s): K83.8 - Other specified diseases of biliary tract Status: Acute (2) Elevated LFTs: Code(s): R79.89 - Other specified abnormal findings of blood chemistry Status: Acute (3) Abdominal pain: Code(s): R10.9 - Unspecified abdominal pain Status: Acute Plan Elevated liver enzymes with dilated CBD Possible CBD stone MRCP today hepatitis viral panel negative PRN pain control Liver enzymes improving, AST/ALT 944/508 to 450/357 GI and Gen surgery on board DVT prophylaxis on Sq Lovenox Subjective Date/time seen: 04/02/25 14:44 Interval history: Comfortable at bedside For MRCP today Review of Systems Review of Systems: All systems reviewed & are unremarkable except as noted in HPI and below Exam Const: General: comfortable and no acute distress Eyes: Pupils: Equal, round and reactive pupils present Neck: Neck: supple Resp: Effort & Inspection: normal respiratory effort Auscultation: clear to auscultation bilaterally Cardio: Rate: regular rate Rhythm: regular rhythm GI: Inspection: non-distended Auscultation: normal bowel sounds Neuro: Cranial nerves: Yes Equal, round and reactive pupils present Extrem: General: no edema Objective Data Vital Signs Vital Signs: Vital Signs - 24 hr 04/01/25 22:00 04/02/25 05:59 04/02/25 09:13 Temperature 97.6 F 98.4 F Pulse Rate 70 60 Respiratory Rate 18 18 Blood Pressure 127/69 90/55 L Pulse Oximetry 100 97 Oxygen Delivery Room Air Intake/Output Intake/Output: Intake & Output 03/30/25 03/31/25 04/01/25 04/02/25 23:59 23:59 23:59 23:59 Intake Total 2049 999 Balance 2049 1000 Meds/Results Medications: Active Medications Generic Name Dose Route Start Last Admin Trade Name Freq PRN Reason Stop Dose Admin Acetaminophen 650 mg 04/01/25 05:28 04/02/25 10:29 Acetaminophen 325 Mg Tablet PO 650 mg Q4H PRN Administration Mild Pain (1-3) or Fever Enoxaparin Sodium 40 mg 04/01/25 09:00 04/02/25 09:13 Enoxaparin 40 Mg/0.4 Ml Syringe SUB-Q 40 mg DAILY LIGIA Administration Lactated Ringer's 1,000 mls @ 125 mls/hr 04/01/25 05:30 04/02/25 02:48 Lr - Lactated Ringers Iv IV CONT 125 mls/hr .Q8H LIGIA Administration Morphine Sulfate 2 mg 04/02/25 09:25 Morphine Sulfate (*Crx) 2 Mg/Ml Inj IV PUSH Q2H PRN Pain Rated 7-10 Ondansetron HCl 4 mg 04/01/25 05:28 04/01/25 19:57 Ondansetron Inj 4 Mg/2 Ml Vial IV PUSH 4 mg Q4H PRN Administration Nausea Radiology Results: ITS Impressions Abdomen Ultrasound 04/01/25 08:45 IMPRESSION: 1. Cholelithiasis and mildly dilated common bile duct suggesting possible nonvisualized distal obstructing stone. Correlate with liver function tests and consider MRCP for further evaluation. Abdomen/Pelvis CT 04/01/25 10:51 IMPRESSION: 1. Nonspecific mild dilation the common bile duct to 7 mm correlate with liver function tests and could consider MRI/MRCP for further evaluation as clinically indicated. 2. Nonspecific mild splenomegaly which may relate to study of the chest. 2. Nonspecific stranding and multiple calcific densities 17 Station at the bilateral buttocks which could be related to fat necrosis or due to subcutaneous injections. Labs Labs: Laboratory Results - last 24 hr 04/02/25 06:09 WBC 4.6 RBC 3.62 L Hgb 10.9 L Hct 33.4 L MCV 92.3 MCH 30.1 MCHC 32.6 RDW 12.6 Plt Count 180 MPV 10.7 H Immature Gran % (Auto) 0.7 H Neut % (Auto) 57.0 Lymph % (Auto) 29.4 [place] % (Auto) 5.9 Eos % (Auto) 6.3 H Baso % (Auto) 0.7 Lymph # (Auto) 1.35 [place] # (Auto) 0.3 Eos # (Auto) 0.3 Baso # (Auto) 0.0 Abs Immat Gran (auto) 0.03 Absolute Neuts (auto) 2.6 Absolute Nucleated RBC 0.000 Nucleated RBC % 0.0 Sodium 139 Potassium 3.3 L Chloride 106 Carbon Dioxide 26 Anion Gap 7 BUN 5 L D Creatinine 0.64 L Estim Creat Clear Calc 137 Estimated GFR > 60 Glucose 80 Calcium 8.4 Magnesium 1.9 Total Bilirubin 2.9 H AST 450 H ALT 357 H Alkaline Phosphatase 294 H Total Protein 6.0 L Albumin 3.3 L Blood Type O Positive Antibody Screen Negative
--- NOTE | 2025-04-02 15:44 | WPDGIPROGNO ---
Progress Note: A&P Assessment and Plan (1) Cholelithiasis with choledocholithiasis: Code(s): K80.70 - Calculus of gallbladder and bile duct without cholecystitis without obstruction Status: Acute Assessment and Plan: still symptomatic, mrcp reviewed with small stone in bile duct will set up ERCP tomorrow and use rectal indomethacin with fluids surgery on board for interval cholecystectomy (2) RUQ pain: Code(s): R10.11 - Right upper quadrant pain Status: Acute Assessment and Plan: similar pain meds as needed (3) Elevated LFTs: Code(s): R79.89 - Other specified abnormal findings of blood chemistry Status: Acute Assessment and Plan: from MRCP finding (4) Nausea and vomiting in adult: Code(s): R11.2 - Nausea with vomiting, unspecified Status: Acute Subjective Date/time seen: 04/02/25 15:44 Interval history: still with similar pain and nausea, completed MRCP less than 2 hours ago Review of Systems Review of Systems: All systems reviewed & are unremarkable except as noted in HPI and below Exam Const: General: comfortable and no acute distress HENMT: Face/Nose/Sinus: Normal nares present Eyes: General: appearance normal, both eyes and all related structures Pupils: Equal, round and reactive pupils present Neck: Neck: supple Resp: Effort & Inspection: normal respiratory effort Auscultation: clear to auscultation bilaterally Cardio: Rate: regular rate Rhythm: regular rhythm GI: GI Palp: Yes Soft to palpation and Yes Tenderness to palpation present (GI) (mild ttp in ruq, no rebound) Auscultation: normal bowel sounds Skin: General skin exam: normal color and no rashes or lesions noted Neuro: Speech: normal speech Motor exam (neuro): 5/5 motor strength present throughout Sensory Exam: normal sensation Extrem: General: normal to inspection Psych: Mental Status: mental status grossly normal Affect: normal affect Objective Data Vital Signs Vital Signs: Vital Signs - 24 hr 04/01/25 22:00 04/02/25 05:59 04/02/25 09:13 Temperature 97.6 F 98.4 F Pulse Rate 70 60 Respiratory Rate 18 18 Blood Pressure 127/69 90/55 L Pulse Oximetry 100 97 Oxygen Delivery Room Air 04/02/25 14:00 Temperature 97.6 F Pulse Rate 87 Respiratory Rate 16 Blood Pressure 101/60 Pulse Oximetry 95 Oxygen Delivery Intake/Output Intake/Output: Intake & Output 03/30/25 03/31/25 04/01/25 04/02/25 23:59 23:59 23:59 23:59 Intake Total 2049 1000 Balance 2049 1000 Meds/Results Medications: Active Medications Generic Name Dose Route Start Last Admin Trade Name Freq PRN Reason Stop Dose Admin Acetaminophen 650 mg 04/01/25 05:28 04/02/25 10:29 Acetaminophen 325 Mg Tablet PO 650 mg Q4H PRN Administration Mild Pain (1-3) or Fever Enoxaparin Sodium 40 mg 04/01/25 09:00 04/02/25 09:13 Enoxaparin 40 Mg/0.4 Ml Syringe SUB-Q 40 mg DAILY LIGIA Administration Lactated Ringer's 1,000 mls @ 125 mls/hr 04/01/25 05:30 04/02/25 02:48 Lr - Lactated Ringers Iv IV CONT 125 mls/hr .Q8H LIGIA Administration Morphine Sulfate 2 mg 04/02/25 09:25 Morphine Sulfate (*Crx) 2 Mg/Ml Inj IV PUSH Q2H PRN Pain Rated 7-10 Ondansetron HCl 4 mg 04/01/25 05:28 04/01/25 19:57 Ondansetron Inj 4 Mg/2 Ml Vial IV PUSH 4 mg Q4H PRN Administration Nausea Radiology Results: ITS Impressions Abdomen Ultrasound 04/01/25 08:45 IMPRESSION: 1. Cholelithiasis and mildly dilated common bile duct suggesting possible nonvisualized distal obstructing stone. Correlate with liver function tests and consider MRCP for further evaluation. Abdomen/Pelvis CT 04/01/25 10:51 IMPRESSION: 1. Nonspecific mild dilation the common bile duct to 7 mm correlate with liver function tests and could consider MRI/MRCP for further evaluation as clinically indicated. 2. Nonspecific mild splenomegaly which may relate to study of the chest. 2. Nonspecific stranding and multiple calcific densities 17 Station at the bilateral buttocks which could be related to fat necrosis or due to subcutaneous injections. MRCP 04/02/25 15:09 IMPRESSION: 1. Cholelithiasis and choledocholithiasis with 3 mm stone at the distalmost common bile duct with mild intrahepatic and minimal intrahepatic biliary ductal dilation. 2. Nonspecific mild splenomegaly which could be related to body habitus. Labs Labs: Laboratory Results - last 24 hr 04/02/25 06:09 WBC 4.6 RBC 3.62 L Hgb 10.9 L Hct 33.4 L MCV 92.3 MCH 30.1 MCHC 32.6 RDW 12.6 Plt Count 180 MPV 10.7 H Immature Gran % (Auto) 0.7 H Neut % (Auto) 57.0 Lymph % (Auto) 29.4 [place] % (Auto) 5.9 Eos % (Auto) 6.3 H Baso % (Auto) 0.7 Lymph # (Auto) 1.35 [place] # (Auto) 0.3 Eos # (Auto) 0.3 Baso # (Auto) 0.0 Abs Immat Gran (auto) 0.03 Absolute Neuts (auto) 2.6 Absolute Nucleated RBC 0.000 Nucleated RBC % 0.0 Sodium 139 Potassium 3.3 L Chloride 106 Carbon Dioxide 26 Anion Gap 7 BUN 5 L D Creatinine 0.64 L Estim Creat Clear Calc 137 Estimated GFR > 60 Glucose 80 Calcium 8.4 Magnesium 1.9 Total Bilirubin 2.9 H AST 450 H ALT 357 H Alkaline Phosphatase 294 H Total Protein 6.0 L Albumin 3.3 L Blood Type O Positive Antibody Screen Negative
[2025-04-02 21:16] VITALS: BP 99/67; PULSE 70; RESP 14; TEMP 36.2; O2SAT 95
[2025-04-02 23:11] VITALS: O2SAT 95
[2025-04-03] VITALS (10 sets, daily range): BP systolic 95–116; BP diastolic 69–94; PULSE 53–82; RESP 14–22; TEMP 36.2–36.7; O2SAT 95–99
[2025-04-03] MEDS: LACTATED RINGERS 1,000 ML 125 ML IV CONT (05:49)
[2025-04-03 06:27] LABS: Alanine Aminotransferase 305 U/L (6-35); Albumin Level 3.4 g/dL (3.5-5.1); Alkaline Phosphatase 306 U/L (38-126); Anion Gap 8 mmol/L (4-12); Aspartate Amino Transferase 285 U/L (14-36); Bilirubin,Total 2.6 mg/dL (0.2-1.3); Blood Urea Nitrogen 4 mg/dL (7-17); Calcium 8.7 mg/dL (8.4-10.2); Carbon Dioxide 27 mmol/L (22-30); Chloride 105 mmol/L (98-107); Estimated CRCL calculation 148 ml/min; Estimated Glomerular Filt Rate > 60; Glucose 85 mg/dL (65-110); Magnesium 1.8 mg/dL (1.6-2.3); Potassium 3.3 mmol/L (3.4-5.0); Sodium 140 mmol/L (137-145)
[2025-04-03 06:39] LABS: Basophils Percent Auto 0.4 % (0.2-1.2); Eosinophils Absolute Auto 0.4 K/mm3 (0-0.3); Eosinophils Percent Auto 8.3 % (0-4.4); Hematocrit 35.5 % (37.0-47.0); Hemoglobin 11.7 g/dL (12.0-15.0); Immature Granulocyte Absolute 0.03 K/mm3 (0.00-0.031); Immature Granulocyte Percent A 0.7 % (0-0.5); Lymphocytes Absolute Auto 1.24 K/mm3 (0.9-3.2); Lymphocytes Percent Auto 27.9 % (18.3-44.2); Mean Corpuscular Hemoglobin 30.3 pg (26-34); Mean Platelet Volume 11.2 fl (7.4-10.4); Monocytes Absolute Auto 0.2 K/mm3 (0.1-0.6); Monocytes Percent Auto 5.2 % (2.6-8.5); Neutrophils Absolute Auto 2.6 K/mm3 (1.3-6.7); Neutrophils Percent Auto 57.5 % (45.5-73.1); Platelet Count Result 189 k/mm3 (150-375); Red Blood Count 3.86 M/mm3 (4.2-5.4); White Blood Count 4.5 K/mm3 (4.5-10.0)
[2025-04-03] MEDS: POTASSIUM CHLORIDE INJ 40 MEQ in SODIUM CHLORIDE 0.9% IV 500 ML 130 MEQ IVPB (09:29)
--- NOTE | 2025-04-03 11:42 | P.PNGS_ITS ---
Progress Note: A&P Assessment and Plan (1) Cholelithiasis with choledocholithiasis: Code(s): K80.70 - Calculus of gallbladder and bile duct without cholecystitis without obstruction Status: Acute Assessment and Plan: * MRCP showed a stone in the common bile duct. GI planning ERCP today. Will continue to follow as patient will need a laparoscopic cholecystectomy. Description of the procedure, risks, benefits, expected outcomes, and expected recovery were discussed with the patient in detail. We discussed the risks of bile leak and bile duct injury, liver/bowel injury, bleeding, and infection. Also discussed the possibility of having to convert to an open procedure if necessary. She agrees with surgery when timing is determined. Will repeat labs tomorrow and possibly add her onto the surgery schedule tomorrow for a laparoscopic cholecystectomy by Dr. Martin. (2) Elevated LFTs: Code(s): R79.89 - Other specified abnormal findings of blood chemistry Status: Acute Assessment and Plan: * Related to choledocholithiasis. ERCP today. Trend labs. See plan above. Plan I have discussed the patient's case and plan of care with Dr. Martin. Subjective Subjective Date/Time Seen: 04/03/25 11:42 Patient reports: no new complaints, still having pain and afebrile Interval history: Patient feels the same today, no changes overnight. Still having mild RUQ pain and nausea, but no vomiting. MRCP showed common bile duct stone. Exam GI: Inspection: non-distended GI Palp: Yes Soft to palpation, Yes Tenderness to palpation present (GI) (RUQ), No Guarding due to palpation present (GI) and No Rebound tenderness present Objective Data Vital Signs Vital Signs: Vital Signs - 24 hr 04/02/25 14:00 04/02/25 21:16 04/02/25 23:11 Temperature 97.6 F 97.2 F L Pulse Rate 87 70 Respiratory Rate 16 14 Blood Pressure 101/60 99/67 L Pulse Oximetry 95 95 95 Oxygen Delivery Room Air 04/03/25 05:24 04/03/25 08:00 Temperature 98.0 F Pulse Rate 60 Respiratory Rate 14 Blood Pressure 95/69 L Pulse Oximetry 98 Oxygen Delivery Room Air Intake/Output Intake/Output: Intake & Output 03/31/25 04/01/25 04/02/25 04/03/25 23:59 23:59 23:59 23:59 Intake Total 2049 1999 999 Balance 2049 1999 999 Meds/Results Medications: Active Medications Generic Name Dose Route Start Last Admin Trade Name Freq PRN Reason Stop Dose Admin Acetaminophen 650 mg 04/01/25 05:28 04/02/25 20:16 Acetaminophen 325 Mg Tablet PO 650 mg Q4H PRN Administration Mild Pain (1-3) or Fever Enoxaparin Sodium 40 mg 04/01/25 09:00 04/02/25 09:13 Enoxaparin 40 Mg/0.4 Ml Syringe SUB-Q 40 mg DAILY LIGIA Administration Potassium Chloride 40 meq/ 520 mls @ 130 mls/hr 04/03/25 09:15 04/03/25 09:29 Sodium Chloride IVPB 04/03/25 13:14 130 mls/hr ONCE ONE Administration Potassium Chloride/Sodium Chloride 1,000 mls @ 100 mls/hr 04/03/25 13:15 Kcl 20 Meq/Ns IV CONT .Q10H LIGIA Morphine Sulfate 2 mg 04/02/25 09:25 Morphine Sulfate (*Crx) 2 Mg/Ml Inj IV PUSH Q2H PRN Pain Rated 7-10 Ondansetron HCl 4 mg 04/01/25 05:28 04/01/25 19:57 Ondansetron Inj 4 Mg/2 Ml Vial IV PUSH 4 mg Q4H PRN Administration Nausea Radiology Results: ITS Impressions Abdomen Ultrasound 04/01/25 08:45 IMPRESSION: 1. Cholelithiasis and mildly dilated common bile duct suggesting possible nonvisualized distal obstructing stone. Correlate with liver function tests and consider MRCP for further evaluation. Abdomen/Pelvis CT 04/01/25 10:51 IMPRESSION: 1. Nonspecific mild dilation the common bile duct to 7 mm correlate with liver function tests and could consider MRI/MRCP for further evaluation as clinically indicated. 2. Nonspecific mild splenomegaly which may relate to study of the chest. 2. Nonspecific stranding and multiple calcific densities 17 Station at the bilateral buttocks which could be related to fat necrosis or due to subcutaneous injections. MRCP 04/02/25 15:09 IMPRESSION: 1. Cholelithiasis and choledocholithiasis with 3 mm stone at the distalmost common bile duct with mild intrahepatic and minimal intrahepatic biliary ductal dilation. 2. Nonspecific mild splenomegaly which could be related to body habitus. Labs Labs: Laboratory Results - last 24 hr 04/03/25 05:55 WBC 4.5 RBC 3.86 L Hgb 11.7 L Hct 35.5 L MCV 92.0 MCH 30.3 MCHC 33.0 RDW 13.0 Plt Count 189 MPV 11.2 H Immature Gran % (Auto) 0.7 H Neut % (Auto) 57.5 Lymph % (Auto) 27.9 [place] % (Auto) 5.2 Eos % (Auto) 8.3 H Baso % (Auto) 0.4 Lymph # (Auto) 1.24 [place] # (Auto) 0.2 Eos # (Auto) 0.4 H Baso # (Auto) 0.0 Abs Immat Gran (auto) 0.03 Absolute Neuts (auto) 2.6 Absolute Nucleated RBC 0.000 Nucleated RBC % 0.0 Sodium 140 Potassium 3.3 L Chloride 105 Carbon Dioxide 27 Anion Gap 8 BUN 4 L Creatinine 0.59 L Estim Creat Clear Calc 148 Estimated GFR > 60 Glucose 85 Calcium 8.7 Magnesium 1.8 Total Bilirubin 2.6 H AST 285 H ALT 305 H Alkaline Phosphatase 306 H Total Protein 6.0 L Albumin 3.4 L
--- NOTE | 2025-04-03 12:33 | WPDANESEPPF ---
Anes - Initial Pre Proc Eval Procedure: Operation Date: 04/03/25 13:30 Proposed Procedures p Endoscopic Retro Cholangiopancreatogram - Arthur Alvarado MD Date/Time: 04/03/25 12:33 Surgeon: Sakshi Mata MD Pre Op Diagnosis: Elevated LFTs, dilated common bile duct, possible Patient Data Age: 35 Gender: F Height: 1.75 m Weight: 105.6 kg Last Vital Signs Temp 36.7 C 04/03/25 05:24 Pulse 60 04/03/25 05:24 Resp 14 04/03/25 05:24 BP 95/69 L 04/03/25 05:24 Pulse Ox 98 04/03/25 05:24 O2 Del Method Room Air 04/03/25 08:00 Allergies Allergy/AdvReac Type Severity Reaction Status Date / Time No Known Allergies Allergy Verified 03/31/25 20:55 Home Medications ?Medication ?Instructions ?Recorded ?Confirmed ?Type vits no.126-ferrous fum 1 tablet PO DAILY 08/21/24 04/01/25 History 28 mg iron-folic acid 800 mcg tablet (Classic ) Laboratory Tests 04/03/25 05:55 WBC 4.5 K/mm3 (4.5-10.0) RBC 3.86 L M/mm3 (4.2-5.4) Hgb 11.7 L g/dL (12.0-15.0) Hct 35.5 L % (37.0-47.0) MCV 92.0 fl (80-100) MCH 30.3 pg (26-34) MCHC 33.0 g/dl (32-36) RDW 13.0 % (11.5-14.5) Plt Count 189 k/mm3 (150-375) MPV 11.2 H fl (7.4-10.4) Immature Gran % (Auto) 0.7 H % (0-0.5) Neut % (Auto) 57.5 % (45.5-73.1) Lymph % (Auto) 27.9 % (18.3-44.2) [place] % (Auto) 5.2 % (2.6-8.5) Eos % (Auto) 8.3 H % (0-4.4) Baso % (Auto) 0.4 % (0.2-1.2) Lymph # (Auto) 1.24 K/mm3 (0.9-3.2) [place] # (Auto) 0.2 K/mm3 (0.1-0.6) Eos # (Auto) 0.4 H K/mm3 (0-0.3) Baso # (Auto) 0.0 K/mm3 (0.0-0.1) Abs Immat Gran (auto) 0.03 K/mm3 (0.00-0.031) Absolute Neuts (auto) 2.6 K/mm3 (1.3-6.7) Absolute Nucleated RBC 0.000 K/mm3 (0.0-0.012) Nucleated RBC % 0.0 % (0.0-0.2) Sodium 140 mmol/L (137-145) Potassium 3.3 L mmol/L (3.4-5.0) Chloride 105 mmol/L (98-107) Carbon Dioxide 27 mmol/L (22-30) Anion Gap 8 mmol/L (4-12) BUN 4 L mg/dL (7-17) Creatinine 0.59 L mg/dL (0.7-1.0) Estim Creat Clear Calc 148 ml/min Estimated GFR > 60 (59 - ) Glucose 85 mg/dL (65-110) Calcium 8.7 mg/dL (8.4-10.2) Magnesium 1.8 mg/dL (1.6-2.3) Total Bilirubin 2.6 H mg/dL (0.2-1.3) AST 285 H U/L (14-36) ALT 305 H U/L (6-35) Alkaline Phosphatase 306 H U/L (38-126) Total Protein 6.0 L g/dL (6.3-8.2) Albumin 3.4 L g/dL (3.5-5.1) Patient hx anesthesia problems: none Family hx anesthesia problems: none Results Review: All pre-operative results and documents have been reviewed as part of the pre-operative evaluation. COUNTS INCLUDE 234 BEDS AT THE [facility] Past Medical History Medical History (Updated 04/02/25 @ 15:46 by Arthur Alvarado MD) Nausea and vomiting in adult RUQ pain Cholelithiasis with choledocholithiasis Gestational diabetes Insertion of Nexplanon (03/23/14) Nexplanon removal (08/15/18) Armando's disease KG (generalized anxiety disorder) Migraine Anxiety Obesity (BMI 30.0-34.9) Chronic headaches Back pain Surgical History Surgical History History of hip surgery R labral repair [place] teeth removed History of hand surgery (11/01/09) Family History Family History Father Family history of diabetes mellitus in first degree relative Mother Diabetes mellitus Atrial fibrillation Heart disease Thyroid disease Cerebrovascular accident Hypertension Sibling ADD (attention deficit disorder) ADHD, impulsive type Family history of alcoholism Grandparent Congestive heart failure Heart disease Grandparent Cerebrovascular accident Social History Social History Social History: Smoking status: Never smoker Second hand tobacco smoke exposure: No Alcohol intake: never Substance use: never Substance use type: does not use Do You Feel Safe in your Home?: Yes Lack of Transportation: No Lack of Food: Never True Current Housing: I Have Housing Concerned About Future Housing: No Difficulty Paying Gas/Electric Bills: No Difficulty Paying for Meds: No Currently Unemployed: No Education: Bachelor's Degree Difficulty w/ Childcare or Family Care: No Living arrangements: with family Additional living arrangements comments: Occupation/Education: occupation Additional occupation/education comments: [employer] Gender identity (if verbalized by the patient): Female Sexual Orientation (if Verbalized by the Patient): Lesbian, Lopez, or Homosexual Spiritual care concerns: No Anes - Eval Final PreProcedure Day of Procedure 04/03/25 12:33 Patient weight: obese Heart: regular rate and rhythm Lungs: clear to auscultation Airway: Mallampati scale class II Neurological: alert and oriented Last oral intake: >/= 8 hours ASA classification: II Emergent: no Anesthetic plan: proceed Anesthesia type and monitoring: general ETT and standard monitoring Results Review: All pre-operative results and documents have been reviewed as part of the pre-operative evaluation. Informed Consent: The patient's anesthetic plan and its attendant risks and benefits were discussed with the patient/family/POA. Questions were solicited and answers provided to the satisfaction of the patient/family/POA.
[2025-04-03] MEDS: LACTATED RINGERS 1,000 ML 150 ML IV CONT (12:37)
[2025-04-03] MEDS: INDOMETHACIN 50 MG SUPP.RECT RECTAL (13:38)
--- NOTE | 2025-04-03 16:10 | PM.IMPN ---
Progress Note: A&P Assessment and Plan (1) Common bile duct dilatation: Code(s): K83.8 - Other specified diseases of biliary tract Status: Acute (2) Elevated LFTs: Code(s): R79.89 - Other specified abnormal findings of blood chemistry Status: Acute (3) Abdominal pain: Code(s): R10.9 - Unspecified abdominal pain Status: Acute Plan still with similar pain and nausea, completed MRCP less than 2 hours ago which showed cholelithiasis and choledocholithiasis with 3 mm stone at the distalmost common bile duct with mild intrahepatic and minimal intrahepatic biliary ductal dilation, seen by GI is plan to have ERCP today and the patient will need laparoscopic cholecystectomy. will follow up and further recommendation to follow. Elevated liver enzymes with dilated CBD Possible CBD stone MRCP today hepatitis viral panel negative PRN pain control Liver enzymes improving, AST/ALT 944/508 to 450/357 GI and Gen surgery on board DVT prophylaxis on Sq Lovenox Subjective Date/time seen: 04/03/25 16:10 Interval history: still with similar pain and nausea, completed MRCP less than 2 hours ago which showed cholelithiasis and choledocholithiasis with 3 mm stone at the distalmost common bile duct with mild intrahepatic and minimal intrahepatic biliary ductal dilation, seen by GI is plan to have ERCP today and the patient will need laparoscopic cholecystectomy. will follow up and further recommendation to follow. Review of Systems Review of Systems: All systems reviewed & are unremarkable except as noted in HPI and below Exam Narrative: Patient is comfortable, NAD HEENT: eyes are clear and none icteric LUNGS:CTA HEART: RR S1S2 ABD: BS+, Soft and nontender Lower extremities: no edema SKIN: nonjaundiced Neuro: grossly intact. Objective Data Vital Signs Vital Signs: Vital Signs - 24 hr 04/02/25 21:16 04/02/25 23:11 04/03/25 05:24 Temperature 36.2 C L 36.7 C Pulse Rate 70 60 Respiratory Rate 14 14 Blood Pressure 99/67 L 95/69 L Pulse Oximetry 95 95 98 Oxygen Delivery Room Air 04/03/25 08:00 04/03/25 12:27 04/03/25 14:16 Temperature 36.7 C 36.2 C L Pulse Rate 76 82 Respiratory Rate 18 22 H Blood Pressure 115/94 H 111/73 Pulse Oximetry 98 97 Oxygen Delivery Room Air Room Air Room Air 04/03/25 14:26 04/03/25 14:36 04/03/25 14:46 Temperature Pulse Rate 75 75 65 Respiratory Rate 22 H 18 18 Blood Pressure 103/79 106/81 109/75 Pulse Oximetry 96 96 95 Oxygen Delivery Room Air Room Air Room Air 04/03/25 14:56 04/03/25 15:06 Temperature Pulse Rate 53 L 56 L Respiratory Rate 19 18 Blood Pressure 116/75 111/77 Pulse Oximetry 97 98 Oxygen Delivery Room Air Room Air Intake/Output Intake/Output: Intake & Output 03/31/25 04/01/25 04/02/25 04/03/25 23:59 23:59 23:59 23:59 Intake Total 2049 1999 999 Balance 2049 1999 999 Meds/Results Medications: Active Medications Generic Name Dose Route Start Last Admin Trade Name Freq PRN Reason Stop Dose Admin Acetaminophen 650 mg 04/01/25 05:28 04/02/25 20:16 Acetaminophen 325 Mg Tablet PO 650 mg Q4H PRN Administration Mild Pain (1-3) or Fever Enoxaparin Sodium 40 mg 04/01/25 09:00 04/02/25 09:13 Enoxaparin 40 Mg/0.4 Ml Syringe SUB-Q 40 mg DAILY LIGIA Administration Potassium Chloride/Sodium Chloride 1,000 mls @ 100 mls/hr 04/03/25 13:15 Kcl 20 Meq/Ns IV CONT .Q10H LIGIA Morphine Sulfate 2 mg 04/02/25 09:25 Morphine Sulfate (*Crx) 2 Mg/Ml Inj IV PUSH Q2H PRN Pain Rated 7-10 Ondansetron HCl 4 mg 04/01/25 05:28 04/01/25 19:57 Ondansetron Inj 4 Mg/2 Ml Vial IV PUSH 4 mg Q4H PRN Administration Nausea Radiology Results: ITS Impressions Abdomen Ultrasound 04/01/25 08:45 IMPRESSION: 1. Cholelithiasis and mildly dilated common bile duct suggesting possible nonvisualized distal obstructing stone. Correlate with liver function tests and consider MRCP for further evaluation. Abdomen/Pelvis CT 04/01/25 10:51 IMPRESSION: 1. Nonspecific mild dilation the common bile duct to 7 mm correlate with liver function tests and could consider MRI/MRCP for further evaluation as clinically indicated. 2. Nonspecific mild splenomegaly which may relate to study of the chest. 2. Nonspecific stranding and multiple calcific densities 17 Station at the bilateral buttocks which could be related to fat necrosis or due to subcutaneous injections. MRCP 04/02/25 15:09 IMPRESSION: 1. Cholelithiasis and choledocholithiasis with 3 mm stone at the distalmost common bile duct with mild intrahepatic and minimal intrahepatic biliary ductal dilation. 2. Nonspecific mild splenomegaly which could be related to body habitus. Labs Labs: Laboratory Results - last 24 hr 04/03/25 05:55 WBC 4.5 RBC 3.86 L Hgb 11.7 L Hct 35.5 L MCV 92.0 MCH 30.3 MCHC 33.0 RDW 13.0 Plt Count 189 MPV 11.2 H Immature Gran % (Auto) 0.7 H Neut % (Auto) 57.5 Lymph % (Auto) 27.9 [place] % (Auto) 5.2 Eos % (Auto) 8.3 H Baso % (Auto) 0.4 Lymph # (Auto) 1.24 [place] # (Auto) 0.2 Eos # (Auto) 0.4 H Baso # (Auto) 0.0 Abs Immat Gran (auto) 0.03 Absolute Neuts (auto) 2.6 Absolute Nucleated RBC 0.000 Nucleated RBC % 0.0 Sodium 140 Potassium 3.3 L Chloride 105 Carbon Dioxide 27 Anion Gap 8 BUN 4 L Creatinine 0.59 L Estim Creat Clear Calc 148 Estimated GFR > 60 Glucose 85 Calcium 8.7 Magnesium 1.8 Total Bilirubin 2.6 H AST 285 H ALT 305 H Alkaline Phosphatase 306 H Total Protein 6.0 L Albumin 3.4 L
[2025-04-03] MEDS: KCL 20MEQ/0.9% SOD CHL 1,000 ML 100 ML IV CONT (17:41)
[2025-04-04] VITALS (11 sets, daily range): BP systolic 113–138; BP diastolic 56–86; PULSE 65–103; RESP 12–24; TEMP 35.9–36.6; O2SAT 92–100
[2025-04-04 06:29] LABS: Basophils Percent Auto 0.3 % (0.2-1.2); Eosinophils Absolute Auto 0.2 K/mm3 (0-0.3); Eosinophils Percent Auto 2.8 % (0-4.4); Hematocrit 35.8 % (37.0-47.0); Hemoglobin 11.8 g/dL (12.0-15.0); Immature Granulocyte Absolute 0.04 K/mm3 (0.00-0.031); Immature Granulocyte Percent A 0.7 % (0-0.5); Lymphocytes Absolute Auto 1.49 K/mm3 (0.9-3.2); Lymphocytes Percent Auto 24.7 % (18.3-44.2); Mean Corpuscular Hemoglobin 30.3 pg (26-34); Mean Platelet Volume 11.1 fl (7.4-10.4); Monocytes Absolute Auto 0.3 K/mm3 (0.1-0.6); Monocytes Percent Auto 4.6 % (2.6-8.5); Neutrophils Percent Auto 66.9 % (45.5-73.1); Platelet Count Result 211 k/mm3 (150-375); Red Blood Count 3.89 M/mm3 (4.2-5.4)
[2025-04-04 06:50] LABS: Alanine Aminotransferase 246 U/L (6-35); Albumin Level 3.5 g/dL (3.5-5.1); Alkaline Phosphatase 298 U/L (38-126); Anion Gap 6 mmol/L (4-12); Aspartate Amino Transferase 155 U/L (14-36); Blood Urea Nitrogen 6 mg/dL (7-17); Calcium 8.8 mg/dL (8.4-10.2); Carbon Dioxide 27 mmol/L (22-30); Chloride 105 mmol/L (98-107); Estimated CRCL calculation 126 ml/min; Estimated Glomerular Filt Rate > 60; Glucose 76 mg/dL (65-110); Lipase 51 U/L (23-300); Potassium 3.5 mmol/L (3.4-5.0); Sodium 138 mmol/L (137-145); Total Protein 6.4 g/dL (6.3-8.2)
[2025-04-04 08:53] LABS: Magnesium 1.8 mg/dL (1.6-2.3)
[2025-04-04] MEDS: ACETAMINOPHEN 500 MG TABLET 1000 MG PO (09:23)
[2025-04-04] MEDS: KETOROLAC 15 MG/ML VIAL (*BKC) IV PUSH ×2 (09:23→11:14)
--- NOTE | 2025-04-04 09:50 | WPDHPUPDATE1 ---
History and Physical Update Update Date/Time: 04/04/25 09:50 History and Physical has been reviewed, including an updated exam of the patient. There are NO changes in the patient's condition. Risks, benefits, and alternatives have been discussed and questions answered. Patient agrees to proceed with procedure. Pt had ERCP yesterday for removal of CBD stone which was successful. Lipase normal this am. Will proceed with lap olman, poss open olman today as she still has cholelithiasis which puts her at risk of continued CBD stones. Risks, benefits, indications, and expected outcomes were discussed with the patient and/or family members. Specific risks to include bleeding and possible need for blood transfusion, infection, bile leak, injury to other organs, common bile duct injury, and conversion to open cholecystectomy has been discussed. I have answered all their questions and they agreed to proceed with surgery as outlined above.
--- NOTE | 2025-04-04 10:09 | WPDANESEPPF ---
Anes - Initial Pre Proc Eval Procedure: Operation Date: 04/03/25 13:30 Proposed Procedures p Endoscopic Retro Cholangiopancreatogram - Arthur Alvarado MD Operation Date: 04/04/25 10:30 Proposed Procedures p Laparoscopic Cholecystectomy, Possible Open - Juan Luis Martin MD Date/Time: 04/04/25 10:09 Surgeon: Sakshi Mata MD Pre Op Diagnosis: Elevated LFTs, dilated common bile duct, possible Patient Data Age: 35 Gender: F Height: 1.75 m Weight: 105.6 kg Last Vital Signs Temp 96.7 F L 04/04/25 05:51 Pulse 65 04/04/25 05:51 Resp 18 04/04/25 05:51 BP 118/66 04/04/25 05:51 Pulse Ox 94 04/04/25 05:51 O2 Del Method Room Air 04/03/25 15:06 Allergies Allergy/AdvReac Type Severity Reaction Status Date / Time No Known Allergies Allergy Verified 04/04/25 10:08 Home Medications ?Medication ?Instructions ?Recorded ?Confirmed ?Type vits no.126-ferrous fum 1 tablet PO DAILY 08/21/24 04/01/25 History 28 mg iron-folic acid 800 mcg tablet (Classic ) Laboratory Tests 04/04/25 05:50 WBC 6.0 K/mm3 (4.5-10.0) RBC 3.89 L M/mm3 (4.2-5.4) Hgb 11.8 L g/dL (12.0-15.0) Hct 35.8 L % (37.0-47.0) MCV 92.0 fl (80-100) MCH 30.3 pg (26-34) MCHC 33.0 g/dl (32-36) RDW 13.0 % (11.5-14.5) Plt Count 211 k/mm3 (150-375) MPV 11.1 H fl (7.4-10.4) Immature Gran % (Auto) 0.7 H % (0-0.5) Neut % (Auto) 66.9 % (45.5-73.1) Lymph % (Auto) 24.7 % (18.3-44.2) [place] % (Auto) 4.6 % (2.6-8.5) Eos % (Auto) 2.8 % (0-4.4) Baso % (Auto) 0.3 % (0.2-1.2) Lymph # (Auto) 1.49 K/mm3 (0.9-3.2) [place] # (Auto) 0.3 K/mm3 (0.1-0.6) Eos # (Auto) 0.2 K/mm3 (0-0.3) Baso # (Auto) 0.0 K/mm3 (0.0-0.1) Abs Immat Gran (auto) 0.04 H K/mm3 (0.00-0.031) Absolute Neuts (auto) 4.0 K/mm3 (1.3-6.7) Absolute Nucleated RBC 0.000 K/mm3 (0.0-0.012) Nucleated RBC % 0.0 % (0.0-0.2) Sodium 138 mmol/L (137-145) Potassium 3.5 mmol/L (3.4-5.0) Chloride 105 mmol/L (98-107) Carbon Dioxide 27 mmol/L (22-30) Anion Gap 6 mmol/L (4-12) BUN 6 L mg/dL (7-17) Creatinine 0.70 mg/dL (0.7-1.0) Estim Creat Clear Calc 126 ml/min Estimated GFR > 60 (59 - ) Glucose 76 mg/dL (65-110) Calcium 8.8 mg/dL (8.4-10.2) Magnesium 1.8 mg/dL (1.6-2.3) Total Bilirubin 1.0 mg/dL (0.2-1.3) AST 155 H U/L (14-36) ALT 246 H U/L (6-35) Alkaline Phosphatase 298 H U/L (38-126) Total Protein 6.4 g/dL (6.3-8.2) Albumin 3.5 g/dL (3.5-5.1) Lipase 51 U/L (23-300) Patient hx anesthesia problems: none Family hx anesthesia problems: none Results Review: All pre-operative results and documents have been reviewed as part of the pre-operative evaluation. COUNTS INCLUDE 234 BEDS AT THE [facility] Past Medical History Medical History Nausea and vomiting in adult RUQ pain Cholelithiasis with choledocholithiasis Gestational diabetes Insertion of Nexplanon (03/23/14) Nexplanon removal (08/15/18) Armando's disease KG (generalized anxiety disorder) Migraine Anxiety Obesity (BMI 30.0-34.9) Chronic headaches Back pain Surgical History Surgical History History of hip surgery R labral repair [place] teeth removed History of hand surgery (11/01/09) Family History Family History Father Family history of diabetes mellitus in first degree relative Mother Diabetes mellitus Atrial fibrillation Heart disease Thyroid disease Cerebrovascular accident Hypertension Sibling ADD (attention deficit disorder) ADHD, impulsive type Family history of alcoholism Grandparent Congestive heart failure Heart disease Grandparent Cerebrovascular accident Social History Social History Social History: Smoking status: Never smoker Second hand tobacco smoke exposure: No Alcohol intake: never Substance use: never Substance use type: does not use Do You Feel Safe in your Home?: Yes Lack of Transportation: No Lack of Food: Never True Current Housing: I Have Housing Concerned About Future Housing: No Difficulty Paying Gas/Electric Bills: No Difficulty Paying for Meds: No Currently Unemployed: No Education: Bachelor's Degree Difficulty w/ Childcare or Family Care: No Living arrangements: with family Additional living arrangements comments: Occupation/Education: occupation 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 Gender identity (if verbalized by the patient): Female Sexual Orientation (if Verbalized by the Patient): Lesbian, Lopez, or Homosexual Spiritual care concerns: No Anes - Eval Final PreProcedure Day of Procedure 04/04/25 10:09 Patient weight: obese Lungs: normal air movement Airway: Mallampati scale class II Neurological: alert and oriented Last oral intake: >/= 8 hours ASA classification: II Emergent: no Anesthetic plan: proceed Anesthesia type and monitoring: general ETT and standard monitoring Results Review: All pre-operative results and documents have been reviewed as part of the pre-operative evaluation. Pt did well w ERCP yesterday. No interval change in her med hx or acute condition. Informed Consent: The patient's anesthetic plan and its attendant risks and benefits were discussed with the patient/family/POA. Questions were solicited and answers provided to the satisfaction of the patient/family/POA.
[2025-04-04] MEDS: ceFAZolin 2 GM/D5W 50 ML 2 GM/50 ML BAG IVPB (10:42)
[2025-04-04] MEDS: BUPivacaine HCL 0.5% PF 30 ML VIAL INFILTRATE (10:43)
--- NOTE | 2025-04-04 11:13 | S_PTH ---
PATIENT: Raven Junior LOC: [id number] U#:[id number] AGE/SX: 35/F ROOM: 319 RE04/01/[address]: Karel Sampson MD : 1990 BED: 01 DIS: 04/04/2025 SPEC #: [id number] RECD: 04/04/25 12:53 STATUS: REFUGIO REJasmina #: [id number] HALEY: 04/04/25 11:[address]: Juan Luis Martin DEPT: [facility] Surgical RECD BY: Cathleen Weston ENTERED: 04/04/25 12:53 SP TYPE: Surgical OTHR DR: MD Sakshi Cruz MD Edmundo A. Rodriguez-Frias, MD Tissues: A - Gallbladder Procedures: Hematoxylin and Eosin Stain Gross and Microscopic Level 3
--- NOTE | 2025-04-04 11:18 | SUR.OPER ---
EBL 20
--- NOTE | 2025-04-04 11:36 | P.OP_ITS ---
Procedure Note - Detailed Date of Procedure 04/04/25 Pre-op Diagnosis Elevated LFTs, choledocholithiasis with cholelithiasis Post-op Diagnosis Same Procedure Performed Laparoscopic cholecystectomy Surgeon Juan Luis Martin MD Digital Marketing Associate LESIA Piper Anesthesia General Indications Patient is a 35-year-old female who is about 1 month from a spontaneous vaginal delivery. She presented to the emergency room with several- day history of worsening back pain which radiated to her epigastric region. She was also noted to have a elevated liver enzymes and total bilirubin of 4 on admission. Imaging suggested mild dilation of common bile duct and possible retained common bile duct stone. There was no evidence of acute cholecystitis but she did have cholelithiasis. She underwent ERCP and extraction of common bile duct stone. She presents today now for a laparoscopic cholecystectomy due to residual cholelithiasis. Findings Patient had minimal thickening of the gallbladder wall with a single omental adhesion. There is no acute inflammation of the gallbladder. Multiple small gallstones were palpated within the gallbladder after was removed. Description of Procedure After informed consent was obtained patient brought to the operating room where she was placed supine position and general endotracheal anesthesia was administered. The abdomen was then prepped and draped usual sterile fashion. Time-out was then performed correctly identifying the patient as well as procedure to be performed. She was given Ancef for perioperative IV antibiotics. I then entered the abdomen left upper quadrant utilizing a 5mm Optiview port. Once inside the abdomen insufflated to adequate pneumoperitoneum of 15mmHg of CO2. I then placed additional trocar ports to include a 10mm epigastric trocar port and 2 right lateral subcostal 5mm trocar ports all under direct visualization. A 5mm port was placed in periumbilical position and the laparoscopic was switched over to that position. The gallbladder was visualized it was mildly dilated with minimal thickening of the gallbladder wall. There was no acute inflammation of gallbladder. The gallbladder was held a laparos copic grasper and elevated over the right half liver towards right shoulder. A single omental adhesion was then stripped down off of the infundibular gallbladder bluntly. A 2nd grasper was then used to hold the gallbladder at the infundibulum. I then proceeded to strip down the visceral peritoneum off the infundibular gallbladder to identify the cystic duct. Cystic duct was then dissected out circumferentially. The cystic artery was identified and was dissected out circumferentially as well. Posterior wall the gallbladder at the infundibulum dissected free liver into the critical view was obtained. At this point I then placed 2 clips proximally cystic duct and 2 clips distally high on infundibular gallbladder. The cystic duct was then divided Endo Rosa Isela. In a similar fashion cystic artery was then clipped and divided as well. Gallbladder was then resected off the liver using utilized electrocautery. No gallstones were spilled. The gallbladder was then placed into an Endo-Catch bag and brought out through the epigastric port site. Gallbladder and contents were sent to pathology for examination. I then irrigated out the right upper quadrant the abdomen the gallbladder fossa with sterile saline solution. Hemostasis was excellent. No result was a bile leak. I then aspirated the fluid from the right upper quadrant the abdomen from the pelvis. I then removed all the trocar ports under direct visualization all port sites appeared hemostatic. I then allowed the abdomen decompress. The epigastric 10mm trocar port fascial defect was then closed utilizing 0 Vicryl sutures to fascial level. The skin edges in all the port sites were then approximated utilizing a running subcuticular 4-0 Monocryl suture. The incisions were then cleaned the skin glue was applied. The patient tolerated the procedure well no complications. All sponges, needles, and instrument counts were correct at the end procedure. EBL was _20__cc. The patient was awakened and taken to recovery in stable and satisfactory condition. Implants None Estimated Blood Loss 20 Drains No Packing No Pathology Yes (Gallbladder and contents sent to pathology) Complications No immediate complications Condition Stable Disposition PACU [facility] Billing Surgery - Charge Forward: Surgery Billing
[2025-04-04] MEDS: LACTATED RINGERS 1,000 ML 30 ML IV CONT (11:37)
[2025-04-04] MEDS: fentaNYL CITRATE INJ (*CRX) 100 MCG/2 ML VIAL 25 MCG IV PUSH ×8 (11:57→12:27)
[2025-04-04] MEDS: diphenhydrAMINE HCl INJ 50 MG/ML VIAL 12.5 MG IV PUSH ×2 (12:39→12:47)
[2025-04-04] MEDS: HYDROmorphone HCL INJ (*CRX) 2 MG/ML VIAL 0.5 MG IV PUSH (12:54)
[2025-04-04] MEDS: HYDROcodone/acetaminophen (*CRX) 5-325 MG TABLET 1 TAB PO (15:30)
[2025-04-04] MEDS: POTASSIUM CHLORIDE 20 MEQ ER TABLET 40 MEQ PO (15:31)
--- NOTE | 2025-04-04 15:50 | P.DS_ITS ---
DS: Admitting Diagnosis Discharge Date 04/04/25 Admitting Diagnosis abdominal pain DS: Discharge Diagnosis Discharge Diagnosis (1) Common bile duct dilatation: Code(s): K83.8 - Other specified diseases of biliary tract Status: Acute (2) Elevated LFTs: Code(s): R79.89 - Other specified abnormal findings of blood chemistry Status: Acute (3) Abdominal pain: Code(s): R10.9 - Unspecified abdominal pain Status: Acute Plan still with similar pain and nausea, completed MRCP less than 2 hours ago which showed cholelithiasis and choledocholithiasis with 3 mm stone at the distalmost common bile duct with mild intrahepatic and minimal intrahepatic biliary ductal dilation, seen by GI is plan to have ERCP today and the patient will need laparoscopic cholecystectomy. will follow up and further recommendation to follow. Elevated liver enzymes with dilated CBD Possible CBD stone MRCP today hepatitis viral panel negative PRN pain control Liver enzymes improving, AST/ALT 944/508 to 450/357 GI and Gen surgery on board DVT prophylaxis on Sq Lovenox DS: Summary Hospital Course Hospital Course: still with similar pain and nausea, completed MRCP less than 2 hours ago which showed cholelithiasis and choledocholithiasis with 3 mm stone at the distalmost common bile duct with mild intrahepatic and minimal intrahepatic biliary ductal dilation, seen by GI is plan to have ERCP today and the patient will need laparoscopic cholecystectomy. will follow up and further recommendation to follow. patient had ERCP with removal of stones and was seen general surgery had lap olman, patient stats feels, better was able to tolerated her diet, will discharge patient today. Time Spent with Patient Time attestation: Total time spent providing and/or coordinating discharge services: Exam Narrative: Patient is comfortable, NAD HEENT: eyes are clear and none icteric LUNGS:CTA HEART: RR S1S2 ABD: BS+, Soft and nontender Lower extremities: no edema SKIN: nonjaundiced Neuro: grossly intact. DS: Data Data Completed and Pending Pending studies at discharge: Pending at discharge 04/04/25 11:13 Surgical [PTH] Routine Labs on day of discharge: Labs from last 24 hours 04/04/25 05:50 WBC 6.0 RBC 3.89 L Hgb 11.8 L Hct 35.8 L MCV 92.0 MCH 30.3 MCHC 33.0 RDW 13.0 Plt Count 211 MPV 11.1 H Immature Gran % (Auto) 0.7 H Neut % (Auto) 66.9 Lymph % (Auto) 24.7 [place] % (Auto) 4.6 Eos % (Auto) 2.8 Baso % (Auto) 0.3 Lymph # (Auto) 1.49 [place] # (Auto) 0.3 Eos # (Auto) 0.2 Baso # (Auto) 0.0 Abs Immat Gran (auto) 0.04 H Absolute Neuts (auto) 4.0 Absolute Nucleated RBC 0.000 Nucleated RBC % 0.0 Sodium 138 Potassium 3.5 Chloride 105 Carbon Dioxide 27 Anion Gap 6 BUN 6 L Creatinine 0.70 Estim Creat Clear Calc 126 Estimated GFR > 60 Glucose 76 Calcium 8.8 Magnesium 1.8 Total Bilirubin 1.0 AST 155 H ALT 246 H Alkaline Phosphatase 298 H Total Protein 6.4 Albumin 3.5 Lipase 51 Discharge Plan Discharge Attending physician on discharge: Sakshi Mata Consulting providers: Arthur Alvarado; Juan Luis Martin; Jose R Quintanilla; Rl Bruno; Dariana Kinney; Bruno Colin; Joshua Murray; Freddy Kaminski Jr.; Cade Will; Villa Brown Discharging Clinician: Karel Sampson Patient Disposition: Home Activity: may shower and other - see discharge instructions Diet: as tolerated Wound Care Instructions: other - see discharge instructions Discharge Instructions: May discharge home when stable. Follow up with Dr. Martin in the office in 2 weeks. Patient to call [phone] for an appointment. May shower in 24hours but do not soak incisions under water for 2 weeks. No lifting more than 10 to 15 lb for 2 weeks. May advance diet as tolerated. No driving for at least 3 days or until no longer taking any narcotic pain medication. Resume all home medications. Prescription for narcotic pain medicines will be sent to the patient's pharmacy if needed. May use Tylenol and/or ibuprofen in addition to or in place of narcotic pain medications for postoperative pain. patient to follow discharge care instruction from her surgeon and follow up as scheduled, patient to follow up with her primary care provider as soon as possible, patient is instructed if any symptoms worsen to go to nearest ER. Patient Instructions: Antibiotic Form Patient Language: Dutch Stand Alone Forms: General Discharge Information Follow-up/Referrals: Colby Hager MD [Primary Care Provider] - Juan Luis Martin MD [Physician] - Discharge Medications: New hydrocodone-acetaminophen 5-325 mg tablet 1 - 2 tablet PO Q4H PRN (Reason: pain) Qty: 15 0RF ondansetron 4 mg tablet,disintegrating 4 mg PO Q8H PRN (Reason: nausea and vomiting) Qty: 10 0RF Continued Classic 28 mg iron- 800 mcg tablet 1 tablet PO DAILY Date of admission: 04/01/25 05:28 Primary Care Provider: Colby Hager Admitting Provider: Sakshi Mata Attending physician on admission: Karel Sampson Condition: Stable
--- NOTE | 2025-04-04 17:17 | P.PNGI_ITS ---
Progress Note: A&P Assessment and Plan (1) Cholelithiasis with choledocholithiasis: Code(s): K80.70 - Calculus of gallbladder and bile duct without cholecystitis without obstruction Status: Acute Assessment and Plan: ercp with removal stone, no complications s/p lap olman home today (2) RUQ pain: Code(s): R10.11 - Right upper quadrant pain Status: Acute Assessment and Plan: resolved (3) Elevated LFTs: Code(s): R79.89 - Other specified abnormal findings of blood chemistry Status: Acute Assessment and Plan: already trending down Subjective Date/time seen: 04/04/25 17:17 Interval history: she was able to tell difference soon after ercp that pain was almost gone now underwent lap olman and she is ready to go home later today doing better Review of Systems Review of Systems: All systems reviewed & are unremarkable except as noted in HPI and below Exam Const: General: comfortable and no acute distress HENMT: Face/Nose/Sinus: Normal nares present Eyes: General: appearance normal, both eyes and all related structures Neck: Neck: supple Resp: Auscultation: clear to auscultation bilaterally Cardio: Rate: regular rate Rhythm: regular rhythm GI: Inspection: non-distended GI Palp: Yes Soft to palpation Other: minimal expected ttp from recent surgery no rebound Skin: General skin exam: normal color Neuro: Speech: normal speech Extrem: General: normal to inspection Psych: Mental Status: mental status grossly normal Objective Data Vital Signs Vital Signs: Vital Signs - 24 hr 04/03/25 22:00 04/04/25 05:51 04/04/25 11:37 Temperature 97.8 F 96.7 F L 97.0 F L Pulse Rate 56 L 65 103 H Respiratory Rate 18 18 24 H Blood Pressure 116/72 118/66 138/78 Pulse Oximetry 99 94 100 Oxygen Delivery Simple Face Mask Oxygen Flow Rate 8 04/04/25 11:50 04/04/25 12:00 04/04/25 12:15 Temperature Pulse Rate 96 88 76 Respiratory Rate 19 15 12 Blood Pressure 131/84 128/79 127/75 Pulse Oximetry 100 100 94 Oxygen Delivery Simple Face Mask Room Air Nasal Cannula Oxygen Flow Rate 8 2 04/04/25 12:30 04/04/25 12:45 04/04/25 13:00 Temperature 97.6 F Pulse Rate 76 76 68 Respiratory Rate 12 16 12 Blood Pressure 116/56 L 115/60 116/64 Pulse Oximetry 92 92 96 Oxygen Delivery Room Air Room Air Room Air Oxygen Flow Rate 04/04/25 13:15 04/04/25 13:26 04/04/25 15:38 Temperature 97.8 F Pulse Rate 95 96 77 Respiratory Rate 16 16 20 Blood Pressure 123/86 122/76 113/71 Pulse Oximetry 96 96 98 Oxygen Delivery Room Air Room Air Oxygen Flow Rate Intake/Output Intake/Output: Intake & Output 04/01/25 04/02/25 04/03/25 04/04/25 23:59 23:59 23:59 23:59 Intake Total 2049 1999 1000 830 Balance 2049 1999 1000 830 Meds/Results Medications: Active Medications Generic Name Dose Route Start Last Admin Trade Name Freq PRN Reason Stop Dose Admin Acetaminophen 1,000 mg 04/04/25 13:33 Acetaminophen 500 Mg Tablet PO Q6H PRN Mild Pain (1-3) or Fever Hydrocodone Bitart/Acetaminophen 1 tab 04/04/25 13:33 04/04/25 15:30 Hydrocodone/Acetaminophen (*Crx) 5-325 Mg Tablet PO 1 tab Q4H PRN Administration Pain Rated 4-6 Enoxaparin Sodium 40 mg 04/01/25 09:00 04/04/25 07:40 Enoxaparin 40 Mg/0.4 Ml Syringe SUB-Q Not Given DAILY LIGIA Fentanyl Citrate 25 mcg 04/04/25 10:10 04/04/25 12:27 Fentanyl Citrate Inj (*Crx) 100 Mcg/2 Ml Vial IV PUSH 25 mcg Q2M PRN Administration Pain Potassium Chloride/Sodium Chloride 1,000 mls @ 100 mls/hr 04/03/25 13:15 04/03/25 17:41 Kcl 20 Meq/Ns IV CONT 100 mls/hr .Q10H LIGIA Administration Lactated Ringer's 1,000 mls @ 30 mls/hr 04/04/25 10:10 04/04/25 13:18 Lr - Lactated Ringers Iv IV CONT Infused .Q24H LIGIA Infusion Lactated Ringer's 1,000 mls @ 30 mls/hr 04/04/25 10:10 Lr - Lactated Ringers Iv IV CONT .Q24H LIGIA Morphine Sulfate 2 mg 04/02/25 09:25 Morphine Sulfate (*Crx) 2 Mg/Ml Inj IV PUSH Q2H PRN Pain Rated 7-10 Ondansetron HCl 4 mg 04/01/25 05:28 04/01/25 19:57 Ondansetron Inj 4 Mg/2 Ml Vial IV PUSH 4 mg Q4H PRN Administration Nausea Ondansetron HCl 4 mg 04/04/25 10:10 Ondansetron Inj 4 Mg/2 Ml Vial IV PUSH ONCE PRN Nausea Oxycodone HCl 5 mg 04/04/25 13:33 Oxycodone Hcl (*Crx) 5 Mg Tab Ir PO Q4H PRN Pain Rated 7-10 Vit/Calcium/Iron/Folic Ac 1 tab 04/05/25 09:00 Multivit/Min/Pren/Fol Ac/Iron Tablet PO DAILY LIGIA Radiology Results: ITS Impressions Abdomen Ultrasound 04/01/25 08:45 IMPRESSION: 1. Cholelithiasis and mildly dilated common bile duct suggesting possible nonvisualized distal obstructing stone. Correlate with liver function tests and consider MRCP for further evaluation. Abdomen/Pelvis CT 04/01/25 10:51 IMPRESSION: 1. Nonspecific mild dilation the common bile duct to 7 mm correlate with liver function tests and could consider MRI/MRCP for further evaluation as clinically indicated. 2. Nonspecific mild splenomegaly which may relate to study of the chest. 2. Nonspecific stranding and multiple calcific densities 17 Station at the bilateral buttocks which could be related to fat necrosis or due to subcutaneous injections. MRCP 04/02/25 15:09 IMPRESSION: 1. Cholelithiasis and choledocholithiasis with 3 mm stone at the distalmost common bile duct with mild intrahepatic and minimal intrahepatic biliary ductal dilation. 2. Nonspecific mild splenomegaly which could be related to body habitus. Labs Labs: Laboratory Results - last 24 hr 04/04/25 05:50 WBC 6.0 RBC 3.89 L Hgb 11.8 L Hct 35.8 L MCV 92.0 MCH 30.3 MCHC 33.0 RDW 13.0 Plt Count 211 MPV 11.1 H Immature Gran % (Auto) 0.7 H Neut % (Auto) 66.9 Lymph % (Auto) 24.7 [place] % (Auto) 4.6 Eos % (Auto) 2.8 Baso % (Auto) 0.3 Lymph # (Auto) 1.49 [place] # (Auto) 0.3 Eos # (Auto) 0.2 Baso # (Auto) 0.0 Abs Immat Gran (auto) 0.04 H Absolute Neuts (auto) 4.0 Absolute Nucleated RBC 0.000 Nucleated RBC % 0.0 Sodium 138 Potassium 3.5 Chloride 105 Carbon Dioxide 27 Anion Gap 6 BUN 6 L Creatinine 0.70 Estim Creat Clear Calc 126 Estimated GFR > 60 Glucose 76 Calcium 8.8 Magnesium 1.8 Total Bilirubin 1.0 AST 155 H ALT 246 H Alkaline Phosphatase 298 H Total Protein 6.4 Albumin 3.5 Lipase 51
--- NOTE | 2025-04-05 10:24 | WPDANESPN ---
Anes - Prog Note Post-Op Date/Time: 04/05/25 10:24 Cardiovascular status: normal Respiratory status: normal Airway patency: baseline Mental status: baseline Post-Op hydration status: normal Vital Signs: Last Vital Signs Temp 97.8 F 04/04/25 15:38 Pulse 77 04/04/25 15:38 Resp 20 04/04/25 15:38 BP 113/71 04/04/25 15:38 Pulse Ox 98 04/04/25 15:38 O2 Del Method Room Air 04/04/25 13:26 O2 Flow Rate 2 04/04/25 12:15 Pain Score (VAS): 0/10 Laboratory Tests 04/04/25 05:50 04/04/25 05:50 Post-procedural complaints: none Patient Feedback: Patient satisfied with anesthetic care.
== END 2025-04-04 17:20 | disposition home or self-care (01) | DRG 769 ==
LOC: ANHED 04-01 05:34 → ANH3MEDSUR 04-01 05:42
PROVIDERS: Internal Medicine; Internal Medicine Gastroenterology; Nurse Practitioner Family; Student in an Organized Health Care Education/Training Program; Surgery; Admitting Provider General Practice; Emergency Provider Physician Assistant; PCP Family Medicine; Visit Provider Family Medicine
PROC: 0FC98ZZ Extirpation of Matter from Common Bile Duct, Via Natural or Artificial Opening Endoscopic (ICD-10-PCS; CPT 43260; principal; 2025-04-03 13:30)
PROC: 0FT44ZZ Resection of Gallbladder, Percutaneous Endoscopic Approach (ICD-10-PCS; CPT 47562; principal; 2025-04-04 10:30)
DX: O99.893 Other specified diseases and conditions complicating puerperium (principal); K80.70 Calculus of gallbladder and bile duct without cholecystitis without obstruction; K83.8 Other specified diseases of biliary tract; E06.3 Autoimmune thyroiditis; O99.345 Other mental disorders complicating the puerperium; F41.1 Generalized anxiety disorder; O99.215 Obesity complicating the puerperium; Z68.34 Body mass index [BMI] 34.0-34.9, adult
CPT/HCPCS: 36415; 74177; 74183; 74329; 76376; 76705; 80053; 80074; 81001; 81025; 83605; 83690; 83735; 85025; 86850; 86900; 86901; 87086; 88304; 96361; 96374; 96375; 96376; 99285; A9270; A9577; J0330; J0690; J0696; J1100; J1171; J1200; J1650; J1885; J2003; J2004; J2250; J2405; J2704; J3010; J3480; J7030; J7040; J7120; Q9966; Q9967

== ENCOUNTER 2025-05-23 08:29 | Outpatient (CLI) | payer BC, SELFPAY ==
--- OUTSIDE RECORDS SUMMARY | 2025-05-23 08:32 | XMS_ITS | Encounter Summary ---
Author Organization [facility] Healthcare Address [address] [place] [address] Care Team Providers Care Spindle Tester Name Role Phone Selena Smith MD Primary Care Provider +- [phone] Colby Hager MD Primary Care Provider Encounter Details Date Type Department Care Team (Late st Contact Info) Description 07/09/2020 Telephone [facility] [address] [place] [phone] Ralph Montgomery, RT Social History Tobacco Use [...] Sexual Orientation Lesbian 10/10/2021 10 :00 AM [employer] documented as of this encounter Plan of Treatment Not on file documented as of this encounter Visit Diagnoses Not on filedocumented in this encounter Care Teams Spindle Tester Relationship Specialty Start Date End Date Selena Smith MD PCP - General Family Practice 04/24/20 10/09/21 Colby Hager MD [address] [facility] [address] [place] [address] PCP - General Family Medicine 10/10/21 documented as of this encounter
--- OUTSIDE RECORDS SUMMARY | 2025-05-23 08:33 | XMS_ITS | Clinical Summary ---
Author Organization [facility] Medical Office Building [facility] Address [address] [place] [address] Care Team Providers Care Executive Community Planning Name Role Phone Colby Hager MD Primary Care Provider Allergies No known active allergies Medications loratadine (CLARITIN) 10 mg tablet Take 1 tablet (10 mg total) by mouth daily Active ferrous sulfate 325 mg (65 mg of elemental iron) tablet Take 1 tablet (325 mg total) by mouth daily 02/20/2025 Active Active Problems Problem Noted Date Diagnosed [...] (12/30/2021): Added automatically from request for surgery [id number] Labral tear of hip, degenerative 12/30/2021 Overview (12/30/2021): Added automatically from request for surgery [id number] Avulsion of ligament with rahul ny fragment of lateral malleolus 12/29/2021 Irregular periods 11/26/2021 Arthralgia of right ankle 05/12/2021 Pain in right foot 05/12/2021 Exposure to blood 04/22/2018 Encounters Date Type Department Care Team Description 03/31/2025 6:00 PM CDT Office Visit [facility] Care at [address] [id number] Neli Vanegas NP Abdominal pain (Primary Dx); Right upper quadrant abdominal tenderness without rebound tenderness; Nausea and vomiting, unspecified vomiting type; Acute cough 03/28/2025 8:10 AM CDT - 03/28/2025 11:59 PM CDT Hospital Encounter [facility] [address] [place] [address] [id number] Pain in joint involving ankle and foot, unspecified laterality Discharge Disposition: Discharge to home or self care 03/28/2025 8:00 AM CDT Office Visit [facility] Orthopaedic Surgery [address] [place] [address] [address] [place] [address] Handy Lopez MD Instability of right ankle joint (Primary Dx) from Last 3 Months Immunizations Immunization Administration [...] Relation Name Comments Alcohol abuse Brother Adam Morriso Diabetes Father Robert Morriso Diabetes Father's Brother Cade Morriso Stroke Maternal Grandfather Clotting disorder Mother Ana Young Diabetes Mother Ana Young Heart disease Mother Ana Morriso Stroke Mother Ana Young Stroke Paternal Grandfather Pelegrino Young Heart disease Paternal Grandmother defects Son Hilary Lira Anesthesia problems Neg Hx Relation Name Status Comments Brother Adam Young Father Robert Young Alive Father's Brother Cade Morriso Maternal Grandfather Mother Ana Young Alive Paternal Grandfather Pelegrino Young Paternal Grandmother Jarocho Lira Social History Tobacco Use Types Packs/Day [...] Sexual Orientation Lesbian 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 Not on file Not [...] Regular Well Visit/Exam 18-64 2009 Covid-19 Vaccine (4 - 2023-2 5 season) 2024 10/16/2021, 12/31/2020, 12/03/2020 Influenza Vaccine (#1) 2025 08/20/2022 HPV Vaccines Aged Out No longer eligi ble based on patient's age to complete this topic Pneumococcal vaccine <65 Aged Out No longer eligible based on patient's age to complete this topic Medical Devices Implanted Type Area Blankbook Forwarder Device Identifier Shelf Expiration Date Model / Serial / Lot [employer] [id number] Cinchlock Ss Knotless Distiller Lock [place] Suture Labrum - [id number] Implanted:Qty: 1 on 01/29/2022 by Dinora Mcfadden MD at [facility] Right: Hip [facility] [id number] 04/22/2023 [id number] / / [id number] Description:[employer] [place] [id number] CINCHLOCK SS KNOTLESS FLEET ADMINISTRATIVE ASSISTANT LOCK ANCHOR SUTURE LABRUM - [id number] [employer] [id number] Cinchlock Ss Knotless Distiller Lock [place] Suture Labrum - [id number] Implanted:Qty: 1 on 01/29/2022 by Dinora Mcfadden MD at [facility] Right: Hip [facility] [id number] 04/22/2023 [id number] / / [id number] Description:[employer] [place] T80172 CINCHLOCK SS KNOTLESS FLEET ADMINISTRATIVE ASSISTANT LOCK ANCHOR SUTURE LABRUM - [id number] [facility] [id number] Xbraid 1.2mm Suture Nonabsorbable Titanium Uhmwpe Nonsterile - [id number] Implanted:Qty: 1 on 01/29/2022 by Dinora Mcfadden MD at [facility] Right: Hip [facility] [id number] 09/24/2023 [id number] / / [id number] Description:This is suture [facility] [id number] Xbraid 1.2mm Suture Nonabsorbable Titanium Uhmwpe Nonsterile - [id number] Implanted:Qty: 1 on 01/29/2022 by Dinora Mcfadden MD at [facility] Right: Hip [facility] [id number] 09/24/2023 [id number] / / [id number] Description:This is suture Procedures Procedure Name Priority [...] l Result from Last 3 Months Insurance [employer] [place] [employer] [place] [employer] GENERIC KASSY ZAMORA K[employer]Y [employer] GENERIC Care Teams Executive Community Planning Relationship Specialty Start Date End Date Colby Hager MD [address] [facility] [address] [place] [address] PCP - General Family Medicine 10/10/21
--- OUTSIDE RECORDS SUMMARY | 2025-05-23 08:33 | XMS_ITS | Data Portability ---
Author Organization [place] - [facility] [email or web address], Main Office Address [address] [place] [address] Care Team Providers Care Bicycle Repairman Name Role Phone IONA HOWELL Primary Care Provider IONA HOWELL Referring Provider TAKETA, ERICA Chief Lifestyle Officer YARA, CRUISE Chief Lifestyle Officer Unavailable Assessment Encounter Date Assessment Date Assessment LastModified by Organization Details LastModified Time 01/11/2023 01/11/2023 This note is dictated and transcribed by [employer]. Subcontract Administrator variances may occur. Despite proofreading, typographical errors may occur. Not available 01/11/2023 14:30:35 04/13/2024 04/13/2024 This note is dictated and transcribed by [employer]. Subcontract Administrator variances may occur. Despite proofreading, typographical errors may occur. Occasional wrong-word or 'nlmjv-r-pskt' substitutions may have occurred due to the inherent limitations of voice recording. Read the chart carefully and recognize, using context, where substitutions have occurred. Not available 04/13/2024 12:09:58 05/11/2024 05/11/2024 This note is dictated and transcribed by [employer]. Subcontract Administrator variances may occur. Despite proofreading, typographical errors may occur. Occasional wrong-word or 'sdhzt-k-ntkl' substitutions may have occurred due to the inherent limitations of voice recording. Read the chart carefully and recognize, using context, where substitutions have occurred. Not available 05/11/2024 15:12:59 Plan of Treatment Reminders Order Date Submit Date Provider Last Modified By Organization Details Last Modified Time Details Appointments None recorded. Lab None recorded. Referral orthopedic surgeon referral - childers/ wash U 2023 024 [email or web address] Handy Lopez MD, [address] [place], [address], 08:25:57 Procedures None recorded. Surgeries None recorded. Imaging MRI, ankle, w/o contrast 2023 024 [facility], [address], [place], [address], 4 09:07:48 MRI, ankle, w/o contrast 2022 [...] contr ast No observ ation record ed. [email or web address] [facility] [address], [place], [address], 05/12/2024 09:07:48 Result Notes None recorded. Problems Name Problem SNOMED Code Status Onset Date Resolution Date Notes Provider Name and Address Organization Details Recorded Time Irregular periods 99769325 Active Not Available [facility] 09:24:33 [id number] Completed 202009/22/2021 Not Available [facility] 3 09:24:33 Sprain of right ankle 33089819599 054065 Active 2020 Not Available [facility] 3 09:24:33 Pain of right ankle joint 09012122146 047740 Active 2020 Not Available [facility] 3 09:24:33 Pain in right foot 76404114377 9107 Active 2020 Not Available [facility] 3 09:24:33 Avulsion of ligament with bony fragment of lateral malleolus 945698334 Active 2021 Not Available [facility] 3 09:24:33 Chronic ankle pain 31230751063 109 Active 2021 Not Available [facility] 3 09:24:33 Sprain of lateral ligament of ankle joint 120646883 Active 2022 Jeffrey Worthington, DPNatacha [address] [facility], [address], [place], [address] , [place] - [facility] [email or web address] 3 14:23:38 Problem Notes None recorded. Procedures Surgical History Date Name Laterality Status Provider Name and Address Organization Details Recorded Time 8 HOSPITALITY JOB TITLES Procedure completed Not Available [facility] 2022 09:20:48 8 Date of Last Pap Smear completed Not Available [facility] 12/30/2022 09:20:47 4 HOSPITALITY JOB TITLES Procedure completed Not Available [facility] 2022 09:20:48 0 Orthopedic Surgery completed Not Available [facility] 12/30/2022 09:20:48 Imaging Results None recorded. Procedure Notes None recorded. Medical Equipment None Reported. Allergies No known drug allergies Medications Name Sig Start Date Stop Date Status Note LastModified by Organization Details LastModified Time fed-ex priority overnight WED-TH PT HM WITH SIG MM 04/13 completed Not Available Not Available Not Available progesteron e 50mg/mlethy loleate INJECT 2 ML [...] Not Available ergocalcife rol (vitamin D2) (bulk) 17112 unit/mg powder 04/13 completed Not Available Not Available Not Available prednisone 10 mg tablet 03/13 /2023 completed Not Available Not Available Not Available [...] Available No t Available BD Regular Bevel Bison 25 gauge x 1 1/2 USE DIRECTED [PROGESTE YAMEL MEDICATIO N] 04/13 completed Not Available Not Available Not Available BD Regular Bevel Bison 25 gauge x 5/8 USE DIRECTED WITH [...] Heart rate Respiratory rate Body weight Systolic And Diastolic Provider Name and Address Organization Details Last Updated DateTime 3 31.7 kg/m2 175.26 cm 98 % 98 % 89 /min 14 /min 30290.3 6 g 112/76 mm[Hg] Not Available [facility] 3 09:23:15 Date Recorded Body height Provider Name an d Address Organization Details Last Updated DateTime 01/11/2023 175.26 cm Brittnee Atwood MA [facility] I [employer] [facility] 01/11/2023 14:01:23 Date Recorded Body height Heart rate Respiratory rate Oxygen saturation Oxygen saturation in Arterial blood by Pulse oximetry Systolic And Diastolic Provider Name and Address Organization Details Last Updated DateTime 4 175.26 cm 76 /min 14 /min 99 % 99 % 124/78 mm[Hg] Hilary Medina [facility] [employer] [facility] 4 11:44:09 Date Recorded Body height Heart rate Systolic And Diastolic Provider Name and Address Organization Details Last Updated DateTime 05/11/2024 175.26 cm 69 /min 137/90 mm[Hg] Megan Franks CNA [place] [employer] [facility] [employer] [facility] 05/11/2024 11:57:59 Date Recorded Body mass index (BMI) Body height Oxygen saturation Oxygen saturation in Arterial blood by Pulse oximetry Heart rate Respiratory rate Body temperature Body weight Systolic And Diastolic Provider Name and Address Organization Details Last Updated DateTime 2 31.7 kg/m2 175.26 cm 97 % 97 % 100 /min 14 /min 97.4 [degF] 98264.3 6 g 115/70 mm[Hg] Not Available [facility] 3 09:23:15 Social History Question Answer Notes LastModified by Organizat ion Details LastModified Time Tobacco Smoking Status Never Smoker Not Available [facility] 12/30/2022 09:20:39 What Is Your Level Of Caffeine Consumption? Occasional [id number] Information not available 12/30/2022 In The 14 Days Before Symptom Onset, Have You Had Close Contact With A Laboratory-confirm ed COVID-19 While That Case Was Ill? No MIGRATION.[id number] Information not available 12/30/2022 In The 14 Days Before Symptom Onset, Have You Had Close Contact With A Person Who Is Under Investigation For COVID-19 While That Person Was Ill? No MIGRATION.203075 9950 Information not available 12/30/2022 Which Illicit Or Recreational Drugs Have You Used? None MIGRATION.336189 2332 Information not available 12/30/2022 What Is Your Relationship Status? MIGRATION.[id number] Information not available 12/30/2022 Do You Use Your Seat Belt Or Car Seat Routinely? Yes MIGRATION.884363 2535 Information not available 12/30/2022 Have You Recently Traveled Abroad? No MIGRATION.370019 5798 Information not available 12/30/2022 Sex: Female Functional Status Question Answer Note LastModified by Organizat ion Details LastModified Time Do you use any illicit or recreational drugs? No MIGRATION.091910 2826 Information not available 12/30/2022 What is your level of alcohol consumption? None MIGRATION.365739 8678 Information not available 12/30/2022 Do you or have you ever used e-cigarettes or vape? Never used electronic cigarettes MIGRATION.186713 2758 Information not available 12/30/2022 What is your exercise level? None MIGRATION.642949 8807 Information not available 12/30/2022 Mental Status None recorded. Family History Relationship Description Onset Age of this Age Resolved Age Notes LastModified by Organization Details LastModified Time Father Diabetes mellitus MIGRATION.102 [id number] Not available 12/30/2022 09:20:50 Mother Family history of stroke MIGRATION.274 [id number] Not available 12/30/2022 09:20:50 Mother Heart disease MIGRATION.337 [id number] Not available 12/30/2022 09:20:51 Mother Pulmonary embolism MIGRATION.072 [id number] Not available 12/30/2022 09:20:51 Mother Diabetes mellitus MIGRATION.171 [id number] Not available 12/30/2022 09:20:51 Maternal Grandfather Heart disease MIGRATION.774 [id number] Not available 12/30/2022 09:20:51 Maternal Grandfather Pulmonary embolism MIGRATION.855 [id number] Not available 12/30/2022 09:20:51 Paternal Grandfather Family history of stroke MIGRATION.664 [id number] Not available 12/30/2022 09:20:51 Medical History Condition Response ANXIETY DISORDER Y OTHER # 1 Y Gynecological History Statement/Question Response Abnormal Pap N Date of Last Pap Smear 08/02/2018 Current Control Method Breastfeedi ng/SHER Age at Menarche 14 Obstetrics History GPAL:G 1 P 1 0 0 1 Type Value Full Term 1 Living 1 Total 1 Past Encounters Encounter ID Performer Location Encounter Start Date Encounter Closed Date Diagnosis/Indication Diagnosis SNOMED-CT Code Diagnosis ICD10 Code Diagnosis Note [id number] [facility]_M IGR[facility]_ DEFAULT_1 _1 , 03/05/2021 00:00:00 03/05/2021 12:42:07 [id number] [facility] _[facility]HE[facility]_M IGR[facility]_ DEFAULT_1 _1 , 03/10/2021 00:00:00 03/10/2021 14:30:13 [id number] [facility] _[facility]_M IGR[facility]_ DEFAULT_1 _1 , 04/04/2021 00:00:00 04/04/2021 09:20:36 [id number] [facility] [place] [address] [place] [address] 05/12/2021 00:00:00 05/12/2021 10:32:06 [id number] [facility] _[facility]HENA_M IGR[facility]_ DEFAULT_1 _1 , 05/12/2021 00:00:00 05/12/2021 15:22:19 [id number] [facility] _[facility]HE[facility]_M IGR[facility]_ DEFAULT_1 _1 , 05/14/2021 00:00:00 05/14/2021 11:53:39 [id number] [facility] _ATHENA_M IGRATION_ DEFAULT_1 _1 , 06/11/2021 00:00:00 06/11/2021 11:26:11 [id number] [facility] [place] [address] [place] [address] 06/23/2021 00:00:00 06/23/2021 12:05:10 [id number] [facility] _ATHENA_M IGRATION_ DEFAULT_1 _1 , 07/09/2021 00:00:00 07/09/2021 11:32:08 [id number] [facility] _ATHENA_M IGRATION_ DEFAULT_1 _1 , 07/14/2021 00:00:00 07/14/2021 14:21:08 [id number] [facility] _[facility]HENA_M IGRATION_ DEFAULT_1 _1 , 07/23/2021 00:00:00 07/23/2021 11:21:22 [id number] [facility] _[facility]HENA_M IGRATION_ DEFAULT_1 _1 , 08/06/2021 00:00:00 08/06/2021 11:09:54 [id number] [facility] _ATHENA_M IGRATION_ DEFAULT_1 _1 , 08/08/2021 00:00:00 08/11/2021 14:39:57 [id number] [facility] _ATHENA_M IGRATION_ DEFAULT_1 _1 , 08/20/2021 00:00:00 08/20/2021 09:45:57 [id number] [facility] _ATHENA_M IGRATION_ DEFAULT_1 _1 , 08/27/2021 00:00:00 08/27/2021 09:52:37 [id number] Rene Vera MD [facility] [place] [address] [place] [address] 08/28/2021 00:00:00 08/28/2021 12:05:42 [id number] [facility] _ATHENA_M IGRATION_ DEFAULT_1 _1 , 09/03/2021 00:00:00 09/03/2021 10:30:53 [id number] [facility] _ATHENA_M IGRATION_ DEFAULT_1 _1 , 09/08/2021 00:00:00 09/08/2021 15:40:49 [id number] [facility] _ATHENA_M IGRATION_ DEFAULT_1 _1 , 09/10/2021 00:00:00 09/10/2021 09:56:49 [id number] [facility] _ATHENA_M IGRATION_ DEFAULT_1 _1 , 09/16/2021 00:00:00 09/16/2021 10:22:32 [id number] [facility] _ATHENA_M IGRATION_ DEFAULT_1 _1 , 10/15/2021 00:00:00 10/15/2021 11:09:47 [id number] [facility] _ATHENA_M IGRATION_ DEFAULT_1 _1 , 10/27/2021 00:00:00 10/27/2021 12:46:34 [id number] Rene Vera MD [facility] [place] [address] [place] [address] 11/13/2021 00:00:00 11/13/2021 15:15:23 [id number] Rene Vera MD [facility] [place] [address] [place] [address] 12/29/2021 00:00:00 12/29/2021 10:13:35 [id number] [facility] [place] [address] [place] [address] 02/02/2022 00:00:00 02/03/2022 10:03:04 [id number] [facility] [place] [address] [place] [address] 03/19/2022 00:00:00 03/19/2022 14:21:48 [id number] [facility] [place] [address] [place] [address] 08/20/2022 00:00:00 08/20/2022 12:06:06 [id number] ZAHIRA Self IGRATION_ DEFAULT_1 _1 , 10/05/2022 00:00:00 10/06/2022 09:52:06 [id number] Jeffrey Worthington DPM [facility] [place] [address] [place] [address] 11/26/2022 00:00:00 11/26/2022 15:50:06 [id number] Jeffrey Worthington DPM [facility] [place] [address] [place] [address] 01/11/2023 13:56:41 01/11/2023 14:35:29 Pain of right ankle joint 4265836595 8649804 M25.571 as above Sprain of lateral ligament of ankle joint 436275288 S93.491D repeat MRIplan surgical clearance for right ankle lateral ankle repair of ATFLcontin ue supportive shoe gear and bracingonc e MRI is obtained well plan for final operative planning [id number] Jeffrey Worthington DPM [facility] [place] [address] [place] [address] 04/13/2024 11:37:18 04/20/2024 11:47:34 Pain of right ankle joint 3288612682 5676404 M25.571 as above Avulsion o f ligament with bony fragment of lateral malleolus 039924908 S82.61XS recommend repeat MRI to EVAL healing of fracture and ligaments of the lateral anklecont pain with workpain and rolling of ankle with activityrx second opinion - orthopedic - Eval treat [id number] Jeffrey Worthington DPM [facility] [place] [address] [place] [address] 05/11/2024 11:37:52 05/18/2024 14:46:23 Avulsion of ligament with bony fragment of lateral malleolus 382916877 S82.61XS recommend repeat MRI - Positive for posterior tibial tendonitis no changescon t pain with workpain and rolling of ankle with activityrx second opinion - orthopedic - Eval treat Health Concerns Section Related Observation LastModified by Organization Detai ls LastModified Time None Recorded Concern Status LastModified by Organization Details LastModified Time None Recorded Advance Directives Directive None Recorded Payers Insurance Date Sequence Insurance Name Policy Number Policy Cohn Covered Member ID Cohn Member ID Guarantor Name 04/13/2024 KASSY ZAMORA [employer] [place] [employer] Raven Junior 04/13/2024 1 [facility] ([place]MO[place] [id number] Raven Junior [id number] Raven Junior 04/13/2024 [employer] Raven Junior 04/13/2024 2 [facility] [id number] Raven Junior [id number] Raven Junior Notes Date Note Type Note [...] other pedal complaints. Jeffrey Worthington DPM [address], [place], [address], [employer] 01/11/2023 14:30:45 04/13/2024 text/html . Patient is a 34-year-old female who sustained a lateral ankle injury to the right ankle. Patient has underwent physical therapy MRI which showed partial tear of the collateral ligaments. 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 Patient states that when she is walking her ankle rolls out and causes her pain. Patient denies any recurrent injury to the ankle. Patient states when she is walking or running she has giving out of the ankle. Patient denies any other complaints. Jeffrey Worthington DPM [address], [place], [address], [employer] 04/19/2024 10:06:08 05/11/2024 text/html . Patient is [...] duty. Patient denies any other complaints. Jeffrey Worthington, ZAHIRA [address] [facility] [facility] [address], [place], [address], [place] [facility] 05/18/2024 14:42:07 OBGyn Episode No OBEpisode recorded.
--- OUTSIDE RECORDS SUMMARY | 2025-05-23 08:33 | XMS_ITS | Referral Summary ---
Author Organization [facility] Building B Address [address] [place] [address] Care Team Providers Care Aircraft Ordnance Systems Mechanic Name Role Phone Colby Hager MD Primary Care Provider Encounters Date Type Department Care Team Description 03/31/2025 6:00 PM CDT Office Visit [facility] at [address] [address] Neli Vanegas NP Abdominal pain (Primary Dx); Right upper quadrant abdominal tenderness without rebound tenderness; Nausea and vomiting, unspecified vomiting type; Acute cough 03/28/2025 8:10 AM CDT - 03/28/2025 11:59 PM CDT Hospital Encounter [facility] [address] [place] [address] [id number] Pain in joint involving ankle and foot, unspecified laterality Discharge Disposition: Discharge to home or self care 03/28/2025 8:00 AM CDT Office Visit [facility] Orthopaedic Surgery [address] [place] [address] [address] [place] [address] Handy Lopez MD Instability of right ankle joint (Primary Dx) from Last 3 Months Allergies No known [...] (12/30/2021): Added automatically from request for surgery [id number] Labral tear of hip, degenerative 12/30/2021 Overview (12/30/2021): Added automatically from request for surgery [id number] Avulsion of ligament with rahul ny fragment [...] Sexual Orientation Lesbian 10/10/2021 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 Not on file Not on file Not [...] on file Medical Devices Implanted Type Area Instrument Person Device Identifier Shelf Expiration Date Model / Serial / Lot P[employer] [id number] Cinchlock Ss Knotless Supervisor [employer] [place] Suture Labrum - [id number] Implanted:Qty: 1 on 01/29/2022 by Dinora Mcfadden MD at [facility] Right: Hip [facility] [id number] 04/22/2023 [id number] / / [id number] Description:[employer] [place] L25175 CINCHLOCK SS KNOTLESS ARMHOLE BASTER HAND LOCK ANCHOR SUTURE LABRUM - [id number] [facility] [id number] Cinchlock Ss Knotless Supervisor Pit And Auxiliaries Lock [place] Suture Labrum - [id number] Implanted:Qty: 1 on 01/29/2022 by Dinora Mcfadden MD at [facility] Right: Hip [facility] [id number] 04/22/2023 [id number] / / [id number] Description:[employer] [place] J68202 CINCHLOCK SS KNOTLESS ARMHOLE BASTER HAND LOCK ANCHOR SUTURE LABRUM - [id number] [facility] [id number] Xbraid 1.2mm Suture Nonabsorbable Titanium Uhmwpe Nonsterile - [id number] Implanted:Qty: 1 on 01/29/2022 by Dinora Mcfadden MD at [facility] Right: Hip [facility] [id number] 09/24/2023 [id number] / / [id number] Description:This is suture [facility] [id number] Xbraid 1.2mm Suture Nonabsorbable Titanium Uhmwpe Nonsterile - [id number] Implanted:Qty: 1 on 01/29/2022 by Dinora Mcfadden MD at [facility] Right: Hip [facility] [id number] 09/24/2023 [id number] / / [id number] Description:This is suture Procedures Procedure Name Priority [...] ankle. Electronically signed by: Melecio Banuelos M.D. us Handy Lopez MD IMG XR PROCEDURES Priya l Result from Last 3 Months Insurance [employer] [place] [employer] [place] [employer] COMPENS[employer] GENERIC [facility] WORKERS COMPENSATION GENERIC Care Teams Aircraft Ordnance Systems Mechanic Relationship Specialty Start Date End Date Colby Hager MD [address] [facility] [address] [place] [address] PCP - General Family Medicine 10/10/21
--- OUTSIDE RECORDS SUMMARY | 2025-05-23 08:33 | XMS_ITS | Clinical Summary ---
Author Organization [facility] Address [address] [facility] [place] [address] Care Team Providers Care Spray Maker Name Role Phone Selena Mendez MD Primary Care Provider [phone] Source Comments [facility],non-owned Affiliates and Associated Physician Practices is amultiple site organization consisting of ambulatory clinics and hospital sitesin [place], [place], [place] and [place]. This disclosure is being madepursuant to the Care Everywhere program and may not contain all information available regarding this patient. Last updated 18.[facility] Allergies No known active allergies Medications * [...] Glucagon (Baqsimi One Pack) 3 MG/DOSE POWD Adger 1 Each into the nose as needed [...] - 03/05/2025 11:59 PM CDT Hospital Encounter [facility] [address] [place] [address] Angela Lynn MD Discharge Disposition: Home or Self Care 02/28/2025 7:26 AM CDT - 02/28/2025 11:59 PM CDT Hospital Encounter [facility] [address] [place] [address] Nando Weinberg MD Discharge Disposition: Home or [...] 175 cm (5' 8.9) 11/08/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 Body Mass Index 37.77 11/08/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 Plan of Treatment Health Maintenance Due Date Last Done Comments HIV SCREENING 2006 HEPATITIS C SCREENING 03/11/2009 HEPATITIS B VACCINE (1 of 3 - 19+ 3-dose series) 2010 PAP SMEAR 2012 HPV VACCINE (1 - 3-dose SCDM series) 2018 COVID-19 VACCINE ( - 2023-2 5 season) 2024 10/16/2021, 12/31/2020, 12/03/2020 DEPRESSION SCREENING 11/01/2024 OB-ONE HOUR GLUCOSE 12/10/2024 OB-TDAP CURRENT 12/17/2024 04/22/2018 OB-RHOGAM INJECTION 12/24/2024 OB-GROUP B STREP SCREEN 02/11/2025 INFLUENZA VACCINE (#1) 2025 08/20/2022 DTAP/TDAP/TD VACCINES (2 - T [...] gestational diabetes mellitus (GDM) in second trimester ([facility]) BIOPHYSICAL PROFILE W NST Routine 02/28/2025 7:21 AM CDT Obesity affecting in third trimester, unspecified obesity type (HCC) Thyroid 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 Linked Results Indication ======== IVF Prior child with [facility] [place] echocardiogram: normal structures with PACs noted GDM-A2 on insulin, Class II obesity, Vaginal bleeding History ====== OB History 3. Para 1 [id number] 1. live 2020. Gest. age 40 w [...] with 2x weekly NST Coding ====== Procedures 78609: [place] Uterus Limited 06167: Biophysical Profile W NST [facility] [employer] PACS Anatomical Region Laterality Modality Other 03/05/2025 8:48 AM CDT Angela Lynn MD [facility] ORDERABLES Edited Result - Final from Last 3 Months Insurance XU Care Teams Spray Maker Relationship Specialty Start Date End Date Selena Mendez MD PCP - General 07/16/20
[2025-05-23 15:27] LABS: Glucose 2 Hour Gest 113 mg/dL (>/= 155)
== END 2025-05-23 08:30 | disposition home or self-care (01) ==
LOC: ANHGOSHLAB 08:30
PROVIDERS: PCP Family Medicine; Visit Provider Obstetrics & Gynecology
DX: O24.414 Gestational diabetes mellitus in pregnancy, insulin controlled (principal); Z3A.00 Weeks of gestation of pregnancy not specified
CPT/HCPCS: 36415; 82948

== ENCOUNTER 2025-08-24 09:47 | Outpatient (CLI) | payer BC, SELFPAY ==
--- OUTSIDE RECORDS SUMMARY | 2025-08-24 10:04 | XMS_ITS | Clinical Summary ---
Author Organization [facility] Address [address] [place] [address] Care Team Providers Care Carpenter Assistant Name Role Phone Colby Hager MD Primary Care Provider Allergies No known active allergies Medications loratadine (CLARITIN) 10 mg tablet Take 1 tablet (10 mg total) by mouth daily Active ferrous sulfate 325 mg (65 mg of elemental iron) tablet Take 1 tablet (325 mg total) by mouth daily Active follitropin beta (Follistim AQ) 900 unit/1.08 mL cartridge INJECT 225 UNITS SUBCUTANEOUSLY EVERY DAY Active ganirelix 250 mcg/0.5 mL syringe INJECT 250MCG SUBCUTANEOUSLY EVERY DAY Active menotropins (Menopur) 75 unit recon soln INJECT 75 UNITS SUBCUTANEOUSLY EVERY DAY DIRECTED Active Active Problems Problem Noted Date Diagnosed [...] (12/30/2021): Added automatically from request for surgery [id number] Labral tear of hip, degenerative 12/30/2021 Overview (12/30/2021): Added automatically from request for surgery [id number] Avulsion of ligament with rahul ny fragment of lateral malleolus 12/29/2021 Irregular periods 11/26/2021 Arthralgia of right ankle 05/12/2021 Pain in right foot 05/12/2021 Exposure to blood 04/22/2018 Encounters Date Type Department Care Team Description 07/31/2025 Telephone [facility] Medicine Orthopaedic Surgery [address] [place] [address] Celia Vallejo BS 07/24/2025 Telephone [facility] Medicine Orthopaedic Surgery [address] 2[address] [place] [address] Ana Gloria RMA [id number] ORMICK 07/16/2025 4:10 PM CDT Office Visit [facility] Medicine Orthopaedic Surgery [address] 2[address] [place] [address] Handy Lopez MD Instability of right ankle joint (Primary Dx) 07/16/2025 2:06 PM CDT - 07/16/2025 11:59 PM CDT Hospital Encounter [facility] [address] [place] [address] Instability of right ankle joint Discharge Disposition: Discharge to home or self care 06/25/2025 8:00 AM CDT Office Visit [facility] Orthopaedic Surgery [address] [place] [address] Handy Lopez MD Instability of right ankle joint (Primary Dx) 06/25/2025 Telephone [facility] Medicine Orthopaedic Surgery [address] 2[address] [place] [address] Ana Gloria RMA [id number] 06/25/2025 Telephone [facility] Medicine Orthopaedic Surgery [address] [place] [address] Celia Vallejo, [employer] WORK COMP INTAKE FORM - RIGHT ANKLE from Last 3 Months Immunizations Immunization Administration Dates Next Due Influenza, Quadrivalent, Spl it, Preservative Free, Intramuscular 08/20/2022 Moderna SARS-CoV-2 Monovalen t Vaccination (12+ YRS) 10/16/2021,12/31/2020,12/03/2020 Surgical History Surgery Date Site/Laterality Comments HAND SURGERY 11/01/2009 - 10/31/2010 Right WISDOM TOOTH EXTRACTION 11/01/2005 - 10/31/2006 DIAGNOSTIC LAPAROSCOPY for IVF HIP SURGERY FRACTURE SURGERY May 2010 Medical History Medical History Date Comments Obesity Thyroid disease January 19 Anemia Liver disease Anxiety Nov 19 Brain concussion May 18 Migraines Nov 19 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 19 Family History Medical History Relation Name Comments Alcohol abuse Brother Adam Young Diabetes Father Robert Young Diabetes Father's Brother Cade Young Stroke Maternal Grandfather Clotting disorder Mother Ana Young Diabetes Mother Ana Young Heart disease Mother Ana Young Stroke Mother Ana Morriso Stroke Paternal Grandfather Pelegrino Young Heart disease Paternal Grandmother defects Son Hilary Lira Anesthesia problems Neg Hx Relation Name Status Comments Brother Adam Young Father Robert Young Alive Father's Brother Cade Young Maternal Grandfather Mother Ana Young Alive Paternal Grandfather Pelsimon Mroriso Paternal Grandmother Son Hilary Lira Social History [...] Sexual Orientation Lesbian 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 Not on file Not [...] Screening 2009 Regular Well Visit/Exam 18-64 2009 HPV Vaccines (1 - 3-dose SCD M series) 2018 Covid-19 Vaccine ( - 2024-2 6 season) 2025 10/16/2021, 12/31/2020, 12/03/2020 Influenza Vaccine (#1) 2025 08/20/2022 Pneumococcal vaccine <65 Aged Out No longer eligible based on patient's age to complete this topic Medical Devices Implanted Type Area Non Destructive Testing Supervisor Device Identifier Shelf Expiration Date Model / Serial / Lot [employer] [id number] Cinchlock Ss Knotless Carport Erector Lock [place] Suture Labrum - [id number] Implanted:Qty: 1 on 01/29/2022 by Dinora Mcfadden MD at [facility] [place] Right: Hip [facility] [id number] 04/22/2023 [id number] / / [id number] Description:[employer] [place] [id number] CINCHLOCK SS 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 SUTURE LABRUM - [id number] P[employer] [id number] Cinchlock Ss Knotless Carport Erector Lock [place] Suture Labrum - [id number] Implanted:Qty: 1 on 01/29/2022 by Dinora Mcfadden MD at [facility] Right: Hip [facility] [id number] 04/22/2023 [id number] / / [id number] Description:[facility] [place] [id number] CINCHLOCK SS 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 SUTURE LABRUM - [id number] [facility] [id number] Xbraid 1.2mm Suture Nonabsorbable Titanium Uhmwpe Nonsterile - [id number] Implanted:Qty: 1 on 01/29/2022 by Dinora Mcfadden MD at [facility] [place] Right: Hip [facility] [id number] 09/24/2023 [id number] / / [id number] Description:This is suture [facility] [id number] Xbraid 1.2mm Suture Nonabsorbable Titanium Uhmwpe Nonsterile - [id number] Implanted:Qty: 1 on 01/29/2022 by Dinora Mcfadden MD at [facility] [place] Right: Hip [facility] [id number] 09/24/2023 [id number] / / [id number] Description:This is suture Procedures Procedure Name Priority Date/Time Associated Diagnosis Comments MRI ANKLE HINDFOOT RIGHT WO CONTRAST Schedule Routine, Read Routine (OP Routine) 07/16/2025 2:27 PM CDT Instability of right ankle joint from Last 3 Months Results * MRI Ankle Hindfoot Right WO Contrast (07/16/2025 2:27 PM CDT) Anatomical Region Laterality Modality Lower Extremities Right Magnetic Reson ance 07/16/2025 3:10 PM CDT Impressions 07/16/2025 3:16 PM CDT 1. Thickening of the anterior talofibular and calcaneofibular ligaments with associated heterotopic ossification, which may be seen in the setting of chronic low ankle sprain. 2. Mild posterior tibiotalar chondrosis with small effusion. Dictated by: Daryn Bullock M.D. The radiology attending physician has personally reviewed this study, and had reviewed and/or edited this written report and agrees with it. Electronically signed by: Edward Koch M.D. Narrative 07/16/2025 3:16 PM CDT EXAMINATION: 1. MR right ankle and hindfoot without contrast HISTORY: Right ankle instability FINDINGS: Comparison radiograph dated 03/28/2025 has been reviewed. MR examination of the right ankle and hindfoot is performed with a extremity coil. No intravenous or intra-articular contrast was administered for this examination. Sagittal short TR/TE and STIR images and transverse and coronal short TR/TE and fast spin-echo images are obtained. Medially, the posterior tibialis, flexor hallucis and flexor digitorum tendons are normal. The deltoid, tibial spring and spring ligaments are normal. The tarsal tunnel is normal. Laterally, the peroneal tendons are intact without tenosynovitis or significant tendinopathy. The superior peroneal retinaculum is intact. The syndesmosis and syndesmotic ligaments are intact. The anterior talofibular, calcaneofibular, and posterior talofibular ligaments are intact. There is heterotopic ossification along the lateral ankle with thickening of the anterior talofibular and calcaneofibular ligaments, consistent with chronic low lateral ankle sprain. Posteriorly, the Achilles is normal. There is no retrocalcaneal bursitis. Intrinsically, the calcaneus is normal without evidence of a stress fracture. The sinus Tarsi is normal. The plantar fascia is normal. Tiny Achilles enthesophyte is noted. Anteriorly, the ankle extensors are normal. The talar dome is normal without evidence of osteochondral lesion. There is a small ankle and subtalar joint effusion. There is mild posterior tibiotalar chondrosis with mild subchondral edema. No marrow replacing lesions. No acute fracture. Small focus of susceptibility artifact along the posterior lateral calcaneus, may be secondary to overlying object. Procedure Note Edward Koch MD - 07/16/2025 EXAMINATION: 1. MR right ankle and hindfoot without contrast HISTORY: Right ankle instability FINDINGS: Comparison radiograph dated 03/28/2025 has been reviewed. MR examination of the right ankle and hindfoot is performed with a extremity coil. No intravenous or intra-articular contrast was administered for this examination. Sagittal short TR/TE and STIR images and transverse and coronal short TR/TE and fast spin-echo images are obtained. Medially, the posterior tibialis, flexor hallucis and flexor digitorum tendons are normal. The deltoid, tibial spring and spring ligaments are normal. The tarsal tunnel is normal. Laterally, the peroneal tendons are intact without tenosynovitis or significant tendinopathy. The superior peroneal retinaculum is intact. The syndesmosis and syndesmotic ligaments are intact. The anterior talofibular, calcaneofibular, and posterior talofibular ligaments are intact. There is heterotopic ossification along the lateral ankle with thickening of the anterior talofibular and calcaneofibular ligaments, consistent with chronic low lateral ankle sprain. Posteriorly, the Achilles is normal. There is no retrocalcaneal bursitis. Intrinsically, the calcaneus is normal without evidence of a stress fracture. The sinus Tarsi is normal. The plantar fascia is normal. Tiny Achilles enthesophyte is noted. Anteriorly, the ankle extensors are normal. The talar dome is normal without evidence of osteochondral lesion. There is a small ankle and subtalar joint effusion. There is mild posterior tibiotalar chondrosis with mild subchondral edema. No marrow replacing lesions. No acute fracture. Small focus of susceptibility artifact along the posterior lateral calcaneus, may be secondary to overlying object. IMPRESSION: 1. Thickening of the anterior talofibular and calcaneofibular ligaments with associated heterotopic ossification, which may be seen in the setting of chronic low ankle sprain. 2. Mild posterior tibiotalar chondrosis with small effusion. Dictated by: Daryn Bullock M.D. The radiology attending physician has personally reviewed this study, and had reviewed and/or edited this written report and agrees with it. Electronically signed by: Edward Koch M.D. Handy Lopez MD IMG MRI PROCEDURES Fin al Result from Last 3 Months Insurance [facility] WORK[employer] COMPENSATION GENERIC KASSY ZAMORA [employer] COMPENSATION GENERIC Care Teams Carpenter Assistant Relationship Specialty Start Date End Date Colby Hager MD [address] [facility] [address] [place] [address] PCP - General Family Medicine 10/10/21
--- OUTSIDE RECORDS SUMMARY | 2025-08-24 10:04 | XMS_ITS | Clinical Summary ---
Author Organization [facility] Address [address] [place] [address] Care Team Providers Care Usability Strategist Name Role Phone Selena Mendez MD Primary Care Provider [phone]- [phone] Source Comments [facility],non-owned Affiliates and Associated Physician Practices is amultiple site organization consisting of ambulatory clinics and hospital sitesin [place], [place], [place] and [place]. This disclosure is being madepursuant to the Care Everywhere program and may not contain all information available regarding this patient. Last updated 18.[facility] Allergies No known active allergies Medications * [...] Glucagon (Baqsimi One Pack) 3 MG/DOSE POWD [place] 1 Each into the nose as needed [...] daily dose = 50u 15 mL 5 5 Active ferrous sulfate 325 (65 FE) [...] 11/13/2024 History of iron deficiency anemia 11/08/2024 Resolved Problems Problem Noted Date Diagnosed Date Resolved Date 21 weeks gestation of 11/13/2024 01/31/2025 Exposure to blood 04/22/2018 11/13/2024 Immunizations Immunization Administration Dates Next Due TDAP [...] = 0.6 oz pur e alcohol) rare Comments No Sex and Gender Information Value [...] 175 cm (5' 8.9) 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 Body Mass Index 37.77 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
--- OUTSIDE RECORDS SUMMARY | 2025-08-24 10:04 | XMS_ITS | Encounter Summary ---
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
[2025-08-24 13:02] LABS: Hematocrit 37.7 % (37.0-47.0); Hemoglobin 12.8 g/dL (12.0-15.0); Mean Corpuscular HGB Conc 34.0 g/dl (32-36); Mean Corpuscular Hemoglobin 29.8 pg (26-34); Mean Corpuscular Volume 87.9 fl (80-100); Platelet Count Result 240 k/mm3 (150-375); Red Blood Count 4.29 M/mm3 (4.2-5.4); White Blood Count 6.5 K/mm3 (4.5-10.0)
[2025-08-24 13:17] LABS: Alanine Aminotransferase 26 U/L (6-35); Albumin Level 4.3 g/dL (3.5-5.1); Alkaline Phosphatase 111 U/L (38-126); Anion Gap 9 mmol/L (4-12); Aspartate Amino Transferase 42 U/L (14-36); Bilirubin,Total 0.6 mg/dL (0.2-1.3); Blood Urea Nitrogen 9 mg/dL (7-17); Calcium 8.5 mg/dL (8.4-10.2); Carbon Dioxide 25 mmol/L (22-30); Chloride 104 mmol/L (98-107); Cholesterol 184 mg/dL (0-200); Estimated Glomerular Filt Rate > 60; Glucose 85 mg/dL (65-110); HDL Direct 44 mg/dL; Potassium 3.5 mmol/L (3.4-5.0); Sodium 138 mmol/L (137-145); Total Protein 7.5 g/dL (6.3-8.2); Triglycerides 131 mg/dL (<150)
[2025-08-24 13:58] LABS: Thyroid Stimulating Hormone 2.240 uIU/mL (0.465-4.680)
[2025-08-24 14:18] LABS: Hemoglobin A1C 4.7 % (<5.7)
== END 2025-08-24 09:48 | disposition home or self-care (01) ==
LOC: ANHGOSHLAB 09:47
PROVIDERS: PCP Family Medicine; Visit Provider Physician Assistant Medical
DX: F41.1 Generalized anxiety disorder (principal); E06.3 Autoimmune thyroiditis
CPT/HCPCS: 36415; 80053; 80061; 83036; 84443; 85027